=== PATIENT | male | born 1960 | race Caucasian/White ===

== ENCOUNTER 2020-05-05 12:25 | Inpatient (IN) | payer MEDICAID ==
[~2020-05-05] VITALS: Ht 170.2 cm; Wt 66.0 kg
[2020-05-05] MEDS: IPRATROPIUM BROMIDE 0.5 MG/2.5 ML NEBU. NEB SCH ×2 (08:40→16:00)
[~2020-05-05 12:25] MED LIST: ASPI-482 PO; ATOR10TA60 PO; CARV3.12 PO; CLOP75TA57 PO; CRESTOR40 MG PO; LISI10TA2 PO; METO-239 PO; METO25TA4 PO; MORP30TA83 PO; NITR0.4T22 SL; OXYC1TAB22 PO; PREG300C PO; RANO500T2 PO; TIOT18CA IH; TRAM50TA PO
--- NOTE | 2020-05-05 12:46 | EKG ---
[facility] [address] [place] [address] Test Date: 2020-05-05 Test Time: 12:38:37 Pat Name: CARMELA JOSEPH Department: Room: Gender: M Medical File Clerk: : 1960 Requested By: DESI GIRARD Order Number: [id number] Reading MD: Measurements Intervals [place] Rate: 83 P: 52 LA: 148 QRS: -16 QRSD: 142 T: 154 QT: 408 QTc: 486 Interpretive Statements SINUS RHYTHM VENTRICULAR PREMATURE COMPLEX(ES) LEFT ATRIAL ABNORMALITY CONSIDER WPW, TYPE B LEFTWARD AXIS QRS(T) CONTOUR ABNORMALITY CONSIDER ANTEROSEPTAL MYOCARDIAL DAMAGE ST & T ABNORMALITY, CONSIDER LATERAL ISCHEMIA OR LEFT VENTRICULAR STRAIN ABNORMAL ECG RI6.02 No previous ECG available for comparison
[2020-05-05] MEDS ORDERED: fentaNYL PF VIAL 100 MCG/2 ML VIAL IV ONE (13:15)
[2020-05-05] MEDS ORDERED: ONDANSETRON PF 4 MG/2 ML VIAL. IV ONE (13:15)
[2020-05-05 13:18] LABS: BASO # 0.1 x10^3/uL (0.0-0.2); BASO % 1 % (0-3); EOS # 0.2 x10^3/uL (0.0-0.7); EOS % 5 % (0-3); HEMATOCRIT 26.8 % (39.0-53.0); HEMOGLOBIN 8.9 g/dL (13.0-17.5); LYMPH # 1.1 x10^3/uL (1.0-4.8); LYMPH % 20 % (24-48); MEAN CORPUSCULAR HEMOGLOBIN 27 pg (25-35); MEAN CORPUSCULAR HGB CONC 33 g/dL (31-37); MEAN CORPUSCULAR VOLUME 80 fL (79-100); MONO # 0.7 x10^3/uL (0.0-1.1); MONO % 13 % (0-9); NEUT # 3.3 x10^3/uL (1.8-7.7); NEUT % 61 % (31-73); PLATELET COUNT 266 x10^3/uL (140-400); RED BLOOD COUNT 3.36 x10^6/uL (4.30-5.70); RED CELL DISTRIBUTION WIDTH 16.7 % (11.5-14.5); WHITE BLOOD COUNT 5.4 x10^3/uL (4.0-11.0)
[2020-05-05 13:28] LABS: PROTHROMBIN TIME PATIENT 13.8 SEC (11.7-14.0)
--- NOTE | 2020-05-05 13:29 | RAD ---
CHEST AP ONLY History: Reason: chest pain / Spl. Instructions: / History: Comparison: November 17, 2019 Findings: Patchy bibasilar opacities, unchanged. No pleural effusion. No pneumothorax. Left-sided ICD, unchanged. Normal heart size. Impression: 1. Patchy bibasilar opacities, likely atelectasis. Electronically signed by: Lennox Mcfarland DO (05/05/2020 1:26 PM) [id number]
[2020-05-05 13:34] LABS: CALCIUM 8.1 mg/dL (8.5-10.1); CREATININE 1.2 mg/dL (0.7-1.3); GFR 61.8
[2020-05-05 13:36] LABS: ALBUMIN 3.2 g/dL (3.4-5.0); ALBUMIN/GLOBULIN RATIO 0.9 (1.0-1.7); TOTAL BILIRUBIN 0.3 mg/dL (0.2-1.0); TOTAL PROTEIN 6.8 g/dL (6.4-8.2)
[2020-05-05 13:37] LABS: BILIRUBIN,URINE NEGATIVE (NEG); CLARITY,URINE CLEAR; COLOR,URINE YELLOW; NITRITE,URINE NEGATIVE (NEG); PROTEIN,URINE NEGATIVE (NEG-TRACE)
--- NOTE | 2020-05-05 13:53 | PHYS DOC ---
Past Medical History Past Medical History: Asthma, CAD, CHF, CVA, High Cholesterol, Hypertension, [place], Other Additional Past Medical Histor: VTACH Past Surgical History: Pacemaker, Splenectomy, Other Additional Past Surgical Histo: 12 cardiac stents, multiple cardiac catheterizations,WITH DEFIB Smoking Status: Current Every Day Smoker Alcohol Use: Rarely Drug Use: None General Adult EDM: Chief Complaint: CHEST PAIN HPI: HPI: Patient is a 59 year old male who presents to the emergency department via EMS today with complaints of a sudden onset of left-sided chest pain that radiates to the left side of his neck, his left shoulder, and down his left arm while he was at the [facility] today. Patient states he lives down at the [facility] but is up here visiting. He reports feeling tired this morning but denies any recent fever, cough, body aches, chills, shortness of breath, nausea, vomiting, diarrhea, abdominal pain, or palpations. He states he had just arrived at the [facility] when the pain developed and he became diaphoretic. Patient reports a sig nificant history of at least 4 MIs, 12 cardiac stents, multiple heart caths, coronary artery disease, CVA, high blood pressure, high cholesterol, and asthma. He states that when the chest pain developed he took 3 nitroglycerin tablets the pain went from a 8/10 to a 6/10 but quickly returned right back up to 8. He smokes 1/2 ppd of cigartettes. EMS gave the patient 324 mg of aspirin in route to the ER. He currently rates the pain 8 out of 10 on the pain scale describes it as a sharp constant pain that radiates to the left shoulder, left neck, and down the left arm. He denies any known exposure to anyone with COVID-19. Review of Systems: Review of Systems: Constitutional: Denies fever or chills. [] Eyes: Denies change in visual acuity. [] HENT: Denies nasal congestion or sore throat. [] Respiratory: Denies cough or shortness of breath. [] Cardiovascular: Denies palpitations or edema; see HPI. [] GI: Denies abdominal pain, nausea, vomiting, or diarrhea. [] : Denies dysuria. [] Musculoskeletal: Denies back pain or joint pain. [] Integument: Denies rash; see HPI [] Neurologic: Denies headache, focal weakness or sensory changes. [] Psychiatric: Denies depression or anxiety. [] Heart Score: HEART Score for Chest Pain: HEART Score for Chest Pain Response (Comments) Value History Moderately Suspicious 1 ECG Nonspecific Repolarizatio 1 Age >45 - < 65 1 Risk Factors >3 Risk Factors or Hx CAD 2 Troponin < Normal Limit 0 Total 5 Risk Factors: Risk Factors: DM, Current or recent (<one month) smoker, HTN, HLP, family history of CAD, obesity. Risk Scores: Score 0 - 3: 2.5% MACE over next 6 weeks - Discharge Home Score 4 - 6: 20.3% MACE over next 6 weeks - Admit for Clinical Observation Score 7 - 10: 72.7% MACE over next 6 weeks - Early Invasive Strategies Current Medications: Current Medications Medications (Trade) Dose Ordered Sig/Ani Start Time Stop Time Status Last Admin Dose Admin Fentanyl Citrate (Fentanyl 2ml Vial) 50 mcg 1X ONCE 05/05/20 13:15 05/05/20 13:16 DC 05/05/20 13:17 50 MCG Ondansetron HCl (Zofran) 4 mg 1X ONCE 05/05/20 13:15 05/05/20 13:16 DC 05/05/20 13:17 4 MG Allergies: Allergies: Allergies Coded Allergies Type Severity Reaction Last Updated Verified albuterol Adverse Reaction Intermediate 11/18/19 Yes ibuprofen Adverse Reaction Intermediate Nausea and Vomiting 11/18/19 Yes Physical Exam: PE: Constitutional: Well developed, well nourished, no acute distress, non-toxic appearance. [] HENT: Normocephalic, atraumatic, bilateral external ears normal, nose normal. [] Eyes: PERRLA, EOMI, conjunctiva normal, no discharge. [] Neck: Normal range of motion, no stridor. [] Cardiovascular:Heart rate regular rhythm, no murmur [] Lungs & Thorax: Bilateral breath sounds coarse posteriorly, clear in upper ehrnandez bilaterally, no retractions, regular rate Abdomen: soft, no tenderness Skin: Warm, dry, no erythema, no rash. [] Back: No tenderness, no CVA tenderness. [] Extremities: No cyanosis, no clubbing, ROM intact, no edema. [] Neurologic: Alert and oriented X 3, no focal deficits noted. [] Psychologic: Affect normal, judgement normal, mood normal. [] Current Patient Data: Labs: Laboratory Tests Test 05/05/20 13:00 White Blood Count 5.4 x10^3/uL (4.0-11.0) Red Blood Count 3.36 x10^6/uL (4.30-5.70) L Hemoglobin 8.9 g/dL (13.0-17.5) L Hematocrit 26.8 % (39.0-53.0) L Mean Corpuscular Volume 80 fL (79-100) Mean Corpuscular Hemoglobin 27 pg (25-35) Mean Corpuscular Hemoglobin Concent 33 g/dL (31-37) Red Cell Distribution Width 16.7 % (11.5-14.5) H Platelet Count 266 x10^3/uL (140-400) Neutrophils (%) (Auto) 61 % (31-73) Lymphocytes (%) (Auto) 20 % (24-48) L Monocytes (%) (Auto) 13 % (0-9) H Eosinophils (%) (Auto) 5 % (0-3) H Basophils (%) (Auto) 1 % (0-3) Neutrophils # (Auto) 3.3 x10^3/uL (1.8-7.7) Lymphocytes # (Auto) 1.1 x10^3/uL (1.0-4.8) Monocytes # (Auto) 0.7 x10^3/uL (0.0-1.1) Eosinophils # (Auto) 0.2 x10^3/uL (0.0-0.7) Basophils # (Auto) 0.1 x10^3/uL (0.0-0.2) Prothrombin Time 13.8 SEC (11.7-14.0) Prothrombin Time INR 1.1 (0.8-1.1) Activated Partial Thromboplast Time 33 SEC (24-38) Laboratory Tests 05/05/20 13:00 Vital Signs: Vital Signs Date Time Temp Pulse Resp B/P (MAP) Pulse Ox O2 Delivery O2 Flow Rate FiO2 05/05/20 12:30 98.3 84 20 122/78 (93) 99 Room Air 98.3 EKG: EK-sinus rhythm with PVCs, left atrial abnormality, rate 83, no STEMI, read by Dr. Dennison [] Radiology/Procedures: Radiology/Procedures: PROCEDURE: CHEST AP ONLY CHEST AP ONLY History: Reason: chest pain / Spl. Instructions: / History: Comparison: November 17, 2019 Findings: Patchy bibasilar opacities, unchanged. No pleural effusion. No pneumothorax. Left-sided ICD, unchanged. Normal heart size. Impression: 1. Patchy bibasilar opacities, likely atelectasis. [] Course & Med Decision Making: Course & Med Decision Making Pertinent Labs and Imaging studies reviewed. (See chart for details) 1408-spoke with Dr. Jordan who is the admitting physician, and care was assumed following discussion of patient. Will admit the patient for chest pain and a nemia to CBC Patient's vital signs stable. Patient remains afebrile, appears nontoxic, respirations even and unlabored. Patient's case and plan of care also discussed with Dr. Dennison [] Sendy Disclaimer: Sendy Disclaimer: This electronic medical record was generated, in whole or in part, using a voice recognition dictation system. Departure Departure Impression: Primary Impression: Chest pain Qualified Codes: R07.9 - Chest pain, unspecified Additional Impression: Anemia Qualified Codes: D64.9 - Anemia, unspecified Disposition: ADMITTED INPATIENT Admitting Physician: DEJUAN SEGURA) Condition: GOOD Referrals: NO PCP (PCP) Justicifation of Admission Dx: Justifications for Admission: Justification of Admission Dx: Yes Sepsis: Bacteremia DESI GIRARD BLUEPRINT CUTTER May 05, 2020 13:53
[2020-05-05 13:55] LABS: WBC,URINE 0 /HPF (0-4)
[2020-05-05 13:56] LABS: AMORPHOUS SEDIMENT,UR PRESENT /HPF; BACTERIA,URINE 0 /HPF (0-FEW)
--- NOTE | 2020-05-05 14:24 | PDOC1 ---
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 Happened in the [employer] and currently visiting from the [facility] where he lives. Took 3 NTG with improvement of pain from 08/06 to 04/06 and had 324mg ASA enroute from EMS. No nausea or vomiting no chills no fever no recent sick contacts. He has shortness of breath at its baseline. He notes he takes Spiriva only as an inhaler and would like to continue to do so. Troponin negative, BNP 5044, NA 141, K4, BUN 10, CR 1.2, glucose 91, WBC 5.4 currently Hb 8.9 with prior of 13 noted INR 1.1 platelets 266. EKG with lateral TWI and leftward axis, no STEMI. Chest x-ray with patchy bibasilar opacities unchanged from prior, likely atelectasis. Historically with multiple PCIs- LHC at [facility] Oct 2017 showed showed patent mid LAD stent, patent 1st diagonal stent, total chronic occlusion of first obtuse marginal with territory infarct but no indication for PCI, patent stent in left AV groove artery, patent stent in LPDA, non-dominant 100 % stenosis of proximal RCA. Seen by cardiology here in October. He does continue to smoke states he smokes less than half pack a day, he is asking me for food and would like to talk about pain medications that he can go home on. I advised him that given his history of substance abuse this is ill advised. Admit for further work-up of his coronary artery disease Past Medical History Cardiovascular: CAD, CHF, HTN, Hyperlipidemia, Other Pulmonary: Asthma CENTRAL NERVOUS SYSTEM: CVA GI: GERD Heme/Onc: No pertinent hx Hepatobiliary: No pertinent hx Psych: Anxiety Musculoskeletal: Osteoarthritis Rheumatologic: No pertinent hx Infectious disease: No pertinent hx Renal/: No pertinent hx Endocrine: No pertinent hx Past Surgical History Past Surgical History: Pacemaker, Other Family History Family History: Coronary Artery Disease, Diabetes, Heart Disease, Hypertension Social History Smoke: <1 pack per day ALCOHOL: none Drugs: Crystal meth (In remission), Other Current Medications Current Medications Current Medications Fentanyl Citrate (Fentanyl 2ml Vial) 50 mcg 1X ONCE IV Last administered on 05/05/20at 13:17; Start 05/05/20 at 13:15; Stop 05/05/20 at 13:16; Status DC Ondansetron HCl (Zofran) 4 mg 1X ONCE IV Last administered on 05/05/20at 13:17; Start 05/05/20 at 13:15; Stop 05/05/20 at 13:16; Status DC Active Scripts Active Reported Spiriva (Tiotropium Wilson) 18 Mcg Cap.w.dev 1 Cap IH DAILY Atorvastatin Calcium 10 Mg Tablet 10 Mg PO HS Metoprolol Succinate ( Xl ) (Metoprolol Succinate) 25 Mg Tab.er.24h 12.5 Mg PO DAILY Spiriva (Tiotropium Wilson) 18 Mcg Cap.w.dev 1 Cap IH DAILY Ms Contin (Morphine Sulfate) 30 Mg Tablet.er 1 Tab PO BID PRN NITROGLYCERIN SubLingual (Nitroglycerin) 0.4 Mg Tab.subl 0.4 Mg SL PRN Q5MIN PRN Lyrica (Pregabalin) 300 Mg Capsule 1 Cap PO BID Plavix (Clopidogrel Bisulfate) 75 Mg Tablet 75 Mg PO DAILY Aspir 81 (Aspirin) 81 Mg Tablet.dr 1 Tab PO DAILY Allergies Allergies: Coded Allergies: albuterol (Verified Adverse Reaction, Intermediate, 11/18/19) Patient states "it speeds my heart up too much" ibuprofen (Verified Adverse Reaction, Intermediate, Nausea and Vomiting, 11/18/19) ROS General: YES: Fatigue, Malaise; No: Chills, Night Sweats, Appetite, Other PSYCHOLOGICAL ROS: YES: Anxiety; No: Behavioral Disorder, Concentration difficultie, Decreased libido, Depression, Disorientation, Hallucinations, Hostility, Irritablity, Memory difficulties, Mood Swings, Obsessive thoughts, Physical abuse, Sexual abuse, Sleep disturbances, Suicidal ideation, Other Eyes: No Blurry vision, No Decreased vision, No Double vision, No Dry eyes, No Excessive tearing, No Eye Pain, No Itchy Eyes, No Loss of vision, No Photophobia, No Scotomata, No Uses contacts, No Uses glasses, No Other HEENT: No: Heacaches, Visual Changes, Hearing change, Nasal congestion, Nasal discharge, Oral lesions, Sinus pain, Sore Throat, Epistaxis, Sneezing, Snoring, Tinnitus, Vertigo, Vocal changes, Other ALLERGY AND IMMUNOLOGY: No: Hives, Insect Bite Sensitivity, Itchy/Watery Eyes, Nasal Congestion, Post Nasal Drip, Seasonal Allergies, Other Hematological and Lymphatic: No: Bleeding Problems, Blood Clots, Blood Transfusions, Brusing, Night Sweats, Pallor, Swollen Lymph Nodes, Other ENDOCRINE: No: Breast Changes, Galactorrhea, Hair Pattern Changes, Hot Flashes, Malaise/lethargy, Mood Swings, Palpitations, Polydipsia/polyuria, Skin Changes, Temperature Intolerance, Unexpected Weight Changes, Other Breast: No New/Changing Breast Lumps, No Nipple changes, No Nipple discharge, No Other Respiratory: YES: Shortness of breath, Wheezing; No: Cough, Hemoptysis, Orthopnea, Pleuritic Pain, SOB with excertion, Sputum Changes, Stridor, Tachypnea, Other Cardiovascular: yes Chest Pain; No Palpitations, No Orthopnea, No Paroxysmal Noc. Dyspnea, No Edema, No Lt Headedness, No Other Gastrointestinal: No Nausea, No Vomiting, No Abdominal Pain, No Diarrhea, No Constipation, No Melena, No Hematochezia, No Other Genitourinary: No Dysuria, No Frequency, No Incontinence, No Hematuria, No Retention, No Discharge, No Urgency, No Pain, No Flank Pain, No Other, No , No , No , No , No , No , No Musculoskeletal: No Gait Disturbance, No Joint Pain, No Joint Stiffness, No Joint Swelling, No Muscle Pain, No Muscular Weakness, No Pain In:, No Swelling In:, No Other Neurological: No Behavorial Changes, No Bowel/Bladder ControlChng, No Confusion, No Dizziness, No Gait Disturbance, No Headaches, No Impaired Coord/balance, No Memory Loss, No Numbness/Tingling, No Seizures, No Speech P roblems, No Tremors, No Visual Changes, No Weakness, No Other Skin: No Dry Skin, No Eczema, No Hair Changes, No Lumps, No Mole Changes, No Mottling, No Nail Changes, No Pruritus, No Rash, No Skin Lesion Changes, No Other, No Acne Physical Exam General: Alert, Oriented X3, Cooperative, No acute distress HEENT: Atraumatic, PERRLA, EOMI, Mucous membr. moist/pink Lungs: Other (scattered wheezing) Heart: S1S2, RRR, no thrills, no rubs, no gallops, no murmurs Abdomen: Normal bowel sounds, Soft, No tenderness, No hepatosplenomegaly, No masses Rectal Exam: not examined Extremities: No clubbing, No cyanosis, No edema, Normal pulses, No tenderness/swelling Skin: No rashes, No breakdown, No significant lesion, Other (thrombophlebitis scarring) Neuro: Normal gait, Normal speech, Strength at 5/5 X4 ext, Normal tone, Sensation intact, Cranial nerves 3-12 NL, Reflexes 2+ Psych/Mental Status: Mental status NL, Mood NL Vitals Vitals Vital Signs Date Time Temp Pulse Resp B/P (MAP) Pulse Ox O2 Delivery O2 Flow Rate FiO2 05/05/20 13:29 78 107/65 (79) 97 Room Air 05/05/20 12:30 98.3 20 98.3 Labs Labs Laboratory Tests Test 05/05/20 13:00 05/05/20 13:24 White Blood Count 5.4 x10^3/uL (4.0-11.0) Red Blood Count 3.36 x10^6/uL (4.30-5.70) Hemoglobin 8.9 g/dL (13.0-17.5) Hematocrit 26.8 % (39.0-53.0) Mean Corpuscular Volume 80 fL (79-100) Mean Corpuscular Hemoglobin 27 pg (25-35) Mean Corpuscular Hemoglobin Concent 33 g/dL (31-37) Red Cell Distribution Width 16.7 % (11.5-14.5) Platelet Count 266 x10^3/uL (140-400) Neutrophils (%) (Auto) 61 % (31-73) Lymphocytes (%) (Auto) 20 % (24-48) Monocytes (%) (Auto) 13 % (0-9) Eosinophils (%) (Auto) 5 % (0-3) Basophils (%) (Auto) 1 % (0-3) Neutrophils # (Auto) 3.3 x10^3/uL (1.8-7.7) Lymphocytes # (Auto) 1.1 x10^3/uL (1.0-4.8) Monocytes # (Auto) 0.7 x10^3/uL (0.0-1.1) Eosinophils # (Auto) 0.2 x10^3/uL (0.0-0.7) Basophils # (Auto) 0.1 x10^3/uL (0.0-0.2) Prothrombin Time 13.8 SEC (11.7-14.0) Prothromb Time International Ratio 1.1 (0.8-1.1) Activated Partial Thromboplast Time 33 SEC (24-38) Sodium Level 141 mmol/L (136-145) Potassium Level 4.0 mmol/L (3.5-5.1) Chloride Level 105 mmol/L (98-107) Carbon Dioxide Level 30 mmol/L (21-32) Anion Gap 6 (6-14) Blood Urea Nitrogen 10 mg/dL (8-26) Creatinine 1.2 mg/dL (0.7-1.3) Estimated GFR (Cockcroft-Gault) 61.8 BUN/Creatinine Ratio 8 (6-20) Glucose Level 91 mg/dL (70-99) Calcium Level 8.1 mg/dL (8.5-10.1) Magnesium Level 2.0 mg/dL (1.8-2.4) Total Bilirubin 0.3 mg/dL (0.2-1.0) Aspartate Amino Transf (AST/SGOT) 16 U/L (15-37) Alanine Aminotransferase (ALT/SGPT) 19 U/L (16-63) Alkaline Phosphatase 88 U/L (46-116) Creatine Kinase 125 U/L (39-308) Creatine Kinase MB (Mass) 0.9 ng/mL (0.0-3.6) Creatine Kinase MB Relative Index 0.7 % (0-4) Troponin I Quantitative < 0.017 ng/mL (0.000-0.055) HU-Luw-R-Type Natriuretic Peptide 5044 pg/mL (0-124) Total Protein 6.8 g/dL (6.4-8.2) Albumin 3.2 g/dL (3.4-5.0) Albumin/Globulin Ratio 0.9 (1.0-1.7) Lipase 94 U/L (73-393) Urine Collection Type Unknown Urine Color Yellow Urine Clarity Clear Urine pH 7.0 (<5.0-8.0) Urine Specific [place] 1.010 (1.000-1.030) Urine Protein Negative mg/dL (NEG-TRACE) Urine Glucose (UA) Negative mg/dL (NEG) Urine Ketones (Stick) Negative mg/dL (NEG) Urine Blood Negative (NEG) Urine Nitrite Negative (NEG) Urine Bilirubin Negative (NEG) Urine Urobilinogen Dipstick 1.0 mg/dL (0.2 mg/dL) Urine Leukocyte Esterase Negative (NEG) Urine RBC 1-2 /HPF (0-2) Urine WBC 0 /HPF (0-4) Urine Amorphous Sediment Present /HPF Urine Bacteria 0 /HPF (0-FEW) Laboratory Tests Test 05/05/20 13:00 05/05/20 13:24 White Blood Count 5.4 x10^3/uL (4.0-11.0) Red Blood Count 3.36 x10^6/uL (4.30-5.70) Hemoglobin 8.9 g/dL (13.0-17.5) Hematocrit 26.8 % (39.0-53.0) Mean Corpuscular Volume 80 fL (79-100) Mean Corpuscular Hemoglobin 27 pg (25-35) Mean Corpuscular Hemoglobin Concent 33 g/dL (31-37) Red Cell Distribution Width 16.7 % (11.5-14.5) Platelet Count 266 x10^3/uL (140-400) Neutrophils (%) (Auto) 61 % (31-73) Lymphocytes (%) (Auto) 20 % (24-48) Monocytes (%) (Auto) 13 % (0-9) Eosinophils (%) (Auto) 5 % (0-3) Basophils (%) (Auto) 1 % (0-3) Neutrophils # (Auto) 3.3 x10^3/uL (1.8-7.7) Lymphocytes # (Auto) 1.1 x10^3/uL (1.0-4.8) Monocytes # (Auto) 0.7 x10^3/uL (0.0-1.1) Eosinophils # (Auto) 0.2 x10^3/uL (0.0-0.7) Basophils # (Auto) 0.1 x10^3/uL (0.0-0.2) Prothrombin Time 13.8 SEC (11.7-14.0) Prothromb Time International Ratio 1.1 (0.8-1.1) Activated Partial Thromboplast Time 33 SEC (24-38) Sodium Level 141 mmol/L (136-145) Potassium Level 4.0 mmol/L (3.5-5.1) Chloride Level 105 mmol/L (98-107) Carbon Dioxide Level 30 mmol/L (21-32) Anion Gap 6 (6-14) Blood Urea Nitrogen 10 mg/dL (8-26) Creatinine 1.2 mg/dL (0.7-1.3) Estimated GFR (Cockcroft-Gault) 61.8 BUN/Creatinine Ratio 8 (6-20) Glucose Level 91 mg/dL (70-99) Calcium Level 8.1 mg/dL (8.5-10.1) Magnesium Level 2.0 mg/dL (1.8-2.4) Total Bilirubin 0.3 mg/dL (0.2-1.0) Aspartate Amino Transf (AST/SGOT) 16 U/L (15-37) Alanine Aminotransferase (ALT/SGPT) 19 U/L (16-63) Alkaline Phosphatase 88 U/L (46-116) Creatine Kinase 125 U/L (39-308) Creatine Kinase MB (Mass) 0.9 ng/mL (0.0-3.6) Creatine Kinase MB Relative Index 0.7 % (0-4) Troponin I Quantitative < 0.017 ng/mL (0.000-0.055) PT-Iuz-K-Type Natriuretic Peptide 5044 pg/mL (0-124) Total Protein 6.8 g/dL (6.4-8.2) Albumin 3.2 g/dL (3.4-5.0) Albumin/Globulin Ratio 0.9 (1.0-1.7) Lipase 94 U/L (73-393) Urine Collection Type Unknown Urine Color Yellow Urine Clarity Clear Urine pH 7.0 (<5.0-8.0) Urine Specific [place] 1.010 (1.000-1.030) Urine Protein Negative mg/dL (NEG-TRACE) Urine Glucose (UA) Negative mg/dL (NEG) Urine Ketones (Stick) Negative mg/dL (NEG) Urine Blood Negative (NEG) Urine Nitrite Negative (NEG) Urine Bilirubin Negative (NEG) Urine Urobilinogen Dipstick 1.0 mg/dL (0.2 mg/dL) Urine Leukocyte Esterase Negative (NEG) Urine RBC 1-2 /HPF (0-2) Urine WBC 0 /HPF (0-4) Urine Amorphous Sediment Present /HPF Urine Bacteria 0 /HPF (0-FEW) Images Images CXR: Patchy bibasilar opacities, unchanged. No pleural effusion. No pneumothorax. Left-sided ICD, unchanged. Normal heart size. Impression: 1. Patchy bibasilar opacities, likely atelectasis. VTE Prophylaxis Ordered VTE Prophylaxis Devices: Yes VTE Pharmacological Prophylaxi: Yes Assessment/Plan Assessment/Plan A/P: Chest pain - high risk ACS given his history and lateral TWI, will trend troponins, telemetry, consult cardiology Ischemic cardiomyopathy -also with nonischemic cardiomyopathy due to methamphetamine use historically. Fluid dynamics seems stable. CAD - s/p x4 cardiac catherizations. multiple stents in the past. At least 12 stents reported. [place] s/p AICD - medtronic. Will consult cardiology. needs device interrogation HTN - cont meds HLD - cont meds Hx of IV meth use - sober for 5 months. Tox screen negative and sees a counselor through [facility] Tobaccoism -counseled on cessation he is nondistended nicotine patch states he will need to start smoking as soon as he leaves Anxiety/agitation -calmed with verbal counseling History of Drug seeking behavior -advised with his substance abuse history is high risk and should not be given an opioid prescription on discharge and to minimize opioids while inpatient FEN - Cardiac PPX - Lovenox FULL CODE Dispo - inpatient for high risk ACS Justicifation of Admission Dx: Justifications for Admission: Justification of Admission Dx: Yes DAVID ERNANDEZ MD May 05, 2020 14:24
[2020-05-05] MEDS: fentaNYL PF VIAL 100 MCG/2 ML VIAL IV PRN ×3 (14:56→21:03)
[2020-05-05] MEDS ORDERED: PANTOPRAZOLE 40 MG TABLET.DR. PO ONE (15:15)
[2020-05-05] MEDS ORDERED: NITROGLYCERIN SUBLINGUAL 0.4 MG BOTTLE OF 25. SL PRN (15:15)
[2020-05-05] MEDS ORDERED: CODEINE SULFATE 30 MG TABLET. PO PRN (15:15)
[2020-05-05 15:32] VITALS: BP 133/82
--- NOTE | 2020-05-05 15:53 | PDOC2 ---
NERI NUNN PHYSICIAN LIAISON 05/05/20 1553: CARDIAC CONSULT DATE OF CONSULT Date of Consult DATE: 05/05/20 TIME: 15:26 REASON FOR CONSULT Reason for Consult: Chest pain REFERRING PHYSICIAN Referring Physician: Tacho SOURCE Source: Chart review, Patient HISTORY OF PRESENT ILLNESS HISTORY OF PRESENT ILLNESS This is a 59 yo male admitted for complains of chest pain with radiation to left arm and jaw. This occurred while he is in the [facility] and currently visiting from the [facility]. He has taken 3 NTG and had some relief. Positive for fatigue but no SOA, n/v. He did became diaphoretic and has significant cardiac history with multiple stents in the past. EMS called and was given ASA. He was evaluated here in 10/2019 and actually has been evaluated at and [facility] in the past as well. He has ICM and has an AICD. He does have hx of noncompliance and continues to smoke tobacco. 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 No recent tress test nor TTE. He is somewhat irritable but cooperative. PAST MEDICAL HISTORY Past Medical History Cardiovascular: CAD, CHF (ICM), HTN, Hyperlipidemia, Other (VT) Pulmonary: Asthma CENTRAL NERVOUS SYSTEM: CVA GI: GERD Heme/Onc: No pertinent hx Hepatobiliary: No pertinent hx Psych: Anxiety Musculoskeletal: Osteoarthritis Rheumatologic: No pertinent hx Infectious disease: No pertinent hx ENT: No pertinent hx Renal/: No pertinent hx Endocrine: No pertinent hx Dermatology: No pertinent hx PAST SURGICAL HISTORY Past Surgical History Pacemaker (AICD), Other (multiple PCIs- LHC at [facility]' Oct 2017 showed showed patent mid LAD stent, patent 1st diagonal stent, total chronic occlusion of first obtuse marginal with territory infarct but no indication for PCI, patent stent in left AV groove artery, patent stent in LPDA, non-dominant 100 % stenosis of proximal RCA. ) FAMILY HISTORY Family History: Hypertension SOCIAL HISTORY Social History Smoke: <1 pack per day ALCOHOL: none Drugs: Other (hx of meth use) Lives: with Family CURRENT MEDICATIONS CURRENT MEDICATIONS Current Medications Medications (Trade) Dose Ordered Sig/Ani Route PRN Reason Start Time Stop Time Status Last Admin Dose Admin Fentanyl Citrate (Fentanyl 2ml Vial) 50 mcg 1X ONCE IV 05/05/20 13:15 05/05/20 13:16 DC 7/9/20 13:17 Ondansetron HCl (Zofran) 4 mg 1X ONCE IV 05/05/20 13:15 05/05/20 13:16 DC 05/05/20 13:17 Fentanyl Citrate (Fentanyl 2ml Vial) 50 mcg PRN Q1HR PRN IV PAIN 05/05/20 14:45 05/06/20 14:44 05/05/20 14:56 ALLERGIES ALLERGIES: Coded Allergies: albuterol (Verified Adverse Reaction, Intermediate, 11/18/19) Patient states "it speeds my heart up too much" ibuprofen (Verified Adverse Reaction, Intermediate, Nausea and Vomiting, 11/18/19) ROS Review of System 14 point ROS evaluated with pertinent positives noted per HPI PHYSICAL EXAM General: Alert, Oriented X3, Cooperative, No acute distress HEENT: Atraumatic, Mucous membr. moist/pink Lungs: Other (diminished bases) Heart: Regular rate (SR with LBBB), Normal S1, Normal S2 Abdomen: Soft, No tenderness Extremities: No cyanosis, No edema Skin: No breakdown, No significant lesion Neuro: Normal speech, Sensation intact Psych/Mental Status: Mental status NL, Other (irritable) MUSCULOSKELETAL: Osteoarthritic changes both hands VITALS/I&O VITALS/I&O: Vital Signs Date Time Temp Pulse Resp B/P (MAP) Pulse Ox O2 Delivery O2 Flow Rate FiO2 05/05/20 14:29 73 107/69 (82) 97 Room Air 05/05/20 12:30 98.3 20 98.3 LABS Lab: Laboratory Tests Test 05/05/20 13:00 05/05/20 13:24 White Blood Count 5.4 x10^3/uL (4.0-11.0) Red Blood Count 3.36 x10^6/uL (4.30-5.70) L Hemoglobin 8.9 g/dL (13.0-17.5) L Hematocrit 26.8 % (39.0-53.0) L Mean Corpuscular Volume 80 fL (79-100) Mean Corpuscular Hemoglobin 27 pg (25-35) Mean Corpuscular Hemoglobin Concent 33 g/dL (31-37) Red Cell Distribution Width 16.7 % (11.5-14.5) H Platelet Count 266 x10^3/uL (140-400) Neutrophils (%) (Auto) 61 % (31-73) Lymphocytes (%) (Auto) 20 % (24-48) L Monocytes (%) (Auto) 13 % (0-9) H Eosinophils (%) (Auto) 5 % (0-3) H Basophils (%) (Auto) 1 % (0-3) Neutrophils # (Auto) 3.3 x10^3/uL (1.8-7.7) Lymphocytes # (Auto) 1.1 x10^3/uL (1.0-4.8) Monocytes # (Auto) 0.7 x10^3/uL (0.0-1.1) Eosinophils # (Auto) 0.2 x10^3/uL (0.0-0.7) Basophils # (Auto) 0.1 x10^3/uL (0.0-0.2) Prothrombin Time 13.8 SEC (11.7-14.0) Prothrombin Time INR 1.1 (0.8-1.1) Activated Partial Thromboplast Time 33 SEC (24-38) D-Dimer (Destini) 0.63 ug/mlFEU (0.00-0.50) H Sodium Level 141 mmol/L (136-145) Potassium Level 4.0 mmol/L (3.5-5.1) Chloride Level 105 mmol/L (98-107) Carbon Dioxide Level 30 mmol/L (21-32) Anion Gap 6 (6-14) Blood Urea Nitrogen 10 mg/dL (8-26) Creatinine 1.2 mg/dL (0.7-1.3) Estimated GFR (Cockcroft-Gault) 61.8 BUN/Creatinine Ratio 8 (6-20) Glucose Level 91 mg/dL (70-99) Calcium Level 8.1 mg/dL (8.5-10.1) L Magnesium Level 2.0 mg/dL (1.8-2.4) Total Bilirubin 0.3 mg/dL (0.2-1.0) Aspartate Amino Transferase (AST) 16 U/L (15-37) Alanine Aminotransferase (ALT) 19 U/L (16-63) Alkaline Phosphatase 88 U/L (46-116) Creatine Kinase 125 U/L (39-308) Creatine Kinase MB (Mass) 0.9 ng/mL (0.0-3.6) Creatine Kinase MB Relative Index 0.7 % (0-4) Troponin I Quantitative < 0.017 ng/mL (0.000-0.055) BC-Tbi-A-Type Natriuretic Peptide 5044 pg/mL (0-124) H Total Protein 6.8 g/dL (6.4-8.2) Albumin 3.2 g/dL (3.4-5.0) L Albumin/Globulin Ratio 0.9 (1.0-1.7) L Lipase 94 U/L (73-393) Urine Collection Type Unknown Urine Color Yellow Urine Clarity Clear Urine pH 7.0 (<5.0-8.0) Urine Specific [place] 1.010 (1.000-1.030) Urine Protein Negative mg/dL (NEG-TRACE) Urine Glucose (UA) Negative mg/dL (NEG) Urine Ketones (Stick) Negative mg/dL (NEG) Urine Blood Negative (NEG) Urine Nitrite Negative (NEG) Urine Bilirubin Negative (NEG) Urine Urobilinogen Dipstick 1.0 mg/dL (0.2 mg/dL) Urine Leukocyte Esterase Negative (NEG) Urine RBC 1-2 /HPF (0-2) Urine WBC 0 /HPF (0-4) Urine Amorphous Sediment Present /HPF Urine Bacteria 0 /HPF (0-FEW) Laboratory Tests 05/05/20 13:00 Laboratory Tests 05/05/20 13:00 STRESS TEST STRESS TEST STRESS TEST [facility] 06/12/2018 Conclusion: Pharmacologic stress ECG is nondiagnostic for ischemia. Frequent ventricular bigeminy and trigeminy throughout the study. Pvygyfjet-ce-Oicwcqedbe Count Ratio: 0.4 (normal = or < 0.52). Scintigraphic (planar/tomographic): Planar images reveal enlarged left ventricle with decreased tracer uptake in the lateral segments. There is normal pulmonary tracer uptake. There is a mild degree of diaphragmatic attenuation present. No transient ischemic dilation is present. Tomographic images were reconstructed in three orthogonal views. There is moderate to large area of primarily fixed perfusion abnormality involving basal mid inferolateral segments of severe intensity. These areas do not appear to be viable. There are no significant reversible perfusion abnormalities. Polar coordinate map confirms the findings noted in the tomographic images. TID Ratio: 1.12 (normal <1.36). Summed Stress Score: 19 , Summed Rest Score: 16 Regional Wall Thickening and Motion Post Stress: Decreased wall motion and thickening noted in the inferior and inferolateral segments. Left Ventricular Ejection Fraction (post stress, in the resting state) = 24 %. Left Ventricular End Diastolic Volume: 155 mL SUMMARY/OPINION: This study is definitely abnormal. There is moderate to large area of primarily fixed perfusion abnormality involving basal mid inferolateral segments of severe intensity. These areas do not appear to be viable. There are no significant reversible perfusion abnormalities. Left ventricle is dilated with severely depressed left ventricular systolic function. There are no other high risk prognostic indicators present. The ECG portion of the study is nondiagnostic for ischemia. Frequent ventricular bigeminy and trigeminy throughout the study. Study was compared with the prior study dated 10/07/2017, pharmacological stress thallium study using DSPECT camera. Previous study was abnormal and demonstrated lateral fixed perfusion abnormality. Comparing the 2 studies there is no significant interval change in the perfusion pattern. Left ventricular ejection fraction is decreased from 42 to 24%. Left ventricle end-diastolic volume was 165 mL and pulmonary to myocardial count ratio was 0.33. ASSESSMENT/PLAN ASSESSMENT/PLAN 1. Chest pain: initial trop nml. EKG revealed LBBB which looks new 2. ICM/chronic systolic CHF: appears compensated 3. CAD; multiple stents in the past. At least 12 stents reported. see PCI report above 4. Hx of VT: not on antiarrhythmic 5. AICD in situ: medtronic 7. HTN: controlled 8. HLP: not on goal 9. Hx of meth use 10. Tobaccoism with likely COPD 11. Hx of anxiety 12. Hx of Drug seeking behavior 13. Normocytic anemia: Hgb 8.[address] [facility] is out of network per his insurance based on previous admission, Will verify with hospice case manager. If pt needs a [facility] then will need lateral transfer. Will provide x1 lovenox. 2. Trend troponin and will obtain serial EKGs. . UDS and lipid panel. 3. TTE 4. Restart home plavix and ASA and secondary prevention measures. 5. Smoking cessation. Will interrogate device and note any significant arrhythmias COREY LOPEZ MD 05/05/20 [id number]: CARDIAC CONSULT ASSESSMENT/PLAN ASSESSMENT/PLAN Patient seen and examined Discussed with our nurse practitioner and I agree with his assessment and plan. Chest pain. Initial troponin is normal. Extensive history of coronary artery disease as above. Left bundle branch block. Will continue medical treatment and rule out for myocardial infarction. Ischemic cardiomyopathy. Decreased LV function as noted above. Continuing present treatment. We will recheck an echo to update LV function. AICD. Will interrogate. Controlled hypertension. Hyperlipidemia. Will recheck labs and adjust medications as needed. COPD with continued tobacco use. Thank you for allowing us to participate in the care of your patient. NERI NUNN APRN May 05, 2020 15:53 COREY LOPEZ MD May 05, 2020 17:45
[2020-05-05 16:17] LABS: BARBITURATES NEG (NEG); BENZODIAZEPINES NEG (NEG); CANNABINOIDS NEG (NEG); COCAINE NEG (NEG); METHADONE NEG (NEG); OPIATES POS (NEG); PHENCYCLIDINE NEG (NEG)
[2020-05-05 16:19] LABS: AMPHETAMINE/METHAMPHETAMINE NEG (NEG)
[2020-05-05] MEDS ORDERED: ANTI-COAG MONITOR BY PHARMACY. MC PRN (17:15)
[2020-05-05 19:00] VITALS: BP 107/55
[2020-05-05] MEDS ORDERED: ATORVASTATIN CALCIUM 10 MG TABLET. PO SCH (21:00)
[2020-05-05] MEDS: PREGABALIN 75 MG CAPSULE PO SCH (21:02)
[2020-05-05 22:50] VITALS: BP 95/51
[2020-05-06] MEDS: fentaNYL PF VIAL 100 MCG/2 ML VIAL IV PRN ×4 (01:57→12:58)
[2020-05-06 02:17] VITALS: BP 98/55
[2020-05-06 05:17] LABS: BASO # 0.1 x10^3/uL (0.0-0.2); BASO % 2 % (0-3); EOS # 0.3 x10^3/uL (0.0-0.7); EOS % 9 % (0-3); HEMATOCRIT 26.8 % (39.0-53.0); LYMPH # 1.3 x10^3/uL (1.0-4.8); LYMPH % 37 % (24-48); MEAN CORPUSCULAR HEMOGLOBIN 26 pg (25-35); MEAN CORPUSCULAR HGB CONC 34 g/dL (31-37); MEAN CORPUSCULAR VOLUME 78 fL (79-100); MONO # 0.6 x10^3/uL (0.0-1.1); MONO % 17 % (0-9); NEUT # 1.2 x10^3/uL (1.8-7.7); NEUT % 35 % (31-73); PLATELET COUNT 264 x10^3/uL (140-400); RED BLOOD COUNT 3.42 x10^6/uL (4.30-5.70); RED CELL DISTRIBUTION WIDTH 16.8 % (11.5-14.5); WHITE BLOOD COUNT 3.5 x10^3/uL (4.0-11.0)
[2020-05-06 05:31] LABS: CREATININE 1.1 mg/dL (0.7-1.3); GFR 68.3; POTASSIUM 4.1 mmol/L (3.5-5.1)
[2020-05-06 05:46] LABS: CHOLESTEROL/HDL RATIO 5.2
[2020-05-06 07:00] VITALS: BP 95/52
[2020-05-06] MEDS ORDERED: PANTOPRAZOLE 40 MG TABLET.DR. PO SCH (07:30)
--- NOTE | 2020-05-06 08:55 | EKG ---
[facility] [address] [place] [address] Test Date: 2020-05-06 Test Time: 08:51:19 Pat Name: CARMELA JOSEPH Department: Room: 263 1 Gender: M [employer]: GABY : 1960 Requested By: NERI NUNN Order Number: [id number] Reading MD: Measurements Intervals [place] Rate: 70 P: 64 NC: 150 QRS: -10 QRSD: 140 T: 207 QT: 446 QTc: 485 Interpretive Statements SINUS RHYTHM VENTRICULAR PREMATURE COMPLEX(ES) CONSIDER WPW, TYPE B LEFTWARD AXIS LOW LIMB LEAD VOLTAGE QRS(T) CONTOUR ABNORMALITY CONSIDER ANTEROLATERAL MYOCARDIAL DAMAGE ST & T ABNORMALITY, CONSIDER RECENT ANTEROSEPTAL MYOCARDIAL OR PERICARDIAL DAMAGE ABNORMAL ECG RI6.02 Compared to ECG 05/05/2020 12:38:37 Atrial abnormality no longer present Possible ischemia no longer present T-wave abnormality still present
[2020-05-06] MEDS ORDERED: ASPIRIN ENTERIC COATED 81 MG TABLET.DR. PO SCH (09:00)
[2020-05-06] MEDS ORDERED: METOPROLOL SUCC 24HR ER 25 MG TAB.ER.24H. PO SCH (09:00)
[2020-05-06] MEDS ORDERED: CLOPIDOGREL BISULFATE 75 MG TABLET PO SCH (09:00)
--- NOTE | 2020-05-06 09:09 | PDOC ---
PROGRESS NOTES Chief Complaint Chief Complaint SURGICAL HISTORY Past Surgical History Pacemaker (AICD), Other (multiple PCIs- LHC at [facility] Oct 2017 showed showed patent mid LAD stent, patent 1st diagonal stent, total chronic occlusion of first obtuse marginal with territory infarct but no indication for PCI, patent stent in left AV groove artery, patent stent in LPDA, non-dominant 100 % stenosis of proximal RCA. 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 Fluid dynamics seems stable. CAD - s/p x4 cardiac catherizations. multiple stents in the past. At least 12 stents reported. VT s/p AICD - medtronic. Will consult cardiology. needs device interrogation Left ventricle systolic function is moderately impaired. EF 30-35%. severe global hypokinesis of the left ventricle. Tissue Doppler imaging reveals moderate left ventricular diastolic dysfunction.pacemaker lead in the right ventricle. moderate mitral regurgitation. Doppler and Color Flow revealed mild tricuspid regurgitation. There is moderate pulmonary hypertension HTN - cont meds HLD - cont meds Hx of IV meth use - sober for 5 months. Tox screen negative and sees a counselor through [facility] Tobaccoism -counseled on cessation he is nondistended nicotine patch states he will need to start smoking as soon as he leaves Anxiety/agitation -calmed with verbal counseling History of Drug seeking behavior -advised with his substance abuse history is high risk and should not be given an opioid prescription on discharge and to minimize opioids while inpatient LBBB // new intermittent hypotension microcytic anemia FEN - Cardiac PPX - Lovenox FULL CODE Dispo - inpatient for high risk ACS PLAN CVC BED Cardiology consult trend troponin i neg x 2 echo lovenox sq bid fe panel Follow up with his ems director in [place] and consider for outpt stress test. May DC per cardiac standpoint/ high risk of with meth abuse 38 min pt exam d/c planning , chart review, > 50% of time spent with exam, chart review, pt care coordination Justicifation of Admission Dx: Justicifation of Admission Dx: Justifications for Admission: Justification of Admission Dx: Yes Vitals Vitals Vital Signs Date Time Temp Pulse Resp B/P (MAP) Pulse Ox O2 Delivery O2 Flow Rate FiO2 05/06/20 07:00 97.7 80 14 95/52 (66) 98 Room Air 97.7 Physical Exam General: Alert, Oriented X3, Cooperative, No acute distress Heart: Regular rate (SR with LBBB), Normal S1, Normal S2 Lungs: Clear Abdomen: Normal bowel sounds, Soft, No tenderness, No hepatosplenomegaly, No masses Extremities: No clubbing, No cyanosis, No edema, Normal pulses, No tenderness/swelling Skin: No rashes, No breakdown, No significant lesion, Other (thrombophlebitis scarring) Labs LABS 2D DIMENSIONS RVDd 3.3 (2.9-3.5cm) Left Atrium(2D) 4.5 (1.6-4.0cm) IVSd 1.0 (0.7-1.1cm) Aortic Root(2D) 2.8 (2.0-3.7cm) LVDd 5.3 (3.9-5.9cm) LVOT Diameter 2.2 (1.8-2.4cm) PWd 1.0 (0.7-1.1cm) LVDs 4.8 (2.5-4.0cm) FS (%) 8.8 % SV 26.1 ml LVEF(%) 19.3 (>50%) Aortic Valve AoV Peak Colby. 114.3cm/s AoV VTI 20.1cm AO Peak GR. 5.2mmHg LVOT Peak Colby. 112.1cm/s LVOT VTI 20.80cm AO Mean GR. 3mmHg ROXY (VMAX) 3.64cm2 ROXY (VTI) 3.84cm2 Mitral Valve MV E Velocity 110.9cm/s MV DECEL TIME 195ms MV A Velocity 74.3cm/s MV PHT 56ms E/A Ratio 1.5 MVA (PHT) 3.90cm2 TDI E/Lateral E' 35.8 E/Medial E' 19.4 Tricuspid Valve TR P. Velocity 321cm/s RAP ESTIMATE 3mmHg TR Peak Gr. 41mmHg RVSP 44mmHg LEFT VENTRICLE The left ventricle is normal size. There is normal left ventricular wall thickness. Left ventricle systolic function is moderately impaired. EF 30-35%. There is severe global hypokinesis of the left ventricle. Tissue Doppler imaging reveals moderate left ventricular diastolic dysfunction. RIGHT VENTRICLE The right ventricle is normal size. The right ventricular systolic function is normal. There is a pacemaker lead in the right ventricle. ATRIA The left atrium is mildly dilated. The right atrium size is normal. A pacemaker is seen in the right atrium consistent with history. The interatrial septum is intact with no evidence for an atrial septal defect or patent foramen ovale as noted on 2-D or Doppler imaging. AORTIC VALVE The aortic valve is calcified but opens well. Doppler and Color Flow revealed mild aortic regurgitation. There is no significant aortic valvular stenosis. MITRAL VALVE The mitral valve is calcified but opens well. There is no evidence of mitral valve prolapse. There is no mitral valve stenosis. Doppler and Color-flow revealed moderate mitral regurgitation. TRICUSPID VALVE The tricuspid valve is normal in structure and function. Doppler and Color Flow revealed mild tricuspid regurgitation. There is moderate pulmonary hypertension. The PA pressure was estimated at 44 mmHg. There is no tricuspid valve stenosis. PULMONIC VALVE The pulmonic valve is not well visualized. Doppler and Color Flow revealed no pulmonic valvular regurgitation. There is no pulmonic valvular stenosis. GREAT VESSELS The aortic root is normal in size. The ascending aorta is not well seen. The IVC is normal in size and collapses >50% with inspiration. PERICARDIAL EFFUSION There is no evidence of significant pericardial effusion. Critical Notification Critical Value: No <Conclusion> Left ventricle systolic function is moderately impaired. EF 30-35%. There is severe global hypokinesis of the left ventricle. Tissue Doppler imaging reveals moderate left ventricular diastolic dysfunction. There is a pacemaker lead in the right ventricle. Doppler and Color-flow revealed moderate mitral regurgitation. Doppler and Color Flow revealed mild tricuspid regurgitation. There is moderate pulmonary hypertension. The PA pressure was estimated at 44 mmHg. Signed by : Kallie Chaney, Electronically Approved : 05/06/2020 09:30:13 DICTATED and SIGNED BY: KALLIE CHANEY MD DATE: 05/06/20 0907 CHEST AP ONLY History: Reason: chest pain / Spl. Instructions: / History: Comparison: November 17, 2019 Findings: Patchy bibasilar opacities, unchanged. No pleural effusion. No pneumothorax. Left-sided ICD, unchanged. Normal heart size. Impression: 1. Patchy bibasilar opacities, likely atelectasis. Electronically signed by: Lennox Pimentel DO (05/05/2020 1:26 PM) [id number] DICTATED and SIGNED BY: LENNOX PIMENTEL DO DATE: 05/05/20 1326 Laboratory Tests Test 05/05/20 13:00 05/05/20 13:24 05/05/20 18:00 05/06/20 00:20 White Blood Count 5.4 x10^3/uL (4.0-11.0) Red Blood Count 3.36 x10^6/uL (4.30-5.70) Hemoglobin 8.9 g/dL (13.0-17.5) Hematocrit 26.8 % (39.0-53.0) Mean Corpuscular Volume 80 fL (79-100) Mean Corpuscular Hemoglobin 27 pg (25-35) Mean Corpuscular Hemoglobin Concent 33 g/dL (31-37) Red Cell Distribution Width 16.7 % (11.5-14.5) Platelet Count 266 x10^3/uL (140-400) Neutrophils (%) (Auto) 61 % (31-73) Lymphocytes (%) (Auto) 20 % (24-48) Monocytes (%) (Auto) 13 % (0-9) Eosinophils (%) (Auto) 5 % (0-3) Basophils (%) (Auto) 1 % (0-3) Neutrophils # (Auto) 3.3 x10^3/uL (1.8-7.7) Lymphocytes # (Auto) 1.1 x10^3/uL (1.0-4.8) Monocytes # (Auto) 0.7 x10^3/uL (0.0-1.1) Eosinophils # (Auto) 0.2 x10^3/uL (0.0-0.7) Basophils # (Auto) 0.1 x10^3/uL (0.0-0.2) Prothrombin Time 13.8 SEC (11.7-14.0) Prothromb Time International Ratio 1.1 (0.8-1.1) Activated Partial Thromboplast Time 33 SEC (24-38) D-Dimer (Destini) 0.63 ug/mlFEU (0.00-0.50) Sodium Level 141 mmol/L (136-145) Potassium Level 4.0 mmol/L (3.5-5.1) Chloride Level 105 mmol/L (98-107) Carbon Dioxide Level 30 mmol/L (21-32) Anion Gap 6 (6-14) Blood Urea Nitrogen 10 mg/dL (8-26) Creatinine 1.2 mg/dL (0.7-1.3) Estimated GFR (Cockcroft-Gault) 61.8 BUN/Creatinine Ratio 8 (6-20) Glucose Level 91 mg/dL (70-99) Calcium Level 8.1 mg/dL (8.5-10.1) Magnesium Level 2.0 mg/dL (1.8-2.4) Total Bilirubin 0.3 mg/dL (0.2-1.0) Aspartate Amino Transf (AST/SGOT) 16 U/L (15-37) Alanine Aminotransferase (ALT/SGPT) 19 U/L (16-63) Alkaline Phosphatase 88 U/L (46-116) Creatine Kinase 125 U/L (39-308) Creatine Kinase MB (Mass) 0.9 ng/mL (0.0-3.6) Creatine Kinase MB Relative Index 0.7 % (0-4) Troponin I Quantitative < 0.017 ng/mL (0.000-0.055) < 0.017 ng/mL (0.000-0.055) < 0.017 ng/mL (0.000-0.055) PK-Vtk-Z-Type Natriuretic Peptide 5044 pg/mL (0-124) Total Protein 6.8 g/dL (6.4-8.2) Albumin 3.2 g/dL (3.4-5.0) Albumin/Globulin Ratio 0.9 (1.0-1.7) Lipase 94 U/L (73-393) Urine Collection Type Unknown Urine Color Yellow Urine Clarity Clear Urine pH 7.0 (<5.0-8.0) Urine Specific Tyler 1.010 (1.000-1.030) Urine Protein Negative mg/dL (NEG-TRACE) Urine Glucose (UA) Negative mg/dL (NEG) Urine Ketones (Stick) Negative mg/dL (NEG) Urine Blood Negative (NEG) Urine Nitrite Negative (NEG) Urine Bilirubin Negative (NEG) Urine Urobilinogen Dipstick 1.0 mg/dL (0.2 mg/dL) Urine Leukocyte Esterase Negative (NEG) Urine RBC 1-2 /HPF (0-2) Urine WBC 0 /HPF (0-4) Urine Amorphous Sediment Present /HPF Urine Bacteria 0 /HPF (0-FEW) Urine Opiates Screen Pos (NEG) Urine Methadone Screen Neg (NEG) Urine Barbiturates Neg (NEG) Urine Phencyclidine Screen Neg (NEG) Urine Amphetamine/Methamphetamine Neg (NEG) Urine Benzodiazepines Screen Neg (NEG) Urine Cocaine Screen Neg (NEG) Urine Cannabinoids Screen Neg (NEG) Urine Ethyl Alcohol Neg (NEG) Iron Level 24 ug/dL (65-175) Total Iron Binding Capacity 345 ug/dL (250-450) Iron Saturation 7 % (15-34) Triglycerides Level 154 mg/dL (0-150) Cholesterol Level 136 mg/dL (0-200) LDL Cholesterol, Calculated 79 mg/dL (0-100) VLDL Cholesterol, Calculated 31 mg/dL (0-40) Non-HDL Cholesterol Calculated 110 mg/dL (0-129) HDL Cholesterol 26 mg/dL (40-60) Cholesterol/HDL Ratio 5.2 Test 05/06/20 05:00 White Blood Count 3.5 x10^3/uL (4.0-11.0) Red Blood Count 3.42 x10^6/uL (4.30-5.70) Hemoglobin 9.0 g/dL (13.0-17.5) Hematocrit 26.8 % (39.0-53.0) Mean Corpuscular Volume 78 fL (79-100) Mean Corpuscular Hemoglobin 26 pg (25-35) Mean Corpuscular Hemoglobin Concent 34 g/dL (31-37) Red Cell Distribution Width 16.8 % (11.5-14.5) Platelet Count 264 x10^3/uL (140-400) Neutrophils (%) (Auto) 35 % (31-73) Lymphocytes (%) (Auto) 37 % (24-48) Monocytes (%) (Auto) 17 % (0-9) Eosinophils (%) (Auto) 9 % (0-3) Basophils (%) (Auto) 2 % (0-3) Neutrophils # (Auto) 1.2 x10^3/uL (1.8-7.7) Lymphocytes # (Auto) 1.3 x10^3/uL (1.0-4.8) Monocytes # (Auto) 0.6 x10^3/uL (0.0-1.1) Eosinophils # (Auto) 0.3 x10^3/uL (0.0-0.7) Basophils # (Auto) 0.1 x10^3/uL (0.0-0.2) Sodium Level 136 mmol/L (136-145) Potassium Level 4.1 mmol/L (3.5-5.1) Chloride Level 103 mmol/L (98-107) Carbon Dioxide Level 27 mmol/L (21-32) Anion Gap 6 (6-14) Blood Urea Nitrogen 10 mg/dL (8-26) Creatinine 1.1 mg/dL (0.7-1.3) Estimated GFR (Cockcroft-Gault) 68.3 Glucose Level 99 mg/dL (70-99) Calcium Level 8.0 mg/dL (8.5-10.1) Assessment and Plan Assessmemt and Plan Problems Medical Problems: (1) Anemia Status: Acute (2) Chest pain Status: Acute Comment Review of Relevant I have reviewed the following items kvng (where applicable) has been applied. Labs Laboratory Tests Test 05/05/20 13:00 05/05/20 13:24 05/05/20 18:00 05/06/20 00:20 White Blood Count 5.4 x10^3/uL (4.0-11.0) Red Blood Count 3.36 x10^6/uL (4.30-5.70) Hemoglobin 8.9 g/dL (13.0-17.5) Hematocrit 26.8 % (39.0-53.0) Mean Corpuscular Volume 80 fL (79-100) Mean Corpuscular Hemoglobin 27 pg (25-35) Mean Corpuscular Hemoglobin Concent 33 g/dL (31-37) Red Cell Distribution Width 16.7 % (11.5-14.5) Platelet Count 266 x10^3/uL (140-400) Neutrophils (%) (Auto) 61 % (31-73) Lymphocytes (%) (Auto) 20 % (24-48) Monocytes (%) (Auto) 13 % (0-9) Eosinophils (%) (Auto) 5 % (0-3) Basophils (%) (Auto) 1 % (0-3) Neutrophils # (Auto) 3.3 x10^3/uL (1.8-7.7) Lymphocytes # (Auto) 1.1 x10^3/uL (1.0-4.8) Monocytes # (Auto) 0.7 x10^3/uL (0.0-1.1) Eosinophils # (Auto) 0.2 x10^3/uL (0.0-0.7) Basophils # (Auto) 0.1 x10^3/uL (0.0-0.2) Prothrombin Time 13.8 SEC (11.7-14.0) Prothromb Time International Ratio 1.1 (0.8-1.1) Activated Partial Thromboplast Time 33 SEC (24-38) D-Dimer (Destini) 0.63 ug/mlFEU (0.00-0.50) Sodium Level 141 mmol/L (136-145) Potassium Level 4.0 mmol/L (3.5-5.1) Chloride Level 105 mmol/L (98-107) Carbon Dioxide Level 30 mmol/L (21-32) Anion Gap 6 (6-14) Blood Urea Nitrogen 10 mg/dL (8-26) Creatinine 1.2 mg/dL (0.7-1.3) Estimated GFR (Cockcroft-Gault) 61.8 BUN/Creatinine Ratio 8 (6-20) Glucose Level 91 mg/dL (70-99) Calcium Level 8.1 mg/dL (8.5-10.1) Magnesium Level 2.0 mg/dL (1.8-2.4) Total Bilirubin 0.3 mg/dL (0.2-1.0) Aspartate Amino Transf (AST/SGOT) 16 U/L (15-37) Alanine Aminotransferase (ALT/SGPT) 19 U/L (16-63) Alkaline Phosphatase 88 U/L (46-116) Creatine Kinase 125 U/L (39-308) Creatine Kinase MB (Mass) 0.9 ng/mL (0.0-3.6) Creatine Kinase MB Relative Index 0.7 % (0-4) Troponin I Quantitative < 0.017 ng/mL (0.000-0.055) < 0.017 ng/mL (0.000-0.055) < 0.017 ng/mL (0.000-0.055) UU-Ckd-S-Type Natriuretic Peptide 5044 pg/mL (0-124) Total Protein 6.8 g/dL (6.4-8.2) Albumin 3.2 g/dL (3.4-5.0) Albumin/Globulin Ratio 0.9 (1.0-1.7) Lipase 94 U/L (73-393) Urine Collection Type Unknown Urine Color Yellow Urine Clarity Clear Urine pH 7.0 (<5.0-8.0) Urine Specific Tyler 1.010 (1.000-1.030) Urine Protein Negative mg/dL (NEG-TRACE) Urine Glucose (UA) Negative mg/dL (NEG) Urine Ketones (Stick) Negative mg/dL (NEG) Urine Blood Negative (NEG) Urine Nitrite Negative (NEG) Urine Bilirubin Negative (NEG) Urine Urobilinogen Dipstick 1.0 mg/dL (0.2 mg/dL) Urine Leukocyte Esterase Negative (NEG) Urine RBC 1-2 /HPF (0-2) Urine WBC 0 /HPF (0-4) Urine Amorphous Sediment Present /HPF Urine Bacteria 0 /HPF (0-FEW) Urine Opiates Screen Pos (NEG) Urine Methadone Screen Neg (NEG) Urine Barbiturates Neg (NEG) Urine Phencyclidine Screen Neg (NEG) Urine Amphetamine/Methamphetamine Neg (NEG) Urine Benzodiazepines Screen Neg (NEG) Urine Cocaine Screen Neg (NEG) Urine Cannabinoids Screen Neg (NEG) Urine Ethyl Alcohol Neg (NEG) Iron Level 24 ug/dL (65-175) Total Iron Binding Capacity 345 ug/dL (250-450) Iron Saturation 7 % (15-34) Triglycerides Level 154 mg/dL (0-150) Cholesterol Level 136 mg/dL (0-200) LDL Cholesterol, Calculated 79 mg/dL (0-100) VLDL Cholesterol, Calculated 31 mg/dL (0-40) Non-HDL Cholesterol Calculated 110 mg/dL (0-129) HDL Cholesterol 26 mg/dL (40-60) Cholesterol/HDL Ratio 5.2 Test 05/06/20 05:00 White Blood Count 3.5 x10^3/uL (4.0-11.0) Red Blood Count 3.42 x10^6/uL (4.30-5.70) Hemoglobin 9.0 g/dL (13.0-17.5) Hematocrit 26.8 % (39.0-53.0) Mean Corpuscular Volume 78 fL (79-100) Mean Corpuscular Hemoglobin 26 pg (25-35) Mean Corpuscular Hemoglobin Concent 34 g/dL (31-37) Red Cell Distribution Width 16.8 % (11.5-14.5) Platelet Count 264 x10^3/uL (140-400) Neutrophils (%) (Auto) 35 % (31-73) Lymphocytes (%) (Auto) 37 % (24-48) Monocytes (%) (Auto) 17 % (0-9) Eosinophils (%) (Auto) 9 % (0-3) Basophils (%) (Auto) 2 % (0-3) Neutrophils # (Auto) 1.2 x10^3/uL (1.8-7.7) Lymphocytes # (Auto) 1.3 x10^3/uL (1.0-4.8) Monocytes # (Auto) 0.6 x10^3/uL (0.0-1.1) Eosinophils # (Auto) 0.3 x10^3/uL (0.0-0.7) Basophils # (Auto) 0.1 x10^3/uL (0.0-0.2) Sodium Level 136 mmol/L (136-145) Potassium Level 4.1 mmol/L (3.5-5.1) Chloride Level 103 mmol/L (98-107) Carbon Dioxide Level 27 mmol/L (21-32) Anion Gap 6 (6-14) Blood Urea Nitrogen 10 mg/dL (8-26) Creatinine 1.1 mg/dL (0.7-1.3) Estimated GFR (Cockcroft-Gault) 68.3 Glucose Level 99 mg/dL (70-99) Calcium Level 8.0 mg/dL (8.5-10.1) Laboratory Tests Test 05/05/20 13:00 05/05/20 13:24 05/05/20 18:00 05/06/20 00:20 White Blood Count 5.4 x10^3/uL (4.0-11.0) Red Blood Count 3.36 x10^6/uL (4.30-5.70) Hemoglobin 8.9 g/dL (13.0-17.5) Hematocrit 26.8 % (39.0-53.0) Mean Corpuscular Volume 80 fL (79-100) Mean Corpuscular Hemoglobin 27 pg (25-35) Mean Corpuscular Hemoglobin Concent 33 g/dL (31-37) Red Cell Distribution Width 16.7 % (11.5-14.5) Platelet Count 266 x10^3/uL (140-400) Neutrophils (%) (Auto) 61 % (31-73) Lymphocytes (%) (Auto) 20 % (24-48) Monocytes (%) (Auto) 13 % (0-9) Eosinophils (%) (Auto) 5 % (0-3) Basophils (%) (Auto) 1 % (0-3) Neutrophils # (Auto) 3.3 x10^3/uL (1.8-7.7) Lymphocytes # (Auto) 1.1 x10^3/uL (1.0-4.8) Monocytes # (Auto) 0.7 x10^3/uL (0.0-1.1) Eosinophils # (Auto) 0.2 x10^3/uL (0.0-0.7) Basophils # (Auto) 0.1 x10^3/uL (0.0-0.2) Prothrombin Time 13.8 SEC (11.7-14.0) Prothromb Time International Ratio 1.1 (0.8-1.1) Activated Partial Thromboplast Time 33 SEC (24-38) D-Dimer (Detsini) 0.63 ug/mlFEU (0.00-0.50) Sodium Level 141 mmol/L (136-145) Potassium Level 4.0 mmol/L (3.5-5.1) Chloride Level 105 mmol/L (98-107) Carbon Dioxide Level 30 mmol/L (21-32) Anion Gap 6 (6-14) Blood Urea Nitrogen 10 mg/dL (8-26) Creatinine 1.2 mg/dL (0.7-1.3) Estimated GFR (Cockcroft-Gault) 61.8 BUN/Creatinine Ratio 8 (6-20) Glucose Level 91 mg/dL (70-99) Calcium Level 8.1 mg/dL (8.5-10.1) Magnesium Level 2.0 mg/dL (1.8-2.4) Total Bilirubin 0.3 mg/dL (0.2-1.0) Aspartate Amino Transf (AST/SGOT) 16 U/L (15-37) Alanine Aminotransferase (ALT/SGPT) 19 U/L (16-63) Alkaline Phosphatase 88 U/L (46-116) Creatine Kinase 125 U/L (39-308) Creatine Kinase MB (Mass) 0.9 ng/mL (0.0-3.6) Creatine Kinase MB Relative Index 0.7 % (0-4) Troponin I Quantitative < 0.017 ng/mL (0.000-0.055) < 0.017 ng/mL (0.000-0.055) < 0.017 ng/mL (0.000-0.055) QV-Uun-A-Type Natriuretic Peptide 5044 pg/mL (0-124) Total Protein 6.8 g/dL (6.4-8.2) Albumin 3.2 g/dL (3.4-5.0) Albumin/Globulin Ratio 0.9 (1.0-1.7) Lipase 94 U/L (73-393) Urine Collection Type Unknown Urine Color Yellow Urine Clarity Clear Urine pH 7.0 (<5.0-8.0) Urine Specific Tyler 1.010 (1.000-1.030) Urine Protein Negative mg/dL (NEG-TRACE) Urine Glucose (UA) Negative mg/dL (NEG) Urine Ketones (Stick) Negative mg/dL (NEG) Urine Blood Negative (NEG) Urine Nitrite Negative (NEG) Urine Bilirubin Negative (NEG) Urine Urobilinogen Dipstick 1.0 mg/dL (0.2 mg/dL) Urine Leukocyte Esterase Negative (NEG) Urine RBC 1-2 /HPF (0-2) Urine WBC 0 /HPF (0-4) Urine Amorphous Sediment Present /HPF Urine Bacteria 0 /HPF (0-FEW) Urine Opiates Screen Pos (NEG) Urine Methadone Screen Neg (NEG) Urine Barbiturates Neg (NEG) Urine Phencyclidine Screen Neg (NEG) Urine Amphetamine/Methamphetamine Neg (NEG) Urine Benzodiazepines Screen Neg (NEG) Urine Cocaine Screen Neg (NEG) Urine Cannabinoids Screen Neg (NEG) Urine Ethyl Alcohol Neg (NEG) Iron Level 24 ug/dL (65-175) Total Iron Binding Capacity 345 ug/dL (250-450) Iron Saturation 7 % (15-34) Triglycerides Level 154 mg/dL (0-150) Cholesterol Level 136 mg/dL (0-200) LDL Cholesterol, Calculated 79 mg/dL (0-100) VLDL Cholesterol, Calculated 31 mg/dL (0-40) Non-HDL Cholesterol Calculated 110 mg/dL (0-129) HDL Cholesterol 26 mg/dL (40-60) Cholesterol/HDL Ratio 5.2 Test 05/06/20 05:00 White Blood Count 3.5 x10^3/uL (4.0-11.0) Red Blood Count 3.42 x10^6/uL (4.30-5.70) Hemoglobin 9.0 g/dL (13.0-17.5) Hematocrit 26.8 % (39.0-53.0) Mean Corpuscular Volume 78 fL (79-100) Mean Corpuscular Hemoglobin 26 pg (25-35) Mean Corpuscular Hemoglobin Concent 34 g/dL (31-37) Red Cell Distribution Width 16.8 % (11.5-14.5) Platelet Count 264 x10^3/uL (140-400) Neutrophils (%) (Auto) 35 % (31-73) Lymphocytes (%) (Auto) 37 % (24-48) Monocytes (%) (Auto) 17 % (0-9) Eosinophils (%) (Auto) 9 % (0-3) Basophils (%) (Auto) 2 % (0-3) Neutrophils # (Auto) 1.2 x10^3/uL (1.8-7.7) Lymphocytes # (Auto) 1.3 x10^3/uL (1.0-4.8) Monocytes # (Auto) 0.6 x10^3/uL (0.0-1.1) Eosinophils # (Auto) 0.3 x10^3/uL (0.0-0.7) Basophils # (Auto) 0.1 x10^3/uL (0.0-0.2) Sodium Level 136 mmol/L (136-145) Potassium Level 4.1 mmol/L (3.5-5.1) Chloride Level 103 mmol/L (98-107) Carbon Dioxide Level 27 mmol/L (21-32) Anion Gap 6 (6-14) Blood Urea Nitrogen 10 mg/dL (8-26) Creatinine 1.1 mg/dL (0.7-1.3) Estimated GFR (Cockcroft-Gault) 68.3 Glucose Level 99 mg/dL (70-99) Calcium Level 8.0 mg/dL (8.5-10.1) Medications Current Medications Fentanyl Citrate (Fentanyl 2ml Vial) 50 mcg 1X ONCE IV Last administered on 05/05/20at 13:17; Start 05/05/20 at 13:15; Stop 05/05/20 at 13:16; Status DC Ondansetron HCl (Zofran) 4 mg 1X ONCE IV Last administered on 05/05/20at 13:17; Start 05/05/20 at 13:15; Stop 05/05/20 at 13:16; Status DC Fentanyl Citrate (Fentanyl 2ml Vial) 50 mcg PRN Q1HR PRN IV PAIN Last administered on 05/06/20at 06:07; Start 05/05/20 at 14:45; Stop 05/06/20 at 14:44 Aspirin (Ecotrin) 81 mg DAILY PO ; Start 05/06/20 at 09:00 Atorvastatin Calcium (Lipitor) 10 mg HS PO Last administered on 05/05/20at 21:04; Start 05/05/20 at 21:00 Clopidogrel Bisulfate (Plavix) 75 mg DAILY PO ; Start 05/06/20 at 09:00 Metoprolol Succinate (Toprol Xl) 12.5 mg DAILY PO ; Start 05/06/20 at 09:00 Nitroglycerin (Nitrostat) 0.4 mg PRN Q5MIN PRN SL CHEST PAIN; Start 05/05/20 at 15:15 Ipratropium [place]ock (Atrovent) 0.5 mg RTQID NEB ; Start 05/05/20 at 16:00 Pregabalin (Lyrica) 300 mg BID PO Last administered on 05/05/20at 21:02; Start 05/05/20 at 21:00 Pantoprazole Sodium (Protonix) 40 mg 1X ONCE PO Last administered on 05/05/20at 16:15; Start 05/05/20 at 15:15; Stop 05/05/20 at 15:16; Status DC Pantoprazole Sodium (Protonix) 40 mg DAILYAC PO ; Start 05/06/20 at 07:30 Codeine Sulfate (Codeine) 15 mg PRN Q6HRS PRN PO PAIN; Start 05/05/20 at 15:15 Enoxaparin Sodium (Lovenox 80mg Syringe) 70 mg 1X ONCE SQ ; Start 05/05/20 at 16:45; Stop 05/05/20 at 16:46; Status DC Enoxaparin Sodium (Lovenox 80mg Syringe) 70 mg Q12HR SQ ; Start 05/06/20 at 09:00 Info (Anti-Coagulation Monitoring By Pharmacy) 1 each PRN DAILY PRN MC SEE COMMENTS; Start 05/05/20 at 17:15 Active Scripts Active Reported Spiriva (Tiotropium [place]annock) 18 Mcg Cap.w.dev 1 Cap IH DAILY Atorvastatin Calcium 10 Mg Tablet 10 Mg PO HS Metoprolol Succinate ( Xl ) (Metoprolol Succinate) 25 Mg Tab.er.24h 12.5 Mg PO DAILY Spiriva (Tiotropium [place]ann[place]) 18 Mcg Cap.w.dev 1 Cap IH DAILY Ms Contin (Morphine Sulfate) 30 Mg Tablet.er 1 Tab PO BID PRN NITROGLYCERIN SubLingual (Nitroglycerin) 0.4 Mg Tab.subl 0.4 Mg SL PRN Q5MIN PRN Lyrica (Pregabalin) 300 Mg Capsule 1 Cap PO BID Plavix (Clopidogrel Bisulfate) 75 Mg Tablet 75 Mg PO DAILY Aspir 81 (Aspirin) 81 Mg Tablet. 1 Tab PO DAILY Vitals/I & O Vital Sign - Last 24 Hours 05/05/20 05/05/20 05/05/20 05/05/20 12:30 12:56 13:29 14:29 Temp 98.3 98.3 Pulse 84 94 78 73 Resp 20 B/P (MAP) 122/78 (93) 105/68 (80) 107/65 (79) 107/69 (82) Pulse Ox 99 97 97 97 O2 Delivery Room Air Room Air Room Air Room Air 05/05/20 05/05/20 05/05/20 05/05/20 15:32 19:00 19:53 21:03 Temp 97.6 97.9 97.6 97.9 Pulse 92 80 Resp 20 18 18 B/P (MAP) 133/82 (99) 107/55 (72) Pulse Ox 98 98 98 O2 Delivery Room Air Room Air Room Air Room Air 05/05/20 05/05/20 05/06/20 05/06/20 21:33 22:50 01:57 02:17 Temp 97.8 97.8 97.8 97.8 Pulse 89 82 Resp 14 20 14 14 B/P (MAP) 95/51 (66) 98/55 (69) Pulse Ox 98 98 98 98 O2 Delivery Room Air Room Air Room Air Room Air 05/06/20 05/06/20 05/06/20 02:27 06:07 07:00 Temp 97.7 97.7 Pulse 80 Resp 16 16 14 B/P (MAP) 95/52 (66) Pulse Ox 98 98 98 O2 Delivery Room Air Room Air Room Air Intake and Output 05/05/20 05/05/20 05/06/20 15:00 23:00 07:00 Intake Total 724 ml 0 ml Balance 724 ml 0 ml Justicifation of Admission Dx: Justifications for Admission: Justification of Admission Dx: Yes Sepsis: Bacteremia ELISSA SHINE MD May 06, 2020 09:09
--- NOTE | 2020-05-06 09:30 | CARD ---
MR#: [id number] Date of Study: 05/06/2020 Ordering Physician: NERI NUNN, Referring Physician: NERI NUNN Tech: Kyung Nazario LAYLA APPROVED REPORT EXAM: Two-dimensional and M-mode echocardiogram with Doppler and color Doppler. Other Information Quality : Good INDICATION Cardiac Disease: CAD Chest Pain Surgery/Intervention ICD/Pacemaker: Date: 2012 2D DIMENSIONS RVDd3.3 (2.9-3.5cm)Left Atrium(2D)4.5 (1.6-4.0cm) IVSd1.0 (0.7-1.1cm)Aortic Root(2D)2.8 (2.0-3.7cm) LVDd5.3 (3.9-5.9cm)LVOT Diameter2.2 (1.8-2.4cm) PWd1.0 (0.7-1.1cm)LVDs4.8 (2.5-4.0cm) FS (%) 8.8 %SV26.1 ml LVEF(%)19.3 (>50%) Aortic Valve AoV Peak Col[place].114.3cm/sAoV VTI20.1cm AO Peak GR.5.2mmHgLVOT Peak [place].112.1cm/s LVOT VTI 20.80cmAO Mean GR.3mmHg ROXY (VMAX)3.28wz7NQK (VTI)3.84cm2 Mitral Valve MV E Fvclkdjw133.9cm/sMV DECEL RMDW729nd MV A Galwylkw52.3cm/sMV UUU41kv E/A Ratio1.5MVA (PHT)3.90cm2 TDI E/Lateral E'35.8E/Medial E'19.4 Tricuspid Valve TR P. Bdabggrj294in/sRAP RTFQDELA8ifGz TR Peak Gr.31bfAkRYNO55vkOl LEFT VENTRICLE The left ventricle is normal size. There is normal left ventricular wall thickness. Left ventricle sy stolic function is moderately impaired. EF 30-35%. There is severe global hypokinesis of the left hollie tricle. Tissue Doppler imaging reveals moderate left ventricular diastolic dysfunction. RIGHT VENTRICLE The right ventricle is normal size. The right ventricular systolic function is normal. There is a pac emaker lead in the right ventricle. ATRIA The left atrium is mildly dilated. The right atrium size is normal. A pacemaker is seen in the right atrium consistent with history. The interatrial septum is intact with no evidence for an atrial septa l defect or patent foramen ovale as noted on 2-D or Doppler imaging. AORTIC VALVE The aortic valve is calcified but opens well. Doppler and Color Flow revealed mild aortic regurgitati on. There is no significant aortic valvular stenosis. MITRAL VALVE The mitral valve is calcified but opens well. There is no evidence of mitral valve prolapse. There is no mitral valve stenosis. Doppler and Color-flow revealed moderate mitral regurgitation. TRICUSPID VALVE The tricuspid valve is normal in structure and function. Doppler and Color Flow revealed mild tricusp id regurgitation. There is moderate pulmonary hypertension. The PA pressure was estimated at 44 mmHg. There is no tricuspid valve stenosis. PULMONIC VALVE The pulmonic valve is not well visualized. Doppler and Color Flow revealed no pulmonic valvular regur gitation. There is no pulmonic valvular stenosis. GREAT VESSELS The aortic root is normal in size. The ascending aorta is not well seen. The IVC is normal in size an d collapses >50% with inspiration. PERICARDIAL EFFUSION There is no evidence of significant pericardial effusion. Critical Notification Critical Value: No <Conclusion> Left ventricle systolic function is moderately impaired. EF 30-35%. There is severe global hypokinesis of the left ventricle. Tissue Doppler imaging reveals moderate left ventricular diastolic dysfunction. There is a pacemaker lead in the right ventricle. Doppler and Color-flow revealed moderate mitral regurgitation. Doppler and Color Flow revealed mild tricuspid regurgitation. There is moderate pulmonary hypertensio n. The PA pressure was estimated at 44 mmHg. Signed by : Jeancarlos Chaney, Electronically Approved : 05/06/2020 09:30:13
[2020-05-06] MEDS: PREGABALIN 75 MG CAPSULE PO SCH (09:38)
[2020-05-06 11:00] VITALS: BP 110/66
[2020-05-06] MEDS: IPRATROPIUM BROMIDE 0.5 MG/2.5 ML NEBU. NEB SCH (11:35)
--- NOTE | 2020-05-06 11:50 | PDOC ---
NERI NUNN BUSINESS OPERATIONS DIRECTOR 05/06/20 1150: CARDIO Progress Notes Date and Time Date of Service 05/06/2020 Time of Evaluation 0930 Subjective Subjective: No Chest Pain, No shortness of breath, No Palpitations, Other (walking around in thehallway pacing without difficulty) Vitals Vitals Vital Signs Date Time Temp Pulse Resp B/P (MAP) Pulse Ox O2 Delivery O2 Flow Rate FiO2 05/06/20 11:00 97.8 83 14 110/66 (81) 99 Room Air 97.8 Weight Weight [ ] Input and Output Intake and Output Intake and Output 05/06/20 07:00 Intake Total 724 ml Balance 724 ml Intake Oral 724 ml # Voids 3 Laboratory Labs Laboratory Tests Test 05/05/20 13:00 05/05/20 13:24 05/05/20 18:00 05/06/20 00:20 White Blood Count 5.4 x10^3/uL (4.0-11.0) Red Blood Count 3.36 x10^6/uL (4.30-5.70) Hemoglobin 8.9 g/dL (13.0-17.5) Hematocrit 26.8 % (39.0-53.0) Mean Corpuscular Volume 80 fL (79-100) Mean Corpuscular Hemoglobin 27 pg (25-35) Mean Corpuscular Hemoglobin Concent 33 g/dL (31-37) Red Cell Distribution Width 16.7 % (11.5-14.5) Platelet Count 266 x10^3/uL (140-400) Neutrophils (%) (Auto) 61 % (31-73) Lymphocytes (%) (Auto) 20 % (24-48) Monocytes (%) (Auto) 13 % (0-9) Eosinophils (%) (Auto) 5 % (0-3) Basophils (%) (Auto) 1 % (0-3) Neutrophils # (Auto) 3.3 x10^3/uL (1.8-7.7) Lymphocytes # (Auto) 1.1 x10^3/uL (1.0-4.8) Monocytes # (Auto) 0.7 x10^3/uL (0.0-1.1) Eosinophils # (Auto) 0.2 x10^3/uL (0.0-0.7) Basophils # (Auto) 0.1 x10^3/uL (0.0-0.2) Prothrombin Time 13.8 SEC (11.7-14.0) Prothromb Time International Ratio 1.1 (0.8-1.1) Activated Partial Thromboplast Time 33 SEC (24-38) D-Dimer (Destini) 0.63 ug/mlFEU (0.00-0.50) Sodium Level 141 mmol/L (136-145) Potassium Level 4.0 mmol/L (3.5-5.1) Chloride Level 105 mmol/L (98-107) Carbon Dioxide Level 30 mmol/L (21-32) Anion Gap 6 (6-14) Blood Urea Nitrogen 10 mg/dL (8-26) Creatinine 1.2 mg/dL (0.7-1.3) Estimated GFR (Cockcroft-Gault) 61.8 BUN/Creatinine Ratio 8 (6-20) Glucose Level 91 mg/dL (70-99) Calcium Level 8.1 mg/dL (8.5-10.1) Magnesium Level 2.0 mg/dL (1.8-2.4) Total Bilirubin 0.3 mg/dL (0.2-1.0) Aspartate Amino Transf (AST/SGOT) 16 U/L (15-37) Alanine Aminotransferase (ALT/SGPT) 19 U/L (16-63) Alkaline Phosphatase 88 U/L (46-116) Creatine Kinase 125 U/L (39-308) Creatine Kinase MB (Mass) 0.9 ng/mL (0.0-3.6) Creatine Kinase MB Relative Index 0.7 % (0-4) Troponin I Quantitative < 0.017 ng/mL (0.000-0.055) < 0.017 ng/mL (0.000-0.055) < 0.017 ng/mL (0.000-0.055) PI-Jfc-I-Type Natriuretic Peptide 5044 pg/mL (0-124) Total Protein 6.8 g/dL (6.4-8.2) Albumin 3.2 g/dL (3.4-5.0) Albumin/Globulin Ratio 0.9 (1.0-1.7) Lipase 94 U/L (73-393) Urine Collection Type Unknown Urine Color Yellow Urine Clarity Clear Urine pH 7.0 (<5.0-8.0) Urine Specific [place] 1.010 (1.000-1.030) Urine Protein Negative mg/dL (NEG-TRACE) Urine Glucose (UA) Negative mg/dL (NEG) Urine Ketones (Stick) Negative mg/dL (NEG) Urine Blood Negative (NEG) Urine Nitrite Negative (NEG) Urine Bilirubin Negative (NEG) Urine Urobilinogen Dipstick 1.0 mg/dL (0.2 mg/dL) Urine Leukocyte Esterase Negative (NEG) Urine RBC 1-2 /HPF (0-2) Urine WBC 0 /HPF (0-4) Urine Amorphous Sediment Present /HPF Urine Bacteria 0 /HPF (0-FEW) Urine Opiates Screen Pos (NEG) Urine Methadone Screen Neg (NEG) Urine Barbiturates Neg (NEG) Urine Phencyclidine Screen Neg (NEG) Urine Amphetamine/Methamphetamine Neg (NEG) Urine Benzodiazepines Screen Neg (NEG) Urine Cocaine Screen Neg (NEG) Urine Cannabinoids Screen Neg (NEG) Urine Ethyl Alcohol Neg (NEG) Iron Level 24 ug/dL (65-175) Total Iron Binding Capacity 345 ug/dL (250-450) Iron Saturation 7 % (15-34) Triglycerides Level 154 mg/dL (0-150) Cholesterol Level 136 mg/dL (0-200) LDL Cholesterol, Calculated 79 mg/dL (0-100) VLDL Cholesterol, Calculated 31 mg/dL (0-40) Non-HDL Cholesterol Calculated 110 mg/dL (0-129) HDL Cholesterol 26 mg/dL (40-60) Cholesterol/HDL Ratio 5.2 Test 05/06/20 05:00 White Blood Count 3.5 x10^3/uL (4.0-11.0) Red Blood Count 3.42 x10^6/uL (4.30-5.70) Hemoglobin 9.0 g/dL (13.0-17.5) Hematocrit 26.8 % (39.0-53.0) Mean Corpuscular Volume 78 fL (79-100) Mean Corpuscular Hemoglobin 26 pg (25-35) Mean Corpuscular Hemoglobin Concent 34 g/dL (31-37) Red Cell Distribution Width 16.8 % (11.5-14.5) Platelet Count 264 x10^3/uL (140-400) Neutrophils (%) (Auto) 35 % (31-73) Lymphocytes (%) (Auto) 37 % (24-48) Monocytes (%) (Auto) 17 % (0-9) Eosinophils (%) (Auto) 9 % (0-3) Basophils (%) (Auto) 2 % (0-3) Neutrophils # (Auto) 1.2 x10^3/uL (1.8-7.7) Lymphocytes # (Auto) 1.3 x10^3/uL (1.0-4.8) Monocytes # (Auto) 0.6 x10^3/uL (0.0-1.1) Eosinophils # (Auto) 0.3 x10^3/uL (0.0-0.7) Basophils # (Auto) 0.1 x10^3/uL (0.0-0.2) Sodium Level 136 mmol/L (136-145) Potassium Level 4.1 mmol/L (3.5-5.1) Chloride Level 103 mmol/L (98-107) Carbon Dioxide Level 27 mmol/L (21-32) Anion Gap 6 (6-14) Blood Urea Nitrogen 10 mg/dL (8-26) Creatinine 1.1 mg/dL (0.7-1.3) Estimated GFR (Cockcroft-Gault) 68.3 Glucose Level 99 mg/dL (70-99) Calcium Level 8.0 mg/dL (8.5-10.1) Physical Exam HEENT: Neck Supple W Full Motion Chest: Symmetric LUNGS: Clear to Auscultation Heart: S1S2, RRR (SR) Abdomen: Soft N/T Extremities: No Calf Tenderness Neurology: alert, oriented, follow commands Assessment Assessment 1. Chest pain: no further recurrence.trops nml. EKG revealed LBBB which looks new 2. ICM/chronic systolic CHF: appears compensated. EF at 30-35% 3. CAD; multiple stents in the past. At least 12 stents reported. see PCI report above 4. Hx of VT: no episodes. not on antiarrhythmic 5. AICD in situ: Yakaztronic. Interrogation revealed no significant arrhythmias that would correlate with his symptoms.. No treatments. on VVI mode with low setting in the 40 7. HTN: controlled 8. HLP: not on goal 9. Hx of meth use 10. Tobaccoism with likely COPD: not wanting quit 11. Hx of anxiety 12. Hx of Drug seeking behavior 13. Microcytic anemia: Hgb 9 Recommendations 1. Continue with ASA and plavix. Pt did well overnight, ambulatory without difficulty and troponin elevation and no significant ectopies. VSS. He needs to smoking but he already indicated that he is not. He would benefit from either ranozaline and imdur but his BP would not support 2. Continue BB and secondary prevention measures 3. Follow up with his supervisor production in [place] and consider for outpt stress test. May DC per cardiac standpoint Justicifation of Admission Dx: Justifications for Admission: Justification of Admission Dx: Yes Sepsis: Bacteremia COREY LOPEZ MD 05/06/20 1331: CARDIO Progress Notes Assessment Assessment Patient seen and examined Discussed with our nurse practitioner and I agree with his assessment and plan. Chest pain: no further recurrence.trops nml. Continuing medical treatment. ICM/chronic systolic CHF: appears compensated. EF at 30-35% CAD; multiple stents in the past. At least 12 stents reported. see PCI report above AICD in situ: medtronic. Interrogation revealed no significant arrhythmias that would correlate with his symptoms.. No treatments. on VVI mode with low setting in the 40 HTN: controlled HLP: Continue medical treatment and monitor. Justicifation of Admission Dx: NERI NUNN APRN May 06, 2020 11:50 COREY LOPEZ MD May 06, 2020 13:31
--- NOTE | 2020-05-06 13:50 | NUR ---
SS following for discharge planning. SS reviewed pt chart and discussed with pt RN. Pt is from home and is currently on room air. SS will continue to follow for discharge planning.
[2020-05-06 15:00] VITALS: BP 98/44
--- NOTE | 2020-05-06 15:32 | PDOC3 ---
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 Fluid dynamics seems stable. CAD - s/p x4 cardiac catherizations. multiple stents in the past. At least 12 stents reported. VT s/p AICD - medtronic. Will consult cardiology. needs device interrogation Left ventricle systolic function is moderately impaired. EF 30-35%. severe global hypokinesis of the left ventricle. Tissue Doppler imaging reveals moderate left ventricular diastolic dysfunction.pacemaker lead in the right ventricle. moderate mitral regurgitation. Doppler and Color Flow revealed mild tricuspid regurgitation. There is moderate pulmonary hypertension HTN - cont meds HLD - cont meds Hx of IV meth use - sober for 5 months. Tox screen negative and sees a counselor through [facility] Tobaccoism -counseled on cessation //states he will need to start smoking as soon as he leaves Anxiety/agitation -calmed with verbal counseling History of Drug seeking behavior -advised with his substance abuse history is high risk and should not be given an opioid prescription on discharge and to minimize opioids while inpatient LBBB // new intermittent hypotension microcytic anemia FEN - Cardiac PPX - Lovenox FULL CODE Dispo - inpatient for high risk ACS PLAN CVC BED Cardiology consult trend troponin i neg x 2 echo lovenox sq bid fe panel Follow up with his telephonic nurse in [place] and consider for outpt stress test. May DC per cardiac standpoint/ high risk of with meth abuse 38 min pt exam d/c planning , chart review, > 50% of time spent with exam, chart review, pt care coordination FINAL DIAGNOSIS Problems Medical Problems: (1) Anemia Status: Acute (2) Chest pain Status: Acute Brief Hospital Course Mr. Hicks is a 59 old [sex] who presented with [ chest pain ] CONDITION AT DISCHARGE: Comment (guarded prognosis) Discharge Medications Current Medications Fentanyl Citrate (Fentanyl 2ml Vial) 50 mcg 1X ONCE IV Last administered on 05/05/20at 13:17; Start 05/05/20 at 13:15; Stop 05/05/20 at 13:16; Status DC Ondansetron HCl (Zofran) 4 mg 1X ONCE IV Last administered on 05/05/20at 13:17; Start 05/05/20 at 13:15; Stop 05/05/20 at 13:16; Status DC Fentanyl Citrate (Fentanyl 2ml Vial) 50 mcg PRN Q1HR PRN IV PAIN Last administered on 05/06/20at 12:58; Start 05/05/20 at 14:45; Stop 05/06/20 at 14:44; Status DC Aspirin (Ecotrin) 81 mg DAILY PO Last administered on 05/06/20at 09:37; Start 05/06/20 at 09:00 Atorvastatin Calcium (Lipitor) 10 mg HS PO Last administered on 05/05/20at 21:04; Start 05/05/20 at 21:00 Clopidogrel Bisulfate (Plavix) 75 mg DAILY PO Last administered on 05/06/20at 09:37; Start 05/06/20 at 09:00 Metoprolol Succinate (Toprol Xl) 12.5 mg DAILY PO ; Start 05/06/20 at 09:00 Nitroglycerin (Nitrostat) 0.4 mg PRN Q5MIN PRN SL CHEST PAIN; Start 05/05/20 at 15:15 Ipratropium Freeman (Atrovent) 0.5 mg RTQID NEB ; Start 05/05/20 at 16:00 Pregabalin (Lyrica) 300 mg BID PO Last administered on 05/06/20at 09:38; Start 05/05/20 at 21:00 Pantoprazole Sodium (Protonix) 40 mg 1X ONCE PO Last administered on 05/05/20at 16:15; Start 05/05/20 at 15:15; Stop 05/05/20 at 15:16; Status DC Pantoprazole Sodium (Protonix) 40 mg DAILYAC PO Last administered on 05/06/20at 09:38; Start 05/06/20 at 07:30 Codeine Sulfate (Codeine) 15 mg PRN Q6HRS PRN PO PAIN Last administered on 05/06/20at 15:25; Start 05/05/20 at 15:15 Enoxaparin Sodium (Lovenox 80mg Syringe) 70 mg 1X ONCE SQ ; Start 05/05/20 at 16:45; Stop 05/05/20 at 16:46; Status DC Enoxaparin Sodium (Lovenox 80mg Syringe) 70 mg Q12HR SQ ; Start 05/06/20 at 09:00 Info (Anti-Coagulation Monitoring By Pharmacy) 1 each PRN DAILY PRN MC SEE COMMENTS Last administered on 05/06/20at 14:05; Start 05/05/20 at 17:15 Active Scripts Active Reported Spiriva (Tiotropium Freeman) 18 Mcg Cap.w.dev 1 Cap IH DAILY Atorvastatin Calcium 10 Mg Tablet 10 Mg PO HS Metoprolol Succinate ( Xl ) (Metoprolol Succinate) 25 Mg Tab.er.24h 12.5 Mg PO DAILY Spiriva (Tiotropium Freeman) 18 Mcg Cap.w.dev 1 Cap IH DAILY Ms Contin (Morphine Sulfate) 30 Mg Tablet.er 1 Tab PO BID PRN NITROGLYCERIN SubLingual (Nitroglycerin) 0.4 Mg Tab.subl 0.4 Mg SL PRN Q5MIN PRN Lyrica (Pregabalin) 300 Mg Capsule 1 Cap PO BID Plavix (Clopidogrel Bisulfate) 75 Mg Tablet 75 Mg PO DAILY Aspir 81 (Aspirin) 81 Mg Tablet.dr 1 Tab PO DAILY Vital Signs Vital Signs Date Time Temp Pulse Resp B/P (MAP) Pulse Ox O2 Delivery O2 Flow Rate FiO2 05/06/20 15:25 99 Room Air 05/06/20 15:00 97.8 80 14 98/44 (62) 97.8 Labs Laboratory Tests Test 05/05/20 13:00 05/05/20 13:24 05/05/20 18:00 05/06/20 00:20 White Blood Count 5.4 x10^3/uL (4.0-11.0) Red Blood Count 3.36 x10^6/uL (4.30-5.70) Hemoglobin 8.9 g/dL (13.0-17.5) Hematocrit 26.8 % (39.0-53.0) Mean Corpuscular Volume 80 fL (79-100) Mean Corpuscular Hemoglobin 27 pg (25-35) Mean Corpuscular Hemoglobin Concent 33 g/dL (31-37) Red Cell Distribution Width 16.7 % (11.5-14.5) Platelet Count 266 x10^3/uL (140-400) Neutrophils (%) (Auto) 61 % (31-73) Lymphocytes (%) (Auto) 20 % (24-48) Monocytes (%) (Auto) 13 % (0-9) Eosinophils (%) (Auto) 5 % (0-3) Basophils (%) (Auto) 1 % (0-3) Neutrophils # (Auto) 3.3 x10^3/uL (1.8-7.7) Lymphocytes # (Auto) 1.1 x10^3/uL (1.0-4.8) Monocytes # (Auto) 0.7 x10^3/uL (0.0-1.1) Eosinophils # (Auto) 0.2 x10^3/uL (0.0-0.7) Basophils # (Auto) 0.1 x10^3/uL (0.0-0.2) Prothrombin Time 13.8 SEC (11.7-14.0) Prothromb Time International Ratio 1.1 (0.8-1.1) Activated Partial Thromboplast Time 33 SEC (24-38) D-Dimer (Destini) 0.63 ug/mlFEU (0.00-0.50) Sodium Level 141 mmol/L (136-145) Potassium Level 4.0 mmol/L (3.5-5.1) Chloride Level 105 mmol/L (98-107) Carbon Dioxide Level 30 mmol/L (21-32) Anion Gap 6 (6-14) Blood Urea Nitrogen 10 mg/dL (8-26) Creatinine 1.2 mg/dL (0.7-1.3) Estimated GFR (Cockcroft-Gault) 61.8 BUN/Creatinine Ratio 8 (6-20) Glucose Level 91 mg/dL (70-99) Calcium Level 8.1 mg/dL (8.5-10.1) Magnesium Level 2.0 mg/dL (1.8-2.4) Total Bilirubin 0.3 mg/dL (0.2-1.0) Aspartate Amino Transf (AST/SGOT) 16 U/L (15-37) Alanine Aminotransferase (ALT/SGPT) 19 U/L (16-63) Alkaline Phosphatase 88 U/L (46-116) Creatine Kinase 125 U/L (39-308) Creatine Kinase MB (Mass) 0.9 ng/mL (0.0-3.6) Creatine Kinase MB Relative Index 0.7 % (0-4) Troponin I Quantitative < 0.017 ng/mL (0.000-0.055) < 0.017 ng/mL (0.000-0.055) < 0.017 ng/mL (0.000-0.055) VY-Pcf-C-Type Natriuretic Peptide 5044 pg/mL (0-124) Total Protein 6.8 g/dL (6.4-8.2) Albumin 3.2 g/dL (3.4-5.0) Albumin/Globulin Ratio 0.9 (1.0-1.7) Lipase 94 U/L (73-393) Urine Collection Type Unknown Urine Color Yellow Urine Clarity Clear Urine pH 7.0 (<5.0-8.0) Urine Specific [place] 1.010 (1.000-1.030) Urine Protein Negative mg/dL (NEG-TRACE) Urine Glucose (UA) Negative mg/dL (NEG) Urine Ketones (Stick) Negative mg/dL (NEG) Urine Blood Negative (NEG) Urine Nitrite Negative (NEG) Urine Bilirubin Negative (NEG) Urine Urobilinogen Dipstick 1.0 mg/dL (0.2 mg/dL) Urine Leukocyte Esterase Negative (NEG) Urine RBC 1-2 /HPF (0-2) Urine WBC 0 /HPF (0-4) Urine Amorphous Sediment Present /HPF Urine Bacteria 0 /HPF (0-FEW) Urine Opiates Screen Pos (NEG) Urine Methadone Screen Neg (NEG) Urine Barbiturates Neg (NEG) Urine Phencyclidine Screen Neg (NEG) Urine Amphetamine/Methamphetamine Neg (NEG) Urine Benzodiazepines Screen Neg (NEG) Urine Cocaine Screen Neg (NEG) Urine Cannabinoids Screen Neg (NEG) Urine Ethyl Alcohol Neg (NEG) Iron Level 24 ug/dL (65-175) Total Iron Binding Capacity 345 ug/dL (250-450) Iron Saturation 7 % (15-34) Triglycerides Level 154 mg/dL (0-150) Cholesterol Level 136 mg/dL (0-200) LDL Cholesterol, Calculated 79 mg/dL (0-100) VLDL Cholesterol, Calculated 31 mg/dL (0-40) Non-HDL Cholesterol Calculated 110 mg/dL (0-129) HDL Cholesterol 26 mg/dL (40-60) Cholesterol/HDL Ratio 5.2 Test 05/06/20 05:00 White Blood Count 3.5 x10^3/uL (4.0-11.0) Red Blood Count 3.42 x10^6/uL (4.30-5.70) Hemoglobin 9.0 g/dL (13.0-17.5) Hematocrit 26.8 % (39.0-53.0) Mean Corpuscular Volume 78 fL (79-100) Mean Corpuscular Hemoglobin 26 pg (25-35) Mean Corpuscular Hemoglobin Concent 34 g/dL (31-37) Red Cell Distribution Width 16.8 % (11.5-14.5) Platelet Count 264 x10^3/uL (140-400) Neutrophils (%) (Auto) 35 % (31-73) Lymphocytes (%) (Auto) 37 % (24-48) Monocytes (%) (Auto) 17 % (0-9) Eosinophils (%) (Auto) 9 % (0-3) Basophils (%) (Auto) 2 % (0-3) Neutrophils # (Auto) 1.2 x10^3/uL (1.8-7.7) Lymphocytes # (Auto) 1.3 x10^3/uL (1.0-4.8) Monocytes # (Auto) 0.6 x10^3/uL (0.0-1.1) Eosinophils # (Auto) 0.3 x10^3/uL (0.0-0.7) Basophils # (Auto) 0.1 x10^3/uL (0.0-0.2) Sodium Level 136 mmol/L (136-145) Potassium Level 4.1 mmol/L (3.5-5.1) Chloride Level 103 mmol/L (98-107) Carbon Dioxide Level 27 mmol/L (21-32) Anion Gap 6 (6-14) Blood Urea Nitrogen 10 mg/dL (8-26) Creatinine 1.1 mg/dL (0.7-1.3) Estimated GFR (Cockcroft-Gault) 68.3 Glucose Level 99 mg/dL (70-99) Calcium Level 8.0 mg/dL (8.5-10.1) Iron Level 16 ug/dL (65-175) Total Iron Binding Capacity 309 ug/dL (250-450) Iron Saturation 5 % (15-34) Laboratory Tests Test 05/05/20 18:00 05/06/20 00:20 05/06/20 05:00 Iron Level 24 ug/dL (65-175) 16 ug/dL (65-175) Total Iron Binding Capacity 345 ug/dL (250-450) 309 ug/dL (250-450) Iron Saturation 7 % (15-34) 5 % (15-34) Troponin I Quantitative < 0.017 ng/mL (0.000-0.055) < 0.017 ng/mL (0.000-0.055) Triglycerides Level 154 mg/dL (0-150) Cholesterol Level 136 mg/dL (0-200) LDL Cholesterol, Calculated 79 mg/dL (0-100) VLDL Cholesterol, Calculated 31 mg/dL (0-40) Non-HDL Cholesterol Calculated 110 mg/dL (0-129) HDL Cholesterol 26 mg/dL (40-60) Cholesterol/HDL Ratio 5.2 White Blood Count 3.5 x10^3/uL (4.0-11.0) Red Blood Count 3.42 x10^6/uL (4.30-5.70) Hemoglobin 9.0 g/dL (13.0-17.5) Hematocrit 26.8 % (39.0-53.0) Mean Corpuscular Volume 78 fL (79-100) Mean Corpuscular Hemoglobin 26 pg (25-35) Mean Corpuscular Hemoglobin Concent 34 g/dL (31-37) Red Cell Distribution Width 16.8 % (11.5-14.5) Platelet Count 264 x10^3/uL (140-400) Neutrophils (%) (Auto) 35 % (31-73) Lymphocytes (%) (Auto) 37 % (24-48) Monocytes (%) (Auto) 17 % (0-9) Eosinophils (%) (Auto) 9 % (0-3) Basophils (%) (Auto) 2 % (0-3) Neutrophils # (Auto) 1.2 x10^3/uL (1.8-7.7) Lymphocytes # (Auto) 1.3 x10^3/uL (1.0-4.8) Monocytes # (Auto) 0.6 x10^3/uL (0.0-1.1) Eosinophils # (Auto) 0.3 x10^3/uL (0.0-0.7) Basophils # (Auto) 0.1 x10^3/uL (0.0-0.2) Sodium Level 136 mmol/L (136-145) Potassium Level 4.1 mmol/L (3.5-5.1) Chloride Level 103 mmol/L (98-107) Carbon Dioxide Level 27 mmol/L (21-32) Anion Gap 6 (6-14) Blood Urea Nitrogen 10 mg/dL (8-26) Creatinine 1.1 mg/dL (0.7-1.3) Estimated GFR (Cockcroft-Gault) 68.3 Glucose Level 99 mg/dL (70-99) Calcium Level 8.0 mg/dL (8.5-10.1) Allergies Allergies Coded Allergies Type Severity Reaction Last Updated Verified albuterol Adverse Reaction Intermediate 11/18/19 Yes ibuprofen Adverse Reaction Intermediate Nausea and Vomiting 11/18/19 Yes Disposition/Orders: D/C to Home Patient Instructions no substance use Justicifation of Admission Dx: Justifications for Admission: Justification of Admission Dx: Yes Sepsis: Bacteremia ELISSA SHINE MD May 06, 2020 15:32
[2020-05-06] MEDS ORDERED: PANT40TA77 PO (15:34)
--- NOTE | 2020-05-06 15:35 | DISCH ---
DISCHARGE INSTRUCTIONS Condition on Discharge Condition on Discharge: Guarded Activity After Discharge Activity Instructions for Disc: Activity as tolerated Lifting Instructions after Dis: No heavy lifting, No pulling or pushing Exercise Instruction after Dis: Progress as tolerated Driving Instructions after Dis: Do not drive Weight Bearing Status after Di: As tolerated Diet after Discharge Diet after Discharge: Cardiac Diet Texture: Regular Liquid Texture: Thin Liquid Swallowing Supervision: None needed Checks after Discharge Checks after discharge: Check blood press - daily, Check your Temp as needed Contacting the DR. after DC Call your doctor for: If your condition worsens Treatment/Equipment after DC Adaptive Equipment Issued: None Warfarin Follow-Up Warfarin Follow UP: no substance abuse ELISSA SHINE MD May 06, 2020 15:35
[2020-05-06] MEDS ORDERED: IPRATROPIUM BROMIDE 0.5 MG/2.5 ML NEBU. NEB PRN (19:15)
== END 2020-05-06 19:30 | disposition other institution (70) | DRG 206 ==
LOC: ER 12:25 → 2 SOUTH 14:30
PROVIDERS: ADMIT Internal Medicine; ATTEND Internal Medicine
DX: M94.0 Chondrocostal junction syndrome [Tietze] (principal); I42.8 Other cardiomyopathies; D64.9 Anemia, unspecified; E78.00 Pure hypercholesterolemia, unspecified; E78.5 Hyperlipidemia, unspecified; F15.11 Other stimulant abuse, in remission; F17.210 Nicotine dependence, cigarettes, uncomplicated; F41.9 Anxiety disorder, unspecified; I11.0 Hypertensive heart disease with heart failure; I25.10 Atherosclerotic heart disease of native coronary artery without angina pectoris; I25.5 Ischemic cardiomyopathy; I50.9 Heart failure, unspecified; J45.909 Unspecified asthma, uncomplicated; Z82.49 Family history of ischemic heart disease and other diseases of the circulatory system; Z83.3 Family history of diabetes mellitus; Z86.73 Personal history of transient ischemic attack (TIA), and cerebral infarction without residual deficits; Z90.81 Acquired absence of spleen; Z95.5 Presence of coronary angioplasty implant and graft; Z95.810 Presence of automatic (implantable) cardiac defibrillator; K21.9 Gastro-esophageal reflux disease without esophagitis; M19.90 Unspecified osteoarthritis, unspecified site; I25.2 Old myocardial infarction; Z88.8 Allergy status to other drugs, medicaments and biological substances
CPT/HCPCS: 36415; 71045; 80048; 80053; 80061; 80307; 81001; 82553; 83540; 83550; 83690; 83735; 83880; 84484; 85025; 85379; 85610; 85730; 93005; 93306; 96374; 96375; 99285; J2405; J3010; G0378

== ENCOUNTER 2020-06-03 15:11 | Inpatient (IN) | payer MEDICAID ==
[~2020-06-03] VITALS: Ht 170.2 cm; Wt 65.2 kg
[~2020-06-03 15:11] MED LIST changes: +PANT40TA77 PO
[2020-06-03] MEDS ORDERED: fentaNYL PF VIAL 100 MCG/2 ML VIAL IV ONE (15:30)
[2020-06-03] MEDS ORDERED: ONDANSETRON PF 4 MG/2 ML VIAL. IV ONE (15:30)
--- NOTE | 2020-06-03 15:40 | EKG ---
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
--- NOTE | 2020-06-03 15:45 | RAD ---
AP portable chest radiograph 06/03/2020 Clinical History: Chest pain. An AP erect portable digital radiograph of the chest was obtained. Comparison study is dated 05/05/2020. A pacemaker is unchanged in position. The cardiac silhouette is mildly enlarged. The thoracic aorta is mildly tortuous. No acute pulmonary infiltrate is seen. No pleural effusion or pneumothorax is noted. The osseous structures are grossly intact. Impression: No acute abnormality is seen Electronically signed by: Maynor Thomson MD (06/03/2020 3:42 PM) [id number]
--- NOTE | 2020-06-03 15:55 | PHYS DOC ---
Past Medical History Past Medical History: Asthma, CAD, CHF, CVA, High Cholesterol, Hypertension, NE, Other Additional Past Medical Histor: VTACH, Drug abuse-Methamphetamine Past Surgical History: Pacemaker, Splenectomy, Other Additional Past Surgical Histo: 12 cardiac stents, multiple cardiac catheterizations,WITH DEFIB Smoking Status: Current Every Day Smoker Alcohol Use: Rarely Drug Use: None Social History Narrative: "I haven't used in 2 months" General Adult EDM: Chief Complaint: CHEST PAIN HPI: HPI: 59-year-old male presents emergency department today with pressure sensation in the chest that radiates to the left shoulder. It goes down his arm as well. Started about 1445. He took a full aspirin and 3 nitros which help mildly. His pain is moderate to severe. He has a history of multiple cardiac stents and cardiac catheterizations. He has a defibrillator in place. Review of systems negative for abdominal pain vomiting diaphoresis fevers or chills. All other review of systems negative. ED course: 59-year-old male presenting with chest pain. EKG obtained and reviewed by myself shows sinus rhythm with a regular rate. ST segments show ST elevation in the anterior leads. Deep Q waves in the anterior leads as well. Negative scar Bosa criteria I was able to pull up an old EKG back in November which was totally different. I called this as a STEMI and notify Dr. Pritchett our submersible pilot who evaluated the EKG and compared to a more recent EKG he was able to pull up in April which is very similar. He at that point canceled the STEMI. Chest x-ray and blood work ordered. IV fentanyl given for pain control. Chest x-ray unremarkable. Blood work shows normal troponin. Will admit the patient to the hospitalist team with cardiology consultation. Basic bridge orders placed. Heart Score: HEART Score for Chest Pain: HEART Score for Chest Pain Response (Comments) Value History Moderately Suspicious 1 ECG Nonspecific Repolarizatio 1 Age >45 - < 65 1 Risk Factors >3 Risk Factors or Hx CAD 2 Total 5 Risk Factors: Risk Factors: DM, Current or recent (<one month) smoker, HTN, HLP, family history of CAD, obesity. Risk Scores: Score 0 - 3: 2.5% MACE over next 6 weeks - Discharge Home Score 4 - 6: 20.3% MACE over next 6 weeks - Admit for Clinical Observation Score 7 - 10: 72.7% MACE over next 6 weeks - Early Invasive Strategies Current Medications: Current Medications Medications (Trade) Dose Ordered Sig/Ani Start Time Stop Time Status Last Admin Dose Admin Fentanyl Citrate (Fentanyl 2ml Vial) 25 mcg 1X ONCE 06/03/20 15:30 06/03/20 15:31 DC 06/03/20 15:42 25 MCG Ondansetron HCl (Zofran) 4 mg 1X ONCE 06/03/20 15:30 06/03/20 15:31 DC 06/03/20 15:42 4 MG Sodium Chloride 500 ml @ 500 mls/hr 1X ONCE 06/03/20 16:00 06/03/20 16:59 06/03/20 15:43 500 MLS/HR Allergies: Allergies: Allergies Coded Allergies Type Severity Reaction Last Updated Verified No Known Medication Allergies Allergy Unknown 06/03/20 Yes albuterol Adverse Reaction Intermediate 11/18/19 Yes ibuprofen Adverse Reaction Intermediate Nausea and Vomiting 11/18/19 Yes Physical Exam: PE: Constitutional: Well developed, well nourished, no acute distress, non-toxic appearance. [] HENT: Normocephalic, atraumatic, bilateral external ears normal, oropharynx moist, no oral exudates, nose normal. [] Eyes: PERRLA, EOMI, conjunctiva normal, no discharge. [] Neck: Normal range of motion, no tenderness, supple, no stridor. [] Cardiovascular: Tachycardia with regular rhythm, no murmur [] Lungs & Thorax: Bilateral breath sounds clear to auscultation [] Abdomen: Bowel sounds normal, soft, no tenderness, no masses, no pulsatile masses. [] Skin: Warm, dry, no erythema, no rash. [] Back: No tenderness, no CVA tenderness. [] Extremities: No tenderness, no cyanosis, no clubbing, ROM intact, no edema. [] Neurologic: Alert and oriented X 3, normal motor function, normal sensory function, no focal deficits noted. [] Psychologic: Affect normal, judgement normal, mood normal. [] Current Patient Data: Vital Signs: Vital Signs Date Time Temp Pulse Resp B/P (MAP) Pulse Ox O2 Delivery O2 Flow Rate FiO2 06/03/20 15:14 97.8 92 18 134/65 (88) 100 Room Air 97.8 EKG: EKG: [] Radiology/Procedures: Radiology/Procedures: [] Course & Med Decision Making: Course & Med Decision Making Pertinent Labs and Imaging studies reviewed. (See chart for details) [] Dragon Disclaimer: Dragon Disclaimer: This electronic medical record was generated, in whole or in part, using a voice recognition dictation system. Departure Departure Impression: Primary Impression: Chest pain Disposition: ADMITTED INPATIENT Admitting Physician: HIMS Condition: STABLE Referrals: NO PCP (PCP) Justicifation of Admission Dx: Justifications for Admission: Justification of Admission Dx: Yes Sepsis: Bacteremia Angina: Symp at Rest BOOKER RABAGO MD Jun 03, 2020 15:55
[2020-06-03] MEDS ORDERED: IV NORMAL SALINE 500ML BAG 500 ML IV ONE (16:00)
[2020-06-03 16:08] LABS: BASO % 0 % (0-3); EOS # 0.1 x10^3/uL (0.0-0.7); EOS % 2 % (0-3); HEMATOCRIT 24.4 % (39.0-53.0); HEMOGLOBIN 8.1 g/dL (13.0-17.5); LYMPH % 18 % (24-48); MEAN CORPUSCULAR HEMOGLOBIN 25 pg (25-35); MEAN CORPUSCULAR HGB CONC 33 g/dL (31-37); MEAN CORPUSCULAR VOLUME 76 fL (79-100); MONO # 0.5 x10^3/uL (0.0-1.1); MONO % 9 % (0-9); NEUT # 3.9 x10^3/uL (1.8-7.7); NEUT % 71 % (31-73); PLATELET COUNT 340 x10^3/uL (140-400); RED BLOOD COUNT 3.22 x10^6/uL (4.30-5.70); RED CELL DISTRIBUTION WIDTH 17.1 % (11.5-14.5); WHITE BLOOD COUNT 5.5 x10^3/uL (4.0-11.0)
[2020-06-03 16:17] LABS: CALCIUM 8.7 mg/dL (8.5-10.1); CREATININE 0.9 mg/dL (0.7-1.3); GFR 86.1; POTASSIUM 3.9 mmol/L (3.5-5.1)
[2020-06-03 16:19] LABS: PROTHROMBIN TIME PATIENT 13.7 SEC (11.7-14.0)
[2020-06-03 16:23] LABS: D-DIMER 0.46 ug/mlFEU (0.00-0.50)
[2020-06-03 16:24] LABS: ALBUMIN 3.5 g/dL (3.4-5.0); ALBUMIN/GLOBULIN RATIO 1.1 (1.0-1.7); MAGNESIUM 1.9 mg/dL (1.8-2.4); TOTAL BILIRUBIN 0.2 mg/dL (0.2-1.0); TOTAL PROTEIN 6.8 g/dL (6.4-8.2)
[2020-06-03] MEDS ORDERED: IV NORMAL SALINE 1000ML BAG 1,000 ML IV SCH (16:41)
[2020-06-03] MEDS: MORPHINE SULFATE 2 MG/ML VIAL. IV PRN ×3 (17:03→21:07)
[2020-06-03 17:59] LABS: BILIRUBIN,URINE NEGATIVE (NEG); CLARITY,URINE CLEAR; COLOR,URINE YELLOW; NITRITE,URINE NEGATIVE (NEG); PROTEIN,URINE NEGATIVE (NEG-TRACE)
[2020-06-03 18:02] LABS: BARBITURATES NEG (NEG); BENZODIAZEPINES NEG (NEG); CANNABINOIDS NEG (NEG); COCAINE NEG (NEG); METHADONE NEG (NEG); OPIATES NEG (NEG); PHENCYCLIDINE NEG (NEG)
[2020-06-03] MEDS ORDERED: CRESTOR40 MG PO (18:03)
[2020-06-03 18:04] LABS: AMPHETAMINE/METHAMPHETAMINE POS (NEG)
[2020-06-03 18:07] LABS: BACTERIA,URINE FEW /HPF (0-FEW); RBC,URINE 0 /HPF (0-2)
[2020-06-03 18:08] LABS: SPERM,URINE PRESENT /HPF; SQUAMOUS EPITHELIAL CELL,UR OCC /LPF
[2020-06-03 18:15] VITALS: BP 110/71
[2020-06-03] MEDS: PREGABALIN 75 MG CAPSULE PO SCH ×2 (18:45→20:15)
--- NOTE | 2020-06-03 19:02 | HP ---
ADMIT DATE: 06/03/2020 CHIEF COMPLAINT: Chest pain. HISTORY OF PRESENT ILLNESS: The patient is a pleasant 59-year-old male who has a history of IV drug abuse. He also states he has 12 previous stents. He also has a defibrillator and history of stroke, hyperlipidemia, hypertension, history of V-tach, methamphetamine abuse and basically were concerned he could be having an acute coronary syndrome. He rates his symptoms at 9/10. He keeps asking for pain meds as well. He also wants to eat. I discussed the case with ER physician. To be safe, we are going to admit the patient and consult Cardiology. PAST MEDICAL HISTORY: IV drug abuse, asthma, CAD, previous 12 stents according to the patient, defibrillator, stroke, hyperlipidemia, hypertension, myocardial infarction, methamphetamine abuse, splenectomy, tobacco abuse. ALLERGIES: TYLENOL, ALBUTEROL, AND IBUPROFEN. FAMILY HISTORY: Coronary artery disease. SOCIAL HISTORY: He drinks, smokes and takes drugs. States he has not taken any drugs in 2 months. MEDICATIONS: Reviewed, please refer to the MRAD. REVIEW OF SYSTEMS: GENERAL: No history of weight change, weakness or fevers. SKIN: No bruising, hair changes or rashes. EYES: No blurred, double or loss of vision. NOSE AND THROAT: No history of nosebleeds, hoarseness or sore throat. HEART: He complains of chest pain. LUNGS: Denies cough, hemoptysis, wheezing or shortness of breath. GASTROINTESTINAL: Denies changes in appetite, nausea, vomiting, diarrhea or constipation. GENITOURINARY: No history of frequency, urgency, hesitancy or nocturia. NEUROLOGIC: Denies history of numbness, tingling, tremor or weakness. PSYCHIATRIC: No history of panic, anxiety or depression. ENDOCRINE: No history of heat or cold intolerance, polyuria or polydipsia. EXTREMITIES: Denies muscle weakness, joint pain, pain on walking or stiffness. PHYSICAL EXAMINATION: VITALS: Within normal limits and are stable. GENERAL: No apparent distress. Alert and oriented. HEENT: Normal cephalic atraumatic, external auditory canals are patent EYES: Extraocular muscles are intact, pupils are equally round and reactive to light and accommodation MUSCULOSKELETAL: Well developed, well nourished, good range of motion ENDOCRINE: No thyromegaly was palpated LYMPHATICS: No cervical chain or axillary nodes were noted HEMATOPOIETIC: No bruising NECK: Supple, no JVD, no thyromegaly was noted. LUNGS: Clear to auscultation in all lung hernandez without rhonchi or wheezing. HEART: RRR, S1, S2 present. Peripheral pulses intact, no obvious murmurs were noted. ABDOMEN: Soft, nontender. Positive bowel sounds no organomegaly, normal bowel sounds. EXTREMITIES: Without any cyanosis, clubbing, or edema. Pedal pulses intact, Homans sign is negative. NEUROLOGIC: Normal speech, normal tone. A & O x3, moves all extremities, no obvious focal deficits. PSYCHIATRIC: Normal affect, normal mood. Stable. SKIN: No ulcerations or rashes, good skin turgor, no jaundice. VASCULAR: Good capillary refill, neurovascular bundle appears to be intact. LABORATORY DATA: Troponin is 0. BNP slightly high at 428. INR is 1.1. Hemoglobin is low at 8.1. Drug screen positive for methamphetamine. Urinalysis negative. Chest x-ray shows no acute process. ASSESSMENT AND PLAN: Chest pain with known coronary artery disease. The patient has been admitted. We will check serial enzymes, serial EKGs. Consult Cardiology. Home meds, DVT prophylaxis. Full code. Long-term prognosis is guarded. BIAJN FLORES DO DR: ALIX/barber JOB#: [id number] / [id number]
[2020-06-03] MEDS ORDERED: IPRATRPIUM/ALBUTEROL 0.5/2.5MG 3 ML NEBU. NEB SCH (20:00)
[2020-06-03] MEDS: ATORVASTATIN CALCIUM 40 MG TABLET. PO SCH (20:15)
[2020-06-03 22:35] VITALS: BP 101/59
[2020-06-04] MEDS: MORPHINE SULFATE 2 MG/ML VIAL. IV PRN ×8 (00:14→21:44)
[2020-06-04 04:22] VITALS: BP 94/57
[2020-06-04 05:29] LABS: BASO # 0.1 x10^3/uL (0.0-0.2); BASO % 3 % (0-3); EOS # 0.2 x10^3/uL (0.0-0.7); EOS % 5 % (0-3); HEMATOCRIT 24.4 % (39.0-53.0); HEMOGLOBIN 7.9 g/dL (13.0-17.5); LYMPH # 1.2 x10^3/uL (1.0-4.8); LYMPH % 34 % (24-48); MEAN CORPUSCULAR HEMOGLOBIN 25 pg (25-35); MEAN CORPUSCULAR HGB CONC 32 g/dL (31-37); MEAN CORPUSCULAR VOLUME 76 fL (79-100); MONO # 0.5 x10^3/uL (0.0-1.1); MONO % 14 % (0-9); NEUT # 1.5 x10^3/uL (1.8-7.7); NEUT % 44 % (31-73); PLATELET COUNT 308 x10^3/uL (140-400); RED BLOOD COUNT 3.22 x10^6/uL (4.30-5.70); WHITE BLOOD COUNT 3.4 x10^3/uL (4.0-11.0)
[2020-06-04 05:36] LABS: CALCIUM 8.3 mg/dL (8.5-10.1); CREATININE 0.9 mg/dL (0.7-1.3); GFR 86.1; POTASSIUM 3.8 mmol/L (3.5-5.1)
[2020-06-04 07:00] VITALS: BP 87/46
[2020-06-04] MEDS: METOPROLOL SUCC 24HR ER 25 MG TAB.ER.24H. PO SCH (09:00)
[2020-06-04] MEDS: NON FORMULARY ITEM (Tiotropium Bromide (Spiriva) 1 CAP) IH SCH (09:00)
[2020-06-04] MEDS: ASPIRIN ENTERIC COATED 81 MG TABLET.DR. PO SCH (09:05)
[2020-06-04] MEDS: CLOPIDOGREL BISULFATE 75 MG TABLET PO SCH (09:05)
[2020-06-04] MEDS: PREGABALIN 75 MG CAPSULE PO SCH ×2 (09:06→21:43)
[2020-06-04 10:28] VITALS: BP 94/50
--- NOTE | 2020-06-04 13:42 | PDOC ---
[employer] PROGRESS NOTE Date of Service DOS: DATE: 06/04/20 TIME: 13:22 Chief Complaint Chief Complaint A/P: Chest pain - high risk ACS given his history and lateral TWI, will trend troponins, telemetry, consult cardiology Ischemic cardiomyopathy -also with nonischemic cardiomyopathy due to methamphetamine use historically. Fluid dynamics seems stable. CAD - s/p x4 cardiac catherizations. multiple stents in the past. At least 12 stents reported. VT s/p AICD - medtronic. Will consult cardiology. needs device interrogation HTN - cont meds HLD - cont meds Hx of IV meth use - used within 48 of admission. Tox screen positive and sees a counselor through [facility] Tobaccoism -counseled on cessation he is nondistended nicotine patch states he will need to start smoking as soon as he leaves Anxiety/agitation -calmed with verbal counseling History of Drug seeking behavior -advised with his substance abuse history is high risk and should not be given an opioid prescription on discharge and to minimize opioids while inpatient Anemia - likely from chronic substance abuse, will need monitoring outpatient Leukopenia - likely 2/2 above, no signs of infection FEN - Cardiac PPX - Lovenox FULL CODE Dispo - inpatient for high risk ACS History of Present Illness History of Present Illness Mr Hicks is a 59yo M w/ PMHx CAD x multiple JANET, CHF, HTN, HLD, VT s/p AICD, COPD/asthma, GERD, OA, anxiety, IV methamphetamine abuse c/o chest pain with radiation to left arm and jaw. 2 days prior to admission was injecting methamphetamine, admitted for concern for acute coronary syndrome. He rates his symptoms at 9/10. He keeps asking for pain meds. EKG with lateral TWI and leftward axis, no STEMI. Historically with multiple PCIs- LHC at [facility] Oct 2017 showed showed patent mid LAD stent, patent 1st diagonal stent, total chronic occlusion of first obtuse marginal with territory infarct but no indication for PCI, patent stent in left AV groove artery, patent stent in LPDA, non-dominant 100 % stenosis of proximal RCA. Seen by cardiology here in October. He does continue to smoke states he smokes less than half pack a day, he is asking me for food and would like to talk about pain medications that he can go home on. I advised him that given his history of substance abuse this is ill advised. Admit for further work-up of his coronary artery disease CXR: A pacemaker is unchanged in position. The cardiac silhouette is mildly enlarged. The thoracic aorta is mildly tortuous. No acute pulmonary infiltrate is seen. No pleural effusion or pneumothorax is noted. The osseous structures are grossly intact. Impression: No acute abnormality is seen Troponin negative x3 WBC down to 3.4, Hb down to 7.9 platelets 308 NA 137K3.8 BUN 12, CR 0.9 glucose 114. Initially during her interview today he yells at me and says there is something wrong with my chest. He adamantly denies methamphetamine use, upon further questioning he admits to using 2 days prior to admission and notes he did not think this would show up on the drug screen. He typically injects multiple times a day does not reuse or share needles and uses cotton or cigarette filters and hot water to mix with methamphetamine crystals heats it up in the microwave and then injects he has been doing this for years. He is asking for help and would like to go to inpatient rehab if possible today. Medically he shows no signs of abnormalities that require inpatient care no infectious signs. Vitals/I&O Vitals/I&O: Vital Signs Date Time Temp Pulse Resp B/P (MAP) Pulse Ox O2 Delivery O2 Flow Rate FiO2 06/04/20 12:01 96 Room Air 06/04/20 11:31 16 06/04/20 10:28 97.8 94 94/50 (65) 97.8 I & O 06/03/20 06/03/20 06/04/20 15:00 23:00 07:00 Intake Total 400 ml Balance 400 ml Physical Exam Lungs: Clear Labs Labs: Laboratory Tests Test 06/03/20 15:55 06/03/20 17:48 06/03/20 19:45 06/04/20 00:05 White Blood Count 5.5 x10^3/uL (4.0-11.0) Red Blood Count 3.22 x10^6/uL (4.30-5.70) Hemoglobin 8.1 g/dL (13.0-17.5) Hematocrit 24.4 % (39.0-53.0) Mean Corpuscular Volume 76 fL (79-100) Mean Corpuscular Hemoglobin 25 pg (25-35) Mean Corpuscular Hemoglobin Concent 33 g/dL (31-37) Red Cell Distribution Width 17.1 % (11.5-14.5) Platelet Count 340 x10^3/uL (140-400) Neutrophils (%) (Auto) 71 % (31-73) Lymphocytes (%) (Auto) 18 % (24-48) Monocytes (%) (Auto) 9 % (0-9) Eosinophils (%) (Auto) 2 % (0-3) Basophils (%) (Auto) 0 % (0-3) Neutrophils # (Auto) 3.9 x10^3/uL (1.8-7.7) Lymphocytes # (Auto) 1.0 x10^3/uL (1.0-4.8) Monocytes # (Auto) 0.5 x10^3/uL (0.0-1.1) Eosinophils # (Auto) 0.1 x10^3/uL (0.0-0.7) Basophils # (Auto) 0.0 x10^3/uL (0.0-0.2) Prothrombin Time 13.7 SEC (11.7-14.0) Prothromb Time International Ratio 1.1 (0.8-1.1) Activated Partial Thromboplast Time 35 SEC (24-38) D-Dimer (Destini) 0.46 ug/mlFEU (0.00-0.50) Sodium Level 136 mmol/L (136-145) Potassium Level 3.9 mmol/L (3.5-5.1) Chloride Level 101 mmol/L (98-107) Carbon Dioxide Level 24 mmol/L (21-32) Anion Gap 11 (6-14) Blood Urea Nitrogen 10 mg/dL (8-26) Creatinine 0.9 mg/dL (0.7-1.3) Estimated GFR (Cockcroft-Gault) 86.1 BUN/Creatinine Ratio 11 (6-20) Glucose Level 86 mg/dL (70-99) Calcium Level 8.7 mg/dL (8.5-10.1) Magnesium Level 1.9 mg/dL (1.8-2.4) Total Bilirubin 0.2 mg/dL (0.2-1.0) Aspartate Amino Transf (AST/SGOT) 13 U/L (15-37) Alanine Aminotransferase (ALT/SGPT) 19 U/L (16-63) Alkaline Phosphatase 86 U/L (46-116) Troponin I Quantitative < 0.017 ng/mL (0.000-0.055) < 0.017 ng/mL (0.000-0.055) < 0.017 ng/mL (0.000-0.055) TX-Mec-K-Type Natriuretic Peptide 428 pg/mL (0-124) Total Protein 6.8 g/dL (6.4-8.2) Albumin 3.5 g/dL (3.4-5.0) Albumin/Globulin Ratio 1.1 (1.0-1.7) Lipase 216 U/L (73-393) Urine Collection Type Void Urine Color Yellow Urine Clarity Clear Urine pH 7.0 (<5.0-8.0) Urine Specific [place] 1.010 (1.000-1.030) Urine Protein Negative mg/dL (NEG-TRACE) Urine Glucose (UA) Negative mg/dL (NEG) Urine Ketones (Stick) Negative mg/dL (NEG) Urine Blood Negative (NEG) Urine Nitrite Negative (NEG) Urine Bilirubin Negative (NEG) Urine Urobilinogen Dipstick 1.0 mg/dL (0.2 mg/dL) Urine Leukocyte Esterase Negative (NEG) Urine RBC 0 /HPF (0-2) Urine WBC 1-4 /HPF (0-4) Urine Squamous Epithelial Cells Occ /LPF Urine Bacteria Few /HPF (0-FEW) Urine Mucus Slight /LPF Urine Sperm Present /HPF Urine Opiates Screen Neg (NEG) Urine Methadone Screen Neg (NEG) Urine Barbiturates Neg (NEG) Urine Phencyclidine Screen Neg (NEG) Urine Amphetamine/Methamphetamine Pos (NEG) Urine Benzodiazepines Screen Neg (NEG) Urine Cocaine Screen Neg (NEG) Urine Cannabinoids Screen Neg (NEG) Urine Ethyl Alcohol Neg (NEG) Test 06/04/20 03:00 White Blood Count 3.4 x10^3/uL (4.0-11.0) Red Blood Count 3.22 x10^6/uL (4.30-5.70) Hemoglobin 7.9 g/dL (13.0-17.5) Hematocrit 24.4 % (39.0-53.0) Mean Corpuscular Volume 76 fL (79-100) Mean Corpuscular Hemoglobin 25 pg (25-35) Mean Corpuscular Hemoglobin Concent 32 g/dL (31-37) Red Cell Distribution Width 17.0 % (11.5-14.5) Platelet Count 308 x10^3/uL (140-400) Neutrophils (%) (Auto) 44 % (31-73) Lymphocytes (%) (Auto) 34 % (24-48) Monocytes (%) (Auto) 14 % (0-9) Eosinophils (%) (Auto) 5 % (0-3) Basophils (%) (Auto) 3 % (0-3) Neutrophils # (Auto) 1.5 x10^3/uL (1.8-7.7) Lymphocytes # (Auto) 1.2 x10^3/uL (1.0-4.8) Monocytes # (Auto) 0.5 x10^3/uL (0.0-1.1) Eosinophils # (Auto) 0.2 x10^3/uL (0.0-0.7) Basophils # (Auto) 0.1 x10^3/uL (0.0-0.2) Sodium Level 137 mmol/L (136-145) Potassium Level 3.8 mmol/L (3.5-5.1) Chloride Level 102 mmol/L (98-107) Carbon Dioxide Level 26 mmol/L (21-32) Anion Gap 9 (6-14) Blood Urea Nitrogen 12 mg/dL (8-26) Creatinine 0.9 mg/dL (0.7-1.3) Estimated GFR (Cockcroft-Gault) 86.1 Glucose Level 114 mg/dL (70-99) Calcium Level 8.3 mg/dL (8.5-10.1) Assessment and Plan Assessmemt and Plan Problems Medical Problems: (1) Chest pain Status: Acute Comment Review of Relevant I have reviewed the following items kvng (where applicable) has been applied. Medications: Current Medications Medications (Trade) Dose Ordered Sig/Ani Route PRN Reason Start Time Stop Time Status Last Admin Dose Admin Ondansetron HCl (Zofran) 4 mg 1X ONCE IV 06/03/20 15:30 06/03/20 15:31 DC 06/03/20 15:42 Fentanyl Citrate (Fentanyl 2ml Vial) 25 mcg 1X ONCE IV 06/03/20 15:30 06/03/20 15:31 DC 06/03/20 15:42 Sodium Chloride 500 ml @ 500 mls/hr 1X ONCE IV 06/03/20 16:00 06/03/20 16:59 DC 06/03/20 15:43 Morphine Sulfate (Morphine Sulfate) 2 mg PRN Q2HR PRN IV PAIN 06/03/20 16:45 06/03/20 18:46 DC 06/03/20 18:40 Aspirin (Ecotrin) 81 mg DAILY PO 06/04/20 09:00 06/04/20 09:05 Clopidogrel Bisulfate (Plavix) 75 mg DAILY PO 06/04/20 09:00 06/04/20 09:05 Pregabalin (Lyrica) 300 mg BID PO 06/03/20 18:45 06/04/20 09:06 Atorvastatin Calcium (Lipitor) 80 mg QHS PO 06/03/20 21:00 06/03/20 20:15 Morphine Sulfate (Morphine Sulfate) 2 mg PRN Q2HR PRN IV PAIN 06/03/20 18:30 06/04/20 11:31 Justicifation of Admission Dx: Justifications for Admission: Justification of Admission Dx: Yes Sepsis: Bacteremia Angina: Symp at Rest DAVID ERNANDEZ MD Jun 04, 2020 13:42
[2020-06-04] MEDS: GABAPENTIN 300 MG CAPSULE. PO SCH ×2 (14:17→21:43)
[2020-06-04 14:39] VITALS: BP 96/65
[2020-06-04 19:59] VITALS: BP 100/60
[2020-06-04] MEDS: ATORVASTATIN CALCIUM 40 MG TABLET. PO SCH (21:44)
[2020-06-04 22:57] VITALS: BP 94/56
[2020-06-05] MEDS: MORPHINE SULFATE 2 MG/ML VIAL. IV PRN ×3 (02:19→08:27)
[2020-06-05 02:25] VITALS: BP 96/47
[2020-06-05 05:47] LABS: BASO # 0.1 x10^3/uL (0.0-0.2); BASO % 3 % (0-3); EOS # 0.2 x10^3/uL (0.0-0.7); EOS % 7 % (0-3); HEMATOCRIT 23.9 % (39.0-53.0); HEMOGLOBIN 7.9 g/dL (13.0-17.5); LYMPH % 35 % (24-48); MEAN CORPUSCULAR HEMOGLOBIN 25 pg (25-35); MEAN CORPUSCULAR HGB CONC 33 g/dL (31-37); MEAN CORPUSCULAR VOLUME 76 fL (79-100); MONO # 0.5 x10^3/uL (0.0-1.1); MONO % 16 % (0-9); NEUT # 1.2 x10^3/uL (1.8-7.7); NEUT % 40 % (31-73); PLATELET COUNT 305 x10^3/uL (140-400); RED BLOOD COUNT 3.15 x10^6/uL (4.30-5.70); RED CELL DISTRIBUTION WIDTH 16.9 % (11.5-14.5)
[2020-06-05 06:03] LABS: CREATININE 1.1 mg/dL (0.7-1.3); GFR 68.3; POTASSIUM 4.3 mmol/L (3.5-5.1)
[2020-06-05 07:00] VITALS: BP 99/63
[2020-06-05] MEDS: PREGABALIN 75 MG CAPSULE PO SCH (08:28)
[2020-06-05] MEDS: GABAPENTIN 300 MG CAPSULE. PO SCH ×3 (08:28→20:21)
[2020-06-05] MEDS: ASPIRIN ENTERIC COATED 81 MG TABLET.DR. PO SCH (08:28)
[2020-06-05] MEDS: CLOPIDOGREL BISULFATE 75 MG TABLET PO SCH (08:28)
[2020-06-05] MEDS: METOPROLOL SUCC 24HR ER 25 MG TAB.ER.24H. PO SCH (08:29)
[2020-06-05] MEDS: NON FORMULARY ITEM (Tiotropium Bromide (Spiriva) 1 CAP) IH SCH (08:30)
[2020-06-05] MEDS ORDERED: IRON SUCROSE COMPLEX 400 MG in IV NORMAL SALINE 250ML 250 ML IV ONE (08:30)
--- NOTE | 2020-06-05 08:30 | PDOC ---
[employer] PROGRESS NOTE Date of Service DOS: DATE: 06/05/20 TIME: 08:28 Chief Complaint Chief Complaint A/P: Chest pain - high risk ACS given his history and lateral TWI, will trend troponins, telemetry, consult cardiology Ischemic cardiomyopathy -also with nonischemic cardiomyopathy due to methamphetamine use historically. Fluid dynamics seems stable. CAD - s/p x4 cardiac catherizations. multiple stents in the past. At least 12 stents reported. VT s/p AICD - medtronic. Will consult cardiology. needs device interrogation HTN - cont meds HLD - cont meds Hx of IV meth use - used within 48 of admission. Tox screen positive and sees a counselor through [facility] Tobaccoism -counseled on cessation he is nondistended nicotine patch states he will need to start smoking as soon as he leaves Anxiety/agitation -calmed with verbal counseling History of Drug seeking behavior -advised with his substance abuse history is high risk and should not be given an opioid prescription on discharge and to minimize opioids while inpatient Anemia - likely from chronic substance abuse, will need monitoring outpatient Leukopenia - likely 2/2 above, no signs of infection FEN - Cardiac PPX - Lovenox FULL CODE Dispo - inpatient for high risk ACS History of Present Illness History of Present Illness Mr Hicks is a 59yo M w/ PMHx CAD x multiple JANET, CHF, HTN, HLD, VT s/p AICD, COPD/asthma, GERD, OA, anxiety, IV methamphetamine abuse c/o chest pain with radiation to left arm and jaw. 2 days prior to admission was injecting methamphetamine, admitted for concern for acute coronary syndrome. He rates his symptoms at 9/10. He keeps asking for pain meds. EKG with lateral TWI and leftward axis, no STEMI. CXR with no acute abnormality Historically with multiple PCIs- C at [facility] Oct 2017 showed showed patent mid LAD stent, patent 1st diagonal stent, total chronic occlusion of first obtuse marginal with territory infarct but no indication for PCI, patent stent in left AV groove artery, patent stent in LPDA, non-dominant 100 % stenosis of proximal RCA. Seen by cardiology here in October. Admit for further work-up of his coronary artery disease 06/04: Troponin negative x3 WBC down to 3.4, Hb down to 7.9 platelets 308 NA 137K3.8 BUN 12, CR 0.9 glucose 114. Initially during her interview today he yells at me and says there is something wrong with my chest. He adamantly denies methamphetamine use, upon further questioning he admits to using 2 days prior to admission and notes he did not think this would show up on the drug screen. He typically injects multiple times a day does not reuse or share needles and uses cotton or cigarette filters and hot water to mix with methamphetamine crystals heats it up in the microwave and then injects he has been doing this for years. He is asking for help and would like to go to inpatient rehab if possible today. Medically he shows no signs of abnormalities that require inpatient care no infectious signs. WBC 3, Hb 7.9, platelets 305, iron returned 16 with elevated TIBC. Still some chest pain. He is amenable to iron infusion today as he cannot tolerate p.o. iron. He wishes to go to acute substance abuse rehabilitation in [facility]. He is working with PAT team to coordinate this in the next 24 hours. Plan: IV iron Transition to oral pain medications, stop IV morphine COVID 19 swab for placement Vitals/I&O Vitals/I&O: Vital Signs Date Time Temp Pulse Resp B/P (MAP) Pulse Ox O2 Delivery O2 Flow Rate FiO2 06/05/20 07:00 98.2 83 18 99/63 (75) 98 Room Air 98.2 I & O 06/04/20 06/04/20 06/05/20 15:00 23:00 07:00 Intake Total 740 ml 540 ml Balance 740 ml 540 ml Physical Exam General: Alert, Oriented X3, Cooperative Lungs: Clear Labs Labs: Laboratory Tests Test 06/05/20 04:50 White Blood Count 3.0 x10^3/uL (4.0-11.0) Red Blood Count 3.15 x10^6/uL (4.30-5.70) Hemoglobin 7.9 g/dL (13.0-17.5) Hematocrit 23.9 % (39.0-53.0) Mean Corpuscular Volume 76 fL (79-100) Mean Corpuscular Hemoglobin 25 pg (25-35) Mean Corpuscular Hemoglobin Concent 33 g/dL (31-37) Red Cell Distribution Width 16.9 % (11.5-14.5) Platelet Count 305 x10^3/uL (140-400) Neutrophils (%) (Auto) 40 % (31-73) Lymphocytes (%) (Auto) 35 % (24-48) Monocytes (%) (Auto) 16 % (0-9) Eosinophils (%) (Auto) 7 % (0-3) Basophils (%) (Auto) 3 % (0-3) Neutrophils # (Auto) 1.2 x10^3/uL (1.8-7.7) Lymphocytes # (Auto) 1.0 x10^3/uL (1.0-4.8) Monocytes # (Auto) 0.5 x10^3/uL (0.0-1.1) Eosinophils # (Auto) 0.2 x10^3/uL (0.0-0.7) Basophils # (Auto) 0.1 x10^3/uL (0.0-0.2) Sodium Level 138 mmol/L (136-145) Potassium Level 4.3 mmol/L (3.5-5.1) Chloride Level 103 mmol/L (98-107) Carbon Dioxide Level 26 mmol/L (21-32) Anion Gap 9 (6-14) Blood Urea Nitrogen 12 mg/dL (8-26) Creatinine 1.1 mg/dL (0.7-1.3) Estimated GFR (Cockcroft-Gault) 68.3 Glucose Level 121 mg/dL (70-99) Calcium Level 8.0 mg/dL (8.5-10.1) Magnesium Level 2.0 mg/dL (1.8-2.4) Assessment and Plan Assessmemt and Plan Problems Medical Problems: (1) Chest pain Status: Acute Comment Review of Relevant I have reviewed the following items kvng (where applicable) has been applied. Medications: Current Medications Medications (Trade) Dose Ordered Sig/Ani Route PRN Reason Start Time Stop Time Status Last Admin Dose Admin Aspirin (Ecotrin) 81 mg DAILY PO 06/04/20 09:00 06/04/20 09:05 Clopidogrel Bisulfate (Plavix) 75 mg DAILY PO 06/04/20 09:00 06/04/20 09:05 Gabapentin (Neurontin) 300 mg TID PO 06/04/20 14:00 06/04/20 21:43 Justicifation of Admission Dx: Justifications for Admission: Justification of Admission Dx: Yes Sepsis: Bacteremia Angina: Symp at Rest DAVID ERNANDEZ MD Jun 05, 2020 08:30
[2020-06-05] MEDS ORDERED: traMADol 50 MG TABLET PO PRN (10:45)
[2020-06-05 10:56] VITALS: BP 102/56
[2020-06-05] MEDS ORDERED: MORPHINE SULFATE 2 MG/ML VIAL. IV ONE (11:30)
[2020-06-05 15:00] VITALS: BP 108/54
[2020-06-05 19:20] VITALS: BP 117/68
[2020-06-05] MEDS: ATORVASTATIN CALCIUM 40 MG TABLET. PO SCH (20:21)
[2020-06-06 07:00] VITALS: BP 109/48
[2020-06-06] MEDS: GABAPENTIN 300 MG CAPSULE. PO SCH (07:52)
[2020-06-06] MEDS: CLOPIDOGREL BISULFATE 75 MG TABLET PO SCH (07:52)
[2020-06-06] MEDS: ASPIRIN ENTERIC COATED 81 MG TABLET.DR. PO SCH (07:52)
[2020-06-06] MEDS ORDERED: TRAM50TA PO (08:43)
[2020-06-06] MEDS ORDERED: PREGABALIN 75 MG CAPSULE PO SCH (09:00)
[2020-06-06] MEDS: METOPROLOL SUCC 24HR ER 25 MG TAB.ER.24H. PO SCH (09:00)
[2020-06-06 11:00] VITALS: BP 115/65
--- NOTE | 2020-06-06 11:11 | NUR ---
SS following for discharge planning. SS reviewed pt chart and discussed with pt RN. Pt is from home and is currently on room air. COVID19 negative. Pt was positive for Methamphetamine. Pt saw Yoko from the PAT team on 06/04/2020. SS was notified from Parag at the PAT team that [facility] was contacted and pt was given resources for rehabilitation centers. Discharge order on the chart. SS met with pt to discuss. Pt reported that he originally wanted to go to [facility] in [place], [place] but they do not accept his Medicaid. Pt reported that he has contacted [facility] and [facility] in [place], [place] and requested inpatient treatment. Discharge order on the chart. Anupam from PAT team coming to meet with pt and follow up on inpatient referrals. SS will continue to follow for discharge planning.
--- NOTE | 2020-06-06 12:27 | NUR ---
SS following up with discharge planning. Anupam from PAT team met with pt and discussed inpatient treatment. Anupam following up with referrals. [facility] cannot accept pt at this time. Pt completed intake with [facility] in [place], [place] but facility unsure if bed is available at this time. Pt reported to Anupam that he would discharge to home today and requested ride be scheduled through [employer], . SS contacted [employer] and scheduled ride for pt to return to home. Trip ID#[id number]. [employer] reported that they will picker pt at 1522 today. SS will continue to follow for discharge planning.
[2020-06-06] MEDS ORDERED: diazePAM 5 MG TABLET PO ONE (13:00)
--- NOTE | 2020-06-06 14:08 | PDOC3 ---
Discharge Summary Visit Information Date of Admission: Jun 03, 2020 Date of Discharge: Jun 06, 2020 Final Diagnosis Chest pain - high risk ACS given his history and lateral TWI, will trend troponins, telemetry, consult cardiology Ischemic cardiomyopathy -also with nonischemic cardiomyopathy due to methamphetamine use historically. Fluid dynamics seems stable. CAD - s/p x4 cardiac catherizations. multiple stents in the past. At least 12 stents reported. VT s/p AICD - medtronic. Will consult cardiology. needs device interrogation HTN - cont meds HLD - cont meds Hx of IV meth use - used within 48 of admission. Tox screen positive and sees a counselor through [facility] Tobaccoism -counseled on cessation he is nondistended nicotine patch states he will need to start smoking as soon as he leaves Anxiety/agitation -calmed with verbal counseling History of Drug seeking behavior -advised with his substance abuse history is high risk and should not be given an opioid prescription on discharge and to minimize opioids while inpatient Anemia - likely from chronic substance abuse, will need monitoring outpatient Leukopenia - likely 2/2 above, no signs of infection Problems Medical Problems: (1) Chest pain Status: Acute Brief Hospital Course Allergies Allergies Coded Allergies Type Severity Reaction Last Updated Verified acetaminophen Allergy Unknown 06/03/20 Yes albuterol Adverse Reaction Intermediate 11/18/19 Yes ibuprofen Adverse Reaction Intermediate Nausea and Vomiting 11/18/19 Yes Vital Signs Vital Signs Date Time Temp Pulse Resp B/P (MAP) Pulse Ox O2 Delivery O2 Flow Rate FiO2 06/06/20 11:00 97.9 92 18 115/65 (82) 100 Room Air 97.9 Lab Results Laboratory Tests Test 06/05/20 04:50 06/05/20 11:39 White Blood Count 3.0 x10^3/uL (4.0-11.0) Red Blood Count 3.15 x10^6/uL (4.30-5.70) Hemoglobin 7.9 g/dL (13.0-17.5) Hematocrit 23.9 % (39.0-53.0) Mean Corpuscular Volume 76 fL (79-100) Mean Corpuscular Hemoglobin 25 pg (25-35) Mean Corpuscular Hemoglobin Concent 33 g/dL (31-37) Red Cell Distribution Width 16.9 % (11.5-14.5) Platelet Count 305 x10^3/uL (140-400) Neutrophils (%) (Auto) 40 % (31-73) Lymphocytes (%) (Auto) 35 % (24-48) Monocytes (%) (Auto) 16 % (0-9) Eosinophils (%) (Auto) 7 % (0-3) Basophils (%) (Auto) 3 % (0-3) Neutrophils # (Auto) 1.2 x10^3/uL (1.8-7.7) Lymphocytes # (Auto) 1.0 x10^3/uL (1.0-4.8) Monocytes # (Auto) 0.5 x10^3/uL (0.0-1.1) Eosinophils # (Auto) 0.2 x10^3/uL (0.0-0.7) Basophils # (Auto) 0.1 x10^3/uL (0.0-0.2) Sodium Level 138 mmol/L (136-145) Potassium Level 4.3 mmol/L (3.5-5.1) Chloride Level 103 mmol/L (98-107) Carbon Dioxide Level 26 mmol/L (21-32) Anion Gap 9 (6-14) Blood Urea Nitrogen 12 mg/dL (8-26) Creatinine 1.1 mg/dL (0.7-1.3) Estimated GFR (Cockcroft-Gault) 68.3 Glucose Level 121 mg/dL (70-99) Calcium Level 8.0 mg/dL (8.5-10.1) Magnesium Level 2.0 mg/dL (1.8-2.4) Coronavirus (PCR) Not detected (Not Detected) SARS-CoV-2 Antigen (Rapid) Negative (NEGATIVE) Brief Hospital Course Mr Hicks is a 59yo M w/ PMHx CAD x multiple JANET, CHF, HTN, HLD, VT s/p AICD, COPD/asthma, GERD, OA, anxiety, IV methamphetamine abuse c/o chest pain with radiation to left arm and jaw. 2 days prior to admission was injecting methamphetamine, admitted for concern for acute coronary syndrome. He rates his symptoms at 9/10. He keeps asking for pain meds. EKG with lateral TWI and leftward axis, no STEMI. CXR with no acute abnormality Historically with multiple PCIs- LHC at [facility] Oct 2017 showed showed patent mid LAD stent, patent 1st diagonal stent, total chronic occlusion of first obtuse marginal with territory infarct but no indication for PCI, patent stent in left AV groove artery, patent stent in LPDA, non-dominant 100 % stenosis of proximal RCA. Seen by cardiology here in October. Admit for further work-up of his coronary artery disease troponin negative x3 some erratic behavior, suspect use in hospital, not proven, he wanted inpatient psych, unable to fill, needs outpatient f/u Discharge Information Condition at Discharge: Improved Follow Up: Weeks Disposition/Orders: D/C to Home Scheduled Aspirin (Aspir 81) 81 Mg Tablet.dr, 1 TAB PO DAILY, #30 Ref 5 (Reported) Entered as Reported by: Roseanne Ca on 02/11/152305 Last Action: Continued on 06/03/201827 by DIVINA HAAS RN Clopidogrel Bisulfate (Plavix) 75 Mg Tablet, 75 MG PO DAILY for TO PREVENT BLOOD CLOTS, #30 Ref 0 (Reported) Entered as Reported by: Roseanne Ca on 02/11/152307 Last Action: Continued on 06/03/201827 by DIVINA HAAS RN Metoprolol Succinate (Metoprolol Succinate ( Xl )) 25 Mg Tab.er.24h, 12.5 MG PO DAILY for FOR HYPERTENSION, #30 Ref 0 (Reported) Entered as Reported by: KANCHAN CANO [facility] on 11/18/19 0814 Last Action: Continued on 06/03/201827 by DIVINA HAAS RN Pregabalin (Lyrica) 300 Mg Capsule, 1 CAP PO BID, #60 Ref 2 (Reported) Entered as Reported by: TERESA NAPIER on 04/10/16411 Last Action: Converted on 06/03/201827 by DIVINA HAAS RN Rosuvastatin Calcium (Crestor) 40 Mg Tablet, 40 MG PO HS for FOR CHOLESTEROL, #30 Ref 0 (Reported) Entered as Reported by: DIVINA HAAS RN on 06/03/201802 Last Action: Converted on 06/03/201827 by DIVINA HAAS RN Tiotropium [place] (Spiriva) 18 Mcg Cap.w.dev, 1 CAP IH DAILY, #30 Ref 3 (Reported) Entered as Reported by: TERESA NAPIER on 04/10/16411 Last Action: Converted on 06/03/201827 by DIVINA HAAS RN Scheduled PRN Nitroglycerin (NITROGLYCERIN SubLingual) 0.4 Mg Tab.subl, 0.4 MG SL PRN Q5MIN PRN for CHEST PAIN, (Reported) Entered as Reported by: TERESA NAPIER on 04/10/16411 Last Action: Reviewed on 06/03/201802 by DIVINA HAAS RN Tramadol Hcl (Tramadol Hcl) 50 Mg Tablet, 100 MG PO PRN TID PRN for PAIN, #30 Prescribed by: KATLYN HUSSEIN on 06/06/20 0844 Justicifation of Admission Dx: Justifications for Admission: Justification of Admission Dx: Yes Sepsis: Bacteremia Angina: Symp at Rest KATLYN HUSSEIN MD Jun 06, 2020 14:08
--- NOTE | 2020-06-06 14:16 | NUR ---
Discharge Note: [facility] Discharge instructions and discharge home medications reviewed with Patient and a copy given. All questions have been answered and understanding verbalized. The following instructions and handouts were given: Drug abuse, finding treatment Discontinued lines and drains: IV catheter removed intact. Patient discharged to Home with self care via transport
== END 2020-06-06 14:00 | disposition home or self-care (01) | DRG 392 ==
LOC: ER 15:11 → 2 SOUTH 16:37
PROVIDERS: ADMIT Internal Medicine; ATTEND Internal Medicine
DX: K21.9 Gastro-esophageal reflux disease without esophagitis (principal); I42.7 Cardiomyopathy due to drug and external agent; I25.10 Atherosclerotic heart disease of native coronary artery without angina pectoris; E11.9 Type 2 diabetes mellitus without complications; D64.9 Anemia, unspecified; D72.819 Decreased white blood cell count, unspecified; E78.00 Pure hypercholesterolemia, unspecified; E78.5 Hyperlipidemia, unspecified; F15.10 Other stimulant abuse, uncomplicated; F17.210 Nicotine dependence, cigarettes, uncomplicated; F41.9 Anxiety disorder, unspecified; I11.0 Hypertensive heart disease with heart failure; I25.2 Old myocardial infarction; I25.5 Ischemic cardiomyopathy; I50.9 Heart failure, unspecified; J44.9 Chronic obstructive pulmonary disease, unspecified; Z82.49 Family history of ischemic heart disease and other diseases of the circulatory system; Z86.73 Personal history of transient ischemic attack (TIA), and cerebral infarction without residual deficits; Z90.81 Acquired absence of spleen; Z95.5 Presence of coronary angioplasty implant and graft; Z95.810 Presence of automatic (implantable) cardiac defibrillator; Z88.8 Allergy status to other drugs, medicaments and biological substances; T43.625A Adverse effect of amphetamines, initial encounter; Y92.89 Other specified places as the place of occurrence of the external cause; Z20.828 Contact with and (suspected) exposure to other viral communicable diseases
CPT/HCPCS: 36415; 71045; 80048; 80053; 80307; 81001; 83540; 83550; 83690; 83735; 83880; 84484; 85025; 85379; 85610; 85730; 87426; 93005; 96361; 96374; 96375; J1756; J2270; J2405; J3010; J7040; J7050; 99285-25; G0378; J7030; U0003-CS

== ENCOUNTER 2020-06-28 20:55 | Emergency (ER) | payer MEDICAID ==
[~2020-06-28] VITALS: Ht 170.2 cm; Wt 67.7 kg
--- NOTE | 2020-06-28 21:22 | PHYS DOC ---
Past Medical History Past Medical History: Asthma, CAD, CHF, CVA, High Cholesterol, Hypertension, [place], Other Additional Past Medical Histor: VTACH, Drug abuse-Methamphetamine Past Surgical History: Pacemaker, Splenectomy, Other Additional Past Surgical Histo: 12 cardiac stents, multiple cardiac catheterizations,WITH DEFIB Smoking Status: Current Every Day Smoker Alcohol Use: Rarely Drug Use: None General Adult EDM: Chief Complaint: CHEST PAIN HPI: HPI: Patient is a 59-year-old male presenting to the ED with chest pain. Patient has a long history of methamphetamine use and cardiac history. Patient describes his chest pain is deep and crushing that started 1 hour ago. Patient denies any abdominal pain, weakness in the limbs, sensory changes. Patient states his current pain is similar to his previous MIs. Review of Systems: Review of Systems: Constitutional: Denies fever or chills Eyes: Denies redness or eye pain HENT: Denies nasal congestion or sore throat Respiratory: Denies cough or endorses shortness of breath Cardiovascular: Endorses chest pain or palpitations GI: Denies abdominal pain, nausea, or vomiting : Denies dysuria or hematuria Musculoskeletal: Denies back pain or joint pain Integument: Denies rash or skin lesions Neurologic: Denies headache, focal weakness or sensory changes Complete systems were reviewed and found to be within normal limits, except as documented in this note. Heart Score: HEART Score for Chest Pain: HEART Score for Chest Pain Response (Comments) Value History Moderately Suspicious 1 ECG Normal 0 Age >45 - < 65 1 Risk Factors >3 Risk Factors or Hx CAD 2 Troponin < Normal Limit 0 Total 4 Risk Factors: Risk Factors: DM, Current or recent (<one month) smoker, HTN, HLP, family history of CAD, obesity. Risk Scores: Score 0 - 3: 2.5% MACE over next 6 weeks - Discharge Home Score 4 - 6: 20.3% MACE over next 6 weeks - Admit for Clinical Observation Score 7 - 10: 72.7% MACE over next 6 weeks - Early Invasive Strategies Allergies: Allergies: Allergies Coded Allergies Type Severity Reaction Last Updated Verified acetaminophen Allergy Unknown 06/03/20 Yes albuterol Adverse Reaction Intermediate 11/18/19 Yes ibuprofen Adverse Reaction Intermediate Nausea and Vomiting 11/18/19 Yes Physical Exam: PE: Constitutional: Appears thin, unkept, in moderate distress HENT: Normocephalic, atraumatic, continuous lip smacking and oral fasciculations, Eyes: Pupils equal and reacting to light, normal conjunctiva discharge, tenuous looking of the eye lids Neck: Normal range of motion, no tenderness, supple Lungs & Thorax: Bilateral breath sounds clear to auscultation, no wheezing, patient intermittently tachycardic, no murmurs, pacemaker hardware present on left upper chest. Abdomen: Soft, no tenderness Skin: Warm, dry, no erythema, no rash Back: No tenderness, no CVA tenderness Extremities: No tenderness, ROM intact, no edema Neurologic: Alert and oriented X 3, normal motor function, normal sensory function, no focal deficits noted Psychologic: Affect normal, judgment normal EKG: EK06/28/2020 at 21:06 hrs. heart rate 93 bpm, paced sinus rhythm, QRS 154 ms, QT/QTc 406/508 ms Course & Med Decision Making: Course & Med Decision Making Pertinent Labs and Imaging studies reviewed. (See chart for details) Patient is a 59-year-old male presenting with acute onset chest pain that started 1 hour ago. Patient has a long cardiac history as well as a long history of methamphetamine use. Patient is hypokalemic with a potassium of 3.3, patient's troponin is within normal limits at less than 0.017, BNP is elevated at 1111 likely due to long cardiac history and ongoing methamphetamine use. Patient was given lorazepam 1 mg IV push which provided much relief from anxiety related to chest pain making acute methamphetamine toxicity the likely source of this incident. Sendy Disclaimer: Sendy Disclaimer: This electronic medical record was generated, in whole or in part, using a voice recognition dictation system. Departure Departure Impression: Primary Impression: Methamphetamine abuse Additional Impression: Chest pain Qualified Codes: R07.9 - Chest pain, unspecified Disposition: HOME, SELF-CARE Condition: STABLE Referrals: NO PCP (PCP) Patient Instructions: Alcohol and Drug Addiction, Finding Treatment, Chest Pain (Nonspecific), [id number], Methamphetamine Abuse, Complications Additional Instructions: Please call the following to help with your drug addiction: - [facility] (You must present with at least 5 days worth of your medications- prescriptions have been written but must be filled before going there) - [facility] Scripts Rosuvastatin Calcium (CRESTOR) 40 Mg Tablet 1 TAB PO DAILY, #10 TAB Prov: KATHRYN HEBERT DO 06/29/20 Metoprolol Tartrate (METOPROLOL TARTRATE) 25 Mg Tablet 0.5 TAB PO BID for 10 Days, #10 TAB Prov: KATHRYN HEBERT DO 06/29/20 Aspirin (ASPIRIN) 81 Mg Tab.chew 1 TAB PO DAILY, #10 TAB Prov: KATHRYN HEBERT DO 06/29/20 Clopidogrel Bisulfate (CLOPIDOGREL) 75 Mg Tablet 1 TAB PO DAILY, #10 TAB Prov: KATHRYN HEBERT DO 06/29/20 Justicifation of Admission Dx: Justifications for Admission: Justification of Admission Dx: N/A Angina: Symp at Rest KATHRYN HEBERT DO Jun 28, 2020 21:22
[2020-06-28 21:46] LABS: BASO # 0.1 x10^3/uL (0.0-0.2); BASO % 2 % (0-3); EOS # 0.2 x10^3/uL (0.0-0.7); EOS % 4 % (0-3); HEMATOCRIT 32.2 % (39.0-53.0); HEMOGLOBIN 10.5 g/dL (13.0-17.5); LYMPH # 1.4 x10^3/uL (1.0-4.8); LYMPH % 28 % (24-48); MEAN CORPUSCULAR HEMOGLOBIN 26 pg (25-35); MEAN CORPUSCULAR HGB CONC 33 g/dL (31-37); MEAN CORPUSCULAR VOLUME 80 fL (79-100); MONO # 0.8 x10^3/uL (0.0-1.1); MONO % 16 % (0-9); NEUT # 2.5 x10^3/uL (1.8-7.7); NEUT % 50 % (31-73); PLATELET COUNT 297 x10^3/uL (140-400); RED BLOOD COUNT 4.05 x10^6/uL (4.30-5.70); RED CELL DISTRIBUTION WIDTH 22.9 % (11.5-14.5); WHITE BLOOD COUNT 5.1 x10^3/uL (4.0-11.0)
[2020-06-28 21:55] LABS: CALCIUM 9.4 mg/dL (8.5-10.1); CREATININE 0.9 mg/dL (0.7-1.3); GFR 86.1; POTASSIUM 3.3 mmol/L (3.5-5.1)
[2020-06-28 22:00] LABS: ALBUMIN 3.9 g/dL (3.4-5.0); MAGNESIUM 2.1 mg/dL (1.8-2.4); TOTAL BILIRUBIN 0.7 mg/dL (0.2-1.0); TOTAL PROTEIN 7.8 g/dL (6.4-8.2)
[2020-06-28] MEDS ORDERED: ASPIRIN 325 MG TABLET PO ONE (22:00)
[2020-06-28] MEDS ORDERED: IV NORMAL SALINE 1000ML BAG 1,000 ML IV ONE ×2 (22:00→23:30)
--- NOTE | 2020-06-28 22:11 | RAD ---
Exam: Chest one view INDICATION: Chest pain TECHNIQUE: Frontal view of the chest Comparisons: 06/03/2020 FINDINGS: Pacer with leads terminating the right atrium and ventricle. Heart is mildly enlarged. Pulmonary vessels are within normal limits. The lung and pleural spaces are clear. Lucency is seen under the right hemidiaphragm. IMPRESSION: 1. Lucency seen under the right hemidiaphragm which is favored to represent interposition of colon rather than free air. Correlate with symptomatology to determine the need for further evaluation with CT of the abdomen. 2. No acute pulmonary process. Electronically signed by: Renita Echevarria MD (06/28/2020 10:08 PM) [id number]
[2020-06-28 22:13] LABS: ANISOCYTOSIS MOD; PLT ESTIMATE ADEQUATE (ADEQUATE)
[2020-06-28 22:59] LABS: PROTHROMBIN TIME PATIENT 13.5 SEC (11.7-14.0)
[2020-06-28] MEDS ORDERED: POTASSIUM CHLORIDE 20 MEQ TABLET.ER. PO ONE (23:30)
[2020-06-29] MEDS ORDERED: ASPI-630 PO (06:07)
[2020-06-29] MEDS ORDERED: METO25TA4 PO (06:07)
[2020-06-29] MEDS ORDERED: CLOP75TA PO (06:07)
[2020-06-29] MEDS ORDERED: CRESTOR40 MG PO (06:07)
[2020-06-29 07:00] VITALS: BP 103/59
[2020-06-29] MEDS ORDERED: POTASSIUM CHLORIDE 20 MEQ TABLET.ER. PO ONE (07:30)
[2020-06-29 08:17] LABS: BARBITURATES NEG (NEG); BENZODIAZEPINES NEG (NEG); CANNABINOIDS NEG (NEG); COCAINE NEG (NEG); METHADONE NEG (NEG); OPIATES NEG (NEG); PHENCYCLIDINE NEG (NEG)
[2020-06-29 08:19] LABS: AMPHETAMINE/METHAMPHETAMINE POS (NEG)
--- NOTE | 2020-06-30 07:38 | EKG ---
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
== END 2020-06-29 08:10 | disposition home or self-care (01) ==
LOC: ER 20:55
DX: F15.10 Other stimulant abuse, uncomplicated (principal); R07.89 Other chest pain; E78.00 Pure hypercholesterolemia, unspecified; I11.0 Hypertensive heart disease with heart failure; I50.9 Heart failure, unspecified; I25.10 Atherosclerotic heart disease of native coronary artery without angina pectoris; J45.909 Unspecified asthma, uncomplicated; I25.2 Old myocardial infarction; F17.200 Nicotine dependence, unspecified, uncomplicated; Z95.0 Presence of cardiac pacemaker; Z90.81 Acquired absence of spleen; Z95.5 Presence of coronary angioplasty implant and graft; Z88.6 Allergy status to analgesic agent; Z88.8 Allergy status to other drugs, medicaments and biological substances
CPT/HCPCS: 36415; 71045; 80053; 80307; 83605; 83690; 83735; 83880; 84484; 85025; 85610; 85730; 93005; 96361; 96374; 99285; J2060; J7030

== ENCOUNTER 2020-08-03 19:34 | Inpatient (IN) | payer MEDICAID ==
[~2020-08-03] VITALS: Ht 170.2 cm; Wt 70.0 kg
[~2020-08-03 19:34] MED LIST changes: +ASPI-630 PO; +CLOP75TA PO
[2020-08-03 19:56] LABS: BASO # 0.1 x10^3/uL (0.0-0.2); BASO % 1 % (0-3); EOS # 0.2 x10^3/uL (0.0-0.7); EOS % 4 % (0-3); HEMATOCRIT 33.3 % (39.0-53.0); LYMPH # 1.3 x10^3/uL (1.0-4.8); LYMPH % 25 % (24-48); MEAN CORPUSCULAR HEMOGLOBIN 26 pg (25-35); MEAN CORPUSCULAR HGB CONC 33 g/dL (31-37); MEAN CORPUSCULAR VOLUME 79 fL (79-100); MONO # 0.8 x10^3/uL (0.0-1.1); MONO % 16 % (0-9); NEUT # 2.7 x10^3/uL (1.8-7.7); NEUT % 54 % (31-73); PLATELET COUNT 220 x10^3/uL (140-400); RED BLOOD COUNT 4.21 x10^6/uL (4.30-5.70)
[2020-08-03] MEDS ORDERED: MORPHINE SULFATE 2 MG/ML VIAL. IV ONE (20:00)
[2020-08-03 20:05] LABS: CALCIUM 9.1 mg/dL (8.5-10.1); CREATININE 1.1 mg/dL (0.7-1.3); GFR 68.3; POTASSIUM 5.2 mmol/L (3.5-5.1)
[2020-08-03 20:10] LABS: ALBUMIN 3.7 g/dL (3.4-5.0); MAGNESIUM 2.2 mg/dL (1.8-2.4); TOTAL BILIRUBIN 0.2 mg/dL (0.2-1.0); TOTAL PROTEIN 7.5 g/dL (6.4-8.2)
[2020-08-03 20:12] LABS: PLT ESTIMATE ADEQUATE (ADEQUATE)
[2020-08-03 20:13] LABS: ANISOCYTOSIS MOD; HYPOCHROMIA SLIGHT
--- NOTE | 2020-08-03 20:24 | RAD ---
PORTABLE CHEST 1V History: Chest pain Comparison: June 28, 2020 Findings: Single view of the chest is submitted. There is again triple lead left electronic cardiac device. Pericardial cardiac silhouette is again somewhat prominent although unchanged. There is no dependent pleural fluid, pneumothorax, or lobar infiltrate. Impression: 1. No acute radiographic abnormality is identified. Electronically signed by: Александр Burgos MD (08/03/2020 8:21 PM) [facility]
--- NOTE | 2020-08-03 21:05 | PHYS DOC ---
Past Medical History Past Medical History: Asthma, CAD, CHF, CVA, High Cholesterol, Hypertension, [place], Other Additional Past Medical Histor: VTACH, Drug abuse-Methamphetamine Past Surgical History: Pacemaker, Splenectomy, Other Additional Past Surgical Histo: 12 cardiac stents, multiple cardiac luz terizations,WITH DEFIB Smoking Status: Current Every Day Smoker Alcohol Use: Rarely Drug Use: Methamphetamine Social History Narrative: PT REPORTS LAST USED 6 WEEKS AGO General Adult EDM: Chief Complaint: CHEST PAIN-CARDIAC NATURE HPI: HPI: 59-year-old male past medical history significant for CABG, congestive heart failure with AICD was that was placed 2 months ago at [facility], COPD, bruxism and methamphetamine abuse, presents the ED with complaints of left-sided tight and sharp chest pain that radiates to his neck and left arm for the past 45 minutes, associated clamminess and diaphoresis. Patient states his last carduac cath was in the past year and there was a blockage in a back artery that cards cannot get to. Patient states his stress tests are always negative. Reports last methamphetamine abuse was 5 weeks ago. Took 3 sublingual nitro and 324 aspirin prior to arrival. Denies any associated shortness of breath, fever, nausea or vomiting. Pt reports his AICD "did not go off." Review of Systems: Review of Systems: Constitutional: Denies fever or chills. [] Eyes: Denies change in visual acuity. [] HENT: Denies nasal congestion or sore throat. [] Or hemoptysis Respiratory: Denies cough or shortness of breath. [] Cardiovascular: Denies syncope or edema. [] GI: Denies abdominal pain, nausea, vomiting, bloody stools or diarrhea. [] : Denies dysuria. [] Or hematuria Musculoskeletal: Denies back pain or joint pain. [] Integument: Denies rash. [] Neurologic: Denies headache, focal weakness or sensory changes. [] Endocrine: Denies polyuria or polydipsia. [] Lymphatic: Denies swollen glands. [] Psychiatric: Denies depression or anxiety. [] Heart Score: HEART Score for Chest Pain: HEART Score for Chest Pain Response (Comments) Value History Moderately Suspicious 1 ECG Nonspecific Repolarizatio 1 Age >45 - < 65 1 Risk Factors >3 Risk Factors or Hx CAD 2 Troponin < Normal Limit 0 Total 5 Risk Factors: Risk Factors: DM, Current or recent (<one month) smoker, HTN, HLP, family his tory of CAD, obesity. Risk Scores: Score 0 - 3: 2.5% MACE over next 6 weeks - Discharge Home Score 4 - 6: 20.3% MACE over next 6 weeks - Admit for Clinical Observation Score 7 - 10: 72.7% MACE over next 6 weeks - Early Invasive Strategies Current Medications: Current Medications Medications (Trade) Dose Ordered Sig/Ani Start Time Stop Time Status Last Admin Dose Admin Morphine Sulfate (Morphine Sulfate) 4 mg 1X ONCE 08/03/20 20:00 08/03/20 20:01 DC 08/03/20 20:14 4 MG Allergies: Allergies: Allergies Coded Allergies Type Severity Reaction Last Updated Verified acetaminophen Allergy Unknown 06/03/20 Yes albuterol Adverse Reaction Intermediate 11/18/19 Yes ibuprofen Adverse Reaction Intermediate Nausea and Vomiting 11/18/19 Yes Physical Exam: PE: Constitutional: Well developed, well nourished, no acute distress, non-toxic appearance. []unkept appearance HENT: Normocephalic, atraumatic, Eyes: EOMI, conjunctiva normal, no discharge. [] Neck: Normal range of motion, supple, no stridor. [] Cardiovascular:Heart rate regular rhythm, no murmur []+AICD present-appears new given scar appearance Lungs & Thorax: Bilateral breath sounds clear to auscultation [] Abdomen: Bowel sounds normal, soft, no tenderness, no masses, no pulsatile masses. [] Skin: Warm, dry, no erythema, no rash. [] Back: No tenderness, Extremities: No tenderness, no cyanosis, no clubbing, ROM intact, no edema. [] Neurologic: Alert and oriented X 3, normal motor function, normal sensory function, no focal deficits noted. [] Psychologic: Affect normal, judgement normal, mood normal. [] Current Patient Data: Labs: Laboratory Tests Test 08/03/20 19:45 08/03/20 19:50 White Blood Count 5.0 x10^3/uL (4.0-11.0) Red Blood Count 4.21 x10^6/uL (4.30-5.70) L Hemoglobin 11.0 g/dL (13.0-17.5) L Hematocrit 33.3 % (39.0-53.0) L Mean Corpuscular Volume 79 fL (79-100) Mean Corpuscular Hemoglobin 26 pg (25-35) Mean Corpuscular Hemoglobin Concent 33 g/dL (31-37) Red Cell Distribution Width 22.0 % (11.5-14.5) H Platelet Count 220 x10^3/uL (140-400) Neutrophils (%) (Auto) 54 % (31-73) Lymphocytes (%) (Auto) 25 % (24-48) Monocytes (%) (Auto) 16 % (0-9) H Eosinophils (%) (Auto) 4 % (0-3) H Basophils (%) (Auto) 1 % (0-3) Neutrophils # (Auto) 2.7 x10^3/uL (1.8-7.7) Lymphocytes # (Auto) 1.3 x10^3/uL (1.0-4.8) Monocytes # (Auto) 0.8 x10^3/uL (0.0-1.1) Eosinophils # (Auto) 0.2 x10^3/uL (0.0-0.7) Basophils # (Auto) 0.1 x10^3/uL (0.0-0.2) Platelet Estimate Adequate (ADEQUATE) Hypochromasia Slight Anisocytosis Mod Sodium Level 139 mmol/L (136-145) Potassium Level 5.2 mmol/L (3.5-5.1) H Chloride Level 103 mmol/L (98-107) Carbon Dioxide Level 26 mmol/L (21-32) Anion Gap 10 (6-14) Blood Urea Nitrogen 9 mg/dL (8-26) Creatinine 1.1 mg/dL (0.7-1.3) Estimated GFR (Cockcroft-Gault) 68.3 BUN/Creatinine Ratio 8 (6-20) Glucose Level 88 mg/dL (70-99) Calcium Level 9.1 mg/dL (8.5-10.1) Magnesium Level 2.2 mg/dL (1.8-2.4) Total Bilirubin 0.2 mg/dL (0.2-1.0) Aspartate Amino Transferase (AST) 16 U/L (15-37) Alanine Aminotransferase (ALT) 20 U/L (16-63) Alkaline Phosphatase 98 U/L (46-116) Troponin I Quantitative < 0.017 ng/mL (0.000-0.055) ER-Clw-H-Type Natriuretic Peptide 1017 pg/mL (0-124) H Total Protein 7.5 g/dL (6.4-8.2) Albumin 3.7 g/dL (3.4-5.0) Albumin/Globulin Ratio 1.0 (1.0-1.7) POC Troponin I 0.01 ng/ml (<0.08) Laboratory Tests 08/03/20 19:45 Laboratory Tests 08/03/20 19:45 Vital Signs: Vital Signs Date Time Temp Pulse Resp B/P (MAP) Pulse Ox O2 Delivery O2 Flow Rate FiO2 08/03/20 19:50 97.9 93 22 127/77 (94) 98 Room Air 97.9 EKG: EKG: Sinus rhythm at 90 bpm, left axis deviation, QRS 148, QTc 496, left bundle branch block pattern present, T wave inversion 2, 3, aVF, V5, V6, no ST elevations or ST depressions that are consistent with modified scarbossas criteria for STEMI equivalent, no change from prior EKG performed June 28, 2020 Radiology/Procedures: Radiology/Procedures: IMAGING REPORT Signed PATIENT: CARMELA JOSEPH ACCOUNT: [id number] : 1960 LOCATION: ER AGE: 59 SEX: M EXAM STATUS: REG ER ORD. PHYSICIAN: MICHAEL STARKEY DO REASON: cp PROCEDURE: PORTABLE CHEST 1V PORTABLE CHEST 1V History: Chest pain Comparison: June 28, 2020 Findings: Single view of the chest is submitted. There is again triple lead left electronic cardiac device. Pericardial cardiac silhouette is again somewhat prominent although unchanged. There is no dependent pleural fluid, pneumothorax, or lobar infiltrate. Impression: 1. No acute radiographic abnormality is identified. Electronically signed by: Alessandro Alonzo MD (08/03/2020 8:21 PM) [facility] DICTATED and SIGNED BY: ALESSANDRO ALONZO MD DATE: 08/03/202020 Course & Med Decision Making: Course & Med Decision Making Pertinent Labs and Imaging studies reviewed. (See chart for details) Concern for moderate risk chest pain. Labs with stable normocytic anemia. I- STAT troponin 0 0.01. Initial troponin negative. Labs within normal limits except for potassium of 5.2. Chest x-ray with no acute process. EMR was reviewed and patient was admitted and April of this year for similar symptoms. Will admit for serial troponins, cardiology consultation and further medical management. Patient stable at time of admission and agrees with this plan. I have spoken with the patient and/or caregivers. I have explained the patient's condition, diagnosis and treatment plan based on the information available to me at this time. I have answered the patient's and/or caregivers questions and answered any concerns. The patient and/or caregivers have as good an understanding of the patient's diagnosis, condition and treatment plan as can be expected at this point. The patient has been stabilized within the capability of the emergency department. The patient will be transported for further care and management or will be moved to an observation or inpatient service. I have communicated with the staff or medical practitioner taking over this patient's care. Sendy Disclaimer: Sendy Disclaimer: This electronic medical record was generated, in whole or in part, using a voice recognition dictation system. Departure Departure Impression: Primary Impression: Chest pain Additional Impression: Anemia Disposition: ADMITTED INPATIENT Admitting Physician: DEJUAN (Dr. Angela) Referrals: NO PCP (PCP) MICHAEL STARKEY DO Aug 03, 2020 21:05
[2020-08-04] MEDS ORDERED: KETOROLAC 15 MG/ML VIAL. IVP ONE (02:00)
[2020-08-04] MEDS: MORPHINE SULFATE 4 MG/ML VIAL. IV PRN ×8 (08:04→23:40)
[2020-08-04] MEDS ORDERED: NITROGLYCERIN SUBLINGUAL 0.4 MG BOTTLE OF 25. SL PRN ×2 (08:15→10:00)
--- NOTE | 2020-08-04 09:51 | PDOC1 ---
History and Physical Date of Admission Date of Admission DATE: 08/04/20 TIME: 09:51 Identification/Chief Complaint Chief Complaint Chest pain Source Source: Patient History of Present Illness History of Present Illness Patient is 59-year-old male with past medical history CABG, CHF, with recent AICD placement, who presents with complaints of left-sided chest pain since yesterday. He reports sharp chest pain, 7/10, radiates to his left neck. He reports some associated shortness of breath and diaphoresis. He took his home nitroglycerin and aspirin without any improvement in his pain. He denies any aggravating symptoms, but states his pain has improved with medications that he received in the ER. He also notes a history of methamphetamine abuse, but states his last usage was 5 weeks ago. He denies any associated nausea or vomiting. He states he did not feel his AICD fire. Troponin <0.017 x 2, K 5.2 Chest x-ray on admission shows no acute process Past Medical History Cardiovascular: CAD, CHF, HTN, Hyperlipidemia, Other Pulmonary: Asthma CENTRAL NERVOUS SYSTEM: CVA GI: GERD Heme/Onc: No pertinent hx Hepatobiliary: No pertinent hx Psych: Anxiety Musculoskeletal: Osteoarthritis Rheumatologic: No pertinent hx Infectious disease: No pertinent hx Renal/: No pertinent hx Endocrine: No pertinent hx Past Surgical History Past Surgical History: Pacemaker, Other Family History Family History: Hypertension Social History Smoke: 1 pack per day ALCOHOL: none Drugs: Crystal meth, Other Current Problem List Problem List Problems Medical Problems: (1) Anemia Status: Acute (2) Chest pain Status: Acute Current Medications Current Medications Current Medications Morphine Sulfate (Morphine Sulfate) 4 mg 1X ONCE IV Last administered on 08/03/20at 20:14; Start 08/03/20 at 20:00; Stop 08/03/20 at 20:01; Status DC Ketorolac Tromethamine (Toradol 15mg Vial) 15 mg 1X ONCE IVP Last administered on 08/04/20at 01:46; Start 08/04/20 at 02:00; Stop 08/04/20 at 02:01; Status DC Morphine Sulfate (Morphine Sulfate) 4 mg PRN Q2HR PRN IV PAIN Last administered on 08/04/20at 08:04; Start 08/04/20 at 08:00 Nitroglycerin (Nitrostat) 0.4 mg PRN Q5MIN PRN SL CHEST PAIN; Start 08/04/20 at 08:15 Active Scripts Active Crestor (Rosuvastatin Calcium) 40 Mg Tablet 1 Tab PO DAILY Metoprolol Tartrate 25 Mg Tablet 0.5 Tab PO BID 10 Days Aspirin 81 Mg Tab.chew 1 Tab PO DAILY Clopidogrel (Clopidogrel Bisulfate) 75 Mg Tablet 1 Tab PO DAILY Tramadol Hcl 50 Mg Tablet 100 Mg PO PRN TID PRN Reported Crestor (Rosuvastatin Calcium) 40 Mg Tablet 40 Mg PO HS Metoprolol Succinate ( Xl ) (Metoprolol Succinate) 25 Mg Tab.er.24h 12.5 Mg PO DAILY Spiriva (Tiotropium Egnar) 18 Mcg Cap.w.dev 1 Cap IH DAILY NITROGLYCERIN SubLingual (Nitroglycerin) 0.4 Mg Tab.subl 0.4 Mg SL PRN Q5MIN PRN Lyrica (Pregabalin) 300 Mg Capsule 1 Cap PO BID Plavix (Clopidogrel Bisulfate) 75 Mg Tablet 75 Mg PO DAILY Aspir 81 (Aspirin) 81 Mg Tablet.dr 1 Tab PO DAILY Allergies Allergies: Coded Allergies: acetaminophen (Verified Allergy, Intermediate, 08/04/20) albuterol (Verified Adverse Reaction, Intermediate, 11/18/19) Patient states "it speeds my heart up too much" ibuprofen (Verified Adverse Reaction, Intermediate, Nausea and Vomiting, 11/18/19) ROS Review of System GENERAL: No history of weight change, weakness or fevers. SKIN: No bruising, hair changes or rashes. EYES: No blurred, double or loss of vision. NOSE AND THROAT: No history of nosebleeds, hoarseness or sore throat. HEART: Chest pain. Denies palpitations. LUNGS: Shortness of breath. Denies cough, hemoptysis, wheezing. GASTROINTESTINAL: Denies nausea, vomiting, abdominal pain. GENITOURINARY: Denies dysuria, frequency, urgency, hematuria. NEUROLOGIC: Denies history of numbness, tingling, tremor or weakness. PSYCHIATRIC: Denies anxiety, denies depression. ENDOCRINE: No history of heat or cold intolerance, polyuria or polydipsia. EXTREMITIES: Denies muscle weakness, joint pain, pain on walking or stiffness. Physical Exam Physical Exam General: Alert, Oriented X3, Cooperative, No acute distress HEENT: PERRLA, EOMI Lungs: Clear to auscultation, Normal air movement Heart: RRR, no murmurs Cardiovascular: S1, S2 Abdomen: Normal bowel sounds, Soft, No tenderness Extremities: No clubbing, No cyanosis Skin: No rashes, No significant lesion Neuro: Normal speech, Normal tone, Sensation intact Psych/Mental Status: Mental status NL, Mood NL Vitals Vitals Vital Signs Date Time Temp Pulse Resp B/P (MAP) Pulse Ox O2 Delivery O2 Flow Rate FiO2 08/04/20 08:04 18 Room Air 08/04/20 06:43 84 104/63 (77) 96 08/03/20 19:50 97.9 97.9 Labs Labs Laboratory Tests Test 08/03/20 19:45 08/03/20 19:50 08/04/20 02:58 White Blood Count 5.0 x10^3/uL (4.0-11.0) Red Blood Count 4.21 x10^6/uL (4.30-5.70) Hemoglobin 11.0 g/dL (13.0-17.5) Hematocrit 33.3 % (39.0-53.0) Mean Corpuscular Volume 79 fL (79-100) Mean Corpuscular Hemoglobin 26 pg (25-35) Mean Corpuscular Hemoglobin Concent 33 g/dL (31-37) Red Cell Distribution Width 22.0 % (11.5-14.5) Platelet Count 220 x10^3/uL (140-400) Neutrophils (%) (Auto) 54 % (31-73) Lymphocytes (%) (Auto) 25 % (24-48) Monocytes (%) (Auto) 16 % (0-9) Eosinophils (%) (Auto) 4 % (0-3) Basophils (%) (Auto) 1 % (0-3) Neutrophils # (Auto) 2.7 x10^3/uL (1.8-7.7) Lymphocytes # (Auto) 1.3 x10^3/uL (1.0-4.8) Monocytes # (Auto) 0.8 x10^3/uL (0.0-1.1) Eosinophils # (Auto) 0.2 x10^3/uL (0.0-0.7) Basophils # (Auto) 0.1 x10^3/uL (0.0-0.2) Platelet Estimate Adequate (ADEQUATE) Hypochromasia Slight Anisocytosis Mod Sodium Level 139 mmol/L (136-145) Potassium Level 5.2 mmol/L (3.5-5.1) Chloride Level 103 mmol/L (98-107) Carbon Dioxide Level 26 mmol/L (21-32) Anion Gap 10 (6-14) Blood Urea Nitrogen 9 mg/dL (8-26) Creatinine 1.1 mg/dL (0.7-1.3) Estimated GFR (Cockcroft-Gault) 68.3 BUN/Creatinine Ratio 8 (6-20) Glucose Level 88 mg/dL (70-99) Calcium Level 9.1 mg/dL (8.5-10.1) Magnesium Level 2.2 mg/dL (1.8-2.4) Total Bilirubin 0.2 mg/dL (0.2-1.0) Aspartate Amino Transf (AST/SGOT) 16 U/L (15-37) Alanine Aminotransferase (ALT/SGPT) 20 U/L (16-63) Alkaline Phosphatase 98 U/L (46-116) Troponin I Quantitative < 0.017 ng/mL (0.000-0.055) < 0.017 ng/mL (0.000-0.055) YY-Ihd-I-Type Natriuretic Peptide 1017 pg/mL (0-124) Total Protein 7.5 g/dL (6.4-8.2) Albumin 3.7 g/dL (3.4-5.0) Albumin/Globulin Ratio 1.0 (1.0-1.7) Bedside Troponin I 0.01 ng/ml (<0.08) Laboratory Tests Test 08/03/20 19:45 08/03/20 19:50 08/04/20 02:58 White Blood Count 5.0 x10^3/uL (4.0-11.0) Red Blood Count 4.21 x10^6/uL (4.30-5.70) Hemoglobin 11.0 g/dL (13.0-17.5) Hematocrit 33.3 % (39.0-53.0) Mean Corpuscular Volume 79 fL (79-100) Mean Corpuscular Hemoglobin 26 pg (25-35) Mean Corpuscular Hemoglobin Concent 33 g/dL (31-37) Red Cell Distribution Width 22.0 % (11.5-14.5) Platelet Count 220 x10^3/uL (140-400) Neutrophils (%) (Auto) 54 % (31-73) Lymphocytes (%) (Auto) 25 % (24-48) Monocytes (%) (Auto) 16 % (0-9) Eosinophils (%) (Auto) 4 % (0-3) Basophils (%) (Auto) 1 % (0-3) Neutrophils # (Auto) 2.7 x10^3/uL (1.8-7.7) Lymphocytes # (Auto) 1.3 x10^3/uL (1.0-4.8) Monocytes # (Auto) 0.8 x10^3/uL (0.0-1.1) Eosinophils # (Auto) 0.2 x10^3/uL (0.0-0.7) Basophils # (Auto) 0.1 x10^3/uL (0.0-0.2) Platelet Estimate Adequate (ADEQUATE) Hypochromasia Slight Anisocytosis Mod Sodium Level 139 mmol/L (136-145) Potassium Level 5.2 mmol/L (3.5-5.1) Chloride Level 103 mmol/L (98-107) Carbon Dioxide Level 26 mmol/L (21-32) Anion Gap 10 (6-14) Blood Urea Nitrogen 9 mg/dL (8-26) Creatinine 1.1 mg/dL (0.7-1.3) Estimated GFR (Cockcroft-Gault) 68.3 BUN/Creatinine Ratio 8 (6-20) Glucose Level 88 mg/dL (70-99) Calcium Level 9.1 mg/dL (8.5-10.1) Magnesium Level 2.2 mg/dL (1.8-2.4) Total Bilirubin 0.2 mg/dL (0.2-1.0) Aspartate Amino Transf (AST/SGOT) 16 U/L (15-37) Alanine Aminotransferase (ALT/SGPT) 20 U/L (16-63) Alkaline Phosphatase 98 U/L (46-116) Troponin I Quantitative < 0.017 ng/mL (0.000-0.055) < 0.017 ng/mL (0.000-0.055) MO-Yeq-P-Type Natriuretic Peptide 1017 pg/mL (0-124) Total Protein 7.5 g/dL (6.4-8.2) Albumin 3.7 g/dL (3.4-5.0) Albumin/Globulin Ratio 1.0 (1.0-1.7) Bedside Troponin I 0.01 ng/ml (<0.08) Images Images History: Chest pain Comparison: June 28, 2020 Findings: Single view of the chest is submitted. There is again triple lead left electronic cardiac device. Pericardial cardiac silhouette is again somewhat prominent although unchanged. There is no dependent pleural fluid, pneumothorax, or lobar infiltrate. Impression: 1. No acute radiographic abnormality is identified. VTE Prophylaxis Ordered VTE Prophylaxis Devices: No VTE Pharmacological Prophylaxi: Yes Assessment/Plan Assessment/Plan Unstable angina Hyperkalemia Elevated BNP Plan: Troponins undetectable Consulted cardiology Lasix 20 mg IV x1 Resume home medications FEN - Cardiac diet PPX - Heparin FULL CODE Dispo - inpatient for above Justifications for Admission Other Justification ARABELLA PONCE MD Aug 04, 2020 09:51
[2020-08-04] MEDS ORDERED: traMADol 50 MG TABLET PO PRN (10:00)
--- NOTE | 2020-08-04 10:19 | PDOC2 ---
CAITIE RODARTE CLOTH WASHER 08/04/20 1018: CARDIAC CONSULT DATE OF CONSULT Date of Consult DATE: 08/04/20 TIME: 10:11 REASON FOR CONSULT Reason for Consult: Chest pain REFERRING PHYSICIAN Referring Physician: Dr. 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 Reports pain began yesterday. Located in his left chest and radiated to his neck. Describes as aching. Pain has been constant with no specific worsening or relieving factors. No associated dizziness, diaphoresis, or SOA. 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 Has been at multiple [facility] [place] [facility] and [facility]. Was seen by our service previously for similar chest pain. Discussed further ischemic workup with stress test versus LHC. Patient would like to proceed with LHC. PAST MEDICAL HISTORY Past Medical History Cardiovascular: CAD, CHF (ICM), HTN, Hyperlipidemia, Other (VT) Pulmonary: Asthma CENTRAL NERVOUS SYSTEM: CVA GI: GERD Heme/Onc: No pertinent hx Hepatobiliary: No pertinent hx Psych: Anxiety Musculoskeletal: Osteoarthritis Rheumatologic: No pertinent hx Infectious disease: No pertinent hx ENT: No pertinent hx Renal/: No pertinent hx Endocrine: No pertinent hx Dermatology: No pertinent hx PAST SURGICAL HISTORY Past Surgical History Pacemaker (AICD), Other (multiple PCI/stents. FAMILY HISTORY Family History: Hypertension SOCIAL HISTORY Social History Smoke: <1 pack per day ALCOHOL: none Drugs: Other (hx of meth use. reports he has been clean for 5 weeks) Lives: with Family CURRENT MEDICATIONS CURRENT MEDICATIONS Current Medications Medications (Trade) Dose Ordered Sig/Ani Route PRN Reason Start Time Stop Time Status Last Admin Dose Admin Morphine Sulfate (Morphine Sulfate) 4 mg 1X ONCE IV 08/03/20 20:00 08/03/20 20:01 DC 08/03/20 20:14 Ketorolac Tromethamine (Toradol 15mg Vial) 15 mg 1X ONCE IVP 08/04/20 02:00 08/04/20 02:01 DC 08/04/20 01:46 Morphine Sulfate (Morphine Sulfate) 4 mg PRN Q2HR PRN IV PAIN 08/04/20 08:00 08/04/20 08:04 ALLERGIES ALLERGIES: Coded Allergies: acetaminophen (Verified Allergy, Intermediate, 08/04/20) albuterol (Verified Adverse Reaction, Intermediate, 11/18/19) Patient states "it speeds my heart up too much" ibuprofen (Verified Adverse Reaction, Intermediate, Nausea and Vomiting, 11/18/19) ROS Review of System 14 point ROS conducted with pertinent positives noted above in HPI PHYSICAL EXAM PHYSICAL EXAM General: Alert, Oriented X3, Cooperative, No acute distress HEENT: Atraumatic, Mucous membr. moist/pink Lungs: Other (diminished bases) Heart: Regular rate (SR with LBBB), Normal S1, Normal S2 Abdomen: Soft, No tenderness Extremities: No cyanosis, No edema Skin: No breakdown, No significant lesion Neuro: Normal speech, Sensation intact Psych/Mental Status: Mental status NL, anxious, figiting MUSCULOSKELETAL: Osteoarthritic changes both hands VITALS/I&O VITALS/I&O: Vital Signs Date Time Temp Pulse Resp B/P (MAP) Pulse Ox O2 Delivery O2 Flow Rate FiO2 08/04/20 08:04 18 Room Air 08/04/20 06:43 84 104/63 (77) 96 08/03/20 19:50 97.9 97.9 LABS Lab: Laboratory Tests Test 08/03/20 19:45 08/03/20 19:50 08/04/20 02:58 White Blood Count 5.0 x10^3/uL (4.0-11.0) Red Blood Count 4.21 x10^6/uL (4.30-5.70) L Hemoglobin 11.0 g/dL (13.0-17.5) L Hematocrit 33.3 % (39.0-53.0) L Mean Corpuscular Volume 79 fL (79-100) Mean Corpuscular Hemoglobin 26 pg (25-35) Mean Corpuscular Hemoglobin Concent 33 g/dL (31-37) Red Cell Distribution Width 22.0 % (11.5-14.5) H Platelet Count 220 x10^3/uL (140-400) Neutrophils (%) (Auto) 54 % (31-73) Lymphocytes (%) (Auto) 25 % (24-48) Monocytes (%) (Auto) 16 % (0-9) H Eosinophils (%) (Auto) 4 % (0-3) H Basophils (%) (Auto) 1 % (0-3) Neutrophils # (Auto) 2.7 x10^3/uL (1.8-7.7) Lymphocytes # (Auto) 1.3 x10^3/uL (1.0-4.8) Monocytes # (Auto) 0.8 x10^3/uL (0.0-1.1) Eosinophils # (Auto) 0.2 x10^3/uL (0.0-0.7) Basophils # (Auto) 0.1 x10^3/uL (0.0-0.2) Platelet Estimate Adequate (ADEQUATE) Hypochromasia Slight Anisocytosis Mod Sodium Level 139 mmol/L (136-145) Potassium Level 5.2 mmol/L (3.5-5.1) H Chloride Level 103 mmol/L (98-107) Carbon Dioxide Level 26 mmol/L (21-32) Anion Gap 10 (6-14) Blood Urea Nitrogen 9 mg/dL (8-26) Creatinine 1.1 mg/dL (0.7-1.3) Estimated GFR (Cockcroft-Gault) 68.3 BUN/Creatinine Ratio 8 (6-20) Glucose Level 88 mg/dL (70-99) Calcium Level 9.1 mg/dL (8.5-10.1) Magnesium Level 2.2 mg/dL (1.8-2.4) Total Bilirubin 0.2 mg/dL (0.2-1.0) Aspartate Amino Transferase (AST) 16 U/L (15-37) Alanine Aminotransferase (ALT) 20 U/L (16-63) Alkaline Phosphatase 98 U/L (46-116) Troponin I Quantitative < 0.017 ng/mL (0.000-0.055) < 0.017 ng/mL (0.000-0.055) JV-Wrr-W-Type Natriuretic Peptide 1017 pg/mL (0-124) H Total Protein 7.5 g/dL (6.4-8.2) Albumin 3.7 g/dL (3.4-5.0) Albumin/Globulin Ratio 1.0 (1.0-1.7) POC Troponin I 0.01 ng/ml (<0.08) Laboratory Tests 08/03/20 19:45 Laboratory Tests 08/03/20 19:45 ECHOCARDIOGRAM ECHOCARDIOGRAM <Conclusion> Left ventricle systolic function is moderately impaired. EF 30-35%. There is severe global hypokinesis of the left ventricle. Tissue Doppler imaging reveals moderate left ventricular diastolic dysfunction. There is a pacemaker lead in the right ventricle. Doppler and Color-flow revealed moderate mitral regurgitation. Doppler and Color Flow revealed mild tricuspid regurgitation. There is moderate pulmonary hypertension. The PA pressure was estimated at 44 mmHg. DATE: 05/06/20 0907 STRESS TEST STRESS TEST Conclusion 1. No evidence of stress induced EKG changes. Rare PVCs noted. 2. Large fixed inferior/lateral defect as noted above. 3. Moderate LV dysfunction. EF 40%. 4. Moderate risk study based on EF and size of fixed defect suggestive of prior infarct. DATE: 04/11/16 1219 [facility] 06/12/2018 Conclusion: Pharmacologic stress ECG is nondiagnostic for ischemia. Frequent ventricular bigeminy and trigeminy throughout the study. SUMMARY/OPINION: This study is definitely abnormal. There is moderate to large area of primarily fixed perfusion abnormality involving basal mid inferolateral segments of severe intensity. These areas do not appear to be viable. There are no significant reversible perfusion abnormalities. Left ventricle is dilated wi th severely depressed left ventricular systolic function. There are no other high risk prognostic indicators present. The ECG portion of the study is nondiagnostic for ischemia. Frequent ventricular bigeminy and trigeminy throughout the study. Study was compared with the prior study dated 10/07/2017, pharmacological stress thallium study using DSPECT camera. Previous study was abnormal and demon strated lateral fixed perfusion abnormality. Comparing the 2 studies there is no significant interval change in the perfusion pattern. Left ventricular ejection fraction is decreased from 42 to 24%. Left ventricle end-diastolic volume was 165 mL and pulmonary to myocardial count ratio was 0.33. HEART CATH HEART CATH [facility] at [facility] Oct 2017 showed showed patent mid LAD stent, patent 1st diagonal stent, total chronic occlusion of first obtuse marginal with territory infarct but no indication for PCI, patent stent in left AV groove artery, patent stent in LPDA, non-dominant 100 % stenosis of proximal RCA. ) ASSESSMENT/PLAN ASSESSMENT/PLAN 1. Chest pain, mixed features; AMI ruled out. 2. Chronic systolic CHF; clinically compensated 3. ICM; s/p AICD ([employer]) 4. CAD; s/p PCI/multiple stents in the past. see cath report above. 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 Hx of VT: not on antiarrhythmic 6. HTN: controlled 7. HLP: not on goal 8. Hx of meth use; reports he has been clean for 5 weeks 9. Tobaccoism with likely COPD Recommendations Restart home plavix and ASA and secondary prevention measures. Given recurrent CP, discussed further ischemic with stress test versus definitive evaluation with left heart cath. Patient requesting LHC. R/b/a discussed and he is agreeable to proceed. Smoking cessation Discussed important of compliance with medical therapy/followup and abstinence of recreational drug use NPO p MN. Will proceed with in am. CHRISTIAN ALVARADO MD 08/04/202049: CARDIAC CONSULT ASSESSMENT/PLAN ASSESSMENT/PLAN Patient seen and examined. Agree with PROP SAWYER's assessment and plan, Patient with significant CAD history presented with CP with mixed features LA ruled out Chr systolic HF compensated s/p AICD clinically stable but no recent interrogation - will get this done while here Due to continuing CP, we will proceed with cath and possible PCI Risks and benefits explained and he is agreeable Importance of compliance with meds, followups and abstinence from substance abuse reemphasized Thank you for your consultation CAITIE RODARTE APRN Aug 04, 2020 10:18 CHRISTIAN ALVARADO MD Aug 04, 2020 20:50
[2020-08-04] MEDS ORDERED: FUROSEMIDE 20 MG/2 ML VIAL. IVP ONE (10:30)
[2020-08-04] MEDS: ASPIRIN CHEWABLE 81 MG TABLET. PO SCH (10:56)
[2020-08-04] MEDS: CLOPIDOGREL BISULFATE 75 MG TABLET PO SCH (10:56)
[2020-08-04] MEDS: METOPROLOL SUCC 24HR ER 25 MG TAB.ER.24H. PO SCH (10:58)
[2020-08-04] MEDS ORDERED: IPRATRPIUM/ALBUTEROL 0.5/2.5MG 3 ML NEBU. NEB SCH (12:00)
[2020-08-04] MEDS ORDERED: IPRATRPIUM/ALBUTEROL 0.5/2.5MG 3 ML NEBU. NEB PRN (12:00)
[2020-08-04 14:40] VITALS: BP 114/68
[2020-08-04] MEDS: IPRATROPIUM BROMIDE 0.5 MG/2.5 ML NEBU. NEB SCH ×2 (15:16→19:57)
[2020-08-04 19:55] VITALS: BP 109/58
[2020-08-04] MEDS: ATORVASTATIN CALCIUM 40 MG TABLET. PO SCH (21:34)
[2020-08-04] MEDS: PREGABALIN 75 MG CAPSULE PO SCH (21:34)
[2020-08-04 23:15] VITALS: BP 104/64
[2020-08-05] VITALS (14 sets, daily range): BP systolic 86–112; BP diastolic 53–76
[2020-08-05] MEDS: MORPHINE SULFATE 4 MG/ML VIAL. IV PRN ×4 (02:58→10:36)
[2020-08-05] MEDS: IPRATROPIUM BROMIDE 0.5 MG/2.5 ML NEBU. NEB SCH ×5 (08:00→21:00)
[2020-08-05] MEDS: ASPIRIN CHEWABLE 81 MG TABLET. PO SCH (08:23)
[2020-08-05] MEDS: CLOPIDOGREL BISULFATE 75 MG TABLET PO SCH (08:23)
[2020-08-05] MEDS: METOPROLOL SUCC 24HR ER 25 MG TAB.ER.24H. PO SCH (08:25)
[2020-08-05] MEDS: PREGABALIN 75 MG CAPSULE PO SCH ×2 (09:00→21:23)
[2020-08-05] MEDS ORDERED: NON FORMULARY ITEM (Tiotropium Bromide (Spiriva) 1 CAP) IH SCH (09:00)
--- NOTE | 2020-08-05 11:20 | NUR ---
SS following for discharge planning. SS reviewed pt chart and discussed with pt RN. Pt is from home and is currently on room air. Pt having heart cath at 1300 today. Pt has history of Methamphetamine use. SS will continue to follow for discharge planning.
--- NOTE | 2020-08-05 11:40 | PDOC ---
PROGRESS NOTES Date of Service: DATE: 08/05/20 TIME: 11:38 Chief Complaint Chief Complaint Assessment/Plan Unstable angina Hyperkalemia Elevated BNP History of Present Illness History of Present Illness History of Present Illness History of Present Illness Patient is 59-year-old male with past medical history CABG, CHF, with recent AICD placement, who presents with complaints of left-sided chest pain since yesterday. He reports sharp chest pain, 7/10, radiates to his left neck. He reports some associated shortness of breath and diaphoresis. He took his home nitroglycerin and aspirin without any improvement in his pain. He denies any aggravating symptoms, but states his pain has improved with medications that he received in the ER. He also notes a history of methamphetamine abuse, but states his last usage was 5 weeks ago. He denies any associated nausea or vomiting. He states he did not feel his AICD fire. Troponin <0.017 x 2, K 5.2 Chest x-ray on admission shows no acute process 08/05: No acute events reported overnight, case discussed with nursing staff patient in no acute distress no complaints during my visit. Patient will un dergo a cardiac catheterization today. Patient seems to be drug-seeking and we will address this issue. Patient has history of drug abuse with his last use of amphetamine reported 5 weeks ago. We will try to get a urine drug panel at this time Vitals Vitals Vital Signs Date Time Temp Pulse Resp B/P (MAP) Pulse Ox O2 Delivery O2 Flow Rate FiO2 08/05/20 10:36 Room Air 08/05/20 08:25 85 08/05/20 07:00 97.6 16 112/76 (88) 98 97.6 Physical Exam Physical Exam Gen.: well-developed well-nourished in no apparent distress Head: Normal shape atraumatic Eyes: Pupils equal reactive to light and accommodation, normal conjunctivae and lids Ears: Normal shape Nose: Normal shape no trauma Mouth: No exudates of the back of throat no thrush no lesions Neck: Supple no JVD no carotid bruit or lymphadenopathy no thyromegaly Chest: Lungs clear to auscultation with good inspiratory effort no crackles rales or rhonchi Cardiovascular: S1-S2 regular rhythm no murmurs gallops or rubs Abdomen: Bowel sounds present soft nontender no hepatosplenomegaly appreciated sign Extremities: No clubbing no cyanosis no edema peripheral pulses palpated bilaterally Neurological: Alert awake oriented in person time place and situation, cranial nerves II through XII intact, no motor or sensory deficits appreciated Psych: Appropriate mood, cooperative Lungs: Clear Assessment and Plan Assessmemt and Plan Problems Medical Problems: (1) Anemia Status: Acute (2) Chest pain Status: Acute Comment Review of Relevant I have reviewed the following items kvng (where applicable) has been applied. Labs Laboratory Tests Test 08/03/20 19:45 08/03/20 19:50 08/04/20 02:58 White Blood Count 5.0 x10^3/uL (4.0-11.0) Red Blood Count 4.21 x10^6/uL (4.30-5.70) Hemoglobin 11.0 g/dL (13.0-17.5) Hematocrit 33.3 % (39.0-53.0) Mean Corpuscular Volume 79 fL (79-100) Mean Corpuscular Hemoglobin 26 pg (25-35) Mean Corpuscular Hemoglobin Concent 33 g/dL (31-37) Red Cell Distribution Width 22.0 % (11.5-14.5) Platelet Count 220 x10^3/uL (140-400) Neutrophils (%) (Auto) 54 % (31-73) Lymphocytes (%) (Auto) 25 % (24-48) Monocytes (%) (Auto) 16 % (0-9) Eosinophils (%) (Auto) 4 % (0-3) Basophils (%) (Auto) 1 % (0-3) Neutrophils # (Auto) 2.7 x10^3/uL (1.8-7.7) Lymphocytes # (Auto) 1.3 x10^3/uL (1.0-4.8) Monocytes # (Auto) 0.8 x10^3/uL (0.0-1.1) Eosinophils # (Auto) 0.2 x10^3/uL (0.0-0.7) Basophils # (Auto) 0.1 x10^3/uL (0.0-0.2) Platelet Estimate Adequate (ADEQUATE) Hypochromasia Slight Anisocytosis Mod Sodium Level 139 mmol/L (136-145) Potassium Level 5.2 mmol/L (3.5-5.1) Chloride Level 103 mmol/L (98-107) Carbon Dioxide Level 26 mmol/L (21-32) Anion Gap 10 (6-14) Blood Urea Nitrogen 9 mg/dL (8-26) Creatinine 1.1 mg/dL (0.7-1.3) Estimated GFR (Cockcroft-Gault) 68.3 BUN/Creatinine Ratio 8 (6-20) Glucose Level 88 mg/dL (70-99) Calcium Level 9.1 mg/dL (8.5-10.1) Magnesium Level 2.2 mg/dL (1.8-2.4) Total Bilirubin 0.2 mg/dL (0.2-1.0) Aspartate Amino Transf (AST/SGOT) 16 U/L (15-37) Alanine Aminotransferase (ALT/SGPT) 20 U/L (16-63) Alkaline Phosphatase 98 U/L (46-116) Troponin I Quantitative < 0.017 ng/mL (0.000-0.055) < 0.017 ng/mL (0.000-0.055) WQ-Ixp-Z-Type Natriuretic Peptide 1017 pg/mL (0-124) Total Protein 7.5 g/dL (6.4-8.2) Albumin 3.7 g/dL (3.4-5.0) Albumin/Globulin Ratio 1.0 (1.0-1.7) Bedside Troponin I 0.01 ng/ml (<0.08) Medications Current Medications Morphine Sulfate (Morphine Sulfate) 4 mg 1X ONCE IV Last administered on 08/03/20at 20:14; Start 08/03/20 at 20:00; Stop 08/03/20 at 20:01; Status DC Ketorolac Tromethamine (Toradol 15mg Vial) 15 mg 1X ONCE IVP Last administered on 08/04/20at 01:46; Start 08/04/20 at 02:00; Stop 08/04/20 at 02:01; Status DC Morphine Sulfate (Morphine Sulfate) 4 mg PRN Q2HR PRN IV PAIN Last administered on 08/05/20at 10:36; Start 08/04/20 at 08:00 Nitroglycerin (Nitrostat) 0.4 mg PRN Q5MIN PRN SL CHEST PAIN; Start 08/04/20 at 08:15; Stop 08/04/20 at 09:58; Status DC Aspirin (Aspirin Chewable) 81 mg DAILY PO Last administered on 08/05/20at 08:23; Start 08/04/20 at 10:30 Clopidogrel Bisulfate (Plavix) 75 mg DAILY PO Last administered on 08/05/20at 08:23; Start 08/04/20 at 10:30 Metoprolol Succinate (Toprol Xl) 12.5 mg DAILY PO Last administered on 08/05/20at 08:25; Start 08/04/20 at 10:30 Nitroglycerin (Nitrostat) 0.4 mg PRN Q5MIN PRN SL CHEST PAIN; Start 08/04/20 at 10:00 Tramadol HCl (Ultram) 100 mg PRN TID PRN PO PAIN; Start 08/04/20 at 10:00 Pregabalin (Lyrica) 300 mg BID PO Last administered on 08/04/20at 21:34; Start 08/04/20 at 21:00 Atorvastatin Calcium (Lipitor) 80 mg QHS PO Last administered on 08/04/20at 21:34; Start 08/04/20 at 21:00 Non-Formulary Medication (Tiotropium [place] (Spiriva)) 1 cap DAILY IH ; Start 08/05/20 at 09:00; Status UNV Albuterol/ Ipratropium (Duoneb) 3 ml RTQID NEB ; Start 08/04/20 at 12:00; Stop 08/04/20 at 11:37; Status DC Furosemide (Lasix) 20 mg 1X ONCE IVP ; Start 08/04/20 at 10:30; Stop 08/04/20 at 10:31; Status DC Albuterol/ Ipratropium (Duoneb) 3 ml PRN 1X PRN NEB WHEEZING; Start 08/04/20 at 12:00 Ipratropium [place] (Atrovent) 0.5 mg RTQID NEB ; Start 08/04/20 at 12:00 Active Scripts Active Crestor (Rosuvastatin Calcium) 40 Mg Tablet 1 Tab PO DAILY Metoprolol Tartrate 25 Mg Tablet 0.5 Tab PO BID 10 Days Aspirin 81 Mg Tab.chew 1 Tab PO DAILY Clopidogrel (Clopidogrel Bisulfate) 75 Mg Tablet 1 Tab PO DAILY Tramadol Hcl 50 Mg Tablet 100 Mg PO PRN TID PRN Reported Crestor (Rosuvastatin Calcium) 40 Mg Tablet 40 Mg PO HS Metoprolol Succinate ( Xl ) (Metoprolol Succinate) 25 Mg Tab.er.24h 12.5 Mg PO DAILY Spiriva (Tiotropium [place]) 18 Mcg Cap.w.dev 1 Cap IH DAILY NITROGLYCERIN SubLingual (Nitroglycerin) 0.4 Mg Tab.subl 0.4 Mg SL PRN Q5MIN PRN Lyrica (Pregabalin) 300 Mg Capsule 1 Cap PO BID Plavix (Clopidogrel Bisulfate) 75 Mg Tablet 75 Mg PO DAILY Aspir 81 (Aspirin) 81 Mg Tablet.dr 1 Tab PO DAILY Vitals/I & O Vital Sign - Last 24 Hours 08/04/20 08/04/20 08/04/20 08/04/20 13:25 13:26 14:40 15:36 Temp 97.7 97.7 Pulse 87 74 Resp 20 18 20 B/P (MAP) 107/62 (77) 114/68 (83) Pulse Ox 99 94 98 94 O2 Delivery Room Air Room Air Room Air Room Air 08/04/20 08/04/20 08/04/20 08/04/20 16:06 16:50 17:28 17:58 Pulse Ox 94 94 94 O2 Delivery Room Air Room Air Room Air Room Air 08/04/20 08/04/20 08/04/20 08/04/20 19:30 19:55 20:00 20:00 Temp 97.8 97.8 Pulse 70 Resp 19 18 20 B/P (MAP) 109/58 (75) Pulse Ox 99 O2 Delivery Room Air Room Air Room Air Room Air 08/04/20 08/04/20 08/04/20 08/04/20 21:35 22:05 23:15 23:40 Temp 98.0 98.0 Pulse 79 Resp 18 19 18 20 B/P (MAP) 104/64 (77) Pulse Ox 98 O2 Delivery Room Air Room Air Room Air Room Air 08/05/20 08/05/20 08/05/20 08/05/20 00:10 02:58 03:00 03:02 Temp 98.1 98.1 Pulse 81 89 Resp 19 19 20 B/P (MAP) 97/53 (68) 97/53 (68) Pulse Ox 96 O2 Delivery Room Air Room Air Room Air 08/05/20 08/05/20 08/05/20 08/05/20 06:03 06:33 07:00 08:25 Temp 97.6 97.6 Pulse 83 85 Resp 19 19 16 B/P (MAP) 112/76 (88) Pulse Ox 98 O2 Delivery Room Air Room Air Room Air 08/05/20 10:36 O2 Delivery Room Air Intake and Output 08/04/20 08/04/20 08/05/20 15:00 23:00 07:00 Intake Total 500 ml 1460 ml 240 ml Balance 500 ml 1460 ml 240 ml Justicifation of Admission Dx: Justifications for Admission: Justification of Admission Dx: N/A Angina: Symp at Rest PHYLLIS YIP MD Aug 05, 2020 11:40
[2020-08-05] MEDS ORDERED: IOHEXOL 300 MG/ML 100ML VIAL. ONE (12:35)
[2020-08-05] MEDS ORDERED: LIDOCAINE 1% Multi-Dose 20 ML VIAL. ONE (12:36)
[2020-08-05] MEDS ORDERED: MORPHINE SULFATE 2 MG/ML VIAL. IV PRN (12:45)
[2020-08-05] MEDS ORDERED: MIDAZOLAM HCL/PF 2 MG/2 ML VIAL. IV ONE (12:45)
[2020-08-05] MEDS ORDERED: IOHEXOL 300 MG/ML 100ML VIAL. IART ONE (12:45)
[2020-08-05] MEDS ORDERED: LIDOCAINE 1% Multi-Dose 20 ML VIAL. INJ ONE (12:45)
[2020-08-05] MEDS ORDERED: fentaNYL PF VIAL 100 MCG/2 ML VIAL IV ONE (12:45)
[2020-08-05] MEDS ORDERED: MIDAZOLAM HCL/PF 2 MG/2 ML VIAL. ONE ×2 (12:46→13:29)
[2020-08-05] MEDS ORDERED: CONTRAST GIVEN. MC PRN (13:00)
[2020-08-05] MEDS ORDERED: fentaNYL PF VIAL 100 MCG/2 ML VIAL ONE (13:29)
--- NOTE | 2020-08-05 14:02 | PDOC ---
MODERATE SEDATION ASSESSMENT RISKS/ALTERNATIVES Risks/Alternatives Risks and alternatives of this type of sedation and procedure discussed with: RISK/ALTERNATIVES: Patient H & P ON CHART H & P H & P on chart and reviewed for co-morbid conditions and appropriate labs. H&P ON CHART: Yes STATUS PREG STATUS ASSESSED: N/A MEDS/ALLERGIES REVIEWED Meds/Allergies Reviewed Medications and Allergies including time and route of recently administered narcotics and sedatives. MEDS/ALLERGIES REVIEWED: Yes ASA RATING ASA RATING: III AIRWAY ASSESSMENT Airway Assessment Airway patency, oral function limitations, presence of caps, crowns, dentures, partials, and ability to extend neck assessed. AIRWAY ASSESSMENT: Yes MALLAMPATI SCORE MALLAMPATI SCORE: II PRE-SEDATION ASSESSMENT PRE-SEDATION ASSESSMENT: Yes CHRISTIAN ALVARADO MD Aug 05, 2020 14:02
--- NOTE | 2020-08-05 14:28 | CARD ---
MR#: [id number] Date of Study: 08/05/2020 Ordering Physician: CAITIE RODARTE, Referring Physician: CAITIE RODARTE, Tech: FLOYD VARELA RTR APPROVED REPORT Technologist: FLOYD VARELA RTR Nurse: CLARITA QUISPE RN Procedure(s) performed: Left heart catheterization, selective coronary angiography and left ventricul ography MODERATE SEDATION TIME: 30 MINUTES FLUORO TIME: 3.3 MIN DOSE: 38.9 GYCM2 CONTRAST: 112CC OMNI 300 INDICATION The indication(s) include : unstable angina . [facility] Clinical Frailty Scale [facility] Clinical Frailty Scale: Mildly Frail Heart Failure Heart Failure: Yes If Yes, Newly Diagnosed: No If Yes, HF Type: Systolic If Yes, NYHA Class: Class II PROCEDURE NARRATIVE After explaining the risks, benefits and alternative options, informed consent was obtained from niels ent. Patient was brought to the cardiac Electric [employer] and his left groin was prepped and draped in the us ual fashion. 20 cc of 2% lidocaine was infiltrated into the skin and subcutaneous tissues for local anesthesia. Arterial access was obtained in the left common femoral artery and a 6 Cymraes sheath was inserted. 6 Cymraes JL4 6 Cymraes JR4 catheters were used to perform selective angiography of the lef t and right coronary arteries. 6 Cymraes pigtail catheter was used to perform left ventriculography. Patient tolerated the procedure well. Hemostasis was achieved using Perclose suture closure device. There were no immediate complications. FINDINGS 1. Hemodynamics: Left ventricular end-diastolic pressure 18 mmHg. No pullback gradient across aorti c valve. 2. Left ventriculography: Severe left ventricular systolic dysfunction with ejection fraction estima amanda at 20 to 25%. 2+ mitral regurgitation seen. 3. Coronary angiography: a. The left main coronary artery arose from the left sinus of Valsalva, gave rise to the left anteri or descending and left circumflex arteries and did not show any significant stenosis. b. The left anterior descending artery showed patent long stented mid and distal segments with a dasha y distal segment showing 40% in-stent restenosis. Stent in the diagonal branch was patent. c. The left circumflex artery was a large and dominant vessel. The first obtuse marginal branch trista wed 100% chronic total occlusion within the stent in the proximal segment, described in prior cardiac catheterization. The stent in the left posterior descending artery was patent. d. The right coronary artery was a small and nondominant vessel arising from the right sinus of Vals florence that showed 100% chronic total occlusion in the proximal segment, described in prior cardiac cat heterization. Conclusion 1. Patent previously placed stents in the left anterior descending artery, diagonal branch and left posterior descending artery. The obtuse marginal branch and nondominant right coronary artery showed 100% chronic total occlusions, described in prior cardiac catheterization. 2. Severe left ventricular systolic dysfunction with ejection fraction estimated at 20 to 25% with 2 + mitral regurgitation. Recommendations Optimization of medical therapy for coronary disease and ischemic cardiomyopathy. Signed by : Rao Pritchett, Electronically Approved : 08/05/2020 14:27:37
[2020-08-05] MEDS: IV 1/2 NORMAL SALINE 1,000 ML IV SCH (14:37)
[2020-08-05] MEDS: MORPHINE SULFATE 2 MG/ML VIAL. IV PRN ×2 (17:22→21:24)
--- NOTE | 2020-08-05 19:00 | NUR ---
Pt IV fluids not running at shift change. Pt is refusing iv fluids. I did education with him that it was ordered by a physician and that iv fluids are used after a cath to help clear contrast used in the cath which can be damaging to kidneys. Pt verbalized understanding. He states "I know what I need and don't need, I've had 12 stents". Pt encouraged to follow his plan of care directed by the physician.
[2020-08-05] MEDS ORDERED: ZOLPIDEM 5 MG TABLET. PO PRN (21:00)
[2020-08-05] MEDS: ATORVASTATIN CALCIUM 40 MG TABLET. PO SCH (21:23)
[2020-08-06] MEDS: MORPHINE SULFATE 2 MG/ML VIAL. IV PRN ×3 (00:35→08:22)
[2020-08-06 04:30] VITALS: BP 120/57
[2020-08-06] MEDS: IV 1/2 NORMAL SALINE 1,000 ML IV SCH (05:26)
[2020-08-06 07:00] VITALS: BP 118/71
[2020-08-06] MEDS: ASPIRIN CHEWABLE 81 MG TABLET. PO SCH (08:18)
[2020-08-06] MEDS: CLOPIDOGREL BISULFATE 75 MG TABLET PO SCH (08:18)
[2020-08-06] MEDS: PREGABALIN 75 MG CAPSULE PO SCH (08:18)
[2020-08-06] MEDS: METOPROLOL SUCC 24HR ER 25 MG TAB.ER.24H. PO SCH (08:19)
--- NOTE | 2020-08-06 10:45 | PDOC3 ---
Discharge Summary Visit Information Date of Admission: Aug 04, 2020 Date of Discharge: Aug 06, 2020 Admitting Diagnosis Comment: Unstable angina Hyperkalemia Elevated BNP Final Diagnosis Problems Medical Problems: (1) Ischemic cardiomyopathy with ejection fraction recorded at 25% Status: Acute (2) Chest pain resolved Status: Acute Chronic systolic compensated heart failure AICD in place History of V. tach Essential hypertension Dyslipidemia History of meth abuse Tobacco abuse COPD Brief Hospital Course Allergies Allergies Coded Allergies Type Severity Reaction Last Updated Verified acetaminophen Allergy Intermediate 08/04/20 Yes albuterol Adverse Reaction Intermediate 11/18/19 Yes ibuprofen Adverse Reaction Intermediate Nausea and Vomiting 11/18/19 Yes Vital Signs Vital Signs Date Time Temp Pulse Resp B/P (MAP) Pulse Ox O2 Delivery O2 Flow Rate FiO2 08/06/20 08:22 97 Room Air 08/06/20 08:19 88 118/71 08/06/20 07:00 98.0 18 98.0 08/05/20 13:51 2.0 Brief Hospital Course History of Present Illness History of Present Illness Patient is 59-year-old male with past medical history CABG, CHF, with recent AICD placement, who presents with complaints of left-sided chest pain since yesterday. He reports sharp chest pain, 7/10, radiates to his left neck. He reports some associated shortness of breath and diaphoresis. He took his home nitroglycerin and aspirin without any improvement in his pain. He denies any aggravating symptoms, but states his pain has improved with medications that he received in the ER. He also notes a history of methamphetamine abuse, but states his last usage was 5 weeks ago. He denies any associated nausea or vomiting. He states he did not feel his AICD fire. Troponin <0.017 x 2, K 5.2 Chest x-ray on admission shows no acute process Admitted to the telemetry floor where he was seen in consultation by cardiology. The patient underwent a cardiac catheterization on 08/05/2020 with no new significant flow obstructing lesions. The patient had a chronically occluded vessel that was not amenable for intervention. He was deemed appropriate for discharge from the cardiological standpoint of view with maximal medical therapy. Patient lives in the [facility] and apparently is going to go back home once case management can help us with the details. He is in no acute distress the patient denies any chest discomfort no angina type of symptoms at the time of discharge. Signs and symptoms of concern when to seek medical attention were discussed prior to discharge, all concerns addressed to the best of my abilities. Exam Gen.: well-developed well-nourished in no apparent distress Head: Normal shape atraumatic Eyes: Pupils equal reactive to light and accommodation, normal conjunctivae and lids Ears: Normal shape Nose: Normal shape no trauma Mouth: No exudates of the back of throat no thrush no lesions Neck: Supple no JVD no carotid bruit or lymphadenopathy no thyromegaly Chest: Lungs clear to auscultation with good inspiratory effort no crackles rales or rhonchi Cardiovascular: S1-S2 regular rhythm no murmurs gallops or rubs Abdomen: Bowel sounds present soft nontender no hepatosplenomegaly appreciated sign Extremities: No clubbing no cyanosis no edema peripheral pulses palpated bilaterally Neurological: Alert awake oriented in person time place and situation, cranial nerves II through XII intact, no motor or sensory deficits appreciated Psych: Appropriate mood, cooperative Assessment Assessment IMAGING REPORT Signed PATIENT: CARMELA JOSEPH ACCOUNT: [id number] : 1960 LOCATION: ER AGE: 59 SEX: M EXAM STATUS: REG ER ORD. PHYSICIAN: MICHAEL STARKEY DO REASON: cp PROCEDURE: PORTABLE CHEST 1V PORTABLE CHEST 1V History: Chest pain Comparison: June 28, 2020 Findings: Single view of the chest is submitted. There is again triple lead left electronic cardiac device. Pericardial cardiac silhouette is again somewhat prominent although unchanged. There is no dependent pleural fluid, pneumothorax, or lobar infiltrate. Impression: 1. No acute radiographic abnormality is identified. Electronically signed by: Александр Burgos MD (08/03/2020 8:21 PM) [facility] Discharge Information Condition at Discharge: Improved Follow Up: Weeks Disposition/Orders: D/C to Home Scheduled Aspirin (Aspir 81) 81 Mg Tablet.dr, 1 TAB PO DAILY, #30 Ref 5 (Reported) Entered as Reported by: Roseanne Ca on 02/11/15 9805 Last Action: HELD on 08/04/20 0950 by ARABELLA PONCE MD Aspirin (Aspirin) 81 Mg Tab.chew, 1 TAB PO DAILY, #10 Prescribed by: KATHRYN HEBERT D.O. on 06/29/20606 Last Action: Continued on 08/04/20949 by ARABELLA PONCE MD Clopidogrel Bisulfate (Plavix) 75 Mg Tablet, 75 MG PO DAILY for TO PREVENT BLOOD CLOTS, #30 Ref 0 (Reported) Entered as Reported by: Roseanne Ca on 02/11/152307 Last Action: Continued on 08/04/20949 by ARABELLA PONCE MD Clopidogrel Bisulfate (Clopidogrel) 75 Mg Tablet, 1 TAB PO DAILY, #10 Prescribed by: KATHRYN HEBERT D.O. on 06/29/20606 Last Action: HELD on 08/04/20949 by ARABELLA PONCE MD Metoprolol Succinate (Metoprolol Succinate ( Xl )) 25 Mg Tab.er.24h, 12.5 MG PO DAILY for FOR HYPERTENSION, #30 Ref 0 (Reported) Entered as Reported by: KANCHAN CANO [facility] [place] on 11/18/1914 Last Action: Continued on 08/04/20949 by ARABELLA PONCE MD Metoprolol Tartrate (Metoprolol Tartrate) 25 Mg Tablet, 0.5 TAB PO BID for 10 Days, #10 Prescribed by: KATHRYN HEBERT D.O. on 06/29/20606 Last Action: HELD on 08/04/20949 by ARABELLA PONCE MD Pregabalin (Lyrica) 300 Mg Capsule, 1 CAP PO BID, #60 Ref 2 (Reported) Entered as Reported by: TERESA NAPIER on 04/10/16411 Last Action: Converted on 08/04/20949 by ARABELLA PONCE MD Rosuvastatin Calcium (Crestor) 40 Mg Tablet, 40 MG PO HS for FOR CHOLESTEROL, #30 Ref 0 (Reported) Entered as Reported by: DIVINA HAAS RN on 06/03/20 180 Last Action: Converted on 08/04/20949 by ARABELLA PONCE MD Rosuvastatin Calcium (Crestor) 40 Mg Tablet, 1 TAB PO DAILY, #10 Prescribed by: KATHRYN HEBERT D.O. on 06/29/20606 Last Action: HELD on 08/04/20949 by ARABELLA PONCE MD Tiotropium [place] (Spiriva) 18 Mcg Cap.w.dev, 1 CAP IH DAILY, #30 Ref 3 (Reported) Entered as Reported by: TERESA NAPIER on 04/10/16411 Last Action: Converted on 08/04/20949 by ARABELLA PONCE MD Scheduled PRN Nitroglycerin (NITROGLYCERIN SubLingual) 0.4 Mg Tab.subl, 0.4 MG SL PRN Q5MIN PRN for CHEST PAIN, (Reported) Entered as Reported by: TERESA NAPIER on 04/10/16411 Last Action: Continued on 08/04/20949 by ARABELLA PONCE MD Tramadol Hcl (Tramadol Hcl) 50 Mg Tablet, 100 MG PO PRN TID PRN for PAIN, #30 Prescribed by: KATLYN HUSSEIN on 06/06/20843 Last Action: Continued on 08/04/20949 by ARABELLA PONCE MD Justicifation of Admission Dx: Justifications for Admission: Justification of Admission Dx: N/A Angina: Symp at Rest PHYLLIS YIP MD Aug 06, 2020 10:44
[2020-08-06 11:00] VITALS: BP 116/71
[2020-08-06] MEDS ORDERED: IPRATROPIUM BROMIDE 0.5 MG/2.5 ML NEBU. NEB PRN (11:30)
--- NOTE | 2020-08-06 13:17 | NUR ---
discharge instructions discussed with patient. patient stable at time of discharge. patient given post cardiac cath instructions. iv out and tele monitor off. patient informed to follow up with his pcp in 1-2 weeks and his surg physician asst within 4 weeks. no questions at time of discharge. patient escorted to transportation vehicle per ambulation.
== END 2020-08-06 13:19 | disposition home or self-care (01) | DRG 287 ==
LOC: ER 19:34 → ED HOLD 22:31 → 2 NORTH 23:41
PROVIDERS: ADMIT Internal Medicine; ATTEND Internal Medicine
PROC: 4A023N7 Measurement of Cardiac Sampling and Pressure, Left Heart, Percutaneous Approach (ICD-10-PCS; principal; 2020-08-05)
PROC: B2111ZZ Fluoroscopy of Multiple Coronary Arteries using Low Osmolar Contrast (ICD-10-PCS; 2020-08-05)
PROC: B2151ZZ Fluoroscopy of Left Heart using Low Osmolar Contrast (ICD-10-PCS; 2020-08-05)
DX: I25.110 Atherosclerotic heart disease of native coronary artery with unstable angina pectoris (principal); I50.22 Chronic systolic (congestive) heart failure; I25.5 Ischemic cardiomyopathy; E78.5 Hyperlipidemia, unspecified; I11.0 Hypertensive heart disease with heart failure; J44.9 Chronic obstructive pulmonary disease, unspecified; E87.5 Hyperkalemia; Z95.1 Presence of aortocoronary bypass graft; I25.2 Old myocardial infarction; Z86.73 Personal history of transient ischemic attack (TIA), and cerebral infarction without residual deficits; F17.210 Nicotine dependence, cigarettes, uncomplicated; D64.9 Anemia, unspecified; F41.9 Anxiety disorder, unspecified; M19.90 Unspecified osteoarthritis, unspecified site; J45.909 Unspecified asthma, uncomplicated
CPT/HCPCS: 93458; 96374; 99285; G0269; 36415; 71045; 80053; 83735; 83880; 84484; 85025; 93005; 99152; 99153; C1760; C1769; C1892; J1644; J1885; J2250; J2270; J3010; J3490; Q9967; C1771; G0378

== ENCOUNTER 2020-08-16 19:19 | Observation (INO) | payer MEDICAID ==
[~2020-08-16] VITALS: Ht 170.2 cm; Wt 66.3 kg
[2020-08-16] MEDS ORDERED: fentaNYL PF VIAL 100 MCG/2 ML VIAL IV ONE (19:30)
[2020-08-16] MEDS ORDERED: IV NORMAL SALINE 1000ML BAG 1,000 ML IV ONE ×3 (19:30→23:00)
--- NOTE | 2020-08-16 19:43 | PHYS DOC ---
Past Medical History Past Medical History: Asthma, CAD, CHF, CVA, High Cholesterol, Hypertension, CT, Other Additional Past Medical Histor: VTACH, Drug abuse-Methamphetamine Past Surgical History: Pacemaker, Splenectomy, Other Additional Past Surgical Histo: 12 cardiac stents, multiple cardiac catheterizations,WITH DEFIB Smoking Status: Current Every Day Smoker Alcohol Use: Rarely Drug Use: Methamphetamine General Adult EDM: Chief Complaint: CHEST PAIN HPI: HPI: Patient is 59-year-old male with past medical history CABG, CHF, with recent AICD placement, who presents with complaints of left-sided chest pain starting 1 hr prior to arrival. Pt reports that pain radiates up his neck and down his left arm. Reports associated diaphoresis. Pt took 4 Nitro and 325mg Aspirin without any relief. Denies any nausea, vomiting or diarrhea. Reports history of recent admission to [facility]. Review of Systems: Review of Systems: Constitutional: Denies fever or chills Eyes: Denies redness or eye pain HENT: Denies nasal congestion or sore throat Respiratory: Denies cough or shortness of breath Cardiovascular: Reports chest pain; denies palpitations GI: Denies abdominal pain, nausea, or vomiting : Denies dysuria or hematuria Musculoskeletal: Denies back pain or joint pain Integument: Denies rash or skin lesions Neurologic: Denies headache, focal weakness or sensory changes Complete systems were reviewed and found to be within normal limits, except as documented in this note. Heart Score: HEART Score for Chest Pain: HEART Score for Chest Pain Response (Comments) Value History Moderately Suspicious 1 ECG Normal 0 Age >45 - < 65 1 Risk Factors >3 Risk Factors or Hx CAD 2 Troponin < Normal Limit 0 Total 4 Risk Factors: Risk Factors: DM, Current or recent (<one month) smoker, HTN, HLP, family history of CAD, obesity. Risk Scores: Score 0 - 3: 2.5% MACE over next 6 weeks - Discharge Home Score 4 - 6: 20.3% MACE over next 6 weeks - Admit for Clinical Observation Score 7 - 10: 72.7% MACE over next 6 weeks - Early Invasive Strategies Current Medications: Current Medications Medications (Trade) Dose Ordered Sig/Ani Start Time Stop Time Status Last Admin Dose Admin Fentanyl Citrate (Fentanyl 2ml Vial) 50 mcg 1X ONCE 08/16/20 19:30 08/16/20 19:34 DC Sodium Chloride 1,000 ml @ 1,000 mls/hr 1X ONCE 08/16/20 19:30 08/16/20 20:29 Allergies: Allergies: Allergies Coded Allergies Type Severity Reaction Last Updated Verified acetaminophen Allergy Intermediate 08/04/20 Yes albuterol Adverse Reaction Intermediate 11/18/19 Yes ibuprofen Adverse Reaction Intermediate Nausea and Vomiting 11/18/19 Yes Physical Exam: PE: Constitutional: Well developed, well nourished, mild acute distress, non-toxic appearance HENT: Normocephalic, atraumatic Eyes: PERRL, EOMI, conjunctiva normal, no discharge Neck: Normal range of motion, no tenderness, supple Cardiovascular: Regular paced rate and rhythm, 2+ radial and pedal pulses, Pacemaker in place Lungs & Thorax: No respiratory distress, equal chest rise and fall Abdomen: Soft, no tenderness Skin: Warm, no erythema, no rash, diaphoretic chest Extremities: No tenderness, ROM intact, no edema Neurologic: Alert and oriented X 3, normal motor function, normal sensory function, no focal deficits noted, resting tremor Psychologic: Affect normal, judgment normal EKG: EKG: EKG @ 1920, paced rhythm at 103 BPM, occasional PVCs with artifact Radiology/Procedures: Radiology/Procedures: PROCEDURE: CT ANGIOGRAPHY CHEST Exam: CT of chest with contrast INDICATION: Chest TECHNIQUE: Sequential axial images through the head obtained following the administration 100 mL of Omni 350 IV contrast. Sagittal and coronal reformatted images were reconstructed from the axial data and reviewed. 3-D reformatted images were reconstructed from the axial data and reviewed. Comparisons: None FINDINGS: Visualized portions of the thyroid are unremarkable. No enlarged mediastinal lymph nodes are identified. Heart is mildly enlarged. Right psoas heart leads are noted. No pericardial effusion. Moderate coronary artery calcifications are seen. Thoracic aorta has a normal course and caliber. Pulmonary artery is not enlarged. No pulmonary embolus identified within the main, lobar or segmental pulmonary arteries. Airways are patent. No consolidation or pneumothorax. No suspicious lung nodules are identified. No pleural effusion or thickening. Visualized upper abdomen is unremarkable. No suspicious osseous lesions or acute fractures. IMPRESSION: No pulmonary embolus identified within the main, lobar or segmental pulmonary arteries. Exposure: One or more of the following in the visualized dose reduction techniques were utilized for this examination: 1. Automated exposure control 2. Adjustment of the MA and/or KV according to patient size 3. Use of iterative of reconstructive technique Electronically signed by: Renita Echevarria MD (08/16/2020 8:56 PM) [facility] Course & Med Decision Making: Course & Med Decision Making Cardiac Catheterization on 08/05/20 Conclusion 1. Patent previously placed stents in the left anterior descending artery, diagonal branch and left posterior descending artery. The obtuse marginal branch and nondominant right coronary artery showed 100% chronic total occlusions, described in prior cardiac catheterization. 2. Severe left ventricular systolic dysfunction with ejection fraction estimated at 20 to 25% with 2+ mitral regurgitation. Recommendations Optimization of medical therapy for coronary disease and ischemic cardiomyopathy. Pertinent Labs and Imaging studies reviewed. (See chart for details) Patient is a 59-year-old male with an extensive cardiac history who presents to the ED with chest pain. Took 4 nitro and 325 mg aspirin without any relief. CTA Chest negative. Lactic acid was elevated at 3.4. IVF hydration given. Hx of recent cardiac cath as above per [employer] review. Due to cardiac history and elevated lactic acid, will plan for admission. Patient requiring admission for further evaluation and treatment. Discussed with Dr. Smart (hospitalist) who is in agreement with admission. Discussed findings and plan with patient, who acknowledges understanding and agreement. Sendy Disclaimer: Sendy Disclaimer: This electronic medical record was generated, in whole or in part, using a voice recognition dictation system. Departure Departure Impression: Primary Impression: Chest pain Qualified Codes: R07.9 - Chest pain, unspecified Additional Impression: Lactic acidosis Disposition: ADMITTED INPT THIS HOSP Admitting Physician: DEJUAN (Bing) Condition: STABLE Referrals: NO PCP (PCP) Critical Care Time Critical care time was 30 minutes which includes time at bedside, spent in discussion of patient's care with specialists and/or family members, with interpretation of laboratory and/or radiological studies and is exclusive of procedures. KATHRYN HEBERT DO Aug 16, 2020 19:43
[2020-08-16 19:49] LABS: BASO # 0.1 x10^3/uL (0.0-0.2); BASO % 1 % (0-3); EOS # 0.2 x10^3/uL (0.0-0.7); EOS % 2 % (0-3); HEMATOCRIT 34.3 % (39.0-53.0); HEMOGLOBIN 11.5 g/dL (13.0-17.5); LYMPH # 1.4 x10^3/uL (1.0-4.8); LYMPH % 15 % (24-48); MEAN CORPUSCULAR HEMOGLOBIN 26 pg (25-35); MEAN CORPUSCULAR HGB CONC 34 g/dL (31-37); MEAN CORPUSCULAR VOLUME 78 fL (79-100); MONO # 0.8 x10^3/uL (0.0-1.1); MONO % 9 % (0-9); NEUT # 6.6 x10^3/uL (1.8-7.7); NEUT % 73 % (31-73); PLATELET COUNT 327 x10^3/uL (140-400); RED BLOOD COUNT 4.38 x10^6/uL (4.30-5.70); RED CELL DISTRIBUTION WIDTH 20.6 % (11.5-14.5); WHITE BLOOD COUNT 9.1 x10^3/uL (4.0-11.0)
[2020-08-16 20:00] LABS: PROTHROMBIN TIME PATIENT 13.3 SEC (11.7-14.0)
[2020-08-16 20:12] LABS: PLT ESTIMATE ADEQUATE (ADEQUATE)
[2020-08-16 20:13] LABS: ANISOCYTOSIS SLIGHT; MICROCYTOSIS SLIGHT
[2020-08-16 20:16] LABS: CALCIUM 9.7 mg/dL (8.5-10.1); CREATININE 0.9 mg/dL (0.7-1.3); GFR 86.1; POTASSIUM 4.2 mmol/L (3.5-5.1)
[2020-08-16 20:29] LABS: ALBUMIN 4.4 g/dL (3.4-5.0); ALBUMIN/GLOBULIN RATIO 1.1 (1.0-1.7); MAGNESIUM 2.2 mg/dL (1.8-2.4); TOTAL BILIRUBIN 0.4 mg/dL (0.2-1.0); TOTAL PROTEIN 8.3 g/dL (6.4-8.2)
[2020-08-16] MEDS ORDERED: CONTRAST GIVEN. MC PRN (20:30)
[2020-08-16] MEDS ORDERED: IOHEXOL 350 MG/ML 100 ML VIAL. IV ONE (20:30)
--- NOTE | 2020-08-16 20:59 | RAD ---
Exam: CT of chest with contrast INDICATION: Chest TECHNIQUE: Sequential axial images through the head obtained following the administration 100 mL of Omni 350 IV contrast. Sagittal and coronal reformatted images were reconstructed from the axial data and reviewed. 3-D reformatted images were reconstructed from the axial data and reviewed. Comparisons: None FINDINGS: Visualized portions of the thyroid are unremarkable. No enlarged mediastinal lymph nodes are identified. Heart is mildly enlarged. Right psoas heart leads are noted. No pericardial effusion. Moderate coronary artery calcifications are seen. Thoracic aorta has a normal course and caliber. Pulmonary artery is not enlarged. No pulmonary embolus identified within the main, lobar or segmental pulmonary arteries. Airways are patent. No consolidation or pneumothorax. No suspicious lung nodules are identified. No pleural effusion or thickening. Visualized upper abdomen is unremarkable. No suspicious osseous lesions or acute fractures. IMPRESSION: No pulmonary embolus identified within the main, lobar or segmental pulmonary arteries. Exposure: One or more of the following in the visualized dose reduction techniques were utilized for this examination: 1. Automated exposure control 2. Adjustment of the MA and/or KV according to patient size 3. Use of iterative of reconstructive technique Electronically signed by: Renita Echevarria MD (08/16/2020 8:56 PM) [facility]
[2020-08-16 22:04] LABS: BARBITURATES NEG (NEG); BENZODIAZEPINES NEG (NEG); CANNABINOIDS NEG (NEG); COCAINE NEG (NEG); METHADONE NEG (NEG); OPIATES POS (NEG); PHENCYCLIDINE NEG (NEG)
[2020-08-16 22:11] LABS: AMPHETAMINE/METHAMPHETAMINE NEG (NEG)
[2020-08-16] MEDS: fentaNYL PF VIAL 100 MCG/2 ML VIAL IV PRN (22:58)
[2020-08-16] MEDS ORDERED: ONDANSETRON PF 4 MG/2 ML VIAL. IV PRN (23:00)
[2020-08-17 04:31] LABS: CHOLESTEROL/HDL RATIO 3.6
[2020-08-17] MEDS: fentaNYL PF VIAL 100 MCG/2 ML VIAL IV PRN ×2 (05:34→08:41)
[2020-08-17 07:10] VITALS: BP 105/59
--- NOTE | 2020-08-17 08:29 | PDOC1 ---
History and Physical Date of Service: DOS: DATE: 08/17/20 TIME: 08:26 Chief Complaint: Chief Complain: chest pain History of Present Illness: HPI: 59-year-old male with past medical history CABG, CHF, with recent AICD placement, who presents with complaints of left-sided chest pain starting 1 hr prior to arrival. Pt reports that pain radiates up his neck and down his left arm. Reports associated diaphoresis. Pt took 4 Nitro and 325mg Aspirin without any relief. Denies any nausea, vomiting or diarrhea. Reports history of recent admission to [facility]. Past Medical/Surgical History: PMH/PSH: Past Medical History: Asthma, CAD, CHF, CVA, High Cholesterol, Hypertension, [place], VTACH, Past Surgical History: Pacemaker, Splenectomy, 12 cardiac stents, multiple cardiac catheterizations,WITH DEFIB Allergies: Allergies: Coded Allergies: acetaminophen (Verified Allergy, Intermediate, 08/04/20) albuterol (Verified Adverse Reaction, Intermediate, 11/18/19) Patient states "it speeds my heart up too much" ibuprofen (Verified Adverse Reaction, Intermediate, Nausea and Vomiting, 11/18/19) Family History: Family History: Reviewed and none reported Social History: Social History: Smoking Status: Current Every Day Smoker Alcohol Use: Rarely Drug Use: Methamphetamine Current Medications: Current Medications Current Medications Sodium Chloride 1,000 ml @ 1,000 mls/hr 1X ONCE IV Last administered on 08/16/20at 19:57; Start 08/16/20 at 19:30; Stop 08/16/20 at 20:29; Status DC Fentanyl Citrate (Fentanyl 2ml Vial) 50 mcg 1X ONCE IV Last administered on 08/16/20at 20:00; Start 08/16/20 at 19:30; Stop 08/16/20 at 19:34; Status DC Iohexol (Omnipaque 350 Mg/ml) 100 ml 1X ONCE IV Last administered on 08/16/20at 20:43; Start 08/16/20 at 20:30; Stop 08/16/20 at 20:31; Status DC Info (CONTRAST GIVEN -- Rx MONITORING) 1 each PRN DAILY PRN MC SEE COMMENTS; Start 08/16/20 at 20:30; Stop 08/18/20 at 20:29 Sodium Chloride 1,000 ml @ 1,000 mls/hr 1X ONCE IV Last administered on 08/16/20at 21:27; Start 08/16/20 at 21:15; Stop 08/16/20 at 22:14; Status DC Ondansetron HCl (Zofran) 4 mg PRN Q8HRS PRN IV NAUSEA/VOMITING; Start 08/16/20 at 23:00; Stop 08/17/20 at 22:59 Fentanyl Citrate (Fentanyl 2ml Vial) 50 mcg PRN Q2HR PRN IV PAIN Last a dministered on 08/17/20at 05:34; Start 08/16/20 at 23:00 Sodium Chloride 1,000 ml @ 100 mls/hr 1X ONCE IV ; Start 08/16/20 at 23:00; Stop 08/17/20 at 08:59 Active Scripts Active Crestor (Rosuvastatin Calcium) 40 Mg Tablet 1 Tab PO DAILY Metoprolol Tartrate 25 Mg Tablet 0.5 Tab PO BID 10 Days Aspirin 81 Mg Tab.chew 1 Tab PO DAILY Clopidogrel (Clopidogrel Bisulfate) 75 Mg Tablet 1 Tab PO DAILY Tramadol Hcl 50 Mg Tablet 100 Mg PO PRN TID PRN Reported Crestor (Rosuvastatin Calcium) 40 Mg Tablet 40 Mg PO HS Metoprolol Succinate ( Xl ) (Metoprolol Succinate) 25 Mg Tab.er.24h 12.5 Mg PO DAILY Spiriva (Tiotropium Mcdonald) 18 Mcg Cap.w.dev 1 Cap IH DAILY NITROGLYCERIN SubLingual (Nitroglycerin) 0.4 Mg Tab.subl 0.4 Mg SL PRN Q5MIN PRN Lyrica (Pregabalin) 300 Mg Capsule 1 Cap PO BID Plavix (Clopidogrel Bisulfate) 75 Mg Tablet 75 Mg PO DAILY Aspir 81 (Aspirin) 81 Mg Tablet.dr 1 Tab PO DAILY ROS: Review of Systems Review of System REVIEW OF SYSTEMS: GENERAL: Denies weakness SKIN: No bruising, hair changes or rashes. EYES: No blurred, double or loss of vision. NOSE AND THROAT: No history of nosebleeds, hoarseness or sore throat. HEART: No history of palpitations, chest pain or shortness of breath on exertion. LUNGS: Denies cough, hemoptysis, wheezing or shortness of breath. GASTROINTESTINAL: Denies changes in appetite, nausea, vomiting, diarrhea or constipation. GENITOURINARY: No history of frequency, urgency, hesitancy or nocturia. NEUROLOGIC: Denies history of numbness, tingling, or tremor. PSYCHIATRIC: No history of panic, anxiety or depression. ENDOCRINE: No history of heat or cold intolerance, polyuria or polydipsia. EXTREMITIES: Denies joint pain, pain on walking or stiffness. Physical Exam: Vital Signs: Vital Signs Date Time Temp Pulse Resp B/P (MAP) Pulse Ox O2 Delivery O2 Flow Rate FiO2 08/17/20 07:10 97.5 86 20 105/59 (74) 99 Room Air 97.5 Physcial Exam: GEN: No apparent distress. Alert and oriented HEENT: Normal cephalic, atraumatic, external auditory canals are patent EYES: Extraocular muscles are intact, pupil are equally round and reactive to light and accommodation MUSCULOSKELETAL: Well developed , well nourished, good range of motion ENDOCRINE: No thyromegaly was palpated LYMPHATICS: No cervical chain or axillary nodes were noted HEMATOPOIETIC: No bruising NECK: Supple, no JVD, no thyromegaly was noted LUNGS: Clear to auscultation in all lung hernandez without rhonchi or wheezing HEART: RRR, S!, S2 present. Peripheral pulses intact, no obvious murmurs noted ABDOMEN: Soft, nontender. Positive bowel sounds, no organomegaly, normal bowel sounds EXTREMITIES: Without clubbing, cyanosis, or edema. Pedal pulses intact. Negative Homans sign NEUROLOGIC: Normal speech and tone. A&O x 3, moves all extremities, no obvious focal deficits PSYCHIATRIC: Normal affect, normal mood. Stable SKIN: No ulcerations or rashes, good skin turgor, no jaundice VASCULAR: Good capillary refill, neurovascular bundle appears to be intact Labs: Labs: Laboratory Tests Test 08/16/20 19:40 08/16/20 21:43 08/17/20 00:17 White Blood Count 9.1 x10^3/uL (4.0-11.0) Red Blood Count 4.38 x10^6/uL (4.30-5.70) Hemoglobin 11.5 g/dL (13.0-17.5) Hematocrit 34.3 % (39.0-53.0) Mean Corpuscular Volume 78 fL (79-100) Mean Corpuscular Hemoglobin 26 pg (25-35) Mean Corpuscular Hemoglobin Concent 34 g/dL (31-37) Red Cell Distribution Width 20.6 % (11.5-14.5) Platelet Count 327 x10^3/uL (140-400) Neutrophils (%) (Auto) 73 % (31-73) Lymphocytes (%) (Auto) 15 % (24-48) Monocytes (%) (Auto) 9 % (0-9) Eosinophils (%) (Auto) 2 % (0-3) Basophils (%) (Auto) 1 % (0-3) Neutrophils # (Auto) 6.6 x10^3/uL (1.8-7.7) Lymphocytes # (Auto) 1.4 x10^3/uL (1.0-4.8) Monocytes # (Auto) 0.8 x10^3/uL (0.0-1.1) Eosinophils # (Auto) 0.2 x10^3/uL (0.0-0.7) Basophils # (Auto) 0.1 x10^3/uL (0.0-0.2) Platelet Estimate Adequate (ADEQUATE) Anisocytosis Slight Microcytosis Slight Prothrombin Time 13.3 SEC (11.7-14.0) Prothromb Time International Ratio 1.1 (0.8-1.1) Activated Partial Thromboplast Time 37 SEC (24-38) Sodium Level 137 mmol/L (136-145) Potassium Level 4.2 mmol/L (3.5-5.1) Chloride Level 99 mmol/L (98-107) Carbon Dioxide Level 24 mmol/L (21-32) Anion Gap 14 (6-14) Blood Urea Nitrogen 9 mg/dL (8-26) Creatinine 0.9 mg/dL (0.7-1.3) Estimated GFR (Cockcroft-Gault) 86.1 BUN/Creatinine Ratio 10 (6-20) Glucose Level 90 mg/dL (70-99) Lactic Acid Level 3.4 mmol/L (0.4-2.0) 3.5 mmol/L (0.4-2.0) Calcium Level 9.7 mg/dL (8.5-10.1) Magnesium Level 2.2 mg/dL (1.8-2.4) Total Bilirubin 0.4 mg/dL (0.2-1.0) Aspartate Amino Transf (AST/SGOT) 17 U/L (15-37) Alanine Aminotransferase (ALT/SGPT) 19 U/L (16-63) Alkaline Phosphatase 118 U/L (46-116) Troponin I Quantitative < 0.017 ng/mL (0.000-0.055) < 0.017 ng/mL (0.000-0.055) EX-Yig-S-Type Natriuretic Peptide 1227 pg/mL (0-124) Total Protein 8.3 g/dL (6.4-8.2) Albumin 4.4 g/dL (3.4-5.0) Albumin/Globulin Ratio 1.1 (1.0-1.7) Lipase 176 U/L (73-393) Urine Opiates Screen Pos (NEG) Urine Methadone Screen Neg (NEG) Urine Barbiturates Neg (NEG) Urine Phencyclidine Screen Neg (NEG) Urine Amphetamine/Methamphetamine Neg (NEG) Urine Benzodiazepines Screen Neg (NEG) Urine Cocaine Screen Neg (NEG) Urine Cannabinoids Screen Neg (NEG) Urine Ethyl Alcohol Neg (NEG) Triglycerides Level 83 mg/dL (0-150) Cholesterol Level 121 mg/dL (0-200) LDL Cholesterol, Calculated 70 mg/dL (0-100) VLDL Cholesterol, Calculated 17 mg/dL (0-40) Non-HDL Cholesterol Calculated 87 mg/dL (0-129) HDL Cholesterol 34 mg/dL (40-60) Cholesterol/HDL Ratio 3.6 Laboratory Tests Test 08/16/20 19:40 08/16/20 21:43 08/17/20 00:17 White Blood Count 9.1 x10^3/uL (4.0-11.0) Red Blood Count 4.38 x10^6/uL (4.30-5.70) Hemoglobin 11.5 g/dL (13.0-17.5) Hematocrit 34.3 % (39.0-53.0) Mean Corpuscular Volume 78 fL (79-100) Mean Corpuscular Hemoglobin 26 pg (25-35) Mean Corpuscular Hemoglobin Concent 34 g/dL (31-37) Red Cell Distribution Width 20.6 % (11.5-14.5) Platelet Count 327 x10^3/uL (140-400) Neutrophils (%) (Auto) 73 % (31-73) Lymphocytes (%) (Auto) 15 % (24-48) Monocytes (%) (Auto) 9 % (0-9) Eosinophils (%) (Auto) 2 % (0-3) Basophils (%) (Auto) 1 % (0-3) Neutrophils # (Auto) 6.6 x10^3/uL (1.8-7.7) Lymphocytes # (Auto) 1.4 x10^3/uL (1.0-4.8) Monocytes # (Auto) 0.8 x10^3/uL (0.0-1.1) Eosinophils # (Auto) 0.2 x10^3/uL (0.0-0.7) Basophils # (Auto) 0.1 x10^3/uL (0.0-0.2) Platelet Estimate Adequate (ADEQUATE) Anisocytosis Slight Microcytosis Slight Prothrombin Time 13.3 SEC (11.7-14.0) Prothromb Time International Ratio 1.1 (0.8-1.1) Activated Partial Thromboplast Time 37 SEC (24-38) Sodium Level 137 mmol/L (136-145) Potassium Level 4.2 mmol/L (3.5-5.1) Chloride Level 99 mmol/L (98-107) Carbon Dioxide Level 24 mmol/L (21-32) Anion Gap 14 (6-14) Blood Urea Nitrogen 9 mg/dL (8-26) Creatinine 0.9 mg/dL (0.7-1.3) Estimated GFR (Cockcroft-Gault) 86.1 BUN/Creatinine Ratio 10 (6-20) Glucose Level 90 mg/dL (70-99) Lactic Acid Level 3.4 mmol/L (0.4-2.0) 3.5 mmol/L (0.4-2.0) Calcium Level 9.7 mg/dL (8.5-10.1) Magnesium Level 2.2 mg/dL (1.8-2.4) Total Bilirubin 0.4 mg/dL (0.2-1.0) Aspartate Amino Transf (AST/SGOT) 17 U/L (15-37) Alanine Aminotransferase (ALT/SGPT) 19 U/L (16-63) Alkaline Phosphatase 118 U/L (46-116) Troponin I Quantitative < 0.017 ng/mL (0.000-0.055) < 0.017 ng/mL (0.000-0.055) FC-Evq-Q-Type Natriuretic Peptide 1227 pg/mL (0-124) Total Protein 8.3 g/dL (6.4-8.2) Albumin 4.4 g/dL (3.4-5.0) Albumin/Globulin Ratio 1.1 (1.0-1.7) Lipase 176 U/L (73-393) Urine Opiates Screen Pos (NEG) Urine Methadone Screen Neg (NEG) Urine Barbiturates Neg (NEG) Urine Phencyclidine Screen Neg (NEG) Urine Amphetamine/Methamphetamine Neg (NEG) Urine Benzodiazepines Screen Neg (NEG) Urine Cocaine Screen Neg (NEG) Urine Cannabinoids Screen Neg (NEG) Urine Ethyl Alcohol Neg (NEG) Triglycerides Level 83 mg/dL (0-150) Cholesterol Level 121 mg/dL (0-200) LDL Cholesterol, Calculated 70 mg/dL (0-100) VLDL Cholesterol, Calculated 17 mg/dL (0-40) Non-HDL Cholesterol Calculated 87 mg/dL (0-129) HDL Cholesterol 34 mg/dL (40-60) Cholesterol/HDL Ratio 3.6 Images: Images IMPRESSION: No pulmonary embolus identified within the main, lobar or segmental pulmonary arteries. Assessment/Plan Assessment/Plan Chest pain concerning for unstable angina/NSTEMI versus STEMI Cardiac Catheterization on 08/05/20 Conclusion 1. Patent previously placed stents in the left anterior descending artery, diagonal branch and left posterior descending artery. The obtuse marginal branch and nondominant right coronary artery showed 100% chronic total occlusions, described in prior cardiac catheterization. 2. Severe left ventricular systolic dysfunction with ejection fraction estimated at 20 to 25% with 2+ mitral regurgitation. Patient is a 59-year-old male with an extensive cardiac history who presents to the ED with chest pain. Took 4 nitro and 325 mg aspirin without any relief. CTA Chest negative. Lactic acid was elevated at 3.4. IVF hydration given. Hx of recent cardiac cath as above per [facility] review. Due to cardiac history and elevated lactic acid, will plan for admission. Patient was seen by cardiology Appreciate cardiology recommendations Continue ASA/plavix and secondary prevention measures.Given recurrent CP, Smoking cessation abstain from meth, follow up with his primary outpt card iologist Discussed important of compliance with medical therapy/followup and abstinence of recreational drug use May DC Continue HF regimen Follow up with his [facility] electronics worker appt on . Patient was seen bedside and examined. Patient was chest pain-free at this time. Patient was very adamant about leaving immediately due to having to go back to the [facility] to see his technical instructor course developer or else he would go to snf. Logistic care was contacted so that transportation can be arranged for him to go back to [facility]. Patient states that he will follow-up with his electronics worker in [facility] on Saturday in order to continue his outpatient evaluation for his chest pain. Patient expressed understanding and he was discharged from the hospital safely with arrange transportation. He was also seen by the PAT team for his methamphetamine abuse. Patient was not deemed suicidal and he was received all of the supportive material in order to help him quell his desire for methamphetamine. Smoking cessation: Total time spent was > 12 minutes in face to face counseling. Patient has agreed to consider nicotine patches/gum or to start on Varnicline when discharged Justifications for Admission Other Justification ISELA MARTI MD Aug 17, 2020 08:29
[2020-08-17] MEDS ORDERED: oxyCODONE/APAP 5/325 1 TAB TABLET PO PRN (09:15)
[2020-08-17 11:00] VITALS: BP 116/53
--- NOTE | 2020-08-17 11:13 | PDOC2 ---
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 This is sharp and pressure mid chest. No SOA and no n/v and no palpitations. He is due to see his new muffler installer at [facility] Saturday next week. 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 He denies meth but continues to smoke tobacco and apparently he has been telling nurses that he needs his fentanyl and has been hounding staff at the desk and also wanting to go home. His troponin has been normal and no EKG changes. He has not had recurrence of his chest pain and no significant arrhythmia. He did have LHC recently with no intervenable lesions with patent past stents. CHF jarrell he is compensated with no SOA and no peripheral edema. PAST MEDICAL HISTORY Past Medical History Cardiovascular: CAD, CHF (ICM), HTN, Hyperlipidemia, Other (VT) Pulmonary: Asthma CENTRAL NERVOUS SYSTEM: CVA GI: GERD Heme/Onc: No pertinent hx Hepatobiliary: No pertinent hx Psych: Anxiety Musculoskeletal: Osteoarthritis Rheumatologic: No pertinent hx Infectious disease: No pertinent hx ENT: No pertinent hx Renal/: No pertinent hx Endocrine: No pertinent hx Dermatology: No pertinent hx PAST SURGICAL HISTORY Past Surgical History Pacemaker (AICD), Other (multiple PCI/stents. FAMILY HISTORY Family History: Hypertension SOCIAL HISTORY Social History Smoke: <1 pack per day ALCOHOL: none Drugs: Other (hx of meth use. reports he has been clean for 5 weeks) Lives: with Family CURRENT MEDICATIONS CURRENT MEDICATIONS Current Medications Medications (Trade) Dose Ordered Sig/Ani Route PRN Reason Start Time Stop Time Status Last Admin Dose Admin Sodium Chloride 1,000 ml @ 1,000 mls/hr 1X ONCE IV 08/16/20 19:30 08/16/20 20:29 DC 08/16/20 19:57 Fentanyl Citrate (Fentanyl 2ml Vial) 50 mcg 1X ONCE IV 08/16/20 19:30 08/16/20 19:34 DC 08/16/20 20:00 Iohexol (Omnipaque 350 Mg/ml) 100 ml 1X ONCE IV 08/16/20 20:30 08/16/20 20:31 DC 08/16/20 20:43 Sodium Chloride 1,000 ml @ 1,000 mls/hr 1X ONCE IV 08/16/20 21:15 08/16/20 22:14 DC 08/16/20 21:27 Fentanyl Citrate (Fentanyl 2ml Vial) 50 mcg PRN Q2HR PRN IV PAIN 08/16/20 23:00 08/17/20 09:14 DC 08/17/20 08:41 ALLERGIES ALLERGIES: Coded Allergies: acetaminophen (Verified Allergy, Intermediate, 08/04/20) albuterol (Verified Adverse Reaction, Intermediate, 11/18/19) Patient states "it speeds my heart up too much" ibuprofen (Verified Adverse Reaction, Intermediate, Nausea and Vomiting, 11/18/19) ROS Review of System 14 point ROS evaluated with pertinent positives noted per HPI PHYSICAL EXAM General: Alert, Oriented X3, Cooperative, No acute distress HEENT: Atraumatic, Mucous membr. moist/pink Lungs: Clear to auscultation, Normal air movement Heart: Regular rate (intermittent atrial and AV pacing) Abdomen: Soft, No tenderness Extremities: No cyanosis, No edema Skin: No breakdown, No significant lesion Neuro: Normal speech, Sensation intact Psych/Mental Status: Mental status NL, Mood NL MUSCULOSKELETAL: Osteoarthritic changes both hands VITALS/I&O VITALS/I&O: Vital Signs Date Time Temp Pulse Resp B/P (MAP) Pulse Ox O2 Delivery O2 Flow Rate FiO2 08/17/20 08:41 99 08/17/20 07:10 97.5 86 20 105/59 (74) Room Air 97.5 I & O 08/16/20 08/16/20 08/17/20 15:00 23:00 07:00 Intake Total 2000 ml Balance 2000 ml LABS Lab: Laboratory Tests Test 08/16/20 19:40 08/16/20 21:43 08/17/20 00:17 White Blood Count 9.1 x10^3/uL (4.0-11.0) Red Blood Count 4.38 x10^6/uL (4.30-5.70) Hemoglobin 11.5 g/dL (13.0-17.5) L Hematocrit 34.3 % (39.0-53.0) L Mean Corpuscular Volume 78 fL (79-100) L Mean Corpuscular Hemoglobin 26 pg (25-35) Mean Corpuscular Hemoglobin Concent 34 g/dL (31-37) Red Cell Distribution Width 20.6 % (11.5-14.5) H Platelet Count 327 x10^3/uL (140-400) Neutrophils (%) (Auto) 73 % (31-73) Lymphocytes (%) (Auto) 15 % (24-48) L Monocytes (%) (Auto) 9 % (0-9) Eosinophils (%) (Auto) 2 % (0-3) Basophils (%) (Auto) 1 % (0-3) Neutrophils # (Auto) 6.6 x10^3/uL (1.8-7.7) Lymphocytes # (Auto) 1.4 x10^3/uL (1.0-4.8) Monocytes # (Auto) 0.8 x10^3/uL (0.0-1.1) Eosinophils # (Auto) 0.2 x10^3/uL (0.0-0.7) Basophils # (Auto) 0.1 x10^3/uL (0.0-0.2) Platelet Estimate Adequate (ADEQUATE) Anisocytosis Slight Microcytosis Slight Prothrombin Time 13.3 SEC (11.7-14.0) Prothrombin Time INR 1.1 (0.8-1.1) Activated Partial Thromboplast Time 37 SEC (24-38) Sodium Level 137 mmol/L (136-145) Potassium Level 4.2 mmol/L (3.5-5.1) Chloride Level 99 mmol/L (98-107) Carbon Dioxide Level 24 mmol/L (21-32) Anion Gap 14 (6-14) Blood Urea Nitrogen 9 mg/dL (8-26) Creatinine 0.9 mg/dL (0.7-1.3) Estimated GFR (Cockcroft-Gault) 86.1 BUN/Creatinine Ratio 10 (6-20) Glucose Level 90 mg/dL (70-99) Lactic Acid Level 3.4 mmol/L (0.4-2.0) H 3.5 mmol/L (0.4-2.0) H Calcium Level 9.7 mg/dL (8.5-10.1) Magnesium Level 2.2 mg/dL (1.8-2.4) Total Bilirubin 0.4 mg/dL (0.2-1.0) Aspartate Amino Transferase (AST) 17 U/L (15-37) Alanine Aminotransferase (ALT) 19 U/L (16-63) Alkaline Phosphatase 118 U/L (46-116) H Troponin I Quantitative < 0.017 ng/mL (0.000-0.055) < 0.017 ng/mL (0.000-0.055) LY-Kml-L-Type Natriuretic Peptide 1227 pg/mL (0-124) H Total Protein 8.3 g/dL (6.4-8.2) H Albumin 4.4 g/dL (3.4-5.0) Albumin/Globulin Ratio 1.1 (1.0-1.7) Lipase 176 U/L (73-393) Urine Opiates Screen Pos (NEG) Urine Methadone Screen Neg (NEG) Urine Barbiturates Neg (NEG) Urine Phencyclidine Screen Neg (NEG) Urine Amphetamine/Methamphetamine Neg (NEG) Urine Benzodiazepines Screen Neg (NEG) Urine Cocaine Screen Neg (NEG) Urine Cannabinoids Screen Neg (NEG) Urine Ethyl Alcohol Neg (NEG) Triglycerides Level 83 mg/dL (0-150) Cholesterol Level 121 mg/dL (0-200) LDL Cholesterol, Calculated 70 mg/dL (0-100) VLDL Cholesterol, Calculated 17 mg/dL (0-40) Non-HDL Cholesterol Calculated 87 mg/dL (0-129) HDL Cholesterol 34 mg/dL (40-60) L Cholesterol/HDL Ratio 3.6 Laboratory Tests 08/16/20 19:40 Laboratory Tests 08/16/20 19:40 ECHOCARDIOGRAM ECHOCARDIOGRAM <Conclusion> Left ventricle systolic function is moderately impaired. EF 30-35%. There is severe global hypokinesis of the left ventricle. Tissue Doppler imaging reveals moderate left ventricular diastolic dysfunction. There is a pacemaker lead in the right ventricle. Doppler and Color-flow revealed moderate mitral regurgitation. Doppler and Color Flow revealed mild tricuspid regurgitation. There is moderate pulmonary hypertension. The PA pressure was estimated at 44 mmHg. DATE: 05/06/20 0907 HEART CATH HEART CATH Conclusion 1. Patent previously placed stents in the left anterior descending artery, diagonal branch and left posterior descending artery. The obtuse marginal branch and nondominant right coronary artery showed 100% chronic total occlusions, described in prior cardiac catheterization. 2. Severe left ventricular systolic dysfunction with ejection fraction estimated at 20 to 25% with 2+ mitral regurgitation. Recommendations Optimization of medical therapy for coronary disease and ischemic cardiomyopathy. DATE: 08/05/20 1353 ASSESSMENT/PLAN ASSESSMENT/PLAN 1. Atypical chest pain, suspect MSK negative for PE per CTA 2. Opioid seeking behavior: demanding for fentanyl 3. Chronic systolic CHF; clinically compensated 4. ICM; s/p AICD ([employer]) 5. CAD; recent LHC, patent stents no intervenable lesions 6. Hx of VT: not on antiarrhythmic, no arrhythmias 7. HTN: controlled 8. HLP: not on goal 10. 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 Tobaccoism with likely COPD 12. Lactic acidosis: per PCP Recommendations Continue ASA/plavix and secondary prevention measures.Given recurrent CP, Smoking cessation abstain from meth, follow up with his primary outpt muffler installer Discussed important of compliance with medical therapy/followup and abstinence of recreational drug use May DC Continue HF regimen Follow up with his [facility] muffler installer appt on Adrien CHRISTIAN ALVARADO MD 08/17/20 1903: CARDIAC CONSULT ASSESSMENT/PLAN ASSESSMENT/PLAN Patient seen and examined. Agree with CLOAK ROOM ATTENDANT's assessment and plan. CP atypical and most probably musculoskeletal TN ruled out Chr syst HF compensated CAD stable Recent cath results noted above s/p AICD stable OK for DC - follow up as scheduled Thank you for your consultation NERI NUNN APRN Aug 17, 2020 11:13 CHRISTIAN ALVARADO MD Aug 17, 2020 19:03
--- NOTE | 2020-08-17 11:54 | EKG ---
[facility] [address] [place] [address] Test Date: 2020-08-16 Test Time: 19:20:52 Pat Name: CARMELA JOSEPH Department: Room: Gender: M [place] Attacher: : 1960 Requested By: KATHRYN HEBERT Order Number: [id number] Reading MD: Measurements Intervals [place] Rate: 103 P: 44 WV: 90 QRS: -64 QRSD: 150 T: 103 QT: 386 QTc: 508 Interpretive Statements SINUS TACHYCARDIA COMPLEX(ES) WITH ABERRANT INTRAVENTRICULAR CONDUCTION VENTRICULAR PREMATURE COMPLEX(ES) LEFT ATRIAL ABNORMALITY ABNORMAL LEFT AXIS DEVIATION NON SPECIFIC INTRAVENTRICULAR BLOCK ABNORMAL ECG RI6.02 No previous ECG available for comparison
--- NOTE | 2020-08-17 12:04 | NUR ---
SS following for discharge planning. SS reviewed pt chart and discussed with pt RN. Pt is from home and is currently on room air. Cardiology signed off. Per RN, pt will discharge today and needs transportation through Medicaid. SS contacted [employer], , and arranged transportation for discharge to home. Trip ID#[id number]. [facility] reported that they will call upon arrival and would be here in a 3 hour window. Pt's RN notified.
--- NOTE | 2020-08-17 12:23 | DISCH ---
DISCHARGE INSTRUCTIONS Condition on Discharge Condition on Discharge: Stable Activity After Discharge Activity Instructions for Disc: Activity as tolerated Bathing Instructions: No Tub Bath until see Lifting Instructions after Dis: No heavy lifting, No pulling or pushing, Do not lift >10 pounds Exercise Instruction after Dis: Exercise per therapy Driving Instructions after Dis: Do not drive today Weight Bearing Status after Di: As tolerated Diet after Discharge Diet after Discharge: Cardiac Diet Texture: Regular Liquid Texture: Thin Liquid Swallowing Supervision: None needed Wound Incision Care Wound/Incision Care: No wound care needed Checks after Discharge Checks after discharge: Check blood press - daily, Check your Temp as needed Contacting the DRKayla after DC Call your doctor for: If your condition worsens Follow-Up Follow up with: PCP within 1 week of discharge Follow Up With: Cardiology as planned Treatment/Equipment after DC Adaptive Equipment Issued: None ISELA MARTI MD Aug 17, 2020 12:23
== END 2020-08-17 13:16 | disposition home or self-care (01) ==
LOC: ER 19:19 → ED HOLD 22:41 → 2 NORTH 23:59
PROVIDERS: ADMIT Family Medicine; ATTEND Family Medicine
DX: R07.9 Chest pain, unspecified (principal); E87.2 Acidosis; I25.10 Atherosclerotic heart disease of native coronary artery without angina pectoris; I11.0 Hypertensive heart disease with heart failure; I50.22 Chronic systolic (congestive) heart failure; J44.9 Chronic obstructive pulmonary disease, unspecified; E78.00 Pure hypercholesterolemia, unspecified; E78.5 Hyperlipidemia, unspecified; F17.210 Nicotine dependence, cigarettes, uncomplicated; I34.0 Nonrheumatic mitral (valve) insufficiency; Z86.73 Personal history of transient ischemic attack (TIA), and cerebral infarction without residual deficits; Z90.81 Acquired absence of spleen; Z95.1 Presence of aortocoronary bypass graft; Z95.5 Presence of coronary angioplasty implant and graft; Z95.810 Presence of automatic (implantable) cardiac defibrillator
CPT/HCPCS: 36415; 71275; 80053; 80061; 80307; 83605; 83690; 83735; 83880; 84484; 85025; 85610; 85730; 93005; 96361; 96374; 96375; 96376; 99285; G0378; J2060; J3010; J7030; Q9967; G0379; 99291-25

== ENCOUNTER 2020-09-05 12:15 | Observation (INO) | payer MEDICAID ==
[~2020-09-05] VITALS: Ht 170.2 cm; Wt 64.7 kg
[2020-09-05] MEDS ORDERED: fentaNYL PF VIAL 100 MCG/2 ML VIAL IV ONE ×2 (12:45→15:15)
[2020-09-05] MEDS ORDERED: ASPIRIN 325 MG TABLET PO ONE (13:00)
[2020-09-05] MEDS ORDERED: IV NORMAL SALINE 1000ML BAG 1,000 ML IV ONE (13:00)
--- NOTE | 2020-09-05 13:08 | PHYS DOC ---
Past Medical History Past Medical History: Asthma, CAD, CHF, CVA, High Cholesterol, Hypertension, ND, Other Additional Past Medical Histor: VTACH, Drug abuse-Methamphetamine Past Surgical History: Pacemaker, Splenectomy, Other Additional Past Surgical Histo: 12 cardiac stents, multiple cardiac catheterizations,WITH DEFIB Smoking Status: Current Every Day Smoker Alcohol Use: Rarely Drug Use: Methamphetamine General Adult EDM: Chief Complaint: CHEST PAIN HPI: HPI: Patient is a 59 year old male who presents with chest pain radiating to neck, shoulder, and down left arm. Started at noon while he was sitting. Pt has a hx of left bundle branch block seen on EKG today, hx of 2 strokes, hx 4 MIs, hx 12 stent placements. Pt has a defibrillator and pacemaker. reports pain as 5-7/10 and sharp/ tight. Pt took Nitro at noon 3x, 5-7 mins apart with no relief of pain. Hx of "blood clots in lung" this past year, hx HBP, hx high cholesterol. reports being clammy. Reports significant fam hx of "heart problems". Review of Systems: Review of Systems: Constitutional: Denies fever or chills Eyes: Denies redness or eye pain HENT: Denies nasal congestion or sore throat Respiratory: Denies cough or shortness of breath Cardiovascular: Reports chest pain radiating to L arm, neck, and shoulder. Denies pleuritic pain. GI: Denies abdominal pain, nausea, or vomiting : Denies dysuria or hematuria Musculoskeletal: Denies back pain or joint pain Integument: Denies rash or skin lesions Neurologic: Denies headache, focal weakness or sensory changes Complete systems were reviewed and found to be within normal limits, except as documented in this note. Heart Score: HEART Score for Chest Pain: HEART Score for Chest Pain Response (Comments) Value History Moderately Suspicious 1 ECG Nonspecific Repolarizatio 1 Age >45 - < 65 1 Risk Factors >3 Risk Factors or Hx CAD 2 Troponin < Normal Limit 0 Total 5 Risk Factors: Risk Factors: Current or recent (<one month) smoker, HTN, HLP, family history of CAD, hx 4 MIs, 12 stents, 2 strokes. Risk Scores: Score 0 - 3: 2.5% MACE over next 6 weeks - Discharge Home Score 4 - 6: 20.3% MACE over next 6 weeks - Admit for Clinical Observation Score 7 - 10: 72.7% MACE over next 6 weeks - Early Invasive Strategies Family History: Family History: "entire fam hx of heart problems" reported by patient. Current Medications: Current Medications Medications (Trade) Dose Ordered Sig/Ani Start Time Stop Time Status Last Admin Dose Admin Aspirin (Soto Aspirin) 325 mg 1X ONCE 09/05/20 13:00 09/05/20 13:01 Fentanyl Citrate (Fentanyl 2ml Vial) 50 mcg 1X ONCE 09/05/20 12:45 09/05/20 12:46 DC Sodium Chloride 1,000 ml @ 1,000 mls/hr 1X ONCE 09/05/20 13:00 09/05/20 13:59 Allergies: Allergies: Allergies Coded Allergies Type Severity Reaction Last Updated Verified acetaminophen Allergy Intermediate 08/04/20 Yes albuterol Adverse Reaction Intermediate 11/18/19 Yes ibuprofen Adverse Reaction Intermediate Nausea and Vomiting 11/18/19 Yes Physical Exam: PE: Constitutional: Well developed, well nourished, anxious, non-toxic appearance HENT: Normocephalic, atraumatic, lip smacking Eyes: Conjunctiva normal, no discharge Neck: Normal range of motion, no tenderness, supple Lungs & Thorax: No respiratory distress, equal chest rise and fall. Pt breathing heavily but reports no SOB, including no pleuritic inspiratory chest pain. Abdomen: Soft, no tenderness Skin: Warm, no erythema, no rash. Pt reports feeling "clammy". Back: No tenderness, no CVA tenderness Extremities: No tenderness, ROM intact, no edema Neurologic: Alert and oriented X 3, normal motor function, normal sensory function, no focal deficits noted Psychologic: Affect anxiousl, judgment normal EKG: EKG: @1223 left bundle branch block, which pt reports having for past 9-10 years, sinus rhythm at 83 bpm, T wave inversions I, V5-V6. QRS 146 ms, QT/ QTc 394/493 ms. Radiology/Procedures: Radiology/Procedures: PROCEDURE: CT ANGIOGRAPHY CHEST Study: CT CHEST WITH CONTRAST - PULMONARY ANGIOGRAM History: Chest pain Comparison: CTA chest 08/16/2020 Technique: Helical CT of the chest performed after the administration of 90 mL Omnipaque 350 intravenous contrast and timed for angiographic evaluation of the pulmonary arteries per PE protocol. Coronal and sagittal 3D MIP reformations were obtained. One or more of the following individualized dose reduction techniques were utilized for this examination: 1. Automated exposure control 2. Adjustment of the mA and/or kV according to patient size 3. Use of iterative reconstruction technique. Findings: Pulmonary Arteries: Contrast bolus is adequate. There is no acute pulmonary embolism. Heart/Systemic Vasculature: The heart is normal in size. There a coronary artery stents. Pacemaker/AICD leads are present. No pericardial effusion. The thoracic aorta is normal in caliber. Mediastinum: No lymphadenopathy. Lungs: There are few unchanged small pulmonary nodules including a 3 mm pulmonary nodule along the right major fissure (image 70, series 3), a 3 mm nodule in the lateral right upper lobe (image 53, series 3), and calcified granuloma in the left lower lobe. Mild dependent subpleural reticular changes, likely atelectasis. There is mild airway wall thickening. Mild paraseptal and centrilobular emphysema. No pleural effusion. Neck/Axilla/Body Wall: Thyroid gland is unremarkable. No axillary lymphadenopathy. Upper Abdomen: Unremarkable. Bones: No acute osseous abnormality. IMPRESSION: 1. No acute pulmonary embolism. 2. Mild centrilobular and paraseptal emphysema. 3. There is a few unchanged small pulmonary nodules measuring up to 3 mm. Optional 12 month follow-up CT could be obtained to ensure stability in a high risk patient, per Fleischner Society guidelines. Electronically signed by: Roseanne Bernal MD (09/05/2020 2:11 PM) [id number] Course & Med Decision Making: Course & Med Decision Making (See chart for details) Patient with significant cardiac risk factors presents with report of chest pain. Reports chest pain is pleuritic in nature. Left bundle branch block on EKG, but pt reports having this for past 9-10 years. Pt does not me Scarbossi criteria. Pt has history of "lung clots". CTA chest without acute process. Initial troponin WNL. Pain/anxiety addressed. HEART score 5. Patient requiring admission for further evaluation and treatment. Discussed with Dr. Trinh (hospitalist) who is in agreement with observation admission. Consult placed to cardiology. Discussed findings and plan with patient, who acknowledges understanding and agreement. Sendy Disclaimer: Sendy Disclaimer: This electronic medical record was generated, in whole or in part, using a voice recognition dictation system. Departure Departure Impression: Primary Impression: Chest pain Qualified Codes: R07.9 - Chest pain, unspecified Disposition: ADMITTED INPT THIS HOSP Admitting Physician: DEJUAN Camar[place]) Condition: STABLE Referrals: NO PCP (PCP) KATHRYN HEBERT DO Sep 05, 2020 13:08
[2020-09-05 13:15] LABS: BASO # 0.1 x10^3/uL (0.0-0.2); BASO % 1 % (0-3); EOS # 0.1 x10^3/uL (0.0-0.7); EOS % 1 % (0-3); HEMATOCRIT 33.8 % (39.0-53.0); HEMOGLOBIN 11.1 g/dL (13.0-17.5); LYMPH # 0.7 x10^3/uL (1.0-4.8); LYMPH % 12 % (24-48); MEAN CORPUSCULAR HEMOGLOBIN 26 pg (25-35); MEAN CORPUSCULAR HGB CONC 33 g/dL (31-37); MEAN CORPUSCULAR VOLUME 79 fL (79-100); MONO # 0.4 x10^3/uL (0.0-1.1); MONO % 7 % (0-9); NEUT % 80 % (31-73); PLATELET COUNT 297 x10^3/uL (140-400); RED BLOOD COUNT 4.29 x10^6/uL (4.30-5.70); RED CELL DISTRIBUTION WIDTH 19.2 % (11.5-14.5); WHITE BLOOD COUNT 6.3 x10^3/uL (4.0-11.0)
[2020-09-05 13:32] LABS: PROTHROMBIN TIME PATIENT 12.6 SEC (11.7-14.0)
[2020-09-05 13:35] LABS: ALBUMIN 4.1 g/dL (3.4-5.0); CALCIUM 9.3 mg/dL (8.5-10.1); GFR 76.2; MAGNESIUM 2.3 mg/dL (1.8-2.4); POTASSIUM 4.4 mmol/L (3.5-5.1); TOTAL BILIRUBIN 0.2 mg/dL (0.2-1.0); TOTAL PROTEIN 8.2 g/dL (6.4-8.2)
[2020-09-05] MEDS ORDERED: IOHEXOL 350 MG/ML 100 ML VIAL. IV ONE (13:45)
[2020-09-05] MEDS ORDERED: CONTRAST GIVEN. MC PRN (13:45)
--- NOTE | 2020-09-05 14:14 | RAD ---
Study: CT CHEST WITH CONTRAST - PULMONARY ANGIOGRAM History: Chest pain Comparison: CTA chest 08/16/2020 Technique: Helical CT of the chest performed after the administration of 90 mL Omnipaque 350 intravenous contrast and timed for angiographic evaluation of the pulmonary arteries per PE protocol. Coronal and sagittal 3D MIP reformations were obtained. One or more of the following individualized dose reduction techniques were utilized for this examination: 1. Automated exposure control 2. Adjustment of the mA and/or kV according to patient size 3. Use of iterative reconstruction technique. Findings: Pulmonary Arteries: Contrast bolus is adequate. There is no acute pulmonary embolism. Heart/Systemic Vasculature: The heart is normal in size. There a coronary artery stents. Pacemaker/AICD leads are present. No pericardial effusion. The thoracic aorta is normal in caliber. Mediastinum: No lymphadenopathy. Lungs: There are few unchanged small pulmonary nodules including a 3 mm pulmonary nodule along the right major fissure (image 70, series 3), a 3 mm nodule in the lateral right upper lobe (image 53, series 3), and calcified granuloma in the left lower lobe. Mild dependent subpleural reticular changes, likely atelectasis. There is mild airway wall thickening. Mild paraseptal and centrilobular emphysema. No pleural effusion. Neck/Axilla/Body Wall: Thyroid gland is unremarkable. No axillary lymphadenopathy. Upper Abdomen: Unremarkable. Bones: No acute osseous abnormality. IMPRESSION: 1. No acute pulmonary embolism. 2. Mild centrilobular and paraseptal emphysema. 3. There is a few unchanged small pulmonary nodules measuring up to 3 mm. Optional 12 month follow-up CT could be obtained to ensure stability in a high risk patient, per Fleischner Society guidelines. Electronically signed by: Roseanne Bernal MD (09/05/2020 2:11 PM) [id number]
[2020-09-05] MEDS ORDERED: ONDANSETRON PF 4 MG/2 ML VIAL. IV PRN (15:30)
[2020-09-05] MEDS ORDERED: NITROGLYCERIN SUBLINGUAL 0.4 MG BOTTLE OF 25. SL PRN ×2 (15:45→17:00)
--- NOTE | 2020-09-05 15:45 | PDOC1 ---
History and Physical Date of Admission Date of Admission DATE: 09/05/20 TIME: 15:33 Identification/Chief Complaint Chief Complaint Chest pain Source Source: Chart review, Patient History of Present Illness History of Present Illness Patient 59-year-old male with past medical history of CHF, A. fib, PR, CVA who presents to the ER with complaint of chest pain. Patient reports left-sided chest pain, that radiates to his left shoulder, since today around noon. He reports chest pain 05/06. Patient took some nitroglycerin prior to arrival in the ER without relief in his symptoms. He received a CTA chest to the ER due to complaints of pleuritic chest pain, which was negative for PE. He denies any associated shortness of breath, nausea, or vomiting. Troponin <0.017, BNP 1,033 Chest x-ray admission showed no acute cardiopulmonary process Past Medical History Cardiovascular: CAD, CHF, HTN, Hyperlipidemia, Other Pulmonary: Asthma CENTRAL NERVOUS SYSTEM: CVA GI: GERD Heme/Onc: No pertinent hx Hepatobiliary: No pertinent hx Psych: Anxiety Musculoskeletal: Osteoarthritis Rheumatologic: No pertinent hx Infectious disease: No pertinent hx Renal/: No pertinent hx Endocrine: No pertinent hx Past Surgical History Past Surgical History: Pacemaker, Other Family History Family History: Hypertension Social History ALCOHOL: none Drugs: Crystal meth, Other Current Problem List Problem List Problems Medical Problems: (1) Chest pain Status: Acute Current Medications Current Medications Current Medications Aspirin (Soto Aspirin) 325 mg 1X ONCE PO Last administered on 09/05/20at 13:10; Start 09/05/20 at 13:00; Stop 09/05/20 at 13:01; Status DC Fentanyl Citrate (Fentanyl 2ml Vial) 50 mcg 1X ONCE IV Last administered on 09/05/20at 13:10; Start 09/05/20 at 12:45; Stop 09/05/20 at 12:46; Status DC Sodium Chloride 1,000 ml @ 1,000 mls/hr 1X ONCE IV Last administered on 09/05/20at 13:09; Start 09/05/20 at 13:00; Stop 09/05/20 at 13:59; Status DC Iohexol (Omnipaque 350 Mg/ml) 90 ml 1X ONCE IV Last administered on 09/05/20at 14:01; Start 09/05/20 at 13:45; Stop 09/05/20 at 13:46; Status DC Info (CONTRAST GIVEN -- Rx MONITORING) 1 each PRN DAILY PRN MC SEE COMMENTS; Start 09/05/20 at 13:45; Stop 09/07/20 at 13:44 Fentanyl Citrate (Fentanyl 2ml Vial) 50 mcg 1X ONCE IV ; Start 09/05/20 at 15:15; Stop 09/05/20 at 15:16; Status DC Lorazepam (Ativan Inj) 0.5 mg 1X ONCE IVP ; Start 09/05/20 at 15:30; Stop 09/05/20 at 15:31; Status DC Ondansetron HCl (Zofran) 4 mg PRN Q8HRS PRN IV NAUSEA/VOMITING; Start 09/05/20 at 15:30; Stop 09/06/20 at 15:29 Fentanyl Citrate (Fentanyl 2ml Vial) 50 mcg PRN Q2HRS PRN IV PAIN; Start 09/05/20 at 15:30 Active Scripts Active Crestor (Rosuvastatin Calcium) 40 Mg Tablet 1 Tab PO DAILY Metoprolol Tartrate 25 Mg Tablet 0.5 Tab PO BID 10 Days Aspirin 81 Mg Tab.chew 1 Tab PO DAILY Clopidogrel (Clopidogrel Bisulfate) 75 Mg Tablet 1 Tab PO DAILY Tramadol Hcl 50 Mg Tablet 100 Mg PO PRN TID PRN Reported Crestor (Rosuvastatin Calcium) 40 Mg Tablet 40 Mg PO HS Metoprolol Succinate ( Xl ) (Metoprolol Succinate) 25 Mg Tab.er.24h 12.5 Mg PO DAILY Spiriva (Tiotropium [place]) 18 Mcg Cap.w.dev 1 Cap IH DAILY NITROGLYCERIN SubLingual (Nitroglycerin) 0.4 Mg Tab.subl 0.4 Mg SL PRN Q5MIN PRN Lyrica (Pregabalin) 300 Mg Capsule 1 Cap PO BID Plavix (Clopidogrel Bisulfate) 75 Mg Tablet 75 Mg PO DAILY Aspir 81 (Aspirin) 81 Mg Tablet.dr 1 Tab PO DAILY Allergies Allergies: Coded Allergies: acetaminophen (Verified Allergy, Intermediate, 08/04/20) albuterol (Verified Adverse Reaction, Intermediate, 11/18/19) Patient states "it speeds my heart up too much" ibuprofen (Verified Adverse Reaction, Intermediate, Nausea and Vomiting, 11/18/19) ROS Review of System GENERAL: No history of weight change, weakness or fevers. SKIN: No bruising, hair changes or rashes. EYES: No blurred, double or loss of vision. NOSE AND THROAT: No history of nosebleeds, hoarseness or sore throat. HEART: Chest pain. Denies palpitations. LUNGS: Denies cough, hemoptysis, wheezing or shortness of breath. GASTROINTESTINAL: Denies nausea, vomiting, abdominal pain. GENITOURINARY: Denies dysuria, frequency, urgency, hematuria. NEUROLOGIC: Denies history of numbness, tingling, tremor or weakness. PSYCHIATRIC: Denies anxiety, denies depression. ENDOCRINE: No history of heat or cold intolerance, polyuria or polydipsia. EXTREMITIES: Denies muscle weakness, joint pain, pain on walking or stiffness. Physical Exam Physical Exam General: Alert, Oriented X3, Cooperative, No acute distress HEENT: PERRLA, EOMI Lungs: Clear to auscultation, Normal air movement Heart: RRR, no murmurs Cardiovascular: S1, S2 Abdomen: Normal bowel sounds, Soft, No tenderness Extremities: No clubbing, No cyanosis Skin: No rashes, No significant lesion Neuro: Normal speech, Normal tone, Sensation intact Psych/Mental Status: Mental status NL, Mood NL Vitals Vitals Vital Signs Date Time Temp Pulse Resp B/P (MAP) Pulse Ox O2 Delivery O2 Flow Rate FiO2 09/05/20 12:25 98.0 91 25 125/69 (87) 98 Room Air 98.0 Labs Labs Laboratory Tests Test 09/05/20 13:05 White Blood Count 6.3 x10^3/uL (4.0-11.0) Red Blood Count 4.29 x10^6/uL (4.30-5.70) Hemoglobin 11.1 g/dL (13.0-17.5) Hematocrit 33.8 % (39.0-53.0) Mean Corpuscular Volume 79 fL (79-100) Mean Corpuscular Hemoglobin 26 pg (25-35) Mean Corpuscular Hemoglobin Concent 33 g/dL (31-37) Red Cell Distribution Width 19.2 % (11.5-14.5) Platelet Count 297 x10^3/uL (140-400) Neutrophils (%) (Auto) 80 % (31-73) Lymphocytes (%) (Auto) 12 % (24-48) Monocytes (%) (Auto) 7 % (0-9) Eosinophils (%) (Auto) 1 % (0-3) Basophils (%) (Auto) 1 % (0-3) Neutrophils # (Auto) 5.0 x10^3/uL (1.8-7.7) Lymphocytes # (Auto) 0.7 x10^3/uL (1.0-4.8) Monocytes # (Auto) 0.4 x10^3/uL (0.0-1.1) Eosinophils # (Auto) 0.1 x10^3/uL (0.0-0.7) Basophils # (Auto) 0.1 x10^3/uL (0.0-0.2) Prothrombin Time 12.6 SEC (11.7-14.0) Prothromb Time International Ratio 1.0 (0.8-1.1) Activated Partial Thromboplast Time 32 SEC (24-38) Sodium Level 139 mmol/L (136-145) Potassium Level 4.4 mmol/L (3.5-5.1) Chloride Level 100 mmol/L (98-107) Carbon Dioxide Level 25 mmol/L (21-32) Anion Gap 14 (6-14) Blood Urea Nitrogen 13 mg/dL (8-26) Creatinine 1.0 mg/dL (0.7-1.3) Estimated GFR (Cockcroft-Gault) 76.2 BUN/Creatinine Ratio 13 (6-20) Glucose Level 95 mg/dL (70-99) Calcium Level 9.3 mg/dL (8.5-10.1) Magnesium Level 2.3 mg/dL (1.8-2.4) Total Bilirubin 0.2 mg/dL (0.2-1.0) Aspartate Amino Transf (AST/SGOT) 17 U/L (15-37) Alanine Aminotransferase (ALT/SGPT) 18 U/L (16-63) Alkaline Phosphatase 91 U/L (46-116) Troponin I Quantitative < 0.017 ng/mL (0.000-0.055) JT-Yib-W-Type Natriuretic Peptide 1033 pg/mL (0-124) Total Protein 8.2 g/dL (6.4-8.2) Albumin 4.1 g/dL (3.4-5.0) Albumin/Globulin Ratio 1.0 (1.0-1.7) Lipase 143 U/L (73-393) Laboratory Tests Test 09/05/20 13:05 White Blood Count 6.3 x10^3/uL (4.0-11.0) Red Blood Count 4.29 x10^6/uL (4.30-5.70) Hemoglobin 11.1 g/dL (13.0-17.5) Hematocrit 33.8 % (39.0-53.0) Mean Corpuscular Volume 79 fL (79-100) Mean Corpuscular Hemoglobin 26 pg (25-35) Mean Corpuscular Hemoglobin Concent 33 g/dL (31-37) Red Cell Distribution Width 19.2 % (11.5-14.5) Platelet Count 297 x10^3/uL (140-400) Neutrophils (%) (Auto) 80 % (31-73) Lymphocytes (%) (Auto) 12 % (24-48) Monocytes (%) (Auto) 7 % (0-9) Eosinophils (%) (Auto) 1 % (0-3) Basophils (%) (Auto) 1 % (0-3) Neutrophils # (Auto) 5.0 x10^3/uL (1.8-7.7) Lymphocytes # (Auto) 0.7 x10^3/uL (1.0-4.8) Monocytes # (Auto) 0.4 x10^3/uL (0.0-1.1) Eosinophils # (Auto) 0.1 x10^3/uL (0.0-0.7) Basophils # (Auto) 0.1 x10^3/uL (0.0-0.2) Prothrombin Time 12.6 SEC (11.7-14.0) Prothromb Time International Ratio 1.0 (0.8-1.1) Activated Partial Thromboplast Time 32 SEC (24-38) Sodium Level 139 mmol/L (136-145) Potassium Level 4.4 mmol/L (3.5-5.1) Chloride Level 100 mmol/L (98-107) Carbon Dioxide Level 25 mmol/L (21-32) Anion Gap 14 (6-14) Blood Urea Nitrogen 13 mg/dL (8-26) Creatinine 1.0 mg/dL (0.7-1.3) Estimated GFR (Cockcroft-Gault) 76.2 BUN/Creatinine Ratio 13 (6-20) Glucose Level 95 mg/dL (70-99) Calcium Level 9.3 mg/dL (8.5-10.1) Magnesium Level 2.3 mg/dL (1.8-2.4) Total Bilirubin 0.2 mg/dL (0.2-1.0) Aspartate Amino Transf (AST/SGOT) 17 U/L (15-37) Alanine Aminotransferase (ALT/SGPT) 18 U/L (16-63) Alkaline Phosphatase 91 U/L (46-116) Troponin I Quantitative < 0.017 ng/mL (0.000-0.055) DT-Axm-U-Type Natriuretic Peptide 1033 pg/mL (0-124) Total Protein 8.2 g/dL (6.4-8.2) Albumin 4.1 g/dL (3.4-5.0) Albumin/Globulin Ratio 1.0 (1.0-1.7) Lipase 143 U/L (73-393) Images Images Study: CT CHEST WITH CONTRAST - PULMONARY ANGIOGRAM History: Chest pain Comparison: CTA chest 08/16/2020 Technique: Helical CT of the chest performed after the administration of 90 mL Omnipaque 350 intravenous contrast and timed for angiographic evaluation of the pulmonary arteries per PE protocol. Coronal and sagittal 3D MIP reformations were obtained. One or more of the following individualized dose reduction techniques were utilized for this examination: 1. Automated exposure control 2. Adjustment of the mA and/or kV according to patient size 3. Use of iterative reconstruction technique. Findings: Pulmonary Arteries: Contrast bolus is adequate. There is no acute pulmonary embolism. Heart/Systemic Vasculature: The heart is normal in size. There a coronary artery stents. Pacemaker/AICD leads are present. No pericardial effusion. The thoracic aorta is normal in caliber. Mediastinum: No lymphadenopathy. Lungs: There are few unchanged small pulmonary nodules including a 3 mm pulmonary nodule along the right major fissure (image 70, series 3), a 3 mm nodule in the lateral right upper lobe (image 53, series 3), and calcified granuloma in the left lower lobe. Mild dependent subpleural reticular changes, likely atelectasis. There is mild airway wall thickening. Mild paraseptal and centrilobular emphysema. No pleural effusion. Neck/Axilla/Body Wall: Thyroid gland is unremarkable. No axillary lymphadenopathy. Upper Abdomen: Unremarkable. Bones: No acute osseous abnormality. IMPRESSION: 1. No acute pulmonary embolism. 2. Mild centrilobular and paraseptal emphysema. 3. There is a few unchanged small pulmonary nodules measuring up to 3 mm. Optional 12 month follow-up CT could be obtained to ensure stability in a high risk patient, per Fleischner Society guidelines. VTE Prophylaxis Ordered VTE Prophylaxis Devices: No VTE Pharmacological Prophylaxi: Yes Assessment/Plan Assessment/Plan Chest pain Unstable angina Elevated BNP Pulmonary nodules Plan: We will admit patient due to his cardiac risk factors. Initial troponin undetectable at that point <0.017 continue to trend troponins. Consults cardiology Patient had recent heart catheter in July 2020 showing patent previously placed stents in the left anterior descending artery, diagonal branch and left posterior descending artery. The obtuse marginal branch and nondominant right coronary artery showed 100% chronic total occlusions, described in prior cardiac catheterization. Severe left ventricular systolic dysfunction with ejection fraction estimated at 20 to 25% with 2+ mitral regurgitation. Discussed with cardiology, do not believe further cardiac intervention is warranted at this time given recent heart cath. Discussed with patient I would feel more comfortable trending troponins and discharging tomorrow. I do feel there is some drug-seeking behavior, but given his medical history it is not unreasonable to trend cardiac troponins and repeat EKG in the morning. Patient received aspirin and fentanyl in the ED. Morphine, nitroglycerin as needed There are a few unchanged small pulmonary nodules measuring up to 3 mm. Rec ommend follow-up CT in 12 months. FEN - Cardiac diet PPX - Lovenox FULL CODE Dispo - observation for above Justifications for Admission Other Justification ARABELLA PONCE MD Sep 05, 2020 15:45
--- NOTE | 2020-09-05 16:20 | EKG ---
[facility] [address] [place] [address] Test Date: 2020-09-05 Test Time: 12:23:47 Pat Name: CARMELA JOSEPH Department: Room: Gender: M Awning Maker: : [id number] Requested By: KATHRYN HEBERT Order Number: [id number] Reading MD: Measurements Intervals Keymar Rate: 93 P: 54 IL: 128 QRS: -17 QRSD: 146 T: -175 QT: 394 QTc: 493 Interpretive Statements SINUS RHYTHM POSSIBLE LEFT ATRIAL ABNORMALITY LEFTWARD AXIS NON SPECIFIC INTRAVENTRICULAR BLOCK QRS(T) CONTOUR ABNORMALITY CONSIDER ANTEROSEPTAL MYOCARDIAL DAMAGE ABNORMAL ECG RI6.01 No previous ECG available for comparison
[2020-09-05] MEDS ORDERED: MORPHINE SULFATE 2 MG/ML VIAL. IV PRN ×2 (17:00)
[2020-09-05] MEDS ORDERED: traMADol 50 MG TABLET PO PRN (17:00)
[2020-09-05] MEDS ORDERED: CALCIUM CARBONATE 500 MG TAB.CHEW PO PRN (17:00)
[2020-09-05] MEDS ORDERED: MAG HYDROX/ALUMINUM HYD/SIMETH 30 ML ORAL.SUSP PO PRN (17:00)
[2020-09-05] MEDS ORDERED: MAGNESIUM HYDROXIDE 2,400 MG/30 ML ORAL.SUSP. PO PRN (17:00)
[2020-09-05] MEDS ORDERED: BISACODYL 10 MG SUPP.RECT. PR PRN (17:00)
[2020-09-05] MEDS ORDERED: ACETAMINOPHEN 325 MG TABLET. PO PRN (17:00)
[2020-09-05] MEDS ORDERED: ZOLPIDEM 5 MG TABLET. PO PRN (17:00)
[2020-09-05] MEDS: fentaNYL PF VIAL 100 MCG/2 ML VIAL IV PRN ×4 (17:14→23:19)
[2020-09-05 19:25] VITALS: BP 105/64
[2020-09-05] MEDS ORDERED: IPRATRPIUM/ALBUTEROL 0.5/2.5MG 3 ML NEBU. NEB SCH (20:00)
[2020-09-05] MEDS ORDERED: ENOXAPARIN 40 MG/0.4 ML SYRINGE. SQ SCH (21:00)
[2020-09-05] MEDS ORDERED: ATORVASTATIN CALCIUM 40 MG TABLET. PO SCH (21:00)
[2020-09-05] MEDS: PREGABALIN 75 MG CAPSULE PO SCH (21:07)
[2020-09-05 23:05] VITALS: BP 103/56
[2020-09-06] MEDS: fentaNYL PF VIAL 100 MCG/2 ML VIAL IV PRN ×5 (01:38→11:31)
--- NOTE | 2020-09-06 02:41 | NUR ---
Patient arrived at 1910 VIA gurney. Patient alert and orientated x4. Patient pacing and anxious upon admission. Patient educated on using unplugging and plugging the monitor back in due to patient being hard wired for the monitor. Patient refused lovenox and educated on the use and side effects of lovenox and patient continues to refuse. Patient refused to state how much glover or if any credit cards on his persons. Other valuables on or with patient.
[2020-09-06 03:30] VITALS: BP 96/59
[2020-09-06 07:00] VITALS: BP 102/56
[2020-09-06 08:39] LABS: CHOLESTEROL/HDL RATIO 4.7
[2020-09-06] MEDS: PREGABALIN 75 MG CAPSULE PO SCH (08:44)
[2020-09-06] MEDS ORDERED: CLOPIDOGREL BISULFATE 75 MG TABLET PO SCH (09:00)
[2020-09-06] MEDS ORDERED: ASPIRIN CHEWABLE 81 MG TABLET. PO SCH (09:00)
[2020-09-06] MEDS ORDERED: METOPROLOL SUCC 24HR ER 25 MG TAB.ER.24H. PO SCH (09:00)
[2020-09-06] MEDS ORDERED: TRAM50TA PO (09:40)
--- NOTE | 2020-09-06 10:07 | PDOC3 ---
Discharge Summary Visit Information Date of Admission: Sep 05, 2020 Date of Discharge: Sep 06, 2020 Final Diagnosis Chest pain Unstable angina Elevated BNP Pulmonary nodules Problems Medical Problems: (1) Chest pain Status: Acute Brief Hospital Course Allergies Allergies Coded Allergies Type Severity Reaction Last Updated Verified acetaminophen Allergy Intermediate 08/04/20 Yes albuterol Adverse Reaction Intermediate 11/18/19 Yes ibuprofen Adverse Reaction Intermediate Nausea and Vomiting 11/18/19 Yes Vital Signs Vital Signs Date Time Temp Pulse Resp B/P (MAP) Pulse Ox O2 Delivery O2 Flow Rate FiO2 09/06/20 08:43 Room Air 09/06/20 07:00 98.1 80 18 102/56 (71) 97 98.1 Lab Results Laboratory Tests Test 09/05/20 13:05 09/05/20 15:55 09/05/20 20:05 09/06/20 07:40 White Blood Count 6.3 x10^3/uL (4.0-11.0) Red Blood Count 4.29 x10^6/uL (4.30-5.70) Hemoglobin 11.1 g/dL (13.0-17.5) Hematocrit 33.8 % (39.0-53.0) Mean Corpuscular Volume 79 fL (79-100) Mean Corpuscular Hemoglobin 26 pg (25-35) Mean Corpuscular Hemoglobin Concent 33 g/dL (31-37) Red Cell Distribution Width 19.2 % (11.5-14.5) Platelet Count 297 x10^3/uL (140-400) Neutrophils (%) (Auto) 80 % (31-73) Lymphocytes (%) (Auto) 12 % (24-48) Monocytes (%) (Auto) 7 % (0-9) Eosinophils (%) (Auto) 1 % (0-3) Basophils (%) (Auto) 1 % (0-3) Neutrophils # (Auto) 5.0 x10^3/uL (1.8-7.7) Lymphocytes # (Auto) 0.7 x10^3/uL (1.0-4.8) Monocytes # (Auto) 0.4 x10^3/uL (0.0-1.1) Eosinophils # (Auto) 0.1 x10^3/uL (0.0-0.7) Basophils # (Auto) 0.1 x10^3/uL (0.0-0.2) Prothrombin Time 12.6 SEC (11.7-14.0) Prothromb Time International Ratio 1.0 (0.8-1.1) Activated Partial Thromboplast Time 32 SEC (24-38) Sodium Level 139 mmol/L (136-145) Potassium Level 4.4 mmol/L (3.5-5.1) Chloride Level 100 mmol/L (98-107) Carbon Dioxide Level 25 mmol/L (21-32) Anion Gap 14 (6-14) Blood Urea Nitrogen 13 mg/dL (8-26) Creatinine 1.0 mg/dL (0.7-1.3) Estimated GFR (Cockcroft-Gault) 76.2 BUN/Creatinine Ratio 13 (6-20) Glucose Level 95 mg/dL (70-99) Calcium Level 9.3 mg/dL (8.5-10.1) Magnesium Level 2.3 mg/dL (1.8-2.4) Total Bilirubin 0.2 mg/dL (0.2-1.0) Aspartate Amino Transf (AST/SGOT) 17 U/L (15-37) Alanine Aminotransferase (ALT/SGPT) 18 U/L (16-63) Alkaline Phosphatase 91 U/L (46-116) Troponin I Quantitative < 0.017 ng/mL (0.000-0.055) < 0.017 ng/mL (0.000-0.055) < 0.017 ng/mL (0.000-0.055) IE-Iqr-G-Type Natriuretic Peptide 1033 pg/mL (0-124) Total Protein 8.2 g/dL (6.4-8.2) Albumin 4.1 g/dL (3.4-5.0) Albumin/Globulin Ratio 1.0 (1.0-1.7) Lipase 143 U/L (73-393) Triglycerides Level 198 mg/dL (0-150) Cholesterol Level 135 mg/dL (0-200) LDL Cholesterol, Calculated 66 mg/dL (0-100) VLDL Cholesterol, Calculated 40 mg/dL (0-40) Non-HDL Cholesterol Calculated 106 mg/dL (0-129) HDL Cholesterol 29 mg/dL (40-60) Cholesterol/HDL Ratio 4.7 Laboratory Tests Test 09/05/20 13:05 09/05/20 15:55 09/05/20 20:05 09/06/20 07:40 White Blood Count 6.3 x10^3/uL (4.0-11.0) Red Blood Count 4.29 x10^6/uL (4.30-5.70) Hemoglobin 11.1 g/dL (13.0-17.5) Hematocrit 33.8 % (39.0-53.0) Mean Corpuscular Volume 79 fL (79-100) Mean Corpuscular Hemoglobin 26 pg (25-35) Mean Corpuscular Hemoglobin Concent 33 g/dL (31-37) Red Cell Distribution Width 19.2 % (11.5-14.5) Platelet Count 297 x10^3/uL (140-400) Neutrophils (%) (Auto) 80 % (31-73) Lymphocytes (%) (Auto) 12 % (24-48) Monocytes (%) (Auto) 7 % (0-9) Eosinophils (%) (Auto) 1 % (0-3) Basophils (%) (Auto) 1 % (0-3) Neutrophils # (Auto) 5.0 x10^3/uL (1.8-7.7) Lymphocytes # (Auto) 0.7 x10^3/uL (1.0-4.8) Monocytes # (Auto) 0.4 x10^3/uL (0.0-1.1) Eosinophils # (Auto) 0.1 x10^3/uL (0.0-0.7) Basophils # (Auto) 0.1 x10^3/uL (0.0-0.2) Prothrombin Time 12.6 SEC (11.7-14.0) Prothromb Time International Ratio 1.0 (0.8-1.1) Activated Partial Thromboplast Time 32 SEC (24-38) Sodium Level 139 mmol/L (136-145) Potassium Level 4.4 mmol/L (3.5-5.1) Chloride Level 100 mmol/L (98-107) Carbon Dioxide Level 25 mmol/L (21-32) Anion Gap 14 (6-14) Blood Urea Nitrogen 13 mg/dL (8-26) Creatinine 1.0 mg/dL (0.7-1.3) Estimated GFR (Cockcroft-Gault) 76.2 BUN/Creatinine Ratio 13 (6-20) Glucose Level 95 mg/dL (70-99) Calcium Level 9.3 mg/dL (8.5-10.1) Magnesium Level 2.3 mg/dL (1.8-2.4) Total Bilirubin 0.2 mg/dL (0.2-1.0) Aspartate Amino Transf (AST/SGOT) 17 U/L (15-37) Alanine Aminotransferase (ALT/SGPT) 18 U/L (16-63) Alkaline Phosphatase 91 U/L (46-116) Troponin I Quantitative < 0.017 ng/mL (0.000-0.055) < 0.017 ng/mL (0.000-0.055) < 0.017 ng/mL (0.000-0.055) TM-Sts-C-Type Natriuretic Peptide 1033 pg/mL (0-124) Total Protein 8.2 g/dL (6.4-8.2) Albumin 4.1 g/dL (3.4-5.0) Albumin/Globulin Ratio 1.0 (1.0-1.7) Lipase 143 U/L (73-393) Triglycerides Level 198 mg/dL (0-150) Cholesterol Level 135 mg/dL (0-200) LDL Cholesterol, Calculated 66 mg/dL (0-100) VLDL Cholesterol, Calculated 40 mg/dL (0-40) Non-HDL Cholesterol Calculated 106 mg/dL (0-129) HDL Cholesterol 29 mg/dL (40-60) Cholesterol/HDL Ratio 4.7 Brief Hospital Course Mr. Hicks is a 59 old admit for chest pain. We will admit patient due to his cardiac risk factors. Initial troponin undetectable at that point <0.017 continue to trend troponins. Consulted cardiology Patient had recent heart catheter in July 2020 showing patent previously placed stents in the left anterior descending artery, diagonal branch and left posterior descending artery he has f/u planned in [facility], this month. Discharge Information Condition at Discharge: Improved Follow Up: Weeks Disposition/Orders: D/C to Home Scheduled Aspirin (Aspirin) 81 Mg Tab.chew, 1 TAB PO DAILY, #10 Prescribed by: KATHRYN HEBERT D.O. on 06/29/20606 Last Action: Continued on 09/05/201652 by ARABELLA PONCE MD Clopidogrel Bisulfate (Plavix) 75 Mg Tablet, 75 MG PO DAILY for TO PREVENT BLOOD CLOTS, #30 Ref 0 (Reported) Entered as Reported by: Roseanne Ca on 02/11/152307 Last Action: Continued on 09/05/201652 by ARABELLA PONCE MD Metoprolol Succinate (Metoprolol Succinate ( Xl )) 25 Mg Tab.er.24h, 12.5 MG PO DAILY for FOR HYPERTENSION, #30 Ref 0 (Reported) Entered as Reported by: KANCHAN CANO [facility] on 11/18/19813 Last Action: Continued on 09/05/201652 by ARABELLA PONCE MD Pregabalin (Lyrica) 300 Mg Capsule, 1 CAP PO BID, #60 Ref 2 (Reported) Entered as Reported by: TERESA NAPIER on 04/10/16411 Last Action: Converted on 09/05/201652 by ARABELLA PONCE MD Rosuvastatin Calcium (Crestor) 40 Mg Tablet, 40 MG PO HS for FOR CHOLESTEROL, #30 Ref 0 (Reported) Entered as Reported by: DIVINA HAAS RN on 06/03/201802 Last Action: Converted on 09/05/201652 by ARABELLA PONCE MD Tiotropium [place] (Spiriva) 18 Mcg Cap.w.dev, 1 CAP IH DAILY, #30 Ref 3 (Reported) Entered as Reported by: TERESA NAPIER on 04/10/16411 Last Action: Converted on 09/05/201652 by ARABELLA PONCE MD Scheduled PRN Nitroglycerin (NITROGLYCERIN SubLingual) 0.4 Mg Tab.subl, 0.4 MG SL PRN Q5MIN PRN for CHEST PAIN, (Reported) Entered as Reported by: TERESA NAIPER on 04/10/16411 Last Action: Continued on 09/05/201652 by ARABELLA PONCE MD Tramadol Hcl (Tramadol Hcl) 50 Mg Tablet, 50 MG PO PRN TID PRN for PAIN, #30 Prescribed by: KATLYN HUSSEIN on 09/06/20 0940 Discontinued Medications Aspirin (Aspir 81) 81 Mg Tablet.dr, 1 TAB PO DAILY, #30 Ref 5 (Reported) Entered as Reported by: Roseanne Ca on 02/11/152305 Last Action: HELD on 09/05/201652 by ARABELLA PONCE MD Clopidogrel Bisulfate (Clopidogrel) 75 Mg Tablet, 1 TAB PO DAILY, #10 Prescribed by: KATHRYN HEBERT D.O. on 06/29/20606 Last Action: HELD on 09/05/201652 by ARABELLA PONCE MD Metoprolol Tartrate (Metoprolol Tartrate) 25 Mg Tablet, 0.5 TAB PO BID for 10 Days, #10 Prescribed by: KATHRYN HEBERT D.O. on 06/29/20606 Last Action: HELD on 09/05/201652 by ARABELLA PONCE MD Rosuvastatin Calcium (Crestor) 40 Mg Tablet, 1 TAB PO DAILY, #10 Prescribed by: KATHRYN HEBERT D.O. on 06/29/20606 Last Action: HELD on 09/05/201652 by ARABELLA PONCE MD Justicifation of Admission Dx: Justifications for Admission: Justification of Admission Dx: N/A Angina: Symp at Rest KATLYN HUSSENI MD Sep 06, 2020 10:06
[2020-09-06 10:38] VITALS: BP 111/59
--- NOTE | 2020-09-06 10:51 | NUR ---
SS following for discharge planning. SS reviewed pt chart and discussed with pt RN. Pt is from home and is currently on room air. Discharge order on the chart for home with self care. Pt requesting transportation through [employer], . [facility] and scheduled transportation. Trip ID# [id number]. Pt will be transported at 1345. Pt and pt's RN notified.
--- NOTE | 2020-09-06 11:48 | PDOC ---
NERI NUNN MATERIALS DEVELOPMENT ENGINEER 09/06/20 1148: CARDIO Progress Notes Date and Time Date of Service 09/06/2020 Time of Evaluation 1030 Subjective Subjective: No Chest Pain, No shortness of breath, No Palpitations Vitals Vitals Vital Signs Date Time Temp Pulse Resp B/P (MAP) Pulse Ox O2 Delivery O2 Flow Rate FiO2 09/06/20 11:38 Room Air 09/06/20 10:38 97.6 91 18 111/59 (76) 98 97.6 Weight Weight [ ] Input and Output Intake and Output Intake and Output 09/06/20 07:00 Intake Total 2220 ml Balance 2220 ml Intake Oral 1220 ml IV Total 1000 ml Laboratory Labs Laboratory Tests Test 09/05/20 13:05 09/05/20 15:55 09/05/20 20:05 09/06/20 07:40 White Blood Count 6.3 x10^3/uL (4.0-11.0) Red Blood Count 4.29 x10^6/uL (4.30-5.70) Hemoglobin 11.1 g/dL (13.0-17.5) Hematocrit 33.8 % (39.0-53.0) Mean Corpuscular Volume 79 fL (79-100) Mean Corpuscular Hemoglobin 26 pg (25-35) Mean Corpuscular Hemoglobin Concent 33 g/dL (31-37) Red Cell Distribution Width 19.2 % (11.5-14.5) Platelet Count 297 x10^3/uL (140-400) Neutrophils (%) (Auto) 80 % (31-73) Lymphocytes (%) (Auto) 12 % (24-48) Monocytes (%) (Auto) 7 % (0-9) Eosinophils (%) (Auto) 1 % (0-3) Basophils (%) (Auto) 1 % (0-3) Neutrophils # (Auto) 5.0 x10^3/uL (1.8-7.7) Lymphocytes # (Auto) 0.7 x10^3/uL (1.0-4.8) Monocytes # (Auto) 0.4 x10^3/uL (0.0-1.1) Eosinophils # (Auto) 0.1 x10^3/uL (0.0-0.7) Basophils # (Auto) 0.1 x10^3/uL (0.0-0.2) Prothrombin Time 12.6 SEC (11.7-14.0) Prothromb Time International Ratio 1.0 (0.8-1.1) Activated Partial Thromboplast Time 32 SEC (24-38) Sodium Level 139 mmol/L (136-145) Potassium Level 4.4 mmol/L (3.5-5.1) Chloride Level 100 mmol/L (98-107) Carbon Dioxide Level 25 mmol/L (21-32) Anion Gap 14 (6-14) Blood Urea Nitrogen 13 mg/dL (8-26) Creatinine 1.0 mg/dL (0.7-1.3) Estimated GFR (Cockcroft-Gault) 76.2 BUN/Creatinine Ratio 13 (6-20) Glucose Level 95 mg/dL (70-99) Calcium Level 9.3 mg/dL (8.5-10.1) Magnesium Level 2.3 mg/dL (1.8-2.4) Total Bilirubin 0.2 mg/dL (0.2-1.0) Aspartate Amino Transf (AST/SGOT) 17 U/L (15-37) Alanine Aminotransferase (ALT/SGPT) 18 U/L (16-63) Alkaline Phosphatase 91 U/L (46-116) Troponin I Quantitative < 0.017 ng/mL (0.000-0.055) < 0.017 ng/mL (0.000-0.055) < 0.017 ng/mL (0.000-0.055) UD-Chg-D-Type Natriuretic Peptide 1033 pg/mL (0-124) Total Protein 8.2 g/dL (6.4-8.2) Albumin 4.1 g/dL (3.4-5.0) Albumin/Globulin Ratio 1.0 (1.0-1.7) Lipase 143 U/L (73-393) Triglycerides Level 198 mg/dL (0-150) Cholesterol Level 135 mg/dL (0-200) LDL Cholesterol, Calculated 66 mg/dL (0-100) VLDL Cholesterol, Calculated 40 mg/dL (0-40) Non-HDL Cholesterol Calculated 106 mg/dL (0-129) HDL Cholesterol 29 mg/dL (40-60) Cholesterol/HDL Ratio 4.7 Physical Exam HEENT: Neck Supple W Full Motion Chest: Symmetric LUNGS: Clear to Auscultation Heart: RRR (SR) Abdomen: Soft N/T Extremities: No Calf Tenderness Neurology: alert, oriented, follow commands Assessment Assessment HPI: This is a 59 yo male admitted for complains of chest/shoulder and arm pain. This is shooting pain witho no associated SOA nausea or vomiting. No palpitations and no arrhythmias per tele. He has been asking for opioids. So far his trops are normal. He is well known to me continues to come in despite extensive prior cardiac workup and asking for opioids and was recently seen here at [facility] with about the same complain and asking for fentanyl. 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 His discomfort is shooting discomfort with any significnat associated symptoms. He lives in [facility] and works around this area. Presently he is not in any pain or SOA. 1. Atypical chest pain, possible impingment syndrome 2. Opioid seeking behavior 3. Chronic systolic CHF; clinically compensated 4. ICM; s/p AICD ([employer]) 5. CAD; recent LHC, patent stents no intervenable lesions 6. Hx of VT: not on antiarrhythmic, no arrhythmias 7. HTN: controlled 8. HLP: not on goal 10. Hx of meth use; reports he has been clean for 6 weeks 11. Tobaccoism with likely COPD Recommendations Continue ASA/plavix and secondary prevention measures. Smoking cessation abstain from meth, follow up with his primary outpt mechanical product engineer. Reports previous appt cancelled but will see him next week at [place], [place] Discussed important of compliance with medical therapy/followup and abstinence of recreational drug use May DC Continue HF regimen Justicifation of Admission Dx: Justifications for Admission: Justification of Admission Dx: N/A Angina: [facility] CHRISTIAN ALVARADO MD 09/06/201918: CARDIO Progress Notes Assessment Assessment Patient seen and examined. Agree with CLAMPER's assessment and plan CP very atypical AL ruled out Recent cath results as noted above Chr systolic HF compensated OK for DC from cardiac standpoint Thank you for your consultation NERI NUNN APRN Sep 06, 2020 11:48 CHRISTIAN ALVARADO MD Sep 06, 2020 19:19
--- NOTE | 2020-09-06 12:20 | NUR ---
Discharge Note: CARMELA JOSEPH [address] [place] [address] Discharge instructions and discharge home medications reviewed with Patient and a copy given. All questions have been answered and understanding verbalized. The following instructions and handouts were given: discharge instructions, CP info, prescription. Discontinued lines and drains: Peripheral IV intact. Patient discharged to Home or Self Care with [employer] via ambulation at 1220.
== END 2020-09-06 12:20 | disposition home or self-care (01) ==
LOC: ER 12:15 → ED HOLD 15:25 → 2 SOUTH 19:29
PROVIDERS: ADMIT Family Medicine; ATTEND Family Medicine
DX: R07.89 Other chest pain (principal); I20.0 Unstable angina; R91.1 Solitary pulmonary nodule; R79.89 Other specified abnormal findings of blood chemistry; I11.0 Hypertensive heart disease with heart failure; I50.22 Chronic systolic (congestive) heart failure; K21.9 Gastro-esophageal reflux disease without esophagitis; M19.90 Unspecified osteoarthritis, unspecified site; I44.7 Left bundle-branch block, unspecified; F17.200 Nicotine dependence, unspecified, uncomplicated; I48.91 Unspecified atrial fibrillation; E78.5 Hyperlipidemia, unspecified; J45.909 Unspecified asthma, uncomplicated; J98.11 Atelectasis; J43.2 Centrilobular emphysema; J84.10 Pulmonary fibrosis, unspecified; Z86.73 Personal history of transient ischemic attack (TIA), and cerebral infarction without residual deficits; Z79.82 Long term (current) use of aspirin; Z79.02 Long term (current) use of antithrombotics/antiplatelets; Z98.890 Other specified postprocedural states; Z95.1 Presence of aortocoronary bypass graft; Z90.81 Acquired absence of spleen; Z95.810 Presence of automatic (implantable) cardiac defibrillator
CPT/HCPCS: 36415; 71275; 80053; 80061; 83690; 83735; 83880; 84484; 85025; 85610; 85730; 93005; 94640; 96361; 96374; 96375; 96376; 99285; G0378; G0379; J2060; J3010; J7030; Q9967

== ENCOUNTER 2020-09-16 18:53 | Emergency (ER) | payer MEDICAID ==
[~2020-09-16] VITALS: Ht 170.2 cm; Wt 68.0 kg
[2020-09-16] MEDS ORDERED: MORPHINE SULFATE 4 MG/ML VIAL. IV ONE ×2 (19:15→23:00)
--- NOTE | 2020-09-16 19:20 | PHYS DOC ---
Past Medical History Past Medical History: Asthma, CAD, CHF, CVA, High Cholesterol, Hypertension, [place], Other Additional Past Medical Histor: VTACH, Drug abuse-Methamphetamine Past Surgical History: Pacemaker, Splenectomy, Other Additional Past Surgical Histo: 12 cardiac stents, multiple cardiac catheterizations,WITH DEFIB Smoking Status: Current Every Day Smoker Alcohol Use: Rarely Drug Use: Methamphetamine General Adult EDM: Chief Complaint: CHEST PAIN HPI: HPI: Patient is a 59 year old Male who presents with chest pain. Patient states he has chest pain originating in his left chest with radiation to his right chest and down his right side. The pain started about 1 hour before presentation to the ED. Patient has a history of PA's so took 3 Nitroglycerin and 1 325mg Aspirin with no relief of his symptoms. Patient states the pain varies from a 7/10 to a 9/10. He was seen at [place] about 2 weeks ago for similar symptoms. The only difference this time is that he states he can feel his PVC's. Patient states he is from the leg of the [facility]. Nursing noted that patient had a ID bracelet from another hospital. Patient would not allow nursing to look at the bracelet. Patient is alsonoted to have EKG adhesive to chest and arms. Patient frequently asking for pain medications. Review of Systems: Review of Systems: Constitutional: Denies fever or chills. [] Eyes: Denies change in visual acuity. [] HENT: Denies nasal congestion or sore throat. [] Respiratory: Denies cough or shortness of breath. [] Cardiovascular: Denies edema. [Positive for chest pain] GI: Denies abdominal pain, nausea, vomiting, bloody stools or diarrhea. [] : Denies dysuria. [] Musculoskeletal: Denies back pain or joint pain. [] Integument: Denies rash. [] Neurologic: Denies headache, focal weakness or sensory changes. [] Endocrine: Denies polyuria or polydipsia. [] Lymphatic: Denies swollen glands. [] Psychiatric: Denies depression or anxiety. [] Heart Score: HEART Score for Chest Pain: HEART Score for Chest Pain Response (Comments) Value History Highly Suspicious 2 ECG Nonspecific Repolarizatio 1 Age >45 - < 65 1 Risk Factors >3 Risk Factors or Hx CAD 2 Troponin < Normal Limit 0 Total 6 Risk Factors: Risk Factors: DM, Current or recent (<one month) smoker, HTN, HLP, family history of CAD, obesity. Risk Scores: Score 0 - 3: 2.5% MACE over next 6 weeks - Discharge Home Score 4 - 6: 20.3% MACE over next 6 weeks - Admit for Clinical Observation Score 7 - 10: 72.7% MACE over next 6 weeks - Early Invasive Strategies Allergies: Allergies: Allergies Coded Allergies Type Severity Reaction Last Updated Verified acetaminophen Allergy Intermediate 08/04/20 Yes albuterol Adverse Reaction Intermediate 11/18/19 Yes ibuprofen Adverse Reaction Intermediate Nausea and Vomiting 11/18/19 Yes Physical Exam: PE: Constitutional: Well developed, well nourished, no acute distress, non-toxic appearance. [] HENT: Normocephalic, atraumatic, bilateral external ears normal, oropharynx moist, no oral exudates, nose normal. [] Eyes: PERRLA, EOMI, conjunctiva normal, no discharge. [] Neck: Normal range of motion, no tenderness, supple, no stridor. [] Cardiovascular:Heart rate regular rhythm, no murmur [] Lungs & Thorax: Bilateral breath sounds clear to auscultation [] Abdomen: Bowel sounds normal, soft, no tenderness, no masses, no pulsatile masses. [] Skin: Warm, dry, no erythema, no rash. [] Back: No tenderness, no CVA tenderness. [] Extremities: No tenderness, no cyanosis, no clubbing, ROM intact, no edema. [] Neurologic: Alert and oriented X 3, normal motor function, normal sensory function, no focal deficits noted. [] Psychologic: Affect normal, judgement normal, mood normal. [] EKG: EKG: EKG taken at 1902 heart rate 91 sinus rhythm left bundle branch block no ST elevation no ST depression no acute PA Radiology/Procedures: Radiology/Procedures: [] Course & Med Decision Making: Course & Med Decision Making Pertinent Labs and Imaging studies reviewed. (See chart for details) [] Patient was evaluated for chief complaint. Work-up consisted of laboratory analysis and radiologic imaging. Results reviewed and discussed with patient. Patient does have an extensive cardiac history. Patient EKG without acute ischemic changes. Patient had a troponin which was negative x2. Patient was treated with morphine for his pain. Prior to arrival patient had aspirin. Patient states he would like to be admitted overnight for hospitalization. At this time given patient's EKGs and troponin I think he is stable for discharge. Patient will be discharged home with instruction [facility] Disclaimer: Sendy Disclaimer: This electronic medical record was generated, in whole or in part, using a voice recognition dictation system. Departure Departure Impression: Primary Impression: Chest pain Disposition: 01 DC HOME SELF CARE/HOMELESS Condition: STABLE Referrals: NO PCP (PCP) Patient Instructions: Chest Pain (Nonspecific) MIKE OGLESBY I DO Sep 16, 2020 19:20
[2020-09-16 19:27] LABS: CALCIUM 9.1 mg/dL (8.5-10.1); CREATININE 0.8 mg/dL (0.7-1.3); GFR 98.6
[2020-09-16 19:32] LABS: POTASSIUM 4.4 mmol/L (3.5-5.1)
[2020-09-16 19:33] LABS: ALBUMIN 3.9 g/dL (3.4-5.0); ALBUMIN/GLOBULIN RATIO 1.1 (1.0-1.7); BASO % 0 % (0-3); EOS # 0.3 x10^3/uL (0.0-0.7); EOS % 5 % (0-3); HEMATOCRIT 30.2 % (39.0-53.0); HEMOGLOBIN 9.9 g/dL (13.0-17.5); LYMPH # 1.5 x10^3/uL (1.0-4.8); LYMPH % 27 % (24-48); MEAN CORPUSCULAR HEMOGLOBIN 26 pg (25-35); MEAN CORPUSCULAR HGB CONC 33 g/dL (31-37); MEAN CORPUSCULAR VOLUME 78 fL (79-100); MONO # 0.7 x10^3/uL (0.0-1.1); MONO % 13 % (0-9); NEUT # 3.1 x10^3/uL (1.8-7.7); NEUT % 54 % (31-73); PLATELET COUNT 265 x10^3/uL (140-400); RED BLOOD COUNT 3.89 x10^6/uL (4.30-5.70); RED CELL DISTRIBUTION WIDTH 17.5 % (11.5-14.5); TOTAL BILIRUBIN 0.3 mg/dL (0.2-1.0); TOTAL PROTEIN 7.3 g/dL (6.4-8.2); WHITE BLOOD COUNT 5.6 x10^3/uL (4.0-11.0)
--- NOTE | 2020-09-16 19:36 | RAD ---
Exam: Chest one view INDICATION: Chest pain TECHNIQUE: Frontal view of the chest Comparisons: 08/03/2020 FINDINGS: The cardiomediastinal silhouette and pulmonary vessels are within normal limits. The lung and pleural spaces are clear. IMPRESSION: No acute cardiopulmonary process. Electronically signed by: Renita Echevarria MD (09/16/2020 7:33 PM) EMILIANO
[2020-09-16 23:00] VITALS: BP 95/69
== END 2020-09-16 23:14 | disposition home or self-care (01) ==
LOC: ER 18:53
DX: R07.89 Other chest pain (principal); J45.909 Unspecified asthma, uncomplicated; E78.00 Pure hypercholesterolemia, unspecified; I11.0 Hypertensive heart disease with heart failure; I50.9 Heart failure, unspecified; I25.10 Atherosclerotic heart disease of native coronary artery without angina pectoris; I25.2 Old myocardial infarction; Z90.81 Acquired absence of spleen; Z86.73 Personal history of transient ischemic attack (TIA), and cerebral infarction without residual deficits; F17.200 Nicotine dependence, unspecified, uncomplicated; Z95.0 Presence of cardiac pacemaker; Z95.5 Presence of coronary angioplasty implant and graft; Z88.6 Allergy status to analgesic agent; Z88.8 Allergy status to other drugs, medicaments and biological substances
CPT/HCPCS: 36415; 71045; 80053; 84484; 85025; 96374; 96376; 99285; J2270

== ENCOUNTER 2020-11-01 16:04 | Inpatient (IN) | payer MEDICAID ==
[~2020-11-01] VITALS: Ht 170.2 cm; Wt 63.7 kg
[~2020-11-01 16:04] MED LIST changes: +LISI10TA16 PO; -LISI10TA2 PO
[2020-11-01 17:24] LABS: BASO # 0.1 x10^3/uL (0.0-0.2); BASO % 1 % (0-3); EOS # 0.3 x10^3/uL (0.0-0.7); EOS % 4 % (0-3); HEMATOCRIT 31.8 % (39.0-53.0); HEMOGLOBIN 10.3 g/dL (13.0-17.5); LYMPH # 1.3 x10^3/uL (1.0-4.8); LYMPH % 18 % (24-48); MEAN CORPUSCULAR HEMOGLOBIN 25 pg (25-35); MEAN CORPUSCULAR HGB CONC 32 g/dL (31-37); MEAN CORPUSCULAR VOLUME 76 fL (79-100); MONO # 0.9 x10^3/uL (0.0-1.1); MONO % 13 % (0-9); NEUT # 4.5 x10^3/uL (1.8-7.7); NEUT % 64 % (31-73); PLATELET COUNT 303 x10^3/uL (140-400); RED BLOOD COUNT 4.16 x10^6/uL (4.30-5.70); RED CELL DISTRIBUTION WIDTH 16.7 % (11.5-14.5); WHITE BLOOD COUNT 7.1 x10^3/uL (4.0-11.0)
[2020-11-01 17:34] LABS: PROTHROMBIN TIME PATIENT 13.9 SEC (11.7-14.0)
--- NOTE | 2020-11-01 17:35 | RAD ---
XR CHEST 1V CLINICAL INDICATIONS: chest pain COMPARISON: September 16, 2020. Findings: No acute lung infiltrate or pleural effusion or pulmonary edema or lung mass or pneumothora x is seen. 3-lead pacemaker is again evident. The heart size, pulmonary vasculature, mediastinum and both santosh are stable. IMPRESSION: No acute radiographic abnormality is seen. Electronically signed by: Leonard Calzada MD (11/01/2020 5:32 PM) [id number]
[2020-11-01 17:39] LABS: CALCIUM 8.6 mg/dL (8.5-10.1); CREATININE 0.9 mg/dL (0.7-1.3); GFR 86.1; POTASSIUM 3.2 mmol/L (3.5-5.1)
[2020-11-01 17:40] LABS: D-DIMER 0.73 ug/mlFEU (0.00-0.50)
[2020-11-01 17:44] LABS: ALBUMIN 3.6 g/dL (3.4-5.0); TOTAL BILIRUBIN 0.4 mg/dL (0.2-1.0); TOTAL PROTEIN 7.3 g/dL (6.4-8.2)
[2020-11-01] MEDS ORDERED: HALOPERIDOL LACTATE 5 MG/ML VIAL. IVP ONE (17:45)
--- NOTE | 2020-11-01 18:13 | PHYS DOC ---
Past Medical History Past Medical History: Asthma, CAD, CHF, CVA, High Cholesterol, Hypertension, [place], Other Additional Past Medical Histor: VTACH, Drug abuse-Methamphetamine Past Surgical History: Pacemaker, Splenectomy, Other Additional Past Surgical Histo: 12 cardiac stents, multiple cardiac luz terizations,WITH DEFIB Smoking Status: Current Every Day Smoker Alcohol Use: Rarely Drug Use: Methamphetamine General Adult EDM: Chief Complaint: CHEST PAIN HPI: HPI: Patient is a 59 year old male who presents with chest pain that began tonight after he did not cut his mouth correctly and did not add enough water and the back of the mouth was different than usual. He states that he thinks it stronger. He states his wheeze or with chest pain. States that is generalized over his chest and more over to the left. He states is sharp. He took 3 nitros at home and took 325 of aspirin with no help. Patient is very anxious and rocking back and forth in the ED room. Patient began yelling at nursing staff and had to be given Haldol of which he stated made him feel slightly better. Rates his pain 8 out of 10 in his chest and states is nonradiating. Patient has had 12 CABGs, FL, V. tach, CVA, CAD, CHF, COPD, high cholesterol, hypertension, family history of cardiac events and is a smoker. Review of Systems: Review of Systems: Constitutional: Denies fever or chills. [] Eyes: Denies change in visual acuity. [] HENT: Denies nasal congestion or sore throat. [] Respiratory: Denies cough. + shortness of breath. [] Cardiovascular: +chest pain or denies edema. [] GI: Denies abdominal pain, nausea, vomiting, bloody stools or diarrhea. [] : Denies dysuria. [] Musculoskeletal: Denies back pain or joint pain. [] Integument: Denies rash. [] Neurologic: Denies headache, focal weakness or sensory changes. [] Endocrine: Denies polyuria or polydipsia. [] Lymphatic: Denies swollen glands. [] Psychiatric: Denies depression. + anxiety. + Meth abuse [] Heart Score: HEART Score for Chest Pain: HEART Score for Chest Pain Response (Comments) Value History Moderately Suspicious 1 ECG Nonspecific Repolarizatio 1 Age >45 - < 65 1 Risk Factors >3 Risk Factors or Hx CAD 2 Troponin < Normal Limit 0 Total 5 Risk Factors: Risk Factors: DM, Current or recent (<one month) smoker, HTN, HLP, family history of CAD, obesity. Risk Scores: Score 0 - 3: 2.5% MACE over next 6 weeks - Discharge Home Score 4 - 6: 20.3% MACE over next 6 weeks - Admit for Clinical Observation Score 7 - 10: 72.7% MACE over next 6 weeks - Early Invasive Strategies Current Medications: Current Medications Medications (Trade) Dose Ordered Sig/Ani Start Time Stop Time Status Last Admin Dose Admin Haloperidol Lactate (Haldol Inj) 5 mg 1X ONCE 11/01/20 17:45 11/01/20 17:46 DC 11/01/20 17:37 5 MG Allergies: Allergies: Allergies Coded Allergies Type Severity Reaction Last Updated Verified acetaminophen Allergy Intermediate 08/04/20 Yes albuterol Adverse Reaction Intermediate 11/18/19 Yes ibuprofen Adverse Reaction Intermediate Nausea and Vomiting 11/18/19 Yes Physical Exam: PE: Constitutional: Well developed, well nourished, no acute distress, non-toxic appearance. [] HENT: Normocephalic, atraumatic, bilateral external ears normal, oropharynx moist, no oral exudates, nose normal. [] Eyes: PERRLA, EOMI, conjunctiva normal, no discharge. [] Neck: Normal range of motion, no tenderness, supple, no stridor. [] Cardiovascular:Heart rate regular rhythm, no murmur [] Lungs & Thorax: Bilateral breath sounds clear to auscultation [] Abdomen: Bowel sounds normal, soft, no tenderness, no masses, no pulsatile masses. [] Skin: Warm, dry, no erythema, no rash. [] Back: No tenderness, no CVA tenderness. [] Extremities: No tenderness, no cyanosis, no clubbing, ROM intact, no edema. [] Neurologic: Alert and oriented X 3, normal motor function, normal sensory function, no focal deficits noted. [] Psychologic: Affect normal, judgement normal, mood normal. [] Current Patient Data: Labs: Laboratory Tests Test 11/01/20 17:15 White Blood Count 7.1 x10^3/uL (4.0-11.0) Red Blood Count 4.16 x10^6/uL (4.30-5.70) L Hemoglobin 10.3 g/dL (13.0-17.5) L Hematocrit 31.8 % (39.0-53.0) L Mean Corpuscular Volume 76 fL (79-100) L Mean Corpuscular Hemoglobin 25 pg (25-35) Mean Corpuscular Hemoglobin Concent 32 g/dL (31-37) Red Cell Distribution Width 16.7 % (11.5-14.5) H Platelet Count 303 x10^3/uL (140-400) Neutrophils (%) (Auto) 64 % (31-73) Lymphocytes (%) (Auto) 18 % (24-48) L Monocytes (%) (Auto) 13 % (0-9) H Eosinophils (%) (Auto) 4 % (0-3) H Basophils (%) (Auto) 1 % (0-3) Neutrophils # (Auto) 4.5 x10^3/uL (1.8-7.7) Lymphocytes # (Auto) 1.3 x10^3/uL (1.0-4.8) Monocytes # (Auto) 0.9 x10^3/uL (0.0-1.1) Eosinophils # (Auto) 0.3 x10^3/uL (0.0-0.7) Basophils # (Auto) 0.1 x10^3/uL (0.0-0.2) Prothrombin Time 13.9 SEC (11.7-14.0) Prothrombin Time INR 1.1 (0.8-1.1) D-Dimer (Destini) 0.73 ug/mlFEU (0.00-0.50) H Sodium Level 133 mmol/L (136-145) L Potassium Level 3.2 mmol/L (3.5-5.1) L Chloride Level 97 mmol/L (98-107) L Carbon Dioxide Level 24 mmol/L (21-32) Anion Gap 12 (6-14) Blood Urea Nitrogen 9 mg/dL (8-26) Creatinine 0.9 mg/dL (0.7-1.3) Estimated GFR (Cockcroft-Gault) 86.1 BUN/Creatinine Ratio 10 (6-20) Glucose Level 102 mg/dL (70-99) H Calcium Level 8.6 mg/dL (8.5-10.1) Total Bilirubin 0.4 mg/dL (0.2-1.0) Aspartate Amino Transferase (AST) 24 U/L (15-37) Alanine Aminotransferase (ALT) 32 U/L (16-63) Alkaline Phosphatase 97 U/L (46-116) Troponin I Quantitative 0.027 ng/mL (0.000-0.055) NQ-Bwe-U-Type Natriuretic Peptide 1050 pg/mL (0-124) H Total Protein 7.3 g/dL (6.4-8.2) Albumin 3.6 g/dL (3.4-5.0) Albumin/Globulin Ratio 1.0 (1.0-1.7) Lipase 154 U/L (73-393) Laboratory Tests 11/01/20 17:15 Laboratory Tests 11/01/20 17:15 Vital Signs: Vital Signs Date Time Temp Pulse Resp B/P (MAP) Pulse Ox O2 Delivery O2 Flow Rate FiO2 11/01/20 16:06 98.2 120 24 127/70 (89) 99 Room Air 98.2 EKG: EKG: EKG read by Dr. Dennison at 1609 stated left bundle branch block, sinus tach at 113, premature complexes. [] Radiology/Procedures: Radiology/Procedures: [] Impression: [address] [id number] IMAGING REPORT Signed PATIENT: CARMELA JOSEPH ACCOUNT: [id number] : 1960 LOCATION: ER AGE: 59 SEX: M EXAM STATUS: REG ER ORD. PHYSICIAN: SIOBHAN NEAL APRN REASON: chest pain PROCEDURE: PORTABLE CHEST 1V XR CHEST 1V CLINICAL INDICATIONS: chest pain COMPARISON: September 16, 2020. Findings: No acute lung infiltrate or pleural effusion or pulmonary edema or lung mass or pneumothorax is seen. 3-lead pacemaker is again evident. The heart size, pulmonary vasculature, mediastinum and both santosh are stable. IMPRESSION: No acute radiographic abnormality is seen. Electronically signed by: Loretta Calzada MD (11/01/2020 5:32 PM) [id number] DICTATED and SIGNED BY: LORETTA CALZADA MD DATE: 11/01/20 [id number] [place] [address] IMAGING REPORT Signed PATIENT: CARMELA JOSEPH ACCOUNT: [id number] : 1960 LOCATION: ER AGE: 59 SEX: M EXAM STATUS: REG ER ORD. PHYSICIAN: SIOBHAN NEAL APRN REASON: CHEST PAIN PROCEDURE: CT ANGIOGRAPHY CHEST CTA Chest with contrast: Clinical History: Reason: CHEST PAIN / Spl. Instructions: [id number] 100ML / History: Shortness of breath. Axial helical images of the chest were obtained after the administration of 100 cc of IV Omni 350 and timed appropriately for a pulmonary arterial study. Conventional axial reconstruction was performed in addition to coronal, sagittal and bilateral oblique MIP (maximum intensity projection). This study was ordered to detect possible pulmonary embolism. There are no filling defects to suggest pulmonary embolism. The more peripheral subsegmental pulmonary arteries are not well opacified limiting our sensitivity for small peripheral pulmonary emboli. The lungs and pleural margins are clear. There is no mediastinal or hilar lymphadenopathy. The thoracic aorta appears normal. Impression: 1. No evidence of pulmonary embolism. 2. No significant findings. PQRS Compliance Statement: One or more of the following individualized dose reduction techniques were utilized for this examination: 1. Automated exposure control 2. Adjustment of the mA and/or kV according to patient size 3. Use of iterative reconstruction technique Electronically signed by: Livia Kim III, MD (11/01/2020 6:33 PM) [facility] DICTATED and SIGNED BY: LIVIA KIM III, MD DATE: 11/01/20 [id number] 0 Course & Med Decision Making: Course & Med Decision Making Pertinent Labs and Imaging studies reviewed. (See chart for details) See HPI. Alert and oriented x4. Very anxious. Speaks in full complete sentences. Ambulatory with steady gait. Lungs are clear to auscultation all lobes. Patient states he has dry mouth. Heart score is 5. Chest x-ray is normal. Troponin is normal. D-dimer is elevated. Have ordered a CT angio chest. Due to patient's history and his chest pain he will be here for a chest pain observation admission. [] Sendy Disclaimer: Dragon Disclaimer: This electronic medical record was generated, in whole or in part, using a voice recognition dictation system. Departure Departure Impression: Primary Impression: Chest pain Qualified Codes: R07.9 - Chest pain, unspecified Additional Impression: Methamphetamine abuse Disposition: ADMITTED INPT THIS HOSP Admitting Physician: DEJUAN Condition: STABLE Referrals: NO PCP (PCP) SIOBHAN NEAL APRN Nov 01, 2020 18:13
[2020-11-01] MEDS ORDERED: IV NORMAL SALINE 1000ML BAG 1,000 ML IV ONE (18:15)
[2020-11-01] MEDS ORDERED: CONTRAST GIVEN. MC PRN (18:30)
[2020-11-01] MEDS ORDERED: IOHEXOL 350 MG/ML 100 ML VIAL. IV ONE (18:30)
--- NOTE | 2020-11-01 18:36 | RAD ---
CTA Chest with contrast: Clinical History: Reason: CHEST PAIN / Spl. Instructions: [id number] 100ML / History: Shortness of yohana th. Axial helical images of the chest were obtained after the administration of 100 cc of IV Omni 350 and timed appropriately for a pulmonary arterial study. Conventional axial reconstruction was performed in addition to coronal, sagittal and bilateral oblique MIP (maximum intensity projection). This erika dy was ordered to detect possible pulmonary embolism. There are no filling defects to suggest pulmonary embolism. The more peripheral subsegmental pulmonary arteries are not well opacified limiting our sensitivity f or small peripheral pulmonary emboli. The lungs and pleural margins are clear. There is no mediastinal or hilar lymphadenopathy. The thoracic aorta appears normal. Impression: 1. No evidence of pulmonary embolism. 2. No significant findings. PQRS Compliance Statement: One or more of the following individualized dose reduction techniques were utilized for this examinat ion: 1. Automated exposure control 2. Adjustment of the mA and/or kV according to patient size 3. Use of iterative reconstruction technique Electronically signed by: Moisés Morton III, MD (11/01/2020 6:33 PM) [facility]
--- NOTE | 2020-11-01 18:40 | PDOC1 ---
History and Physical Date of Admission Date of Admission DATE: 11/01/20 TIME: 18:39 Identification/Chief Complaint Chief Complaint Chest pain Source Source: Patient History of Present Illness History of Present Illness Mr Hicks is a 59yo M w/ PMHx CAD x multiple JANET, CHF, HTN, HLD, VT s/p AICD, COPD/asthma, GERD, OA, anxiety, IV methamphetamine abuse c/o chest pain with radiation to left arm and jaw in the evening prior to admission after he feels he did not properly "cut" his methamphetine with water prior to injection. He began having wheezing and chest pain. Pain is sharp, notes it did not remit after 3x NTG at home and ASA. He rates his symptoms at 9/10. He keeps asking for pain meds, became very agitated with staff, calmed down after iv haldol administration. EKG with lateral TWI and leftward axis, no STEMI. CXR with no acute abnormality Labs with WBC 7.1, Hb 10.3 with MCV 76, platelets 303, Na 133, K 3.2, BUN 9, Cr 0.9, glucose 102, BNP 1050, Troponin 0.027. D dimer 0.73. He underwent CTPA which was negative for pulmonary embolism. Chest radiograph Historically with multiple PCIs- [facility] at [facility] Oct 2017 showed showed patent mid LAD stent, patent 1st diagonal stent, total chronic occlusion of first obtuse marginal with territory infarct but no indication for PCI, patent stent in left AV groove artery, patent stent in LPDA, non-dominant 100 % stenosis of p roximal RCA. Seen by cardiology here in October. Admit for further work-up of his coronary artery disease Past Medical History Cardiovascular: CAD, CHF, HTN, Hyperlipidemia, Other Pulmonary: Asthma CENTRAL NERVOUS SYSTEM: CVA GI: GERD Heme/Onc: No pertinent hx Hepatobiliary: No pertinent hx Psych: Anxiety Musculoskeletal: Osteoarthritis Rheumatologic: No pertinent hx Infectious disease: No pertinent hx Renal/: No pertinent hx Endocrine: No pertinent hx Past Surgical History Past Surgical History: Pacemaker, Other Family History Family History: Hypertension Social History Smoke: 1 pack per day ALCOHOL: none Drugs: Crystal meth, Other Current Problem List Problem List Problems Medical Problems: (1) Chest pain Status: Acute Current Medications Current Medications Current Medications Haloperidol Lactate (Haldol Inj) 5 mg 1X ONCE IVP Last administered on 11/01/20at 17:37; Start 11/01/20 at 17:45; Stop 11/01/20 at 17:46; Status DC Sodium Chloride 1,000 ml @ 1,000 mls/hr 1X ONCE IV ; Start 11/01/20 at 18:15; Stop 11/01/20 at 19:14 Iohexol (Omnipaque 350 Mg/ml) 100 ml 1X ONCE IV Last administered on 11/01/20at 18:23; Start 11/01/20 at 18:30; Stop 11/01/20 at 18:31; Status DC Info (CONTRAST GIVEN -- Rx MONITORING) 1 each PRN DAILY PRN MC SEE COMMENTS; Start 11/01/20 at 18:30; Stop 11/03/20 at 18:29 Active Scripts Active Tramadol Hcl 50 Mg Tablet 50 Mg PO PRN TID PRN Aspirin 81 Mg Tab.chew 1 Tab PO DAILY Reported Crestor (Rosuvastatin Calcium) 40 Mg Tablet 40 Mg PO HS Metoprolol Succinate ( Xl ) (Metoprolol Succinate) 25 Mg Tab.er.24h 12.5 Mg PO DAILY Spiriva (Tiotropium [place]) 18 Mcg Cap.w.dev 1 Cap IH DAILY NITROGLYCERIN SubLingual (Nitroglycerin) 0.4 Mg Tab.subl 0.4 Mg SL PRN Q5MIN PRN Lyrica (Pregabalin) 300 Mg Capsule 1 Cap PO BID Plavix (Clopidogrel Bisulfate) 75 Mg Tablet 75 Mg PO DAILY Allergies Allergies: Coded Allergies: acetaminophen (Verified Allergy, Intermediate, 08/04/20) albuterol (Verified Adverse Reaction, Intermediate, 11/18/19) Patient states "it speeds my heart up too much" ibuprofen (Verified Adverse Reaction, Intermediate, Nausea and Vomiting, 11/18/19) ROS General: YES: Fatigue, Malaise, Appetite; No: Chills, Night Sweats, Other PSYCHOLOGICAL ROS: YES: Anxiety, Behavioral Disorder, Hallucinations, Hostility , Irritablity, Obsessive thoughts; No: Concentration difficultie, Decreased libido, Depression, Disorientation, Memory difficulties, Mood Swings, Physical abuse, Sexual abuse, Sleep disturbances, Suicidal ideation, Other Eyes: No Blurry vision, No Decreased vision, No Double vision, No Dry eyes, No Excessive tearing, No Eye Pain, No Itchy Eyes, No Loss of vision, No Photophobia, No Scotomata, No Uses contacts, No Uses glasses, No Other HEENT: No: Heacaches, Visual Changes, Hearing change, Nasal congestion, Nasal discharge, Oral lesions, Sinus pain, Sore Throat, Epistaxis, Sneezing, Snoring, Tinnitus, Vertigo, Vocal changes, Other ALLERGY AND IMMUNOLOGY: No: Hives, Insect Bite Sensitivity, Itchy/Watery Eyes, Nasal Congestion, Post Nasal Drip, Seasonal Allergies, Other Hematological and Lymphatic: No: Bleeding Problems, Blood Clots, Blood Transfusions, Brusing, Night Sweats, Pallor, Swollen Lymph Nodes, Other ENDOCRINE: No: Breast Changes, Galactorrhea, Hair Pattern Changes, Hot Flashes, Malaise/lethargy, Mood Swings, Palpitations, Polydipsia/polyuria, Skin Changes, Temperature Intolerance, Unexpected Weight Changes, Other Breast: No New/Changing Breast Lumps, No Nipple changes, No Nipple discharge, No Other Respiratory: YES: Shortness of breath; No: Cough, Hemoptysis, Orthopnea, Pleuritic Pain, SOB with excertion, Sputum Changes, Stridor, Tachypnea, Wheezing, Other Cardiovascular: yes Chest Pain; No Palpitations, No Orthopnea, No Paroxysmal Noc. Dyspnea, No Edema, No Lt Headedness, No Other Gastrointestinal: No Nausea, No Vomiting, No Abdominal Pain, No Diarrhea, No Constipation, No Melena, No Hematochezia, No Other Genitourinary: No Dysuria, No Frequency, No Incontinence, No Hematuria, No Retention, No Discharge, No Urgency, No Pain, No Flank Pain, No Other, No , No , No , No , No , No , No Musculoskeletal: No Gait Disturbance, No Joint Pain, No Joint Stiffness, No Joint Swelling, No Muscle Pain, No Muscular Weakness, No Pain In:, No Swelling In:, No Other Neurological: No Behavorial Changes, No Bowel/Bladder ControlChng, No Confusion, No Dizziness, No Gait Disturbance, No Headaches, No Impaired Coord/balance, No Memory Loss, No Numbness/Tingling, No Seizures, No Speech Problems, No Tremors, No Visual Changes, No Weakness, No Other Skin: No Dry Skin, No Eczema, No Hair Changes, No Lumps, No Mole Changes, No Mottling, No Nail Changes, No Pruritus, No Rash, No Skin Lesion Changes, No Other, No Acne Physical Exam General: Alert, mild distress HEENT: Atraumatic, PERRLA, EOMI, Mucous membr. moist/pink Lungs: Clear to auscultation, Normal air movement Heart: S1S2, RRR, no thrills, no rubs Abdomen: Normal bowel sounds, Soft, No tenderness, No hepatosplenomegaly, No masses Extremities: No clubbing, No cyanosis, No edema, Normal pulses, No tenderness/swelling Skin: No rashes, No breakdown, No significant lesion Neuro: Normal speech, Strength at 5/5 X4 ext, Normal tone, Sensation intact, Cranial nerves 3-12 NL, Reflexes 2+ Psych/Mental Status: Other (Agitated, confused) Vitals Vitals Vital Signs Date Time Temp Pulse Resp B/P (MAP) Pulse Ox O2 Delivery O2 Flow Rate FiO2 11/01/20 16:06 98.2 120 24 127/70 (89) 99 Room Air 98.2 Labs Labs Laboratory Tests Test 11/01/20 17:15 White Blood Count 7.1 x10^3/uL (4.0-11.0) Red Blood Count 4.16 x10^6/uL (4.30-5.70) Hemoglobin 10.3 g/dL (13.0-17.5) Hematocrit 31.8 % (39.0-53.0) Mean Corpuscular Volume 76 fL (79-100) Mean Corpuscular Hemoglobin 25 pg (25-35) Mean Corpuscular Hemoglobin Concent 32 g/dL (31-37) Red Cell Distribution Width 16.7 % (11.5-14.5) Platelet Count 303 x10^3/uL (140-400) Neutrophils (%) (Auto) 64 % (31-73) Lymphocytes (%) (Auto) 18 % (24-48) Monocytes (%) (Auto) 13 % (0-9) Eosinophils (%) (Auto) 4 % (0-3) Basophils (%) (Auto) 1 % (0-3) Neutrophils # (Auto) 4.5 x10^3/uL (1.8-7.7) Lymphocytes # (Auto) 1.3 x10^3/uL (1.0-4.8) Monocytes # (Auto) 0.9 x10^3/uL (0.0-1.1) Eosinophils # (Auto) 0.3 x10^3/uL (0.0-0.7) Basophils # (Auto) 0.1 x10^3/uL (0.0-0.2) Prothrombin Time 13.9 SEC (11.7-14.0) Prothromb Time International Ratio 1.1 (0.8-1.1) D-Dimer (Destini) 0.73 ug/mlFEU (0.00-0.50) Sodium Level 133 mmol/L (136-145) Potassium Level 3.2 mmol/L (3.5-5.1) Chloride Level 97 mmol/L (98-107) Carbon Dioxide Level 24 mmol/L (21-32) Anion Gap 12 (6-14) Blood Urea Nitrogen 9 mg/dL (8-26) Creatinine 0.9 mg/dL (0.7-1.3) Estimated GFR (Cockcroft-Gault) 86.1 BUN/Creatinine Ratio 10 (6-20) Glucose Level 102 mg/dL (70-99) Calcium Level 8.6 mg/dL (8.5-10.1) Total Bilirubin 0.4 mg/dL (0.2-1.0) Aspartate Amino Transf (AST/SGOT) 24 U/L (15-37) Alanine Aminotransferase (ALT/SGPT) 32 U/L (16-63) Alkaline Phosphatase 97 U/L (46-116) Troponin I Quantitative 0.027 ng/mL (0.000-0.055) HZ-Onh-M-Type Natriuretic Peptide 1050 pg/mL (0-124) Total Protein 7.3 g/dL (6.4-8.2) Albumin 3.6 g/dL (3.4-5.0) Albumin/Globulin Ratio 1.0 (1.0-1.7) Lipase 154 U/L (73-393) Laboratory Tests Test 11/01/20 17:15 White Blood Count 7.1 x10^3/uL (4.0-11.0) Red Blood Count 4.16 x10^6/uL (4.30-5.70) Hemoglobin 10.3 g/dL (13.0-17.5) Hematocrit 31.8 % (39.0-53.0) Mean Corpuscular Volume 76 fL (79-100) Mean Corpuscular Hemoglobin 25 pg (25-35) Mean Corpuscular Hemoglobin Concent 32 g/dL (31-37) Red Cell Distribution Width 16.7 % (11.5-14.5) Platelet Count 303 x10^3/uL (140-400) Neutrophils (%) (Auto) 64 % (31-73) Lymphocytes (%) (Auto) 18 % (24-48) Monocytes (%) (Auto) 13 % (0-9) Eosinophils (%) (Auto) 4 % (0-3) Basophils (%) (Auto) 1 % (0-3) Neutrophils # (Auto) 4.5 x10^3/uL (1.8-7.7) Lymphocytes # (Auto) 1.3 x10^3/uL (1.0-4.8) Monocytes # (Auto) 0.9 x10^3/uL (0.0-1.1) Eosinophils # (Auto) 0.3 x10^3/uL (0.0-0.7) Basophils # (Auto) 0.1 x10^3/uL (0.0-0.2) Prothrombin Time 13.9 SEC (11.7-14.0) Prothromb Time International Ratio 1.1 (0.8-1.1) D-Dimer (Destini) 0.73 ug/mlFEU (0.00-0.50) Sodium Level 133 mmol/L (136-145) Potassium Level 3.2 mmol/L (3.5-5.1) Chloride Level 97 mmol/L (98-107) Carbon Dioxide Level 24 mmol/L (21-32) Anion Gap 12 (6-14) Blood Urea Nitrogen 9 mg/dL (8-26) Creatinine 0.9 mg/dL (0.7-1.3) Estimated GFR (Cockcroft-Gault) 86.1 BUN/Creatinine Ratio 10 (6-20) Glucose Level 102 mg/dL (70-99) Calcium Level 8.6 mg/dL (8.5-10.1) Total Bilirubin 0.4 mg/dL (0.2-1.0) Aspartate Amino Transf (AST/SGOT) 24 U/L (15-37) Alanine Aminotransferase (ALT/SGPT) 32 U/L (16-63) Alkaline Phosphatase 97 U/L (46-116) Troponin I Quantitative 0.027 ng/mL (0.000-0.055) MO-Zjh-O-Type Natriuretic Peptide 1050 pg/mL (0-124) Total Protein 7.3 g/dL (6.4-8.2) Albumin 3.6 g/dL (3.4-5.0) Albumin/Globulin Ratio 1.0 (1.0-1.7) Lipase 154 U/L (73-393) Images Images Chest Radiograph: No acute lung infiltrate or pleural effusion or pulmonary edema or lung mass or pneumothorax is seen. 3-lead pacemaker is again evident. The heart size, pulmonary vasculature, mediastinum and both santosh are stable. IMPRESSION: No acute radiographic abnormality is seen. CTPA: There are no filling defects to suggest pulmonary embolism. The more peripheral subsegmental pulmonary arteries are not well opacified limiting our sensitivity for small peripheral pulmonary emboli. The lungs and pleural margins are clear. There is no mediastinal or hilar lymphadenopathy. The thoracic aorta appears normal. Impression: 1. No evidence of pulmonary embolism. 2. No significant findings. VTE Prophylaxis Ordered VTE Prophylaxis Devices: Yes VTE Pharmacological Prophylaxi: Yes Assessment/Plan Assessment/Plan A/P: Chest pain - high risk ACS given his history and lateral TWI, will trend troponins, telemetry, consult cardiology Elevated troponin - likely demand ischemia from IV methamphetamine use, will trend. Cardiology consulted. Hypokalemia - will replace. 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 Fluid dynamics seems stable. CAD - s/p x4 cardiac catherizations. multiple stents in the past. At least 12 stents reported per patient h/o VT s/p AICD - medtronic. Will consult cardiology. needs device interrogation HTN - cont meds HLD - cont meds Active IV meth use - used prior to admission. Tox screen pending and sees a counselor through [facility] Tobaccoism -counseled on cessation he is nondistended nicotine patch states he will need to start smoking as soon as he leaves Anxiety/agitation -calmed with verbal counseling, haldol. Prn zyprexa ordered History of Drug seeking behavior -advised with his substance abuse history is high risk and should not be given an opioid prescription on discharge and to minimize opioids while inpatient Anemia - likely from chronic substance abuse, will need monitoring outpatient. Check iron levels FEN - Cardiac PPX - Lovenox FULL CODE Dispo - inpatient for high risk ACS Justifications for Admission Other Justification ACS DAVID ERNANDEZ MD Nov 01, 2020 18:40
[2020-11-01] MEDS ORDERED: NITROGLYCERIN SUBLINGUAL 0.4 MG BOTTLE OF 25. SL PRN (18:45)
[2020-11-01] MEDS ORDERED: ONDANSETRON PF 4 MG/2 ML VIAL. IV PRN ×2 (19:00→20:30)
[2020-11-01 20:30] VITALS: BP 98/60
[2020-11-01] MEDS ORDERED: POTASSIUM CHLORIDE 20 MEQ TABLET.ER. PO ONE (20:30)
[2020-11-01] MEDS ORDERED: traMADol 50 MG TABLET PO PRN (20:30)
--- NOTE | 2020-11-01 20:30 | NUR ---
The patient, CARMELA JOSEPH, 59 y/o, M admitted by DAVID ERNANDEZ MD, was given written information regarding hospital policies, unit procedures and contact persons. PT TOO SLEEPY TO ANSWER ANY MORE QUESTIONS OR TO DISCUSS HIS MEDS. ETATES HE WANTS TO SLEEP. HASNT SLET IN 5 DAYS HE SAID.LCRN Valuables were checked and .
[2020-11-01] MEDS: ATORVASTATIN CALCIUM 40 MG TABLET. PO SCH (21:00)
--- NOTE | 2020-11-01 21:00 | NUR ---
PT REFUSES 2100 MEDS, ACTING JUMPY. RESTLESS. STATES HE WANTS TO SLEEP. STATES THAT HE IS BEING ASKED TOO MANY QUESTIONS. DAVIDN
[2020-11-01 23:27] VITALS: BP 102/66
[2020-11-02 02:01] VITALS: BP 108/44
[2020-11-02 07:00] VITALS: BP 98/47
[2020-11-02] MEDS ORDERED: METOPROLOL SUCC 24HR ER 25 MG TAB.ER.24H. PO SCH (09:00)
[2020-11-02 09:44] LABS: BASO # 0.1 x10^3/uL (0.0-0.2); BASO % 1 % (0-3); EOS # 0.1 x10^3/uL (0.0-0.7); EOS % 3 % (0-3); HEMATOCRIT 31.1 % (39.0-53.0); HEMOGLOBIN 10.2 g/dL (13.0-17.5); LYMPH # 0.8 x10^3/uL (1.0-4.8); LYMPH % 20 % (24-48); MEAN CORPUSCULAR HEMOGLOBIN 25 pg (25-35); MEAN CORPUSCULAR HGB CONC 33 g/dL (31-37); MEAN CORPUSCULAR VOLUME 76 fL (79-100); MONO # 0.6 x10^3/uL (0.0-1.1); MONO % 16 % (0-9); NEUT # 2.4 x10^3/uL (1.8-7.7); NEUT % 60 % (31-73); PLATELET COUNT 266 x10^3/uL (140-400); RED CELL DISTRIBUTION WIDTH 16.9 % (11.5-14.5); WHITE BLOOD COUNT 4.1 x10^3/uL (4.0-11.0)
[2020-11-02 09:56] LABS: CALCIUM 8.5 mg/dL (8.5-10.1); CREATININE 0.7 mg/dL (0.7-1.3); POTASSIUM 3.6 mmol/L (3.5-5.1)
--- NOTE | 2020-11-02 09:58 | PDOC2 ---
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 Reports as sharp left chest to neck and left arm. Denies any SOA. No n/v. Denies any fever chills or any GI symptoms. He is known to me and he does have issues with substance abuse. He has failed to follow up with his inside sales agent in [place], [place] to which he still continues to make excuses of not being able to see his regular inside sales agent. He has given himself IV meth in the last 5 days reporting that the last meth prepared for him was probably bad hence his symptoms. Verbalized compliance with meds. No leg swelling or PND or orthopnea. No trop elevation and no acute EKG changes. He is also known for opioid seeking behavior. PAST MEDICAL HISTORY Past Medical History Cardiovascular: CAD, CHF (ICM), HTN, Hyperlipidemia, Other (VT) Pulmonary: Asthma CENTRAL NERVOUS SYSTEM: CVA GI: GERD Heme/Onc: No pertinent hx Hepatobiliary: No pertinent hx Psych: Anxiety Musculoskeletal: Osteoarthritis Rheumatologic: No pertinent hx Infectious disease: No pertinent hx ENT: No pertinent hx Renal/: No pertinent hx Endocrine: No pertinent hx Dermatology: No pertinent hx PAST SURGICAL HISTORY Past Surgical History Pacemaker (AICD), Other (multiple PCI/stents. FAMILY HISTORY Family History: Hypertension SOCIAL HISTORY Social History Smoke: <1 pack per day ALCOHOL: none Drugs: meth relapse Lives: with Family CURRENT MEDICATIONS CURRENT MEDICATIONS Current Medications Medications (Trade) Dose Ordered Sig/Ani Route PRN Reason Start Time Stop Time Status Last Admin Dose Admin Haloperidol Lactate (Haldol Inj) 5 mg 1X ONCE IVP 11/01/20 17:45 11/01/20 17:46 DC 11/01/20 17:37 Sodium Chloride 1,000 ml @ 1,000 mls/hr 1X ONCE IV 11/01/20 18:15 11/01/20 19:14 DC 11/01/20 19:31 Iohexol (Omnipaque 350 Mg/ml) 100 ml 1X ONCE IV 11/01/20 18:30 11/01/20 18:31 DC 11/01/20 18:23 ALLERGIES ALLERGIES: Coded Allergies: acetaminophen (Verified Allergy, Intermediate, 08/04/20) albuterol (Verified Adverse Reaction, Intermediate, 11/18/19) Patient states "it speeds my heart up too much" ibuprofen (Verified Adverse Reaction, Intermediate, Nausea and Vomiting, 11/18/19) ROS Review of System 14 point ROS evaluated with pertinent positives noted per HPI PHYSICAL EXAM General: Alert, Oriented X3, Cooperative, No acute distress HEENT: Atraumatic, Mucous membr. moist/pink Lungs: Clear to auscultation, Normal air movement Heart: Regular rate (SR), Normal S1, Normal S2, No murmurs Abdomen: Soft, No tenderness Extremities: No cyanosis, No edema Skin: No breakdown, No significant lesion Neuro: Normal speech, Sensation intact Psych/Mental Status: Mental status NL, Mood NL MUSCULOSKELETAL: Osteoarthritic changes both hands VITALS/I&O VITALS/I&O: Vital Signs Date Time Temp Pulse Resp B/P (MAP) Pulse Ox O2 Delivery O2 Flow Rate FiO2 11/02/20 08:00 Room Air 11/02/20 07:00 98.0 77 16 98/47 (64) 99 98.0 I & O 11/01/20 11/01/20 11/02/20 15:00 23:00 07:00 Intake Total 1300 ml 300 ml Balance 1300 ml 300 ml LABS Lab: Laboratory Tests Test 11/01/20 17:15 11/01/20 20:00 11/01/20 23:00 11/02/20 09:35 White Blood Count 7.1 x10^3/uL (4.0-11.0) 4.1 x10^3/uL (4.0-11.0) Red Blood Count 4.16 x10^6/uL (4.30-5.70) L 4.10 x10^6/uL (4.30-5.70) L Hemoglobin 10.3 g/dL (13.0-17.5) L 10.2 g/dL (13.0-17.5) L Hematocrit 31.8 % (39.0-53.0) L 31.1 % (39.0-53.0) L Mean Corpuscular Volume 76 fL (79-100) L 76 fL (79-100) L Mean Corpuscular Hemoglobin 25 pg (25-35) 25 pg (25-35) Mean Corpuscular Hemoglobin Concent 32 g/dL (31-37) 33 g/dL (31-37) Red Cell Distribution Width 16.7 % (11.5-14.5) H 16.9 % (11.5-14.5) H Platelet Count 303 x10^3/uL (140-400) 266 x10^3/uL (140-400) Neutrophils (%) (Auto) 64 % (31-73) 60 % (31-73) Lymphocytes (%) (Auto) 18 % (24-48) L 20 % (24-48) L Monocytes (%) (Auto) 13 % (0-9) H 16 % (0-9) H Eosinophils (%) (Auto) 4 % (0-3) H 3 % (0-3) Basophils (%) (Auto) 1 % (0-3) 1 % (0-3) Neutrophils # (Auto) 4.5 x10^3/uL (1.8-7.7) 2.4 x10^3/uL (1.8-7.7) Lymphocytes # (Auto) 1.3 x10^3/uL (1.0-4.8) 0.8 x10^3/uL (1.0-4.8) L Monocytes # (Auto) 0.9 x10^3/uL (0.0-1.1) 0.6 x10^3/uL (0.0-1.1) Eosinophils # (Auto) 0.3 x10^3/uL (0.0-0.7) 0.1 x10^3/uL (0.0-0.7) Basophils # (Auto) 0.1 x10^3/uL (0.0-0.2) 0.1 x10^3/uL (0.0-0.2) Prothrombin Time 13.9 SEC (11.7-14.0) Prothrombin Time INR 1.1 (0.8-1.1) D-Dimer (Destini) 0.73 ug/mlFEU (0.00-0.50) H Sodium Level 133 mmol/L (136-145) L Potassium Level 3.2 mmol/L (3.5-5.1) L Chloride Level 97 mmol/L (98-107) L Carbon Dioxide Level 24 mmol/L (21-32) Anion Gap 12 (6-14) Blood Urea Nitrogen 9 mg/dL (8-26) Creatinine 0.9 mg/dL (0.7-1.3) Estimated GFR (Cockcroft-Gault) 86.1 BUN/Creatinine Ratio 10 (6-20) Glucose Level 102 mg/dL (70-99) H Calcium Level 8.6 mg/dL (8.5-10.1) Iron Level 24 ug/dL (65-175) L Total Iron Binding Capacity 408 ug/dL (250-450) Iron Saturation 6 % (15-34) L Total Bilirubin 0.4 mg/dL (0.2-1.0) Aspartate Amino Transferase (AST) 24 U/L (15-37) Alanine Aminotransferase (ALT) 32 U/L (16-63) Alkaline Phosphatase 97 U/L (46-116) Troponin I Quantitative 0.027 ng/mL (0.000-0.055) 0.029 ng/mL (0.000-0.055) 0.021 ng/mL (0.000-0.055) FU-Tdo-W-Type Natriuretic Peptide 1050 pg/mL (0-124) H Total Protein 7.3 g/dL (6.4-8.2) Albumin 3.6 g/dL (3.4-5.0) Albumin/Globulin Ratio 1.0 (1.0-1.7) Lipase 154 U/L (73-393) Magnesium Level 1.9 mg/dL (1.8-2.4) Laboratory Tests 11/01/20 17:15 11/02/20 09:35 Laboratory Tests 11/01/20 17:15 ECHOCARDIOGRAM ECHOCARDIOGRAM <Conclusion> Left ventricle systolic function is moderately impaired. EF 30-35%. There is severe global hypokinesis of the left ventricle. Tissue Doppler imaging reveals moderate left ventricular diastolic dysfunction. There is a pacemaker lead in the right ventricle. Doppler and Color-flow revealed moderate mitral regurgitation. Doppler and Color Flow revealed mild tricuspid regurgitation. There is moderate pulmonary hypertension. The PA pressure was estimated at 44 mmHg. DATE: 05/06/20 0907 HEART CATH HEART CATH FINDINGS 1. Hemodynamics: Left ventricular end-diastolic pressure 18 mmHg. No pullback gradient across aortic valve. 2. Left ventriculography: Severe left ventricular systolic dysfunction with ejection fraction estimated at 20 to 25%. 2+ mitral regurgitation seen. 3. Coronary angiography: a. The left main coronary artery arose from the left sinus of Valsalva, gave rise to the left anterior descending and left circumflex arteries and did not show any significant stenosis. b. The left anterior descending artery showed patent long stented mid and distal segments with a very distal segment showing 40% in-stent restenosis. Stent in the diagonal branch was patent. c. The left circumflex artery was a large and dominant vessel. The first obtuse marginal branch showed 100% chronic total occlusion within the stent in the proximal segment, described in prior cardiac catheterization. The stent in the left posterior descending artery was patent. d. The right coronary artery was a small and nondominant vessel arising from the right sinus of Valsalva that showed 100% chronic total occlusion in the proximal segment, described in prior cardiac catheterization. Conclusion 1. Patent previously placed stents in the left anterior descending artery, diagonal branch and left posterior descending artery. The obtuse marginal branch and nondominant right coronary artery showed 100% chronic total occlusions, described in prior cardiac catheterization. 2. Severe left ventricular systolic dysfunction with ejection fraction estimated at 20 to 25% with 2+ mitral regurgitation. Recommendations Optimization of medical therapy for coronary disease and ischemic cardiomyopathy. DATE: 08/05/20 1353 ASSESSMENT/PLAN ASSESSMENT/PLAN 1. Chest pain: trops nml. EKG paced without acute changes. Suspect MSK with vasopasm component as well 2. Opioid seeking behavior 3. Chronic systolic CHF; clinically compensated 4. ICM; s/p AICD (Medtronic) 5. CAD; recent [facility] 07/2020, patent stents no intervenable lesions 6. Hx of VT: not on antiarrhythmic, no arrhythmias 7. HTN: controlled 8. HLP: not on goal 10. Substance abuse: IV meth relapse used it 5 days in a row. 11. Tobaccoism with likely COPD 12. Poor compliance with appt. Recommendations Start on low dey norvasc if pt agrees. No further testing. May DC from cardiac perspective. Continue ASA/plavix and secondary prevention measures. Replace K Smoking cessation abstain from meth, follow up with his primary outpt inside sales agent. Encouraged to follow up06 with [place] inside sales agent at [place] Discussed important of compliance with medical therapy/followup and abstinence of recreational drug use CHRISTIAN ALVARADO MD 11/02/20 2529: CARDIAC CONSULT ASSESSMENT/PLAN ASSESSMENT/PLAN Patient seen and examined. Agree with WAXER TENDER's assessment and plan. Chest pain with atypical features and most probably musculoskeletal. Slight troponin elevation probably demand ischemia. Recent cardiac catheterization showed patent previously placed stents in LAD/diagonal/left PDA with chronic total occlusions involving the OM and nond ominant RCA. Patient did not have any lesions needing intervention. Chronic systolic heart failure clinically well compensated. Recent device check showed normal function. Importance of abstinence from drug use reemphasized. Thank you for your consultation NERI NUNN APRN Nov 02, 2020 09:58 CHRISTIAN ALVARADO MD Nov 02, 2020 16:39
[2020-11-02 10:02] LABS: ALBUMIN 2.9 g/dL (3.4-5.0); ALBUMIN/GLOBULIN RATIO 0.9 (1.0-1.7); TOTAL BILIRUBIN 0.3 mg/dL (0.2-1.0); TOTAL PROTEIN 6.3 g/dL (6.4-8.2)
[2020-11-02] MEDS: CLOPIDOGREL BISULFATE 75 MG TABLET PO SCH (10:23)
[2020-11-02] MEDS: ASPIRIN CHEWABLE 81 MG TABLET. PO SCH (10:23)
[2020-11-02] MEDS: IRON POLYSACCHARIDE COMPLEX 150 MG CAPSULE PO SCH (10:23)
[2020-11-02 10:49] VITALS: BP 106/48
--- NOTE | 2020-11-02 12:24 | NUR ---
SS following for discharge planning. SS reviewed pt chart and discussed with pt RN. Pt is from home and is currently on room air. Cardiology following. Pt has issues with methamphetamine abuse. PAT team referral made for assessment and recommendations. SS will continue to follow for discharge planning.
--- NOTE | 2020-11-02 12:55 | PDOC ---
[employer] PROGRESS NOTE Date of Service DOS: DATE: 11/02/20 TIME: 12:51 Chief Complaint Chief Complaint Assessment/Plan A/P: Chest pain - high risk ACS given his history and lateral TWI, will trend troponins, telemetry, consult cardiology Elevated troponin - likely demand ischemia from IV methamphetamine use, will trend. Cardiology consulted. Hypokalemia - will replace. 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 Fluid dynamics seems stable. CAD - s/p x4 cardiac catherizations. multiple stents in the past. At least 12 stents reported per patient h/o VT s/p AICD - medtronic. Will consult cardiology. needs device interrogation HTN - cont meds HLD - cont meds Active IV meth use - used prior to admission. Tox screen pending and sees a cou nselor through [facility] Tobaccoism -counseled on cessation he is nondistended nicotine patch states he will need to start smoking as soon as he leaves Anxiety/agitation -calmed with verbal counseling, haldol. Prn zyprexa ordered History of Drug seeking behavior -advised with his substance abuse history is high risk and should not be given an opioid prescription on discharge and to minimize opioids while inpatient Anemia - likely from chronic substance abuse, will need monitoring outpatient. Check iron levels FEN - Cardiac PPX - Lovenox FULL CODE Dispo - inpatient for high risk ACS History of Present Illness History of Present Illness Mr Hicks is a 59yo M w/ PMHx CAD x multiple JANET, CHF, HTN, HLD, VT s/p AICD, COPD/asthma, GERD, OA, anxiety, IV methamphetamine abuse c/o chest pain with radiation to left arm and jaw in the evening prior to admission after he feels he did not properly "cut" his methamphetine with water prior to injection. He began having wheezing and chest pain. Pain is sharp, notes it did not remit after 3x NTG at home and ASA. He rates his symptoms at 9/10. He keeps asking for pain meds, became very agitated with staff, calmed down after iv haldol administration. EKG with lateral TWI and leftward axis, no STEMI. CXR with no acute abnormality Labs with WBC 7.1, Hb 10.3 with MCV 76, platelets 303, Na 133, K 3.2, BUN 9, Cr 0.9, glucose 102, BNP 1050, Troponin 0.027. D dimer 0.73. He underwent CTPA which was negative for pulmonary embolism. Chest radiograph Historically with multiple PCIs- C at [facility] Oct 2017 showed showed patent mid LAD stent, patent 1st diagonal stent, total chronic occlusion of first obtuse marginal with territory infarct but no indication for PCI, patent stent in left AV groove artery, patent stent in LPDA, non-dominant 100 % stenosis of proximal RCA. Seen by cardiology here in October. Admit for further work-up of his coronary artery disease 11/02: Patient seen and evaluated bedside. He is not very talkative currently, states he feels "like hell". Await cardiology recommendations for any possible intervention. If not, patient may discharge today. Vitals/I&O Vitals/I&O: Vital Signs Date Time Temp Pulse Resp B/P (MAP) Pulse Ox O2 Delivery O2 Flow Rate FiO2 11/02/20 12:24 82 106/48 11/02/20 10:49 97.2 18 95 Room Air 97.2 I & O 11/01/20 11/01/20 11/02/20 15:00 23:00 07:00 Intake Total 1300 ml 300 ml Balance 1300 ml 300 ml Physical Exam General: Alert, mild distress Heart: Regular rate Lungs: Clear Abdomen: Normal bowel sounds, Soft Extremities: No clubbing, No cyanosis, No edema, Normal pulses Skin: No rashes, No breakdown Labs Labs: Laboratory Tests Test 11/01/20 17:15 11/01/20 20:00 11/01/20 23:00 11/02/20 09:35 White Blood Count 7.1 x10^3/uL (4.0-11.0) 4.1 x10^3/uL (4.0-11.0) Red Blood Count 4.16 x10^6/uL (4.30-5.70) 4.10 x10^6/uL (4.30-5.70) Hemoglobin 10.3 g/dL (13.0-17.5) 10.2 g/dL (13.0-17.5) Hematocrit 31.8 % (39.0-53.0) 31.1 % (39.0-53.0) Mean Corpuscular Volume 76 fL (79-100) 76 fL (79-100) Mean Corpuscular Hemoglobin 25 pg (25-35) 25 pg (25-35) Mean Corpuscular Hemoglobin Concent 32 g/dL (31-37) 33 g/dL (31-37) Red Cell Distribution Width 16.7 % (11.5-14.5) 16.9 % (11.5-14.5) Platelet Count 303 x10^3/uL (140-400) 266 x10^3/uL (140-400) Neutrophils (%) (Auto) 64 % (31-73) 60 % (31-73) Lymphocytes (%) (Auto) 18 % (24-48) 20 % (24-48) Monocytes (%) (Auto) 13 % (0-9) 16 % (0-9) Eosinophils (%) (Auto) 4 % (0-3) 3 % (0-3) Basophils (%) (Auto) 1 % (0-3) 1 % (0-3) Neutrophils # (Auto) 4.5 x10^3/uL (1.8-7.7) 2.4 x10^3/uL (1.8-7.7) Lymphocytes # (Auto) 1.3 x10^3/uL (1.0-4.8) 0.8 x10^3/uL (1.0-4.8) Monocytes # (Auto) 0.9 x10^3/uL (0.0-1.1) 0.6 x10^3/uL (0.0-1.1) Eosinophils # (Auto) 0.3 x10^3/uL (0.0-0.7) 0.1 x10^3/uL (0.0-0.7) Basophils # (Auto) 0.1 x10^3/uL (0.0-0.2) 0.1 x10^3/uL (0.0-0.2) Prothrombin Time 13.9 SEC (11.7-14.0) Prothromb Time International Ratio 1.1 (0.8-1.1) D-Dimer (Destini) 0.73 ug/mlFEU (0.00-0.50) Sodium Level 133 mmol/L (136-145) 138 mmol/L (136-145) Potassium Level 3.2 mmol/L (3.5-5.1) 3.6 mmol/L (3.5-5.1) Chloride Level 97 mmol/L (98-107) 104 mmol/L (98-107) Carbon Dioxide Level 24 mmol/L (21-32) 23 mmol/L (21-32) Anion Gap 12 (6-14) 11 (6-14) Blood Urea Nitrogen 9 mg/dL (8-26) 8 mg/dL (8-26) Creatinine 0.9 mg/dL (0.7-1.3) 0.7 mg/dL (0.7-1.3) Estimated GFR (Cockcroft-Gault) 86.1 115.0 BUN/Creatinine Ratio 10 (6-20) 11 (6-20) Glucose Level 102 mg/dL (70-99) 99 mg/dL (70-99) Calcium Level 8.6 mg/dL (8.5-10.1) 8.5 mg/dL (8.5-10.1) Iron Level 24 ug/dL (65-175) Total Iron Binding Capacity 408 ug/dL (250-450) Iron Saturation 6 % (15-34) Total Bilirubin 0.4 mg/dL (0.2-1.0) 0.3 mg/dL (0.2-1.0) Aspartate Amino Transf (AST/SGOT) 24 U/L (15-37) 17 U/L (15-37) Alanine Aminotransferase (ALT/SGPT) 32 U/L (16-63) 25 U/L (16-63) Alkaline Phosphatase 97 U/L (46-116) 85 U/L (46-116) Troponin I Quantitative 0.027 ng/mL (0.000-0.055) 0.029 ng/mL (0.000-0.055) 0.021 ng/mL (0.000-0.055) EB-Wli-V-Type Natriuretic Peptide 1050 pg/mL (0-124) Total Protein 7.3 g/dL (6.4-8.2) 6.3 g/dL (6.4-8.2) Albumin 3.6 g/dL (3.4-5.0) 2.9 g/dL (3.4-5.0) Albumin/Globulin Ratio 1.0 (1.0-1.7) 0.9 (1.0-1.7) Lipase 154 U/L (73-393) Magnesium Level 1.9 mg/dL (1.8-2.4) Review of Systems Review of Systems: Chest pain. Denies any shortness of breath, or nausea. Assessment and Plan Assessmemt and Plan Problems Medical Problems: (1) Chest pain Status: Acute Comment Review of Relevant I have reviewed the following items kvng (where applicable) has been applied. Medications: Current Medications Medications (Trade) Dose Ordered Sig/Ani Route PRN Reason Start Time Stop Time Status Last Admin Dose Admin Haloperidol Lactate (Haldol Inj) 5 mg 1X ONCE IVP 11/01/20 17:45 11/01/20 17:46 DC 11/01/20 17:37 Sodium Chloride 1,000 ml @ 1,000 mls/hr 1X ONCE IV 11/01/20 18:15 11/01/20 19:14 DC 11/01/20 19:31 Iohexol (Omnipaque 350 Mg/ml) 100 ml 1X ONCE IV 11/01/20 18:30 11/01/20 18:31 DC 11/01/20 18:23 Aspirin (Aspirin Chewable) 81 mg DAILY PO 11/02/20 09:00 11/02/20 10:23 Clopidogrel Bisulfate (Plavix) 75 mg DAILY PO 11/02/20 09:00 11/02/20 10:23 Polysaccharide Iron Complex (Niferex 150) 150 mg DAILY PO 11/02/20 09:00 11/02/20 10:23 Amlodipine Besylate (Norvasc) 2.5 mg DAILY PO 11/02/20 11:30 11/02/20 12:24 Justifications for Admission Other Justification ACS ARABELLA PONCE MD Nov 02, 2020 12:55
[2020-11-02 15:01] VITALS: BP 113/63
[2020-11-02] MEDS ORDERED: AMLO-186 PO (15:57)
--- NOTE | 2020-11-02 16:00 | PDOC3 ---
Discharge Summary Visit Information Date of Admission: Nov 01, 2020 Date of Discharge: Nov 02, 2020 Final Diagnosis Problems Medical Problems: (1) Chest pain Status: Acute Brief Hospital Course Allergies Allergies Coded Allergies Type Severity Reaction Last Updated Verified acetaminophen Allergy Intermediate 08/04/20 Yes albuterol Adverse Reaction Intermediate 11/18/19 Yes ibuprofen Adverse Reaction Intermediate Nausea and Vomiting 11/18/19 Yes Vital Signs Vital Signs Date Time Temp Pulse Resp B/P (MAP) Pulse Ox O2 Delivery O2 Flow Rate FiO2 11/02/20 15:01 97.7 90 20 113/63 (80) 98 Room Air 97.7 Lab Results Laboratory Tests Test 11/01/20 17:15 11/01/20 20:00 11/01/20 23:00 11/02/20 09:35 White Blood Count 7.1 x10^3/uL (4.0-11.0) 4.1 x10^3/uL (4.0-11.0) Red Blood Count 4.16 x10^6/uL (4.30-5.70) 4.10 x10^6/uL (4.30-5.70) Hemoglobin 10.3 g/dL (13.0-17.5) 10.2 g/dL (13.0-17.5) Hematocrit 31.8 % (39.0-53.0) 31.1 % (39.0-53.0) Mean Corpuscular Volume 76 fL (79-100) 76 fL (79-100) Mean Corpuscular Hemoglobin 25 pg (25-35) 25 pg (25-35) Mean Corpuscular Hemoglobin Concent 32 g/dL (31-37) 33 g/dL (31-37) Red Cell Distribution Width 16.7 % (11.5-14.5) 16.9 % (11.5-14.5) Platelet Count 303 x10^3/uL (140-400) 266 x10^3/uL (140-400) Neutrophils (%) (Auto) 64 % (31-73) 60 % (31-73) Lymphocytes (%) (Auto) 18 % (24-48) 20 % (24-48) Monocytes (%) (Auto) 13 % (0-9) 16 % (0-9) Eosinophils (%) (Auto) 4 % (0-3) 3 % (0-3) Basophils (%) (Auto) 1 % (0-3) 1 % (0-3) Neutrophils # (Auto) 4.5 x10^3/uL (1.8-7.7) 2.4 x10^3/uL (1.8-7.7) Lymphocytes # (Auto) 1.3 x10^3/uL (1.0-4.8) 0.8 x10^3/uL (1.0-4.8) Monocytes # (Auto) 0.9 x10^3/uL (0.0-1.1) 0.6 x10^3/uL (0.0-1.1) Eosinophils # (Auto) 0.3 x10^3/uL (0.0-0.7) 0.1 x10^3/uL (0.0-0.7) Basophils # (Auto) 0.1 x10^3/uL (0.0-0.2) 0.1 x10^3/uL (0.0-0.2) Prothrombin Time 13.9 SEC (11.7-14.0) Prothromb Time International Ratio 1.1 (0.8-1.1) D-Dimer (Destini) 0.73 ug/mlFEU (0.00-0.50) Sodium Level 133 mmol/L (136-145) 138 mmol/L (136-145) Potassium Level 3.2 mmol/L (3.5-5.1) 3.6 mmol/L (3.5-5.1) Chloride Level 97 mmol/L (98-107) 104 mmol/L (98-107) Carbon Dioxide Level 24 mmol/L (21-32) 23 mmol/L (21-32) Anion Gap 12 (6-14) 11 (6-14) Blood Urea Nitrogen 9 mg/dL (8-26) 8 mg/dL (8-26) Creatinine 0.9 mg/dL (0.7-1.3) 0.7 mg/dL (0.7-1.3) Estimated GFR (Cockcroft-Gault) 86.1 115.0 BUN/Creatinine Ratio 10 (6-20) 11 (6-20) Glucose Level 102 mg/dL (70-99) 99 mg/dL (70-99) Calcium Level 8.6 mg/dL (8.5-10.1) 8.5 mg/dL (8.5-10.1) Iron Level 24 ug/dL (65-175) Total Iron Binding Capacity 408 ug/dL (250-450) Iron Saturation 6 % (15-34) Total Bilirubin 0.4 mg/dL (0.2-1.0) 0.3 mg/dL (0.2-1.0) Aspartate Amino Transf (AST/SGOT) 24 U/L (15-37) 17 U/L (15-37) Alanine Aminotransferase (ALT/SGPT) 32 U/L (16-63) 25 U/L (16-63) Alkaline Phosphatase 97 U/L (46-116) 85 U/L (46-116) Troponin I Quantitative 0.027 ng/mL (0.000-0.055) 0.029 ng/mL (0.000-0.055) 0.021 ng/mL (0.000-0.055) MO-Imy-O-Type Natriuretic Peptide 1050 pg/mL (0-124) Total Protein 7.3 g/dL (6.4-8.2) 6.3 g/dL (6.4-8.2) Albumin 3.6 g/dL (3.4-5.0) 2.9 g/dL (3.4-5.0) Albumin/Globulin Ratio 1.0 (1.0-1.7) 0.9 (1.0-1.7) Lipase 154 U/L (73-393) Magnesium Level 1.9 mg/dL (1.8-2.4) Laboratory Tests Test 11/01/20 17:15 11/01/20 20:00 11/01/20 23:00 11/02/20 09:35 White Blood Count 7.1 x10^3/uL (4.0-11.0) 4.1 x10^3/uL (4.0-11.0) Red Blood Count 4.16 x10^6/uL (4.30-5.70) 4.10 x10^6/uL (4.30-5.70) Hemoglobin 10.3 g/dL (13.0-17.5) 10.2 g/dL (13.0-17.5) Hematocrit 31.8 % (39.0-53.0) 31.1 % (39.0-53.0) Mean Corpuscular Volume 76 fL (79-100) 76 fL (79-100) Mean Corpuscular Hemoglobin 25 pg (25-35) 25 pg (25-35) Mean Corpuscular Hemoglobin Concent 32 g/dL (31-37) 33 g/dL (31-37) Red Cell Distribution Width 16.7 % (11.5-14.5) 16.9 % (11.5-14.5) Platelet Count 303 x10^3/uL (140-400) 266 x10^3/uL (140-400) Neutrophils (%) (Auto) 64 % (31-73) 60 % (31-73) Lymphocytes (%) (Auto) 18 % (24-48) 20 % (24-48) Monocytes (%) (Auto) 13 % (0-9) 16 % (0-9) Eosinophils (%) (Auto) 4 % (0-3) 3 % (0-3) Basophils (%) (Auto) 1 % (0-3) 1 % (0-3) Neutrophils # (Auto) 4.5 x10^3/uL (1.8-7.7) 2.4 x10^3/uL (1.8-7.7) Lymphocytes # (Auto) 1.3 x10^3/uL (1.0-4.8) 0.8 x10^3/uL (1.0-4.8) Monocytes # (Auto) 0.9 x10^3/uL (0.0-1.1) 0.6 x10^3/uL (0.0-1.1) Eosinophils # (Auto) 0.3 x10^3/uL (0.0-0.7) 0.1 x10^3/uL (0.0-0.7) Basophils # (Auto) 0.1 x10^3/uL (0.0-0.2) 0.1 x10^3/uL (0.0-0.2) Prothrombin Time 13.9 SEC (11.7-14.0) Prothromb Time International Ratio 1.1 (0.8-1.1) D-Dimer (Destini) 0.73 ug/mlFEU (0.00-0.50) Sodium Level 133 mmol/L (136-145) 138 mmol/L (136-145) Potassium Level 3.2 mmol/L (3.5-5.1) 3.6 mmol/L (3.5-5.1) Chloride Level 97 mmol/L (98-107) 104 mmol/L (98-107) Carbon Dioxide Level 24 mmol/L (21-32) 23 mmol/L (21-32) Anion Gap 12 (6-14) 11 (6-14) Blood Urea Nitrogen 9 mg/dL (8-26) 8 mg/dL (8-26) Creatinine 0.9 mg/dL (0.7-1.3) 0.7 mg/dL (0.7-1.3) Estimated GFR (Cockcroft-Gault) 86.1 115.0 BUN/Creatinine Ratio 10 (6-20) 11 (6-20) Glucose Level 102 mg/dL (70-99) 99 mg/dL (70-99) Calcium Level 8.6 mg/dL (8.5-10.1) 8.5 mg/dL (8.5-10.1) Iron Level 24 ug/dL (65-175) Total Iron Binding Capacity 408 ug/dL (250-450) Iron Saturation 6 % (15-34) Total Bilirubin 0.4 mg/dL (0.2-1.0) 0.3 mg/dL (0.2-1.0) Aspartate Amino Transf (AST/SGOT) 24 U/L (15-37) 17 U/L (15-37) Alanine Aminotransferase (ALT/SGPT) 32 U/L (16-63) 25 U/L (16-63) Alkaline Phosphatase 97 U/L (46-116) 85 U/L (46-116) Troponin I Quantitative 0.027 ng/mL (0.000-0.055) 0.029 ng/mL (0.000-0.055) 0.021 ng/mL (0.000-0.055) PB-Fzc-R-Type Natriuretic Peptide 1050 pg/mL (0-124) Total Protein 7.3 g/dL (6.4-8.2) 6.3 g/dL (6.4-8.2) Albumin 3.6 g/dL (3.4-5.0) 2.9 g/dL (3.4-5.0) Albumin/Globulin Ratio 1.0 (1.0-1.7) 0.9 (1.0-1.7) Lipase 154 U/L (73-393) Magnesium Level 1.9 mg/dL (1.8-2.4) Brief Hospital Course Mr. Hicks is a 59 old male who presented with chest pain, methamphetamine abuse. Consultations placed to cardiology. No plans for cardiac intervention, patient was stable to discharge home with outpatient follow-up. Discharge Information Condition at Discharge: Stable Disposition/Orders: D/C to Home Scheduled Amlodipine Besylate (Amlodipine Besylate) 5 Mg Tablet, 2.5 MG PO DAILY for HTN, #30 Ref 1 Prescribed by: ARABELLA PONCE MD on 11/02/20 155 Aspirin (Aspirin) 81 Mg Tab.chew, 1 TAB PO DAILY, #10 Prescribed by: KATHRYN HEBERT D.O. on 06/29/20 0607 Last Action: Continued on 11/01/201841 by DAVID ERNANDEZ MD Clopidogrel Bisulfate (Plavix) 75 Mg Tablet, 75 MG PO DAILY for TO PREVENT BLOOD CLOTS, #30 Ref 0 (Reported) Entered as Reported by: Roseanne Ca on 02/11/152307 Last Action: Continued on 11/01/201841 by DAVID ERNANDEZ MD Metoprolol Succinate (Metoprolol Succinate ( Xl )) 25 Mg Tab.er.24h, 12.5 MG PO DAILY for FOR HYPERTENSION, #30 Ref 0 (Reported) Entered as Reported by: KANCHAN CANO [facility] on 11/18/19 0814 Last Action: Continued on 11/01/201841 by DAVID ERNANDEZ MD Pregabalin (Lyrica) 300 Mg Capsule, 1 CAP PO BID, #60 Ref 2 (Reported) Entered as Reported by: TERESA NAPIER on 04/10/16 0412 Rosuvastatin Calcium (Crestor) 40 Mg Tablet, 40 MG PO HS for FOR CHOLESTEROL, #30 Ref 0 (Reported) Entered as Reported by: DIVINA HAAS RN on 06/03/20 180 Last Action: Converted on 11/01/201842 by DAVID ERNANDEZ MD Tiotropium [place] (Spiriva) 18 Mcg Cap.w.dev, 1 CAP IH DAILY, #30 Ref 3 (Reported) Entered as Reported by: TERESA NAPIER on 04/10/16411 Scheduled PRN Nitroglycerin (NITROGLYCERIN SubLingual) 0.4 Mg Tab.subl, 0.4 MG SL PRN Q5MIN PRN for CHEST PAIN, (Reported) Entered as Reported by: TERESA NAPIER on 04/10/16411 Last Action: Continued on 11/01/201842 by DAVID ERNANDEZ MD Tramadol Hcl (Tramadol Hcl) 50 Mg Tablet, 50 MG PO PRN TID PRN for PAIN, #30 Prescribed by: KATLYN HUSSEIN on 09/06/2040 Last Action: Continued on 11/01/202034 by DAVID ERNANDEZ MD Justicifation of Admission Dx: Justifications for Admission: Justification of Admission Dx: N/A Angina: Symp at Rest ARABELLA PONCE MD Nov 02, 2020 16:00
[2020-11-02] MEDS: ATORVASTATIN CALCIUM 40 MG TABLET. PO SCH (21:00)
[2020-11-02 23:10] VITALS: BP 111/63
--- NOTE | 2020-11-03 01:38 | EKG ---
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
[2020-11-03 07:00] VITALS: BP 99/56
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
[2020-11-03] MEDS: ASPIRIN CHEWABLE 81 MG TABLET. PO SCH (08:52)
[2020-11-03] MEDS: IRON POLYSACCHARIDE COMPLEX 150 MG CAPSULE PO SCH (08:52)
[2020-11-03] MEDS: CLOPIDOGREL BISULFATE 75 MG TABLET PO SCH (08:52)
[2020-11-03 08:53] VITALS: BP 99/56
--- NOTE | 2020-11-03 11:23 | NUR ---
SS following up with discharge planning. SS reviewed pt chart and discussed with pt RN. Pt is currently on room air. Discharge order on the chart. [employer] contacted and ride scheduled for today. Trip# [id number]. Pt and pt's RN notified.
--- NOTE | 2020-11-03 13:51 | NUR ---
SS following up with discharge planning. [employer] contacted SS and NAHOMY reynoso, stating that due to pt's behaviors they will not transport pt. Pt [place] three hours away and is wanting to discharge to home. [facility] reporting that they are not able to transport pt that distance today. Pt encouraged to find family or friends to assist with transportation. RN supervisor grove notified and administration contacted for further advice. SS will continue to follow for discharge planning.
--- NOTE | 2020-11-03 16:26 | NUR ---
Discharge Note: RIVER JOSEPH Discharge instructions and discharge home medications reviewed with Patient and a copy given. All questions have been answered and understanding verbalized. The following instructions and handouts were given: Substance abuse, smoking cessation, and cardiac diet. Patient transport via z-trip to [place]. Discontinued iv line and intact. Patient discharged to home.
[2020-12-04] MEDS ORDERED: OLAN5TAB3 PO (11:34)
[2021-03-24] MEDS ORDERED: LANS30TA6 FT (14:44)
== END 2020-11-03 15:10 | disposition home or self-care (01) | DRG 392 ==
LOC: ER 16:04 → ED HOLD 18:46 → 2 NORTH 20:29
PROVIDERS: ADMIT Internal Medicine; ATTEND Internal Medicine
DX: K21.9 Gastro-esophageal reflux disease without esophagitis (principal); I50.22 Chronic systolic (congestive) heart failure; I42.8 Other cardiomyopathies; E87.6 Hypokalemia; M19.90 Unspecified osteoarthritis, unspecified site; I25.10 Atherosclerotic heart disease of native coronary artery without angina pectoris; E78.00 Pure hypercholesterolemia, unspecified; I11.0 Hypertensive heart disease with heart failure; J44.9 Chronic obstructive pulmonary disease, unspecified; F41.9 Anxiety disorder, unspecified; D64.9 Anemia, unspecified; E78.5 Hyperlipidemia, unspecified; F17.210 Nicotine dependence, cigarettes, uncomplicated; F15.10 Other stimulant abuse, uncomplicated; I25.5 Ischemic cardiomyopathy; I25.2 Old myocardial infarction; Z79.02 Long term (current) use of antithrombotics/antiplatelets; Z79.82 Long term (current) use of aspirin; Z95.0 Presence of cardiac pacemaker; Z95.5 Presence of coronary angioplasty implant and graft; Z90.81 Acquired absence of spleen; Z88.6 Allergy status to analgesic agent; Z88.8 Allergy status to other drugs, medicaments and biological substances; Z86.73 Personal history of transient ischemic attack (TIA), and cerebral infarction without residual deficits; Z82.49 Family history of ischemic heart disease and other diseases of the circulatory system
CPT/HCPCS: 36415; 71045; 71275; 80053; 83540; 83550; 83690; 83735; 83880; 84484; 85025; 85379; 85610; 93005; 96361; 96374; 99285; J1630; J7030; Q9967; G0378

== ENCOUNTER 2020-12-01 17:33 | Inpatient (IN) | payer MEDICAID ==
[~2020-12-01] VITALS: Ht 170.2 cm; Wt 64.1 kg
[~2020-12-01 17:33] MED LIST changes: +AMLO-186 PO
--- NOTE | 2020-12-01 17:45 | PHYS DOC ---
Past Medical History Past Medical History: Asthma, CAD, CHF, CVA, High Cholesterol, Hypertension, GA, Other Additional Past Medical Histor: VTACH, Drug abuse-Methamphetamine (IRAIS MARTELL DO) Past Surgical History: Pacemaker, Splenectomy, Other Additional Past Surgical Histo: 12 cardiac stents, multiple cardiac catheterizations,WITH DEFIB (IRAIS MARTELL DO) Smoking Status: Current Every Day Smoker Alcohol Use: Rarely Drug Use: Methamphetamine (IRAIS MARTELL DO) General Adult EDM: Chief Complaint: CHEST PAIN HPI: HPI: Patient is a 60 year old male who presented to ER due to substernal chest pain that radiated to his neck and his right arm started about 45 minutes ago. Patient denies any cough or fever, no COVID-19 exposure. Patient denies any abdominal pain, no nausea vomiting. Patient has history of coronary disease, had multiple stents in the past, patient also history of V. tach, had defibrillator placement in the past. Patient has been evaluated here multiple times due to chest pain, IV methamphetamine abuse. Patient said his online advertising director is not around here. Patient admitted of using IV methamphetamine yesterday. (IRAIS MARTELL DO) Review of Systems: Review of Systems: Constitutional: Denies fever or chills. [] Eyes: Denies change in visual acuity. [] HENT: Denies nasal congestion or sore throat. [] Respiratory: Denies cough or shortness of breath. [] Cardiovascular: Positive for chest pain, no edema GI: Denies abdominal pain, nausea, vomiting, bloody stools or diarrhea. [] : Denies dysuria. [] Musculoskeletal: Denies back pain or joint pain. [] Integument: Denies rash. [] Neurologic: Denies headache, focal weakness or sensory changes. [] Endocrine: Denies polyuria or polydipsia. [] Lymphatic: Denies swollen glands. [] Psychiatric: Denies depression or anxiety. [] (IRAIS MARTELL DO) Heart Score: HEART Score for Chest Pain: HEART Score for Chest Pain Response (Comments) Value History Moderately Suspicious 1 ECG Nonspecific Repolarizatio 1 Age >45 - < 65 1 Risk Factors >3 Risk Factors or Hx CAD 2 Troponin < Normal Limit 0 Total 5 Risk Factors: Risk Factors: DM, Current or recent (<one month) smoker, HTN, HLP, family history of CAD, obesity. Risk Scores: Score 0 - 3: 2.5% MACE over next 6 weeks - Discharge Home Score 4 - 6: 20.3% MACE over next 6 weeks - Admit for Clinical Observation Score 7 - 10: 72.7% MACE over next 6 weeks - Early Invasive Strategies (IRAIS MARTELL DO) Allergies: Allergies: Allergies Coded Allergies Type Severity Reaction Last Updated Verified acetaminophen Allergy Intermediate 08/04/20 Yes albuterol Adverse Reaction Intermediate 11/18/19 Yes ibuprofen Adverse Reaction Intermediate Nausea and Vomiting 11/18/19 Yes (IRAIS MARTELL DO) Physical Exam: PE: Constitutional: Well developed, well nourished, no acute distress, non-toxic appearance. [] HENT: Normocephalic, atraumatic, bilateral external ears normal, oropharynx moist, no oral exudates, nose normal. [] Eyes: PERRLA, EOMI, conjunctiva normal, no discharge. [] Neck: Normal range of motion, no tenderness, supple, no stridor. [] Cardiovascular:Heart rate regular rhythm, systolic murmur. Lungs & Thorax: Bilateral breath sounds clear to auscultation [] Abdomen: Bowel sounds normal, soft, no tenderness, no masses, no pulsatile masses. [] Skin: Warm, dry, no erythema, no rash. [] Back: No tenderness, no CVA tenderness. [] Extremities: No tenderness, no cyanosis, no clubbing, ROM intact, no edema. [] Neurologic: Alert and oriented X 3, normal motor function, normal sensory function, no focal deficits noted. [] Psychologic: Affect normal, judgement normal, mood normal. [] (IRAIS MARTELL DO) EKG: EKG: EKG was done at 1744, heart rate of 110 bpm, paced rhythm, ventricular premature complex, no ST segment ovation compared to EKG on November 01, 2020, no significant changes (IRAIS MARTELL DO) Radiology/Procedures: Radiology/Procedures: [] (IRAIS MARTELL DO) Course & Med Decision Making: Course & Med Decision Making Pertinent Labs and Imaging studies reviewed. (See chart for details) Patient is a 60-year-old male who presented to ER due to substernal chest pain that radiated to his neck and arm. Patient had history of methamphetamine abuse, admitted of using IV methamphetamine yesterday. Patient had extensive history of coronary disease, had multiple stents, has history of V. tach, status post defibrillator placement. Patient had a heart cath on August 05, 2020 show EF of 25%, no acute stenosis noted. Lab work and x-ray of the chest are pending at this time, endorsed care to the incoming physician at shift change, Dr. Mara Dennison. (IRAIS MARTELL DO) Course & Med Decision Making Assumed care of patient at checkout from Dr. Martell. At checkout patient had labs and chest x-ray pending. Shortly after my arrival patient started requesting pain medication. He became aggressive and was yelling at nursing staff. He was offered Toradol and nitro. Patient initially refused the Toradol and nitro. He states the nitro only helps for a little bit and that the Toradol upsets his stomach. He is requesting morphine or fentanyl. I have discussed with him that at this time given his intoxication with methamphetamine this does not seem to be safe. Patient then started to request that we put him in an ambulance and sent him to [facility]. I have discussed with the patient that we are happy to admit him here so he can see our online advertising director but that we do not have grand to transfer him at this time. Patient does appear to be acutely intoxicated on my examination. He does admit to using methamphetamines over the last 24 hours. Patient then started asking for Ativan. I offered him hydroxyzine for anxiety. Patient states that he needs Ativan in his IV. After further discussion patient has agreed to take the hydroxyzine. Will refrain from using narcotics and benzodiazepines here in the emergency room. Patient will be admitted for high risk chest pain (MARA DENNISON MD) Dragon Disclaimer: Dragon Disclaimer: This electronic medical record was generated, in whole or in part, using a voice recognition dictation system. (IRAIS MARTELL DO) Departure Departure Impression: Primary Impression: Chest pain Additional Impressions: Methamphetamine abuse Request for narcotic pain medication Patient requests medication, not given Disposition: ADMITTED INPT THIS HOSP Condition: STABLE Referrals: NO PCP (PCP) IRAIS MARTELL DO Dec 01, 2020 17:45 MARA DENNISON MD Dec 01, 2020 19:12
--- NOTE | 2020-12-01 18:28 | RAD ---
INDICATION: Reason: chest pain / Spl. Instructions: / History: COMPARISON: November 01, 2020 FINDINGS: Single view of chest obtained. Pacemaker is again identified. There is some elevation of the left hemidiaphragm. Air-filled prominen t loops of bowel are seen at the partially visualized upper abdomen. Mild interstitial prominence mary aterally with patchy opacity left lower base. IMPRESSION: * Mild interstitial opacities bilaterally which could be from mild pulmonary vascular congestion or interstitial infiltrate. * Mild haziness at the left lung base which could be from atelectasis given the elevated left hemidi aphragm. * Air-filled distended loops of bowel are seen in the partially visualized upper abdomen. Would beverly elate with symptoms and if the patient has symptoms dedicated imaging of the abdomen could BE obtaine d to better evaluate. Electronically signed by: Harsha Rahman MD (12/01/2020 6:26 PM) [id number]
[2020-12-01] MEDS ORDERED: ASPIRIN CHEWABLE 81 MG TABLET. PO ONE (18:30)
[2020-12-01] MEDS ORDERED: KETOROLAC 30 MG/ML VIAL. IVP ONE ×2 (18:30→19:15)
[2020-12-01 18:50] LABS: BASO # 0.1 x10^3/uL (0.0-0.2); BASO % 2 % (0-3); EOS # 0.3 x10^3/uL (0.0-0.7); EOS % 5 % (0-3); HEMATOCRIT 30.3 % (39.0-53.0); HEMOGLOBIN 10.4 g/dL (13.0-17.5); LYMPH # 0.9 x10^3/uL (1.0-4.8); LYMPH % 15 % (24-48); MEAN CORPUSCULAR HEMOGLOBIN 26 pg (25-35); MEAN CORPUSCULAR HGB CONC 34 g/dL (31-37); MEAN CORPUSCULAR VOLUME 75 fL (79-100); MONO # 0.6 x10^3/uL (0.0-1.1); MONO % 10 % (0-9); NEUT # 3.8 x10^3/uL (1.8-7.7); NEUT % 68 % (31-73); PLATELET COUNT 269 x10^3/uL (140-400); RED BLOOD COUNT 4.06 x10^6/uL (4.30-5.70); RED CELL DISTRIBUTION WIDTH 18.1 % (11.5-14.5); WHITE BLOOD COUNT 5.6 x10^3/uL (4.0-11.0)
[2020-12-01 19:01] LABS: CALCIUM 9.2 mg/dL (8.5-10.1)
[2020-12-01 19:07] LABS: ALBUMIN 3.4 g/dL (3.4-5.0); TOTAL BILIRUBIN 0.3 mg/dL (0.2-1.0); TOTAL PROTEIN 6.9 g/dL (6.4-8.2)
--- NOTE | 2020-12-01 19:12 | EKG ---
[facility] [address] [place] [address] Test Date: 2020-12-01 Test Time: 17:42:55 Pat Name: CARMELA JOSEPH Department: Room: Gender: M Director Visual: : 1960 Requested By: IRAIS PATTERSON Order Number: [id number] Reading MD: Rao Pritchett Measurements Intervals [place] Rate: 110 P: 49 MA: 90 QRS: -54 QRSD: 148 T: 135 QT: 372 QTc: 510 Interpretive Statements ATRIAL SENSED VENTRICULAR PACED RHYTHM VENTRICULAR PREMATURE COMPLEXES Electronically Signed On 12-06-2020 9:57:53 GARMENT CUTTER by Rao Pritchett
[2020-12-01] MEDS ORDERED: hydrOXYzine 25 MG TABLET PO PRN (19:15)
--- NOTE | 2020-12-01 19:41 | PDOC1 ---
History and Physical Date of Admission Date of Admission DATE: 12/01/20 TIME: 19:41 Identification/Chief Complaint Chief Complaint Chest pain Source Source: Chart review, Patient History of Present Illness History of Present Illness Patient is a 59yo M with past medical history CAD with stent, CHF, HTN, HLD, VT s/p AICD, COPD/asthma, GERD, OA, anxiety, IV methamphetamine abuse presents to the ED with complaint of sharp chest pain with radiation to his right neck. Patient is well-known to our service with multiple admissions with similar complaints. He states today was unusual because his chest pain only radiates to the left but this time radiated to the right. States his pain is constant but fluctuating in severity, 79/10. Had a recent left heart catheterization on 08/05/2020 showing patent previously placed stents in the left anterior descending artery, diagonal branch and left posterior descending artery, the obtuse marginal branch and nondominant right coronary artery showed 100% chronic total occlusions, severe left ventricular systolic dysfunction with ejection fraction estimated at 20 to 25% with 2+ mitral regurgitation. He was recommended optimization of medical therapy for coronary disease and ischemic cardiomyopathy. He denies any associated leg swelling. He is currently requesting food, stating he has not eaten in 4 days because he has been doing methamphetamine. Initial troponin <0.017, BNP 1179. Will admit patient for further medical management. Past Medical History Cardiovascular: CAD, CHF, HTN, Hyperlipidemia, Other Pulmonary: Asthma CENTRAL NERVOUS SYSTEM: CVA GI: GERD Heme/Onc: No pertinent hx Hepatobiliary: No pertinent hx Psych: Anxiety Musculoskeletal: Osteoarthritis Rheumatologic: No pertinent hx Infectious disease: No pertinent hx Renal/: No pertinent hx Endocrine: No pertinent hx Past Surgical History Past Surgical History: Pacemaker, Other Family History Family History: Hypertension Social History Smoke: <1 pack per day ALCOHOL: none Drugs: Crystal meth, Other Current Problem List Problem List Problems Medical Problems: (1) Chest pain Status: Acute (2) Patient requests medication, not given Status: Acute (3) Request for narcotic pain medication Status: Acute Current Medications Current Medications Current Medications Aspirin (Aspirin Chewable) 324 mg 1X ONCE PO Last administered on 12/01/20at 18:33; Start 12/01/20 at 18:30; Stop 12/01/20 at 18:31; Status DC Ketorolac Tromethamine (Toradol 30mg Vial) 30 mg 1X ONCE IVP ; Start 12/01/20 at 18:30; Stop 12/01/20 at 18:31; Status DC Ketorolac Tromethamine (Toradol 30mg Vial) 30 mg 1X ONCE IVP Last administered on 12/01/20at 19:13; Start 12/01/20 at 19:15; Stop 12/01/20 at 19:16; Status DC Hydroxyzine HCl (Atarax) 25 mg 1X PRN PO ITCHING Last administered on 12/01/20at 19:12; Start 12/01/20 at 19:15 Active Scripts Active Amlodipine Besylate 5 Mg Tablet 2.5 Mg PO DAILY Tramadol Hcl 50 Mg Tablet 50 Mg PO PRN TID PRN Aspirin 81 Mg Tab.chew 1 Tab PO DAILY Reported Crestor (Rosuvastatin Calcium) 40 Mg Tablet 40 Mg PO HS Metoprolol Succinate ( Xl ) (Metoprolol Succinate) 25 Mg Tab.er.24h 12.5 Mg PO DAILY Spiriva (Tiotropium [place]) 18 Mcg Cap.w.dev 1 Cap IH DAILY NITROGLYCERIN SubLingual (Nitroglycerin) 0.4 Mg Tab.subl 0.4 Mg SL PRN Q5MIN PRN Lyrica (Pregabalin) 300 Mg Capsule 1 Cap PO BID Plavix (Clopidogrel Bisulfate) 75 Mg Tablet 75 Mg PO DAILY Allergies Allergies: Coded Allergies: acetaminophen (Verified Allergy, Intermediate, 08/04/20) albuterol (Verified Adverse Reaction, Intermediate, 11/18/19) Patient states "it speeds my heart up too much" ibuprofen (Verified Adverse Reaction, Intermediate, Nausea and Vomiting, 11/18/19) ROS Review of System GENERAL: No history of weight change, weakness or fevers. SKIN: No bruising, hair changes or rashes. EYES: No blurred, double or loss of vision. NOSE AND THROAT: No history of nosebleeds, hoarseness or sore throat. HEART: Chest pain. Denies palpitations. LUNGS: Denies cough, hemoptysis, wheezing or shortness of breath. GASTROINTESTINAL: Denies nausea, vomiting, abdominal pain. GENITOURINARY: Denies dysuria, frequency, urgency, hematuria. NEUROLOGIC: Denies history of numbness, tingling, tremor or weakness. PSYCHIATRIC: Denies anxiety, denies depression. ENDOCRINE: No history of heat or cold intolerance, polyuria or polydipsia. EXTREMITIES: Denies muscle weakness, joint pain, pain on walking or stiffness. Physical Exam Physical Exam General: Alert, Oriented X3, Cooperative, No acute distress HEENT: PERRLA, EOMI Lungs: Clear to auscultation, Normal air movement Heart: RRR, no murmurs Cardiovascular: S1, S2 Abdomen: Normal bowel sounds, Soft, No tenderness Extremities: No clubbing, No cyanosis Skin: No rashes, No significant lesion Neuro: Normal speech, Normal tone, Sensation intact Psych/Mental Status: Mental status NL, Mood NL Vitals Vitals Vital Signs Date Time Temp Pulse Resp B/P (MAP) Pulse Ox O2 Delivery O2 Flow Rate FiO2 12/01/20 17:34 97.8 113 24 106/69 (81) 94 Room Air 97.8 Labs Labs Laboratory Tests Test 12/01/20 18:40 White Blood Count 5.6 x10^3/uL (4.0-11.0) Red Blood Count 4.06 x10^6/uL (4.30-5.70) Hemoglobin 10.4 g/dL (13.0-17.5) Hematocrit 30.3 % (39.0-53.0) Mean Corpuscular Volume 75 fL (79-100) Mean Corpuscular Hemoglobin 26 pg (25-35) Mean Corpuscular Hemoglobin Concent 34 g/dL (31-37) Red Cell Distribution Width 18.1 % (11.5-14.5) Platelet Count 269 x10^3/uL (140-400) Neutrophils (%) (Auto) 68 % (31-73) Lymphocytes (%) (Auto) 15 % (24-48) Monocytes (%) (Auto) 10 % (0-9) Eosinophils (%) (Auto) 5 % (0-3) Basophils (%) (Auto) 2 % (0-3) Neutrophils # (Auto) 3.8 x10^3/uL (1.8-7.7) Lymphocytes # (Auto) 0.9 x10^3/uL (1.0-4.8) Monocytes # (Auto) 0.6 x10^3/uL (0.0-1.1) Eosinophils # (Auto) 0.3 x10^3/uL (0.0-0.7) Basophils # (Auto) 0.1 x10^3/uL (0.0-0.2) Sodium Level 132 mmol/L (136-145) Potassium Level 4.0 mmol/L (3.5-5.1) Chloride Level 98 mmol/L (98-107) Carbon Dioxide Level 24 mmol/L (21-32) Anion Gap 10 (6-14) Blood Urea Nitrogen 8 mg/dL (8-26) Creatinine 1.0 mg/dL (0.7-1.3) Estimated GFR (Cockcroft-Gault) 76.0 BUN/Creatinine Ratio 8 (6-20) Glucose Level 100 mg/dL (70-99) Calcium Level 9.2 mg/dL (8.5-10.1) Total Bilirubin 0.3 mg/dL (0.2-1.0) Aspartate Amino Transf (AST/SGOT) 18 U/L (15-37) Alanine Aminotransferase (ALT/SGPT) 18 U/L (16-63) Alkaline Phosphatase 92 U/L (46-116) Troponin I Quantitative < 0.017 ng/mL (0.000-0.055) YU-Kgs-E-Type Natriuretic Peptide 1179 pg/mL (0-124) Total Protein 6.9 g/dL (6.4-8.2) Albumin 3.4 g/dL (3.4-5.0) Albumin/Globulin Ratio 1.0 (1.0-1.7) Lipase 186 U/L (73-393) Laboratory Tests Test 12/01/20 18:40 White Blood Count 5.6 x10^3/uL (4.0-11.0) Red Blood Count 4.06 x10^6/uL (4.30-5.70) Hemoglobin 10.4 g/dL (13.0-17.5) Hematocrit 30.3 % (39.0-53.0) Mean Corpuscular Volume 75 fL (79-100) Mean Corpuscular Hemoglobin 26 pg (25-35) Mean Corpuscular Hemoglobin Concent 34 g/dL (31-37) Red Cell Distribution Width 18.1 % (11.5-14.5) Platelet Count 269 x10^3/uL (140-400) Neutrophils (%) (Auto) 68 % (31-73) Lymphocytes (%) (Auto) 15 % (24-48) Monocytes (%) (Auto) 10 % (0-9) Eosinophils (%) (Auto) 5 % (0-3) Basophils (%) (Auto) 2 % (0-3) Neutrophils # (Auto) 3.8 x10^3/uL (1.8-7.7) Lymphocytes # (Auto) 0.9 x10^3/uL (1.0-4.8) Monocytes # (Auto) 0.6 x10^3/uL (0.0-1.1) Eosinophils # (Auto) 0.3 x10^3/uL (0.0-0.7) Basophils # (Auto) 0.1 x10^3/uL (0.0-0.2) Sodium Level 132 mmol/L (136-145) Potassium Level 4.0 mmol/L (3.5-5.1) Chloride Level 98 mmol/L (98-107) Carbon Dioxide Level 24 mmol/L (21-32) Anion Gap 10 (6-14) Blood Urea Nitrogen 8 mg/dL (8-26) Creatinine 1.0 mg/dL (0.7-1.3) Estimated GFR (Cockcroft-Gault) 76.0 BUN/Creatinine Ratio 8 (6-20) Glucose Level 100 mg/dL (70-99) Calcium Level 9.2 mg/dL (8.5-10.1) Total Bilirubin 0.3 mg/dL (0.2-1.0) Aspartate Amino Transf (AST/SGOT) 18 U/L (15-37) Alanine Aminotransferase (ALT/SGPT) 18 U/L (16-63) Alkaline Phosphatase 92 U/L (46-116) Troponin I Quantitative < 0.017 ng/mL (0.000-0.055) FZ-Aom-F-Type Natriuretic Peptide 1179 pg/mL (0-124) Total Protein 6.9 g/dL (6.4-8.2) Albumin 3.4 g/dL (3.4-5.0) Albumin/Globulin Ratio 1.0 (1.0-1.7) Lipase 186 U/L (73-393) Images Images INDICATION: Reason: chest pain / Spl. Instructions: / History: COMPARISON: November 01, 2020 FINDINGS: Single view of chest obtained. Pacemaker is again identified. There is some elevation of the left hemidiaphragm. Air-filled prominent loops of bowel are seen at the partially visualized upper abdomen. Mild interstitial prominence bilaterally with patchy opacity left lower base. IMPRESSION: * Mild interstitial opacities bilaterally which could be from mild pulmonary vascular congestion or interstitial infiltrate. * Mild haziness at the left lung base which could be from atelectasis given the elevated left hemidiaphragm. * Air-filled distended loops of bowel are seen in the partially visualized upper abdomen. Would correlate with symptoms and if the patient has symptoms dedicated imaging of the abdomen could BE obtained to better evaluate. VTE Prophylaxis Ordered VTE Prophylaxis Devices: No VTE Pharmacological Prophylaxi: Yes Assessment/Plan Assessment/Plan Unstable angina CAD Elevated BNP Plan: Troponins undetectable; will continue to trend Consulted cardiology Morphine, nitroglycerin as needed Resume home medications FEN - Cardiac diet PPX - Heparin FULL CODE Dispo - inpatient for above Justifications for Admission Other Justification ACS ARABELLA PONCE MD Dec 01, 2020 19:41
[2020-12-01] MEDS ORDERED: NICOTINE 21MG PATCH. TD PRN (20:00)
[2020-12-01] MEDS ORDERED: NITROGLYCERIN SUBLINGUAL 0.4 MG BOTTLE OF 25. SL PRN (20:00)
[2020-12-01] MEDS ORDERED: NICOTINE 14MG PATCH. TD PRN (20:00)
[2020-12-01] MEDS ORDERED: MAGNESIUM HYDROXIDE 2,400 MG/30 ML ORAL.SUSP. PO PRN (20:15)
[2020-12-01] MEDS ORDERED: CALCIUM CARBONATE 500 MG TAB.CHEW PO PRN (20:15)
[2020-12-01] MEDS ORDERED: ACETAMINOPHEN 325 MG TABLET. PO PRN (20:15)
[2020-12-01] MEDS ORDERED: ONDANSETRON PF 4 MG/2 ML VIAL. IVP PRN (20:15)
[2020-12-01] MEDS ORDERED: MAG HYDROX/ALUMINUM HYD/SIMETH 30 ML ORAL.SUSP PO PRN (20:15)
[2020-12-01] MEDS ORDERED: BISACODYL 10 MG SUPP.RECT. PR PRN (20:15)
[2020-12-01 20:19] VITALS: BP 115/75
[2020-12-01] MEDS: ZOLPIDEM 5 MG TABLET. PO PRN (20:36)
[2020-12-01] MEDS: HEPARIN for SUB-Q USE 5,000 UNIT/ML VIAL. SQ SCH (20:36)
[2020-12-02] MEDS: HEPARIN for SUB-Q USE 5,000 UNIT/ML VIAL. SQ SCH ×3 (04:41→20:57)
[2020-12-02 05:18] LABS: BASO # 0.1 x10^3/uL (0.0-0.2); BASO % 1 % (0-3); EOS # 0.2 x10^3/uL (0.0-0.7); EOS % 5 % (0-3); HEMATOCRIT 30.8 % (39.0-53.0); LYMPH % 21 % (24-48); MEAN CORPUSCULAR HEMOGLOBIN 24 pg (25-35); MEAN CORPUSCULAR HGB CONC 33 g/dL (31-37); MEAN CORPUSCULAR VOLUME 75 fL (79-100); MONO # 0.7 x10^3/uL (0.0-1.1); MONO % 16 % (0-9); NEUT # 2.6 x10^3/uL (1.8-7.7); NEUT % 57 % (31-73); PLATELET COUNT 274 x10^3/uL (140-400); RED BLOOD COUNT 4.11 x10^6/uL (4.30-5.70); RED CELL DISTRIBUTION WIDTH 18.2 % (11.5-14.5); WHITE BLOOD COUNT 4.6 x10^3/uL (4.0-11.0)
[2020-12-02 05:34] LABS: CALCIUM 9.1 mg/dL (8.5-10.1); POTASSIUM 3.6 mmol/L (3.5-5.1)
[2020-12-02 07:00] VITALS: BP 111/55
--- NOTE | 2020-12-02 07:32 | PDOC ---
[employer] PROGRESS NOTE Date of Service DOS: DATE: 12/02/20 TIME: 07:22 Chief Complaint Chief Complaint A/P: Chest pain - high risk ACS given his history and lateral TWI, will trend troponins, telemetry Acute on chronic CHF - left ventricular systolic dysfunction with ejection fraction estimated at 20 to 25% Hypokalemia - will replace. 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 Fluid dynamics and CXR seem to indicate acute CHF, will initiate IV lasix CAD - s/p x4 cardiac catherizations. multiple stents in the past. At least 12 stents reported per patient - previously placed stents in the left anterior descending artery, diagonal branch and left posterior descending artery. The obtuse marginal branch and nondominant right coronary artery showed 100% chronic total occlusions, described in prior cardiac catheterization. (Cath report from 07/2020) Mitral regurgitation h/o VT s/p AICD - medtronic. No HTN - cont meds HLD - cont meds Active IV meth use - used prior to admission. Tox screen pending and sees a counselor through [facility] Tobaccoism -counseled on cessation he is nondistended nicotine patch states he will need to start smoking as soon as he leaves Anxiety/agitation -calmed with verbal counseling, haldol. Prn zyprexa ordered History of Drug seeking behavior -advised with his substance abuse history is high risk and should not be given an opioid prescription on discharge and to minimize opioids while inpatient Anemia - likely from chronic substance abuse, will need monitoring outpatient. Check iron levels FEN - Cardiac PPX - Lovenox FULL CODE Dispo - inpatient for high risk ACS History of Present Illness History of Present Illness Mr Hicks is a 59yo M w/ PMHx CAD x multiple JANET, CHF, HTN, HLD, VT s/p AICD, COPD/asthma, GERD, OA, anxiety, IV methamphetamine abuse who comes directly from his "meth house" to the ED with complaint of sharp chest pain with radiation to his right neck. Patient is well-known to our service with multiple admissions with similar complaints. Notes the pain on 12/01/20 was unusual because his chest pain only radiates to the left but this time radiated to the right. States his pain is constant but fluctuating in severity, 79/10. Had a recent left heart catheterization on 08/05/2020 showing patent previously placed stents in the left anterior descending artery, diagonal branch and left posterior descending artery, the obtuse marginal branch and nondominant right coronary artery showed 100% chronic total occlusions, severe left ventricular systolic dysfunction with ejection fraction estimated at 20 to 25% with 2+ mitral regurgitation. He was recommended optimization of medical therapy for coronary disease and ischemic cardiomyopathy. He denies any associated leg swelling. He is currently requesting food, stating he has not eaten in 4 days because he has been doing methamphetamine IV in both arms. EKG with lateral TWI and leftward axis, no STEMI. CXR with interstitial findings concerning for acute CHF Troponin <0.017, BNP 1179. Historically with multiple PCIs- C at [facility] Oct 2017 showed showed patent mid LAD stent, patent 1st diagonal stent, total chronic occlusion of first obtuse marginal with territory infarct but no indication for PCI, patent stent in left AV groove artery, patent stent in LPDA, non-dominant 100 % stenosis of proximal RCA. Seen by cardiology here in October. Admit for further work-up of his coronary artery disease BP low. Telemetry with tachycardia multiple PVCs. Still short of breath still with pain. He notes he still can be 2 to 6 weeks until he is able to get into methamphetamine rehab and he has been injecting for the last 4 days and is "starving". Pain relieved with NTG, but only temporarily. Plan: Cont CVC IV lasix Restart home metoprolol Nitropaste if BP allows Inhaled ipratropium Vitals/I&O Vitals/I&O: Vital Signs Date Time Temp Pulse Resp B/P (MAP) Pulse Ox O2 Delivery O2 Flow Rate FiO2 12/01/20 21:16 Room Air 12/01/20 20:19 98.5 109 20 115/75 (88) 99 98.5 I & O 12/01/20 12/01/20 12/02/20 15:00 23:00 07:00 Intake Total 480 ml 0 ml Balance 480 ml 0 ml Physical Exam General: Alert, Oriented X3, Cooperative, moderate distress Heart: Regular rate, Normal S1, Normal S2 Lungs: Wheezing, Crackles Labs Labs: Laboratory Tests Test 12/01/20 18:40 12/02/20 04:27 White Blood Count 5.6 x10^3/uL (4.0-11.0) 4.6 x10^3/uL (4.0-11.0) Red Blood Count 4.06 x10^6/uL (4.30-5.70) 4.11 x10^6/uL (4.30-5.70) Hemoglobin 10.4 g/dL (13.0-17.5) 10.0 g/dL (13.0-17.5) Hematocrit 30.3 % (39.0-53.0) 30.8 % (39.0-53.0) Mean Corpuscular Volume 75 fL (79-100) 75 fL (79-100) Mean Corpuscular Hemoglobin 26 pg (25-35) 24 pg (25-35) Mean Corpuscular Hemoglobin Concent 34 g/dL (31-37) 33 g/dL (31-37) Red Cell Distribution Width 18.1 % (11.5-14.5) 18.2 % (11.5-14.5) Platelet Count 269 x10^3/uL (140-400) 274 x10^3/uL (140-400) Neutrophils (%) (Auto) 68 % (31-73) 57 % (31-73) Lymphocytes (%) (Auto) 15 % (24-48) 21 % (24-48) Monocytes (%) (Auto) 10 % (0-9) 16 % (0-9) Eosinophils (%) (Auto) 5 % (0-3) 5 % (0-3) Basophils (%) (Auto) 2 % (0-3) 1 % (0-3) Neutrophils # (Auto) 3.8 x10^3/uL (1.8-7.7) 2.6 x10^3/uL (1.8-7.7) Lymphocytes # (Auto) 0.9 x10^3/uL (1.0-4.8) 1.0 x10^3/uL (1.0-4.8) Monocytes # (Auto) 0.6 x10^3/uL (0.0-1.1) 0.7 x10^3/uL (0.0-1.1) Eosinophils # (Auto) 0.3 x10^3/uL (0.0-0.7) 0.2 x10^3/uL (0.0-0.7) Basophils # (Auto) 0.1 x10^3/uL (0.0-0.2) 0.1 x10^3/uL (0.0-0.2) Sodium Level 132 mmol/L (136-145) 135 mmol/L (136-145) Potassium Level 4.0 mmol/L (3.5-5.1) 3.6 mmol/L (3.5-5.1) Chloride Level 98 mmol/L (98-107) 101 mmol/L (98-107) Carbon Dioxide Level 24 mmol/L (21-32) 23 mmol/L (21-32) Anion Gap 10 (6-14) 11 (6-14) Blood Urea Nitrogen 8 mg/dL (8-26) 15 mg/dL (8-26) Creatinine 1.0 mg/dL (0.7-1.3) 1.0 mg/dL (0.7-1.3) Estimated GFR (Cockcroft-Gault) 76.0 76.0 BUN/Creatinine Ratio 8 (6-20) Glucose Level 100 mg/dL (70-99) 101 mg/dL (70-99) Calcium Level 9.2 mg/dL (8.5-10.1) 9.1 mg/dL (8.5-10.1) Total Bilirubin 0.3 mg/dL (0.2-1.0) Aspartate Amino Transf (AST/SGOT) 18 U/L (15-37) Alanine Aminotransferase (ALT/SGPT) 18 U/L (16-63) Alkaline Phosphatase 92 U/L (46-116) Troponin I Quantitative < 0.017 ng/mL (0.000-0.055) WV-Akq-B-Type Natriuretic Peptide 1179 pg/mL (0-124) Total Protein 6.9 g/dL (6.4-8.2) Albumin 3.4 g/dL (3.4-5.0) Albumin/Globulin Ratio 1.0 (1.0-1.7) Lipase 186 U/L (73-393) Assessment and Plan Assessmemt and Plan Problems Medical Problems: (1) Chest pain Status: Acute (2) Patient requests medication, not given Status: Acute (3) Request for narcotic pain medication Status: Acute Comment Review of Relevant I have reviewed the following items kvng (where applicable) has been applied. Medications: Current Medications Medications (Trade) Dose Ordered Sig/Ani Route PRN Reason Start Time Stop Time Status Last Admin Dose Admin Aspirin (Aspirin Chewable) 324 mg 1X ONCE PO 12/01/20 18:30 12/01/20 18:31 DC 12/01/20 18:33 Ketorolac Tromethamine (Toradol 30mg Vial) 30 mg 1X ONCE IVP 12/01/20 19:15 12/01/20 19:16 DC 12/01/20 19:13 Hydroxyzine HCl (Atarax) 25 mg 1X PRN PO ITCHING 12/01/20 19:15 12/01/20 19:12 Zolpidem Tartrate (Ambien) 5 mg PRN QHS PRN PO INSOMNIA, MAY REPEAT IN 1HR 12/01/20 20:15 12/01/20 20:36 Justifications for Admission Other Justification ACS DAVID ERNANDEZ MD Dec 02, 2020 07:32
[2020-12-02] MEDS: MORPHINE SULFATE 2 MG/ML VIAL. IV PRN ×3 (10:21→19:34)
[2020-12-02 11:00] VITALS: BP 91/57
[2020-12-02] MEDS ORDERED: NITROGLYCERIN SUBLINGUAL 0.4 MG BOTTLE OF 25. SL PRN (12:00)
[2020-12-02 12:14] VITALS: BP 108/69
[2020-12-02] MEDS: NITROGLYCERIN OINT 1 GM PACKET. TP SCH ×3 (13:00→20:57)
[2020-12-02] MEDS: IPRATROPIUM BROMIDE 0.5 MG/2.5 ML NEBU. NEB SCH ×3 (13:00→19:37)
[2020-12-02] MEDS ORDERED: FUROSEMIDE 40 MG/4 ML VIAL. IVP ONE (13:00)
[2020-12-02] MEDS: ASPIRIN CHEWABLE 81 MG TABLET. PO SCH (13:40)
[2020-12-02] MEDS: CLOPIDOGREL BISULFATE 75 MG TABLET PO SCH (13:40)
[2020-12-02] MEDS: METOPROLOL SUCC 24HR ER 25 MG TAB.ER.24H. PO SCH (13:41)
--- NOTE | 2020-12-02 14:10 | NUR ---
SW following. Discussed with RN, pt from home in the [facility], room air, cardiac diet. [facility] referral for meth abuse. BENJAMÍN will continue to follow. Addendum: 12/02/20 at 1455 by SUNNY BUTTS Anupam (ZACARIAS) met with pt, pt uses meth daily, no SI/HI/ mental health dx. Pt has had treatment in the past at [facility], and is open with [facility] in [place]. Pt has a skilled nursing case manager, who he speaks to regularly. Pt will get help when he is ready. No SW needs at this time. Cleared by [facility] team.
[2020-12-02 14:40] VITALS: BP 90/52
[2020-12-02 19:00] VITALS: BP 102/42
--- NOTE | 2020-12-02 19:10 | NUR ---
Pt in bed assessment completed, Pt very angry stated he do not have time to answer any questions, poc explained pt stated he will only be taking certain meds tonight will resume care and continue to monitor pt.
[2020-12-02] MEDS: ATORVASTATIN CALCIUM 40 MG TABLET. PO SCH (20:55)
[2020-12-02] MEDS: ZOLPIDEM 5 MG TABLET. PO PRN (20:56)
[2020-12-02] MEDS: PREGABALIN 75 MG CAPSULE PO SCH (20:56)
[2020-12-02] MEDS: PSYLLIUM HUSK (SUGAR FREE) 1 PKT PACKET PO SCH (20:57)
[2020-12-02 22:35] VITALS: BP 83/52
[2020-12-03] VITALS (7 sets, daily range): BP systolic 81–114; BP diastolic 42–64
[2020-12-03] MEDS: MORPHINE SULFATE 2 MG/ML VIAL. IV PRN ×2 (03:29→08:13)
[2020-12-03] MEDS: NITROGLYCERIN OINT 1 GM PACKET. TP SCH ×3 (06:00→18:00)
[2020-12-03] MEDS: HEPARIN for SUB-Q USE 5,000 UNIT/ML VIAL. SQ SCH ×3 (06:00→21:45)
[2020-12-03] MEDS: IPRATROPIUM BROMIDE 0.5 MG/2.5 ML NEBU. NEB SCH ×2 (07:53→11:46)
[2020-12-03] MEDS: CLOPIDOGREL BISULFATE 75 MG TABLET PO SCH (08:11)
[2020-12-03] MEDS: ASPIRIN CHEWABLE 81 MG TABLET. PO SCH (08:12)
[2020-12-03] MEDS: PREGABALIN 75 MG CAPSULE PO SCH ×2 (08:12→21:44)
[2020-12-03 09:08] LABS: BASO # 0.1 x10^3/uL (0.0-0.2); BASO % 2 % (0-3); EOS # 0.3 x10^3/uL (0.0-0.7); EOS % 7 % (0-3); HEMATOCRIT 31.8 % (39.0-53.0); HEMOGLOBIN 10.3 g/dL (13.0-17.5); LYMPH # 1.1 x10^3/uL (1.0-4.8); LYMPH % 25 % (24-48); MEAN CORPUSCULAR HEMOGLOBIN 25 pg (25-35); MEAN CORPUSCULAR HGB CONC 33 g/dL (31-37); MEAN CORPUSCULAR VOLUME 76 fL (79-100); MONO # 0.7 x10^3/uL (0.0-1.1); MONO % 16 % (0-9); NEUT # 2.1 x10^3/uL (1.8-7.7); NEUT % 50 % (31-73); PLATELET COUNT 247 x10^3/uL (140-400); RED BLOOD COUNT 4.21 x10^6/uL (4.30-5.70); RED CELL DISTRIBUTION WIDTH 18.1 % (11.5-14.5); WHITE BLOOD COUNT 4.2 x10^3/uL (4.0-11.0)
[2020-12-03 09:26] LABS: CALCIUM 8.5 mg/dL (8.5-10.1); POTASSIUM 3.8 mmol/L (3.5-5.1)
[2020-12-03] MEDS: METOPROLOL SUCC 24HR ER 25 MG TAB.ER.24H. PO SCH (12:18)
[2020-12-03] MEDS ORDERED: POTASSIUM BICARB 20 MEQ EFFERVESCENT TABLET. PO ONE (13:00)
[2020-12-03] MEDS ORDERED: traMADol 50 MG TABLET PO PRN (13:00)
--- NOTE | 2020-12-03 13:00 | PDOC ---
[employer] PROGRESS NOTE Date of Service DOS: DATE: 12/03/20 TIME: 12:50 Chief Complaint Chief Complaint A/P: Chest pain - high risk ACS given his history and lateral TWI, will trend troponins, telemetry Acute on chronic CHF - left ventricular systolic dysfunction with ejection fraction estimated at 20 to 25% Hypokalemia - will replace. 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 Fluid dynamics and CXR seem to indicate acute CHF, will initiate IV lasix CAD - s/p x4 cardiac catherizations. multiple stents in the past. At least 12 stents reported per patient - previously placed stents in the left anterior descending artery, diagonal branch and left posterior descending artery. The obtuse marginal branch and nondominant right coronary artery showed 100% chronic total occlusions, described in prior cardiac catheterization. (Cath report from 07/2020) Mitral regurgitation h/o VT s/p AICD - medtronic. No events HTN - cont meds HLD - cont meds Active IV meth use - used prior to admission. Tox screen pending and sees a counselor [facility]counseled on cessation he is nondistended nicotine patch states he will need to start smoking as soon as he leaves Anxiety/agitation -calmed with verbal counseling, haldol. Prn zyprexa ordered History of Drug seeking behavior -advised with his substance abuse history is high risk and should not be given an opioid prescription on discharge and to minimize opioids while inpatient Anemia - likely from chronic substance abuse, will need monitoring outpatient. Check iron levels FEN - Cardiac PPX - Lovenox FULL CODE Dispo - inpatient for high risk ACS History of Present Illness History of Present Illness Mr Hicks is a 59yo M w/ PMHx CAD x multiple JANET, CHF, HTN, HLD, VT s/p AICD, COPD/asthma, GERD, OA, anxiety, IV methamphetamine abuse who comes directly from his "meth house" to the ED with complaint of sharp chest pain with radiation to his right neck. Patient is well-known to our service with multiple admissions with similar complaints. Notes the pain on 12/01/20 was unusual because his chest pain only radiates to the left but this time radiated to the right. States his pain is constant but fluctuating in severity, 79/10. Had a recent left heart catheterization on 08/05/2020 showing patent previously placed stents in the left anterior descending artery, diagonal branch and left posterior descending artery, the obtuse marginal branch and nondominant right coronary artery showed 100% chronic total occlusions, severe left ventricular systolic dysfunction with ejection fraction estimated at 20 to 25% with 2+ mitral regurgitation. He was recommended optimization of medical therapy for coronary disease and ischemic cardiomyopathy. He denies any associated leg swelling. He is currently requesting food, stating he has not eaten in 4 days because he has been doing methamphetamine IV in both arms. EKG with lateral TWI and leftward axis, no STEMI. CXR with interstitial findings concerning for acute CHF Troponin <0.017, BNP 1179. Historically with multiple PCIs- [facility] at [facility] Oct 2017 showed showed patent mid LAD stent, patent 1st diagonal stent, total chronic occlusion of first obtuse marginal with territory infarct but no indication for PCI, patent stent in left AV groove artery, patent stent in LPDA, non-dominant 100 % stenosis of proximal RCA. Seen by cardiology here in October. Admit for further work-up of his coronary artery disease 12/02: BP low. Telemetry with tachycardia multiple PVCs. Still short of breath still with pain. He notes he still can be 2 to 6 weeks until he is able to get into methamphetamine rehab and he has been injecting for the last 4 days and is "starving". Pain relieved with NTG, but only temporarily. BP still low. HR decreased. Less short of breath, requesting every 4 hours IV morphine. Very verbally abusive to staff, apologetic after. Notes he may be able to get into rehab on 12/08/2020 and his daughter will take him into her custody for personal safety on 12/06/2020. Still with right shoulder pain. Plan: Nitropaste if BP allows Topical voltaren Daily BMP, mag Inhaled ipratropium Vitals/I&O Vitals/I&O: Vital Signs Date Time Temp Pulse Resp B/P (MAP) Pulse Ox O2 Delivery O2 Flow Rate FiO2 12/03/20 12:18 90 114/51 12/03/20 10:30 98.0 16 96 Room Air 98.0 I & O 12/02/20 12/02/20 12/03/20 15:00 23:00 07:00 Intake Total 720 ml 240 ml 480 ml Balance 720 ml 240 ml 480 ml Physical Exam General: Alert, Oriented X3, Cooperative, moderate distress Heart: Regular rate, Normal S1, Normal S2 Lungs: Wheezing, Crackles Labs Labs: Laboratory Tests Test 12/03/20 08:20 White Blood Count 4.2 x10^3/uL (4.0-11.0) Red Blood Count 4.21 x10^6/uL (4.30-5.70) Hemoglobin 10.3 g/dL (13.0-17.5) Hematocrit 31.8 % (39.0-53.0) Mean Corpuscular Volume 76 fL (79-100) Mean Corpuscular Hemoglobin 25 pg (25-35) Mean Corpuscular Hemoglobin Concent 33 g/dL (31-37) Red Cell Distribution Width 18.1 % (11.5-14.5) Platelet Count 247 x10^3/uL (140-400) Neutrophils (%) (Auto) 50 % (31-73) Lymphocytes (%) (Auto) 25 % (24-48) Monocytes (%) (Auto) 16 % (0-9) Eosinophils (%) (Auto) 7 % (0-3) Basophils (%) (Auto) 2 % (0-3) Neutrophils # (Auto) 2.1 x10^3/uL (1.8-7.7) Lymphocytes # (Auto) 1.1 x10^3/uL (1.0-4.8) Monocytes # (Auto) 0.7 x10^3/uL (0.0-1.1) Eosinophils # (Auto) 0.3 x10^3/uL (0.0-0.7) Basophils # (Auto) 0.1 x10^3/uL (0.0-0.2) Sodium Level 134 mmol/L (136-145) Potassium Level 3.8 mmol/L (3.5-5.1) Chloride Level 99 mmol/L (98-107) Carbon Dioxide Level 24 mmol/L (21-32) Anion Gap 11 (6-14) Blood Urea Nitrogen 9 mg/dL (8-26) Creatinine 1.0 mg/dL (0.7-1.3) Estimated GFR (Cockcroft-Gault) 76.0 Glucose Level 118 mg/dL (70-99) Calcium Level 8.5 mg/dL (8.5-10.1) Assessment and Plan Assessmemt and Plan Problems Medical Problems: (1) Chest pain Status: Acute (2) Patient requests medication, not given Status: Acute (3) Request for narcotic pain medication Status: Acute Comment Review of Relevant I have reviewed the following items kvng (where applicable) has been applied. Medications: Current Medications Medications (Trade) Dose Ordered Sig/Ani Route PRN Reason Start Time Stop Time Status Last Admin Dose Admin Aspirin (Aspirin Chewable) 81 mg DAILY PO 12/02/20 13:00 12/03/20 08:12 Clopidogrel Bisulfate (Plavix) 75 mg DAILY PO 12/02/20 13:00 12/03/20 08:11 Metoprolol Succinate (Toprol Xl) 12.5 mg DAILY PO 12/02/20 13:00 12/03/20 12:18 Pregabalin (Lyrica) 300 mg BID PO 12/02/20 21:00 12/03/20 08:12 Atorvastatin Calcium (Lipitor) 80 mg QHS PO 12/02/20 21:00 12/02/20 20:55 Ipratropium Victoria (Atrovent) 0.5 mg RTQID NEB 12/02/20 13:00 12/03/20 07:53 Furosemide (Lasix) 40 mg 1X ONCE IVP 12/02/20 13:00 12/02/20 13:01 DC 12/02/20 14:30 Justifications for Admission Other Justification ACS DAVID ERNANDEZ MD Dec 03, 2020 13:00
[2020-12-03] MEDS: PSYLLIUM HUSK (SUGAR FREE) 1 PKT PACKET PO SCH (21:00)
[2020-12-03] MEDS: ATORVASTATIN CALCIUM 40 MG TABLET. PO SCH (21:44)
[2020-12-03] MEDS: ZOLPIDEM 5 MG TABLET. PO PRN ×2 (21:44→22:24)
[2020-12-03] MEDS: LIDOCAINE (700MG/PATCH) PATCH. TD SCH (22:15)
[2020-12-03] MEDS ORDERED: DICLOFENAC SODIUM 1% TOPICAL GEL 100GM TUBE. TP PRN (22:15)
[2020-12-04] MEDS: HEPARIN for SUB-Q USE 5,000 UNIT/ML VIAL. SQ SCH ×3 (05:09→22:00)
[2020-12-04] MEDS: NITROGLYCERIN OINT 1 GM PACKET. TP SCH ×5 (05:10→22:45)
[2020-12-04 06:34] VITALS: BP 108/67
--- NOTE | 2020-12-04 07:56 | PDOC ---
[employer] PROGRESS NOTE Date of Service DOS: DATE: 12/04/20 TIME: 07:55 Chief Complaint Chief Complaint A/P: Chest pain - high risk ACS given his history and lateral TWI, will trend troponins, telemetry Acute on chronic CHF - left ventricular systolic dysfunction with ejection fraction estimated at 20 to 25% Hypokalemia - will replace. 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 Fluid dynamics and CXR seem to indicate acute CHF, will initiate IV lasix CAD - s/p x4 cardiac catherizations. multiple stents in the past. At least 12 stents reported per patient - previously placed stents in the left anterior descending artery, diagonal branch and left posterior descending artery. The obtuse marginal branch and nondominant right coronary artery showed 100% chronic total occlusions, described in prior cardiac catheterization. (Cath report from 07/2020) Mitral regurgitation h/o VT s/p AICD - medtronic. No events HTN - cont meds HLD - cont meds Active IV meth use - used prior to admission. Tox screen pending and sees a counselor through [facility] Tobaccoism -counseled on cessation he is nondistended nicotine patch states he will need to start smoking as soon as he leaves Labile mood with psychotic features and Anxiety/agitation - calmed with verbal counseling, haldol. Prn zyprexa ordered. Likely he is undiagnosed Bipolar or schizoaffective History of Drug seeking behavior -advised with his substance abuse history is high risk and should not be given an opioid prescription on discharge and to minimize opioids Anemia - likely from chronic substance abuse, will need monitoring outpatient. Hyponatremia - likely nutritional and hypervolemic, will monitor FEN - Cardiac PPX - Lovenox FULL CODE Dispo - inpatient for high risk ACS History of Present Illness History of Present Illness Mr Hicks is a 59yo M w/ PMHx CAD x multiple JANET, CHF, HTN, HLD, VT s/p AICD, COPD/asthma, GERD, OA, anxiety, IV methamphetamine abuse who comes directly from his "meth house" to the ED with complaint of sharp chest pain with radiation to his right neck. Patient is well-known to our service with multiple admissions with similar complaints. Notes the pain on 12/01/20 was unusual because his chest pain only radiates to the left but this time radiated to the right. States his pain is constant but fluctuating in severity, 79/10. Had a recent left heart catheterization on 08/05/2020 showing patent previously placed stents in the left anterior descending artery, diagonal branch and left posterior descending artery, the obtuse marginal branch and nondominant right coronary artery showed 100% chronic total occlusions, severe left ventricular systolic dysfunction with ejection fraction estimated at 20 to 25% with 2+ mitral regurgitation. He was recommended optimization of medical therapy for coronary disease and ischemic cardiomyopathy. He denies any associated leg swelling. He is currently requesting food, stating he has not eaten in 4 days because he has been doing methamphetamine IV in both arms. EKG with lateral TWI and leftward axis, no STEMI. CXR with interstitial findings concerning for acute CHF Troponin <0.017, BNP 1179. Historically with multiple PCIs- [facility] at [facility] Oct 2017 showed showed patent mid LAD stent, patent 1st diagonal stent, total chronic occlusion of first obtuse marginal with territory infarct but no indication for PCI, patent stent in left AV groove artery, patent stent in LPDA, non-dominant 100 % stenosis of proximal RCA. Seen by cardiology here in October. Admit for further work-up of his coronary artery disease 12/02: BP low. Telemetry with tachycardia multiple PVCs. Still short of breath still with pain. He notes he still can be 2 to 6 weeks until he is able to get into methamphetamine rehab and he has been injecting for the last 4 days and is "starving". Pain relieved with NTG, but only temporarily. 12/03: BP low. HR decreased. Less short of breath, requesting IV morphine. Very verbally abusive to staff, apologetic after. Notes he may be able to get into rehab on 12/08/2020 and his daughter will take him into her custody for personal safety on 12/06/2020. Still with right shoulder pain. Pain overnight. Afebrile. No O2 requirements. Still difficult to redirect until he received zyprexa, feels this helps his mood significantly. Plan: Nitropaste if BP allows Topical voltaren Daily BMP, mag Continue mood stabilizing agents, scheduling may help him Vitals/I&O Vitals/I&O: Vital Signs Date Time Temp Pulse Resp B/P (MAP) Pulse Ox O2 Delivery O2 Flow Rate FiO2 12/04/20 06:34 97.9 60 19 108/67 (81) 99 Room Air 97.9 I & O 12/03/20 12/03/20 12/04/20 15:00 23:00 07:00 Intake Total 720 ml 390 ml 720 ml Balance 720 ml 390 ml 720 ml Physical Exam General: Alert, Oriented X3, Cooperative, moderate distress Heart: Regular rate, Normal S1, Normal S2 Lungs: Wheezing, Crackles Labs Labs: Laboratory Tests Test 12/03/20 08:20 White Blood Count 4.2 x10^3/uL (4.0-11.0) Red Blood Count 4.21 x10^6/uL (4.30-5.70) Hemoglobin 10.3 g/dL (13.0-17.5) Hematocrit 31.8 % (39.0-53.0) Mean Corpuscular Volume 76 fL (79-100) Mean Corpuscular Hemoglobin 25 pg (25-35) Mean Corpuscular Hemoglobin Concent 33 g/dL (31-37) Red Cell Distribution Width 18.1 % (11.5-14.5) Platelet Count 247 x10^3/uL (140-400) Neutrophils (%) (Auto) 50 % (31-73) Lymphocytes (%) (Auto) 25 % (24-48) Monocytes (%) (Auto) 16 % (0-9) Eosinophils (%) (Auto) 7 % (0-3) Basophils (%) (Auto) 2 % (0-3) Neutrophils # (Auto) 2.1 x10^3/uL (1.8-7.7) Lymphocytes # (Auto) 1.1 x10^3/uL (1.0-4.8) Monocytes # (Auto) 0.7 x10^3/uL (0.0-1.1) Eosinophils # (Auto) 0.3 x10^3/uL (0.0-0.7) Basophils # (Auto) 0.1 x10^3/uL (0.0-0.2) Sodium Level 134 mmol/L (136-145) Potassium Level 3.8 mmol/L (3.5-5.1) Chloride Level 99 mmol/L (98-107) Carbon Dioxide Level 24 mmol/L (21-32) Anion Gap 11 (6-14) Blood Urea Nitrogen 9 mg/dL (8-26) Creatinine 1.0 mg/dL (0.7-1.3) Estimated GFR (Cockcroft-Gault) 76.0 Glucose Level 118 mg/dL (70-99) Calcium Level 8.5 mg/dL (8.5-10.1) Magnesium Level 2.0 mg/dL (1.8-2.4) Assessment and Plan Assessmemt and Plan Problems Medical Problems: (1) Chest pain Status: Acute (2) Patient requests medication, not given Status: Acute (3) Request for narcotic pain medication Status: Acute Comment Review of Relevant I have reviewed the following items kvng (where applicable) has been applied. Medications: Current Medications Medications (Trade) Dose Ordered Sig/Ani Route PRN Reason Start Time Stop Time Status Last Admin Dose Admin Tramadol HCl (Ultram) 50 mg PRN Q6HRS PRN PO PAIN 12/03/20 13:00 12/03/20 16:22 Potassium Bicarbonate (Potassium Effervescent Tablet) 20 meq 1X ONCE PO 12/03/20 13:00 12/03/20 13:01 DC 12/03/20 13:19 Justifications for Admission Other Justification ACS DAVID ERNANDEZ MD Dec 04, 2020 07:56
[2020-12-04] MEDS: METOPROLOL SUCC 24HR ER 25 MG TAB.ER.24H. PO SCH (08:25)
[2020-12-04] MEDS: CLOPIDOGREL BISULFATE 75 MG TABLET PO SCH (08:25)
[2020-12-04] MEDS: ASPIRIN CHEWABLE 81 MG TABLET. PO SCH (08:25)
[2020-12-04] MEDS: LIDOCAINE (700MG/PATCH) PATCH. TD SCH (08:26)
[2020-12-04] MEDS: PREGABALIN 75 MG CAPSULE PO SCH ×2 (08:29→20:16)
[2020-12-04] MEDS ORDERED: IPRATROPIUM BROMIDE 0.5 MG/2.5 ML NEBU. NEB SCH (09:00)
[2020-12-04 10:42] VITALS: BP 119/80
[2020-12-04] MEDS ORDERED: OLAN5TAB3 PO (11:34)
[2020-12-04 14:42] VITALS: BP 102/60
[2020-12-04] MEDS: PATCH REMOVAL. MC SCH (19:19)
[2020-12-04] MEDS: PSYLLIUM HUSK (SUGAR FREE) 1 PKT PACKET PO SCH (19:20)
[2020-12-04 19:50] VITALS: BP 127/73
[2020-12-04] MEDS: ATORVASTATIN CALCIUM 40 MG TABLET. PO SCH (20:16)
[2020-12-04] MEDS: ZOLPIDEM 5 MG TABLET. PO PRN ×2 (20:16→22:43)
[2020-12-04 22:45] VITALS: BP 81/56
[2020-12-05] MEDS: HEPARIN for SUB-Q USE 5,000 UNIT/ML VIAL. SQ SCH ×3 (04:40→21:11)
[2020-12-05] MEDS: NITROGLYCERIN OINT 1 GM PACKET. TP SCH ×3 (04:41→18:00)
[2020-12-05 04:44] LABS: BASO # 0.1 x10^3/uL (0.0-0.2); BASO % 2 % (0-3); EOS # 0.4 x10^3/uL (0.0-0.7); EOS % 8 % (0-3); HEMATOCRIT 30.6 % (39.0-53.0); HEMOGLOBIN 9.8 g/dL (13.0-17.5); LYMPH # 1.1 x10^3/uL (1.0-4.8); LYMPH % 23 % (24-48); MEAN CORPUSCULAR HEMOGLOBIN 25 pg (25-35); MEAN CORPUSCULAR HGB CONC 32 g/dL (31-37); MEAN CORPUSCULAR VOLUME 76 fL (79-100); MONO # 0.7 x10^3/uL (0.0-1.1); MONO % 14 % (0-9); NEUT # 2.6 x10^3/uL (1.8-7.7); NEUT % 53 % (31-73); PLATELET COUNT 231 x10^3/uL (140-400); RED CELL DISTRIBUTION WIDTH 18.1 % (11.5-14.5); WHITE BLOOD COUNT 4.8 x10^3/uL (4.0-11.0)
[2020-12-05 05:00] LABS: CALCIUM 8.5 mg/dL (8.5-10.1); CREATININE 0.9 mg/dL (0.7-1.3); GFR 85.8; POTASSIUM 4.1 mmol/L (3.5-5.1)
[2020-12-05 07:00] VITALS: BP 118/71
[2020-12-05] MEDS: LIDOCAINE (700MG/PATCH) PATCH. TD SCH (09:00)
[2020-12-05] MEDS: CLOPIDOGREL BISULFATE 75 MG TABLET PO SCH (09:30)
[2020-12-05] MEDS: ASPIRIN CHEWABLE 81 MG TABLET. PO SCH (09:30)
[2020-12-05] MEDS: METOPROLOL SUCC 24HR ER 25 MG TAB.ER.24H. PO SCH (09:31)
[2020-12-05] MEDS: PREGABALIN 75 MG CAPSULE PO SCH ×2 (09:31→21:08)
[2020-12-05 10:25] VITALS: BP 116/63
--- NOTE | 2020-12-05 11:56 | NUR ---
SS following up with discharge planning. SS reviewed pt chart and discussed with pt RN. Pt is from home and is currently on room air. Discharge order on the chart for home with self care. SS met with pt and discussed discharge. Pt demanding SS contact [facility], , and request transport to home. SS made request to [employer]. Trip ID#[id number]. Pt reported that he has no other way home and no vehicle in the [facility] area. [facility] reported that they would arrange transportation within a three hour window. Pt's RN notified. SS will continue to follow for discharge planning.
[2020-12-05 14:17] VITALS: BP 96/54
--- NOTE | 2020-12-05 14:26 | NUR ---
RN NOTE this RN took over care for this patient and agrees with previous RNs assessments and notes. patient resting in bed with call light within reach.
--- NOTE | 2020-12-05 18:32 | NUR ---
RN NOTE patient received discharge paperwork but refused discharge teaching. [employer] called multiple times for transport still waiting on taxi to get in the area. Nursing uranium processing supervisor notified. Patients IV discontinued and monitor removed. Patient updated with travel plans.
--- NOTE | 2020-12-05 19:50 | NUR ---
Pt in bed asleep assessment completed poc explained , pt discharged and awaiting cab for ride home. Will resume care and continue to monitor pt.
[2020-12-05] MEDS: PSYLLIUM HUSK (SUGAR FREE) 1 PKT PACKET PO SCH (21:00)
[2020-12-05] MEDS: PATCH REMOVAL. MC SCH (21:00)
--- NOTE | 2020-12-05 21:02 | NUR ---
Cab company unavailable until 2099 to pick pt up, pt destination closed at 2100 pt unable to await in cold.Pt will be dc in a.m. call placed to [facility] regarding pt unable to be dc tonight.
[2020-12-05] MEDS: ATORVASTATIN CALCIUM 40 MG TABLET. PO SCH (21:08)
[2020-12-05] MEDS: ZOLPIDEM 5 MG TABLET. PO PRN (21:11)
[2020-12-05 22:50] VITALS: BP 100/49
[2020-12-06] MEDS: NITROGLYCERIN OINT 1 GM PACKET. TP SCH ×2 (05:59)
[2020-12-06] MEDS: HEPARIN for SUB-Q USE 5,000 UNIT/ML VIAL. SQ SCH (05:59)
[2020-12-06] MEDS: ASPIRIN CHEWABLE 81 MG TABLET. PO SCH (08:09)
[2020-12-06] MEDS: CLOPIDOGREL BISULFATE 75 MG TABLET PO SCH (08:10)
[2020-12-06] MEDS: PREGABALIN 75 MG CAPSULE PO SCH (08:10)
[2020-12-06] MEDS: METOPROLOL SUCC 24HR ER 25 MG TAB.ER.24H. PO SCH ×2 (08:10→08:13)
[2020-12-06] MEDS: LIDOCAINE (700MG/PATCH) PATCH. TD SCH (08:12)
--- NOTE | 2020-12-06 10:21 | NUR ---
Discharge Note: RIVER JOSEPH Discharge instructions and discharge home medications reviewed with Patient and a copy given. All questions have been answered and understanding verbalized. The following instructions and handouts were given: refused all discharge paperwork Discontinued lines and drains: Peripheral IV intact. Patient discharged to Home or Self Care with Self via Ambulated Patient took cab to [facility] to ride the train to his house.
--- NOTE | 2020-12-06 12:34 | DS ---
DATE OF DISCHARGE: 12/06/2020 ADMISSION DIAGNOSIS: Chest pain. DISCHARGE DIAGNOSES: Resolving chest pain, history of methamphetamine abuse. HOSPITAL COURSE: The patient is a pleasant middle-aged male, who presented with chest pain. We admitted the patient, did serial enzymes, serial EKGs. We consulted Cardiology. His workup was negative. We discharged to home. DISPOSITION: Home. ACTIVITY: As tolerated. DIET: Low sodium. MEDICATIONS: Please see MRAD. TOTAL TIME: 33 minutes. BIJAN FLORES DO DR: ALIX/barber JOB#: [id number] / [id number]
== END 2020-12-06 10:02 | disposition home or self-care (01) | DRG 302 ==
LOC: ER 17:33 → 2 NORTH 19:38 → OBSVTOIN 12-02 12:08
PROVIDERS: ADMIT Family Medicine; ATTEND Family Medicine
DX: I25.110 Atherosclerotic heart disease of native coronary artery with unstable angina pectoris (principal); I50.23 Acute on chronic systolic (congestive) heart failure; E87.1 Hypo-osmolality and hyponatremia; I11.0 Hypertensive heart disease with heart failure; R07.9 Chest pain, unspecified; I42.8 Other cardiomyopathies; Z88.5 Allergy status to narcotic agent; Z88.8 Allergy status to other drugs, medicaments and biological substances; E78.5 Hyperlipidemia, unspecified; Z95.810 Presence of automatic (implantable) cardiac defibrillator; K21.9 Gastro-esophageal reflux disease without esophagitis; M19.90 Unspecified osteoarthritis, unspecified site; Z95.5 Presence of coronary angioplasty implant and graft; Z86.73 Personal history of transient ischemic attack (TIA), and cerebral infarction without residual deficits; F41.9 Anxiety disorder, unspecified; F17.210 Nicotine dependence, cigarettes, uncomplicated; Z82.49 Family history of ischemic heart disease and other diseases of the circulatory system; E87.6 Hypokalemia; F15.10 Other stimulant abuse, uncomplicated; I25.5 Ischemic cardiomyopathy; Z76.5 Malingerer [conscious simulation]; Z71.6 Tobacco abuse counseling; D64.9 Anemia, unspecified; I34.0 Nonrheumatic mitral (valve) insufficiency
CPT/HCPCS: 36415; 71045; 80048; 80053; 83690; 83735; 83880; 84484; 85025; 93005; 94640; 94760; 96374; G0378; G0379; J1885; J1940; J2270; 99285-25; J7644

== ENCOUNTER 2021-02-10 18:12 | Emergency (ER) | payer MEDICAID ==
[~2021-02-10] VITALS: Ht 170.2 cm; Wt 68.1 kg
[~2021-02-10 18:12] MED LIST changes: +OLAN5TAB3 PO
[2021-02-10 19:01] LABS: BASO # 0.1 x10^3/uL (0.0-0.2); BASO % 1 % (0-3); EOS # 0.2 x10^3/uL (0.0-0.7); EOS % 5 % (0-3); HEMATOCRIT 35.3 % (39.0-53.0); HEMOGLOBIN 11.6 g/dL (13.0-17.5); LYMPH # 1.1 x10^3/uL (1.0-4.8); LYMPH % 22 % (24-48); MEAN CORPUSCULAR HEMOGLOBIN 27 pg (25-35); MEAN CORPUSCULAR HGB CONC 33 g/dL (31-37); MEAN CORPUSCULAR VOLUME 83 fL (79-100); MONO # 0.5 x10^3/uL (0.0-1.1); MONO % 11 % (0-9); NEUT # 2.8 x10^3/uL (1.8-7.7); NEUT % 60 % (31-73); PLATELET COUNT 240 x10^3/uL (140-400); RED BLOOD COUNT 4.28 x10^6/uL (4.30-5.70); RED CELL DISTRIBUTION WIDTH 20.4 % (11.5-14.5); WHITE BLOOD COUNT 4.7 x10^3/uL (4.0-11.0)
--- NOTE | 2021-02-10 19:06 | EKG ---
[facility] [address] [place] [address] Test Date: 2021-02-10 Test Time: 18:20:03 Pat Name: CARMELA JOSEPH Department: Room: Gender: M Personnel Arbitrator: : 1960 Requested By: MJ SNELL Order Number: [id number] Reading MD: Measurements Intervals [place] Rate: 101 P: 47 ME: 112 QRS: -4 QRSD: 150 T: -150 QT: 384 QTc: 499 Interpretive Statements SINUS TACHYCARDIA VENTRICULAR PREMATURE COMPLEX(ES) LEFT ATRIAL ABNORMALITY LEFTWARD AXIS NON SPECIFIC INTRAVENTRICULAR BLOCK QRS(T) CONTOUR ABNORMALITY CONSIDER ANTEROLATERAL MYOCARDIAL DAMAGE ABNORMAL ECG RI6.01 No previous ECG available for comparison
[2021-02-10 19:13] LABS: POTASSIUM 4.4 mmol/L (3.5-5.1)
[2021-02-10 19:20] LABS: ALBUMIN 3.3 g/dL (3.4-5.0); MAGNESIUM 1.9 mg/dL (1.8-2.4); TOTAL BILIRUBIN 0.2 mg/dL (0.2-1.0); TOTAL PROTEIN 6.6 g/dL (6.4-8.2)
[2021-02-10 19:22] LABS: ANISOCYTOSIS SLIGHT; PLT ESTIMATE ADEQUATE (ADEQUATE)
--- NOTE | 2021-02-10 19:33 | RAD ---
EXAM: CHEST 1 VIEW History: Chest pain COMPARISON: 12/01/2020 TECHNIQUE: Single portable radiograph of the chest FINDINGS: Mild cardiomegaly. Left-sided cardiac pacer AICD. Mild prominent bilateral interstitial ronny ng markings . IMPRESSION: Mild prominent bilateral interstitial lung markings likely mild congestive changes or interstitial in filtrates. Electronically signed by: Lux Baires MD (02/10/2021 7:31 PM) [id number]
[2021-02-10] MEDS ORDERED: IBUPROFEN 400 MG TABLET. PO ONE (20:00)
[2021-02-10] MEDS ORDERED: ACETAMINOPHEN 500 MG TABLET PO ONE (20:00)
[2021-02-10] MEDS ORDERED: FUROSEMIDE 40 MG/4 ML VIAL. IVP ONE (20:00)
--- NOTE | 2021-02-10 20:21 | PHYS DOC ---
Past Medical History Past Medical History: Asthma, CAD, CHF, CVA, High Cholesterol, Hypertension, [place], Other Additional Past Medical Histor: VTACH,IV Drug abuse-Methamphetamine Past Surgical History: Angioplasty, Pacemaker, Other Additional Past Surgical Histo: 15 cardiac stents, multiple cardiac cat heterizations,WITH DEFIB Smoking Status: Current Every Day Smoker Additional Information: 0.5 PPD Alcohol Use: Rarely Drug Use: Methamphetamine Social History Narrative: PT REPORTS, "NO DRUG USE FOR 1 MONTH" Adult General Chief Complaint Chief Complaint: CHEST PAIN HPI HPI Patient is a 60 year old male with a complicated past medical history which does include significant cardiovascular disease and stents but also significant for substance abuse and routine methamphetamine use now presenting emergency d epartment complaint of new onset chest pain. Patient states that just prior to arrival and new onset of chest pain that started in the left anterior chest rating to his neck and his left arm but now also radiating to the right arm. Patient states he is concerned because he never had radiation of the pain into the right side of the right arm before. Denies any fever, chills, dizziness or lightheadedness. Review of Systems Review of Systems Constitutional: Denies fever or chills [] Eyes: Denies change in visual acuity, redness, or eye pain [] HENT: Denies nasal congestion or sore throat [] Respiratory: Denies cough or shortness of breath [] Cardiovascular: No additional information not addressed in HPI [] GI: Denies abdominal pain, nausea, vomiting, bloody stools or diarrhea [] : Denies dysuria or hematuria [] Musculoskeletal: Denies back pain or joint pain [] Integument: Denies rash or skin lesions [] Neurologic: Denies headache, focal weakness or sensory changes [] Endocrine: Denies polyuria or polydipsia [] All other systems were reviewed and found to be within normal limits, except as documented in this note. Current Medications Current Medications Current Medications Medications (Trade) Dose Ordered Sig/Ani Start Time Stop Time Status Last Admin Dose Admin Acetaminophen (Tylenol) 1,000 mg 1X ONCE 02/10/21 20:00 02/10/21 20:01 DC Furosemide (Lasix) 40 mg 1X ONCE 02/10/21 20:00 02/10/21 20:01 DC 02/10/21 20:12 40 MG Ibuprofen (Motrin) 800 mg 1X ONCE 02/10/21 20:00 02/10/21 20:01 DC Allergies Allergies Allergies Coded Allergies Type Severity Reaction Last Updated Verified acetaminophen Allergy Intermediate 08/04/20 Yes albuterol Adverse Reaction Intermediate 11/18/19 Yes ibuprofen Adverse Reaction Intermediate Nausea and Vomiting 11/18/19 Yes Physical Exam Physical Exam Constitutional: Well developed, well nourished, no acute distress, non-toxic appearance. [] HENT: Normocephalic, atraumatic, bilateral external ears normal, oropharynx moist, no oral exudates, nose normal. [] Eyes: PERRLA, EOMI, conjunctiva normal, no discharge. [] Neck: Normal range of motion, no tenderness, supple, no stridor. [] Cardiovascular:Heart rate regular rhythm, no murmur [] Lungs & Thorax: Bilateral breath sounds clear to auscultation [] Abdomen: Bowel sounds normal, soft, no tenderness, no masses, no pulsatile masses. [] Skin: Warm, dry, no erythema, no rash. [] Back: No tenderness, no CVA tenderness. [] Extremities: No tenderness, no cyanosis, no clubbing, ROM intact, no edema. [] Neurologic: Alert and oriented X 3, normal motor function, normal sensory function, no focal deficits noted. [] Psychologic: Affect normal, judgement normal, mood normal. [] Current Patient Data Vital Signs Vital Signs Date Time Temp Pulse Resp B/P (MAP) Pulse Ox O2 Delivery O2 Flow Rate FiO2 02/10/21 22:55 74 11 92/62 (72) 97 Room Air 02/10/21 18:15 97.7 97.7 Lab Values Laboratory Tests Test 02/10/21 18:44 02/10/21 23:26 02/10/21 23:35 White Blood Count 4.7 x10^3/uL (4.0-11.0) Red Blood Count 4.28 x10^6/uL (4.30-5.70) L Hemoglobin 11.6 g/dL (13.0-17.5) L Hematocrit 35.3 % (39.0-53.0) L Mean Corpuscular Volume 83 fL (79-100) Mean Corpuscular Hemoglobin 27 pg (25-35) Mean Corpuscular Hemoglobin Concent 33 g/dL (31-37) Red Cell Distribution Width 20.4 % (11.5-14.5) H Platelet Count 240 x10^3/uL (140-400) Neutrophils (%) (Auto) 60 % (31-73) Lymphocytes (%) (Auto) 22 % (24-48) L Monocytes (%) (Auto) 11 % (0-9) H Eosinophils (%) (Auto) 5 % (0-3) H Basophils (%) (Auto) 1 % (0-3) Neutrophils # (Auto) 2.8 x10^3/uL (1.8-7.7) Lymphocytes # (Auto) 1.1 x10^3/uL (1.0-4.8) Monocytes # (Auto) 0.5 x10^3/uL (0.0-1.1) Eosinophils # (Auto) 0.2 x10^3/uL (0.0-0.7) Basophils # (Auto) 0.1 x10^3/uL (0.0-0.2) Platelet Estimate Adequate (ADEQUATE) Anisocytosis Slight Macrocytosis Slight D-Dimer (Destini) 0.43 ug/mlFEU (0.00-0.50) Sodium Level 141 mmol/L (136-145) Potassium Level 4.4 mmol/L (3.5-5.1) Chloride Level 107 mmol/L (98-107) Carbon Dioxide Level 27 mmol/L (21-32) Anion Gap 7 (6-14) Blood Urea Nitrogen 12 mg/dL (8-26) Creatinine 1.0 mg/dL (0.7-1.3) Estimated GFR (Cockcroft-Gault) 76.0 BUN/Creatinine Ratio 12 (6-20) Glucose Level 94 mg/dL (70-99) Calcium Level 9.0 mg/dL (8.5-10.1) Magnesium Level 1.9 mg/dL (1.8-2.4) Total Bilirubin 0.2 mg/dL (0.2-1.0) Aspartate Amino Transferase (AST) 13 U/L (15-37) L Alanine Aminotransferase (ALT) 21 U/L (16-63) Alkaline Phosphatase 85 U/L (46-116) Troponin I Quantitative < 0.017 ng/mL (0.000-0.055) < 0.017 ng/mL (0.000-0.055) LL-Dzn-W-Type Natriuretic Peptide 1399 pg/mL (0-124) H Total Protein 6.6 g/dL (6.4-8.2) Albumin 3.3 g/dL (3.4-5.0) L Albumin/Globulin Ratio 1.0 (1.0-1.7) Lipase 190 U/L (73-393) Urine Collection Type Unknown Urine Color Yellow Urine Clarity Clear Urine pH 7.0 (<5.0-8.0) Urine Specific [place] <=1.005 (1.000-1.030) Urine Protein Negative mg/dL (NEG-TRACE) Urine Glucose (UA) Negative mg/dL (NEG) Urine Ketones (Stick) Negative mg/dL (NEG) Urine Blood Negative (NEG) Urine Nitrite Negative (NEG) Urine Bilirubin Negative (NEG) Urine Urobilinogen Dipstick 0.2 mg/dL (0.2 mg/dL) Urine Leukocyte Esterase Negative (NEG) Urine RBC 0 /HPF (0-2) Urine WBC 0 /HPF (0-4) Urine Squamous Epithelial Cells Occ /LPF Urine Bacteria 0 /HPF (0-FEW) Urine Opiates Screen Neg (NEG) Urine Methadone Screen Neg (NEG) Urine Barbiturates Neg (NEG) Urine Phencyclidine Screen Neg (NEG) Urine Amphetamine/Methamphetamine Neg (NEG) Urine Benzodiazepines Screen Neg (NEG) Urine Cocaine Screen Neg (NEG) Urine Cannabinoids Screen Neg (NEG) Urine Ethyl Alcohol Neg (NEG) Laboratory Tests 02/10/21 18:44 Laboratory Tests 02/10/21 18:44 EKG EKG [] Radiology/Procedures Radiology/Procedures [] Course & Med Decision Making Course & Med Decision Making Pertinent Labs and Imaging studies reviewed. (See chart for details) 60-year-old male presents emergency department for new onset of chest pain. Patient does have a significant cardiac history however he also has a significant history of agitation coming to the emergency department drug-seeking behavior. No specific findings on physical exam. Will obtain ACS work-up and reevaluate. Patient now resting comfortably and did not receive any significant pain medication. Patient refused nonnarcotic pain medications after initial evaluation. Patient sleeping soundly without any pain. Troponin negative x2 and work-up otherwise negative. At this time I feel the patient is safe for discharge home Dragon Disclaimer Dragon Disclaimer This electronic medical record was generated, in whole or in part, using a voice recognition dictation system. Departure Departure Impression: Primary Impression: Chest pain Disposition: HOME / SELF CARE / HOMELESS Condition: STABLE Referrals: DAVID ERNANDEZ MD Patient Instructions: Chest Pain (Nonspecific) Additional Instructions: EMERGENCY DEPARTMENT GENERAL DISCHARGE INSTRUCTIONS Thank you for coming to [facility] Emergency Department (ED) today and trusting us with you care. We trust that you had a positive experience in our Emergency Department. If you wish to speak to the department management, you may call the Director at [phone]. YOUR FOLLOW UP INSTRUCTIONS ARE FOLLOWS: 1. Do you have a private Doctor? If you do not have a private doctor, please ask for a resource list of physicians or clinics that may be able to assist you with follow up care. 2. The Emergency Physicain has interpreted your x-rays. The X-Ray specialist will also review them. If there is a change in the findings, you will be notified in 48 hours when at all possible. 3. A lab test or culture has been done, your results will be reviewed and you will be notified if you need a change in treatment. ADDITIONAL INSTRUCTIONS AND INFORMATION: 1. Your care today has been supervised by a physician who is specially trained in emergency care. Many problems require more than one evaluation for a complete diagnosis and treatment. We recommend that you schedule your follow up appointment as recommended to ensure complete treatment of you illness or injury. If you are unable to obtain follow up care and continue to have a problem, or if your condition worsens, we recommend that you return to the ED. 2. We are not able to safely determine your condition over the phone nor are we able to give sound medical advice over the phone. For these safety reasons, if you call for medical advice we will ask you to come to the ED for further evaluation. 3. If you have any questions regarding these discharge instructions please call the ED at [phone]. SAFETY INFORMATION: In the interest of safety, wellness, and injury prevention; we encourage you to wear your sealbelt, if you smoke; quite smoking, and we encourage family to use a protective helmet for bicycling and other sporting events that present an increased risk for head injury. IF YOUR SYMPTOMS WORSEN OR NEW SYMPTOMS DEVELOP, OR YOU HAVE CONCERNS ABOUT YOUR CONDITION; OR IF YOUR CONDITION WORSENS WHILE YOU ARE WAITING FOR YOUR FOLLOW UP APPOINTMENT; EITHER CONTACT YOUR PRIMARY CARE DOCTOR, THE PHYSICIAN WHOSE NAME AND NUMBER YOU WERE GIVEN, OR RETURN TO THE ED IMMEDIATELY. MJ SNELL MD Feb 10, 2021 20:21
[2021-02-10 23:35] LABS: BILIRUBIN,URINE NEGATIVE (NEG); CLARITY,URINE CLEAR; COLOR,URINE YELLOW; NITRITE,URINE NEGATIVE (NEG); PROTEIN,URINE NEGATIVE (NEG-TRACE); UROBILINOGEN,URINE 0.2 mg/dL (0.2 mg/dL)
[2021-02-10 23:42] LABS: BARBITURATES NEG (NEG); BENZODIAZEPINES NEG (NEG); CANNABINOIDS NEG (NEG); COCAINE NEG (NEG); METHADONE NEG (NEG); OPIATES NEG (NEG); PHENCYCLIDINE NEG (NEG)
[2021-02-10 23:43] LABS: AMPHETAMINE/METHAMPHETAMINE NEG (NEG)
[2021-02-10 23:47] LABS: BACTERIA,URINE 0 /HPF (0-FEW); RBC,URINE 0 /HPF (0-2); WBC,URINE 0 /HPF (0-4)
[2021-02-11 06:25] VITALS: BP 110/61
== END 2021-02-11 06:30 | disposition home or self-care (01) ==
LOC: ER 18:12
DX: R07.89 Other chest pain (principal); I11.0 Hypertensive heart disease with heart failure; I50.9 Heart failure, unspecified; E78.00 Pure hypercholesterolemia, unspecified; I25.2 Old myocardial infarction; J45.909 Unspecified asthma, uncomplicated; F17.200 Nicotine dependence, unspecified, uncomplicated; F19.90 Other psychoactive substance use, unspecified, uncomplicated; Z90.89 Acquired absence of other organs; Z95.0 Presence of cardiac pacemaker; Z98.890 Other specified postprocedural states
CPT/HCPCS: 36415; 71045; 80053; 80307; 81001; 83690; 83735; 83880; 84484; 85025; 85379; 93005; 96374; 99285; J1940

== ENCOUNTER 2021-03-22 18:43 | Observation (INO) | payer MEDICAID ==
[~2021-03-22] VITALS: Ht 170.2 cm; Wt 64.2 kg
[2021-03-22 19:13] LABS: BASO # 0.1 x10^3/uL (0.0-0.2); BASO % 1 % (0-3); EOS # 0.2 x10^3/uL (0.0-0.7); EOS % 3 % (0-3); HEMATOCRIT 34.2 % (39.0-53.0); HEMOGLOBIN 11.7 g/dL (13.0-17.5); LYMPH # 1.1 x10^3/uL (1.0-4.8); LYMPH % 16 % (24-48); MEAN CORPUSCULAR HEMOGLOBIN 29 pg (25-35); MEAN CORPUSCULAR HGB CONC 34 g/dL (31-37); MEAN CORPUSCULAR VOLUME 86 fL (79-100); MONO # 0.8 x10^3/uL (0.0-1.1); MONO % 11 % (0-9); NEUT # 4.9 x10^3/uL (1.8-7.7); NEUT % 69 % (31-73); PLATELET COUNT 203 x10^3/uL (140-400); RED BLOOD COUNT 3.98 x10^6/uL (4.30-5.70); RED CELL DISTRIBUTION WIDTH 19.4 % (11.5-14.5); WHITE BLOOD COUNT 7.2 x10^3/uL (4.0-11.0)
[2021-03-22] MEDS ORDERED: ASPIRIN CHEWABLE 81 MG TABLET. PO ONE (19:15)
[2021-03-22] MEDS ORDERED: NITROGLYCERIN SUBLINGUAL 0.4 MG BOTTLE OF 25. SL PRN ×2 (19:15→21:00)
[2021-03-22 19:18] LABS: CALCIUM 8.6 mg/dL (8.5-10.1); CREATININE 1.1 mg/dL (0.7-1.3); GFR 68.1; POTASSIUM 4.3 mmol/L (3.5-5.1)
--- NOTE | 2021-03-22 19:28 | ED.ADGEN ---
Past Medical History Past Medical History: Asthma, CAD, CHF, CVA, High Cholesterol, Hypertension, [place], Other Additional Past Medical Histor: VTACH,IV Drug abuse-Methamphetamine Past Surgical History: Angioplasty, Pacemaker, Other Additional Past Surgical Histo: 15 cardiac stents, multiple cardiac cat heterizations,WITH DEFIB Smoking Status: Current Every Day Smoker Alcohol Use: Rarely Drug Use: Methamphetamine Social History Narrative: STOPPED IV METH 2 MONTHS AGO General Adult EDM: Chief Complaint: CHEST PAIN-CARDIAC NATURE HPI: HPI: Patient is 60-year-old male who presents to the emergency room complaining of left-sided chest pain. Patient has a long cardiac history and is well-known to this emergency room. He does have a history of methamphetamine abuse as well as drug-seeking behavior in the emergency room. Patient states that he developed this sharp chest pain on the left side of his chest that radiates into his s houlder and down his arm. He states this comes in waves and will go up to a 10 for about 30 seconds and then ease back down to about a 6. He states this is different than a encounter chest pain he is ever had before. He denies any kind of chest pressure which he has had before. He states that he took 3 nitro and aspirin prior to arrival and this did not help with his pain. He states he has been taking his medications as prescribed. He states that he was not exerting himself when his pain started. He is requesting narcotic pain medicine. Review of Systems: Review of Systems: Complete ROS is negative unless otherwise documented in HPI Current Medications: Current Medications Medications (Trade) Dose Ordered Sig/[facility] Start Time Stop Time Status Last Admin Dose Admin Aspirin (Aspirin Chewable) 324 mg 1X ONCE 03/22/21 19:15 03/22/21 19:16 DC Methocarbamol (Robaxin) 750 mg 1X ONCE 03/22/21 19:45 03/22/21 19:46 DC 03/22/21 19:25 750 MG Nitroglycerin (Nitrostat) 0.4 mg PRN Q5MIN PRN 03/22/21 19:15 Allergies: Allergies: Allergies Coded Allergies Type Severity Reaction Last Updated Verified acetaminophen Allergy Intermediate 08/04/20 Yes albuterol Adverse Reaction Intermediate 11/18/19 Yes ibuprofen Adverse Reaction Intermediate Nausea and Vomiting 11/18/19 Yes Physical Exam: PE: General: Awake, alert, NAD. Well Nourished, well hydrated. Fidgeting HEENT: Atraumatic, EOMI, PERRL, airway patent, moist oral mucosa Neck: Supple, trachea midline Respiratory: CTA bilaterally, normal effort, no wheezing/crackles CV: RRR, no murmur, cap refill <2 GI: Soft, nondistended, nontender, no masses MSK: No obvious deformities Skin: Warm, dry, intact Neuro: A&O x3, speech NL, sensory and motor grossly intact, no focal deficits Psych: Pressured speech, normal mood, not suicidal or homicidal Current Patient Data: Labs: Laboratory Tests Test 03/22/21 18:57 White Blood Count 7.2 x10^3/uL (4.0-11.0) Red Blood Count 3.98 x10^6/uL (4.30-5.70) L Hemoglobin 11.7 g/dL (13.0-17.5) L Hematocrit 34.2 % (39.0-53.0) L Mean Corpuscular Volume 86 fL (79-100) Mean Corpuscular Hemoglobin 29 pg (25-35) Mean Corpuscular Hemoglobin Concent 34 g/dL (31-37) Red Cell Distribution Width 19.4 % (11.5-14.5) H Platelet Count 203 x10^3/uL (140-400) Neutrophils (%) (Auto) 69 % (31-73) Lymphocytes (%) (Auto) 16 % (24-48) L Monocytes (%) (Auto) 11 % (0-9) H Eosinophils (%) (Auto) 3 % (0-3) Basophils (%) (Auto) 1 % (0-3) Neutrophils # (Auto) 4.9 x10^3/uL (1.8-7.7) Lymphocytes # (Auto) 1.1 x10^3/uL (1.0-4.8) Monocytes # (Auto) 0.8 x10^3/uL (0.0-1.1) Eosinophils # (Auto) 0.2 x10^3/uL (0.0-0.7) Basophils # (Auto) 0.1 x10^3/uL (0.0-0.2) Sodium Level 140 mmol/L (136-145) Potassium Level 4.3 mmol/L (3.5-5.1) Chloride Level 105 mmol/L (98-107) Carbon Dioxide Level 24 mmol/L (21-32) Anion Gap 11 (6-14) Blood Urea Nitrogen 13 mg/dL (8-26) Creatinine 1.1 mg/dL (0.7-1.3) Estimated GFR (Cockcroft-Gault) 68.1 Glucose Level 86 mg/dL (70-99) Calcium Level 8.6 mg/dL (8.5-10.1) Troponin I Quantitative < 0.017 ng/mL (0.000-0.055) Laboratory Tests 03/22/21 18:57 Laboratory Tests 03/22/21 18:57 Vital Signs: Vital Signs Date Time Temp Pulse Resp B/P (MAP) Pulse Ox O2 Delivery O2 Flow Rate FiO2 03/22/21 20:23 72 104/62 (76) 95 Room Air 03/22/21 18:49 98.7 22 98.7 EKG: EKG: [] Heart Score: C/O Chest Pain: Yes HEART Score for Chest Pain: HEART Score for Chest Pain Response (Comments) Value History Moderately Suspicious [address] Depression 2 Age >45 - < 65 1 Risk Factors >3 Risk Factors or Hx CAD 2 Troponin < Normal Limit 0 Total 6 Risk Factors: Risk Factors: DM, Current or recent (<one month) smoker, HTN, HLP, family history of CAD, obesity. Risk Scores: Score 0 - 3: 2.5% MACE over next 6 weeks - Discharge Home Score 4 - 6: 20.3% MACE over next 6 weeks - Admit for Clinical Observation Score 7 - 10: 72.7% MACE over next 6 weeks - Early Invasive Strategies Radiology/Procedures: Radiology/Procedures: [] Course & Med Decision Making: Course & Med Decision Making Pertinent Labs and Imaging studies reviewed. (See chart for details) Patient is a 60 year-old male who presents to the Emergency Room complaining of chest pain. History is significant for coronary artery disease, methamphetamine abuse. At this time, given patient's risk factors and story there is concern for possible cardiac pathology. EKG was ordered and shows PVCs, intraventricular junctional rhythm. At this time there is no signs of STEMI, pericarditis, or unstable arrthymia on EKG. Patient has received aspirin today. CBC, BMP, troponin, CXR were ordered to evaluate for causes of chest pain including ACS, anemia, electrolyte abnormalities that can lead to arrhythmias, PTX, pneumonia, pneumomediastinum. Patient does not have any abdominal tenderness that would suggest pancreaititis or cholecystitis and does not need an abdominal work up at this time. Patient's HEART score is 6 placing the patient at moderate risk. Patient did become sad about not receiving pain medicine. He did agree to take Toradol. On reevaluation after Toradol and Robaxin patient was sleeping comfortably. Sendy Disclaimer: Sendy Disclaimer: This electronic medical record was generated, in whole or in part, using a voice recognition dictation system. Departure Departure Impression: Primary Impression: Chest pain Disposition: ADMITTED INPATIENT Condition: STABLE Referrals: NO PCP (PCP) MARA LOGAN MD March 22, 2021 19:28
[2021-03-22] MEDS ORDERED: METHOCARBAMOL 750 MG TABLET PO ONE (19:45)
--- NOTE | 2021-03-22 19:52 | RAD ---
EXAM: XR CHEST 2V 03/22/2021 7:34 PM CLINICAL INDICATION: Chest pain COMPARISON: Chest radiograph 02/10/2021 TECHNIQUE: PA and lateral views of the chest FINDINGS: A pacemaker/AICD is unchanged. Cardiomegaly is unchanged. There are coronary artery stents . The lungs are well-expanded and clear. No pleural effusion or pneumothorax. No pulmonary edema. The re is no acute osseous abnormality. IMPRESSION: Unchanged cardiomegaly. No acute abnormality. Electronically signed by: Roseanne Bernal MD (03/22/2021 7:49 PM) [id number]
[2021-03-22 21:38] LABS: AMPHETAMINE/METHAMPHETAMINE NEG (NEG); BARBITURATES NEG (NEG); BENZODIAZEPINES NEG (NEG); CANNABINOIDS NEG (NEG); COCAINE NEG (NEG); METHADONE NEG (NEG); OPIATES POS (NEG); PHENCYCLIDINE NEG (NEG)
[2021-03-22] MEDS ORDERED: KETOROLAC 30 MG/ML VIAL. IVP ONE (21:45)
[2021-03-22] MEDS: MORPHINE SULFATE 2 MG/ML VIAL. IV PRN (23:34)
[2021-03-22 23:38] VITALS: BP 116/64
[2021-03-23 03:00] VITALS: BP 98/51
[2021-03-23] MEDS: MORPHINE SULFATE 2 MG/ML VIAL. IV PRN ×5 (04:28→21:34)
--- NOTE | 2021-03-23 05:31 | EKG ---
[facility] [address] [place] [address] Test Date: 2021-03-22 Test Time: 18:51:36 Pat Name: CARMELA JOSEPH Department: Room: Gender: M Seo Team Lead: : 1960 Requested By: MARA LOGAN Order Number: [id number] Reading MD: Measurements Intervals [place] Rate: 94 P: 20 [place]: 102 QRS: 17 QRSD: 156 T: -157 QT: 406 QTc: 514 Interpretive Statements SINUS RHYTHM COMPLEX(ES) WITH ABERRANT INTRAVENTRICULAR CONDUCTION VENTRICULAR PREMATURE COMPLEX(ES) LEFT ATRIAL ABNORMALITY CONSIDER WPW, TYPE B ST & T ABNORMALITY, CONSIDER INFEROLATERAL ISCHEMIA OR LEFT VENTRICULAR STRAIN ABNORMAL ECG RI6.01 Compared to ECG 03/22/2021 18:49:53 T-wave abnormality now present Possible ischemia now present
--- NOTE | 2021-03-23 05:31 | EKG ---
[facility] [address] [place] [address] Test Date: 2021-03-22 Test Time: 18:49:53 Pat Name: CARMELA JOSEPH Department: Room: 266 1 Gender: M Bolt Maker: : 1960 Requested By: MARA LOGAN Order Number: [id number] Reading MD: Measurements Intervals [place] Rate: 88 P: 51 [place]: 124 QRS: 11 QRSD: 156 T: -142 QT: 418 QTc: 510 Interpretive Statements SINUS RHYTHM COMPLEX(ES) WITH ABERRANT INTRAVENTRICULAR CONDUCTION VENTRICULAR PREMATURE COMPLEX(ES) LEFT ATRIAL ABNORMALITY NON SPECIFIC INTRAVENTRICULAR BLOCK ABNORMAL ECG RI6.01 No previous ECG available for comparison
[2021-03-23 07:04] VITALS: BP 110/57
[2021-03-23 08:32] LABS: BASO # 0.1 x10^3/uL (0.0-0.2); BASO % 2 % (0-3); EOS # 0.3 x10^3/uL (0.0-0.7); EOS % 6 % (0-3); HEMATOCRIT 36.4 % (39.0-53.0); HEMOGLOBIN 12.1 g/dL (13.0-17.5); LYMPH # 1.1 x10^3/uL (1.0-4.8); LYMPH % 24 % (24-48); MEAN CORPUSCULAR HEMOGLOBIN 29 pg (25-35); MEAN CORPUSCULAR HGB CONC 33 g/dL (31-37); MEAN CORPUSCULAR VOLUME 87 fL (79-100); MONO # 0.7 x10^3/uL (0.0-1.1); MONO % 16 % (0-9); NEUT # 2.4 x10^3/uL (1.8-7.7); NEUT % 52 % (31-73); PLATELET COUNT 190 x10^3/uL (140-400); RED BLOOD COUNT 4.16 x10^6/uL (4.30-5.70); RED CELL DISTRIBUTION WIDTH 19.6 % (11.5-14.5); WHITE BLOOD COUNT 4.7 x10^3/uL (4.0-11.0)
--- NOTE | 2021-03-23 08:56 | PDOC1 ---
History and Physical Date of Admission Date of Admission DATE: 03/23/21 TIME: 08:56 Identification/Chief Complaint Chief Complaint chest pain , hx stents History of Present Illness History of Present Illness History of Present Illness History of Present Illness Patient is a 60yo M with past medical history CAD with stent, CHF, HTN, HLD, VT s/p AICD, COPD/asthma, GERD, OA, anxiety, IV methamphetamine abuse presented to the ED 5 with complaint of sharp chest pain /well-known to our service with multiple admissions with similar complaints. pain is constant but fluctuating in severity, 79/10. Had a recent left heart catheterization on 08/05/2020 showing patent previously placed stents in the left anterior descending artery, diagonal branch and left posterior descending artery, the obtuse marginal branch and nondominant right coronary artery showed 100% chronic total occlusions, severe left ventricular systolic dysfunction with ejection fraction estimated at 20 to 25% with 2+ mitral regurgitation. He was recommended optimization of medical therapy for coronary disease and ischemic cardiomyopathy. He denies any associated leg swelling. known history of methamphetamine abuse as well as drug-seeking behavior in the emergency room. he developed this sharp chest pain on the left side of his chest that radiates into his shoulder and down his arm. He states this comes in waves and will go up to a 10 for about 30 seconds and then ease back down to about a 6. He states this is different than a encounter chest pain he is ever had before. He states that he took 3 nitro and aspirin prior to arrival and this did not help with his pain. STATES he if off meth, I saw him a few months ago at [facility] [place], [place] and believe he was cathed there, will need records Past Medical History Past Medical History Past Medical History Past Medical History: Asthma, CAD, CHF, CVA, High Cholesterol, Hypertension, DE, Other Additional Past Medical Histor: VTACH,IV Drug abuse-Methamphetamine Past Surgical History: Angioplasty, Pacemaker, Other Additional Past Surgical Histo: 15 cardiac stents, multiple cardiac catheterizations,WITH DEFIB Smoking Status: Current Every Day Smoker Alcohol Use: Rarely Drug Use: Methamphetamine Social History Narrative: STOPPED IV METH 2 MONTHS AGO Cardiovascular: CAD, CHF, HTN, Hyperlipidemia, Other Pulmonary: Asthma CENTRAL NERVOUS SYSTEM: CVA GI: GERD Heme/Onc: No pertinent hx Hepatobiliary: No pertinent hx Psych: Anxiety Musculoskeletal: Osteoarthritis Rheumatologic: No pertinent hx Infectious disease: No pertinent hx Renal/: No pertinent hx Endocrine: No pertinent hx Past Surgical History Past Surgical History: Pacemaker, Other Family History Family History: Hypertension Social History Smoke: <1 pack per day ALCOHOL: none Drugs: Crystal meth, Other Current Problem List Problem List Problems Medical Problems: (1) Chest pain Status: Acute Current Medications Current Medications Current Medications Aspirin (Aspirin Chewable) 324 mg 1X ONCE PO ; Start 03/22/21 at 19:15; Stop 03/22/21 at 19:16; Status DC Methocarbamol (Robaxin) 750 mg 1X ONCE PO Last administered on 03/22/21at 19:25; Start 03/22/21 at 19:45; Stop 03/22/21 at 19:46; Status DC Nitroglycerin (Nitrostat) 0.4 mg PRN Q5MIN PRN SL CHEST PAIN; Start 03/22/21 at 19:15 Nitroglycerin (Nitrostat) 0.4 mg PRN Q5MIN PRN SL CHEST PAIN; Start 03/22/21 at 21:00; Stop 03/23/21 at 20:59 Ketorolac Tromethamine (Toradol 30mg Vial) 30 mg 1X ONCE IVP Last administered on 03/22/21at 21:41; Start 03/22/21 at 21:45; Stop 03/22/21 at 21:46; Status DC Morphine Sulfate (Morphine Sulfate) 2 mg PRN Q4HRS PRN IV PAIN Last administered on 03/23/21at 08:42; Start 03/22/21 at 23:30 Active Scripts Active Zyprexa (Olanzapine) 5 Mg Tablet 1 Tab PO BID 30 Days Aspirin 81 Mg Tab.chew 1 Tab PO DAILY Reported Crestor (Rosuvastatin Calcium) 40 Mg Tablet 40 Mg PO HS Metoprolol Succinate ( Xl ) (Metoprolol Succinate) 25 Mg Tab.er.24h 12.5 Mg PO DAILY Spiriva (Tiotropium [place]) 18 Mcg Cap.w.dev 1 Cap IH DAILY NITROGLYCERIN SubLingual (Nitroglycerin) 0.4 Mg Tab.subl 0.4 Mg SL PRN Q5MIN PRN Lyrica (Pregabalin) 300 Mg Capsule 1 Cap PO BID Plavix (Clopidogrel Bisulfate) 75 Mg Tablet 75 Mg PO DAILY Allergies Allergies: Coded Allergies: acetaminophen (Verified Allergy, Intermediate, 08/04/20) albuterol (Verified Adverse Reaction, Intermediate, 11/18/19) Patient states "it speeds my heart up too much" ibuprofen (Verified Adverse Reaction, Intermediate, Nausea and Vomiting, 11/18/19) ROS General: YES: Fatigue; No: Chills, Night Sweats, Malaise, Appetite, Other PSYCHOLOGICAL ROS: YES: Anxiety, Depression; No: Behavioral Disorder, Concentration difficultie, Decreased libido, Disorientation, Hallucinations, Hostility, Irritablity, Memory difficulties, Mood Swings, Obsessive thoughts, Physical abuse, Sexual abuse, Sleep disturbances, Suicidal ideation, Other Eyes: No Blurry vision, No Decreased vision, No Double vision, No Dry eyes, No Excessive tearing, No Eye Pain, No Itchy Eyes, No Loss of vision, No Photophobia, No Scotomata, No Uses contacts, No Uses glasses, No Other HEENT: No: Heacaches, Visual Changes, Hearing change, Nasal congestion, Nasal discharge, Oral lesions, Sinus pain, Sore Throat, Epistaxis, Sneezing, Snoring, Tinnitus, Vertigo, Vocal changes, Other ALLERGY AND IMMUNOLOGY: YES: Hives; No: Insect Bite Sensitivity, Itchy/Watery Eyes, Nasal Congestion, Post Nasal Drip, Seasonal Allergies, Other Hematological and Lymphatic: No: Bleeding Problems, Blood Clots, Blood Transfusions, Brusing, Night Sweats, Pallor, Swollen Lymph Nodes, Other ENDOCRINE: No: Breast Changes, Galactorrhea, Hair Pattern Changes, Hot Flashes, Malaise/lethargy, Mood Swings, Palpitations, Polydipsia/polyuria, Skin Changes, Temperature Intolerance, Unexpected Weight Changes, Other Breast: No New/Changing Breast Lumps, No Nipple changes, No Nipple discharge, No Other Respiratory: YES: SOB with excertion; No: Cough, Hemoptysis, Orthopnea, Pleuritic Pain, Shortness of breath, Sputum Changes, Stridor, Tachypnea, Wheezing, Other Cardiovascular: yes Chest Pain; No Palpitations, No Orthopnea, No Paroxysmal Noc. Dyspnea, No Edema, No Lt Headedness, No Other Gastrointestinal: No Nausea, No Vomiting, No Abdominal Pain, No Diarrhea, No Constipation, No Melena, No Hematochezia, No Other Genitourinary: No Dysuria, No Frequency, No Incontinence, No Hematuria, No Retention, No Discharge, No Urgency, No Pain, No Flank Pain, No Other, No , No , No , No , No , No , No Musculoskeletal: Yes Joint Stiffness; No Gait Disturbance, No Joint Pain, No Joint Swelling, No Muscle Pain, No Muscular Weakness, No Pain In:, No Swelling In:, No Other Neurological: No Behavorial Changes, No Bowel/Bladder ControlChng, No Confusion, No Dizziness, No Gait Disturbance, No Headaches, No Impaired Coord/balance, No Memory Loss, No Numbness/Tingling, No Seizures, No Speech Problems, No Tremors, No Visual Changes, No Weakness, No Other Skin: No Dry Skin, No Eczema, No Hair Changes, No Lumps, No Mole Changes, No Mottling, No Nail Changes, No Pruritus, No Rash, No Skin Lesion Changes, No Other, No Acne Physical Exam General: Alert, Oriented X3, Cooperative, No acute distress, mild distress HEENT: PERRLA, EOMI, Mucous membr. moist/pink Lungs: Clear to auscultation, Normal air movement Heart: S1S2, RRR, no thrills, no gallops, no jug vein distention Breasts: Not examined Abdomen: Normal bowel sounds, Soft Rectal Exam: not examined PELVIC: Examination not indicated Extremities: No cyanosis Neuro: Normal speech, Sensation intact, Cranial nerves 3-12 NL, Other (anxious) Psych/Mental Status: Mental status NL, Mood NL Vitals Vitals Vital Signs Date Time Temp Pulse Resp B/P (MAP) Pulse Ox O2 Delivery O2 Flow Rate FiO2 03/23/21 07:04 97.9 69 18 110/57 (74) 99 Room Air 97.9 Labs Labs Laboratory Tests Test 03/22/21 18:57 03/22/21 21:23 03/23/21 08:20 White Blood Count 7.2 x10^3/uL (4.0-11.0) 4.7 x10^3/uL (4.0-11.0) Red Blood Count 3.98 x10^6/uL (4.30-5.70) 4.16 x10^6/uL (4.30-5.70) Hemoglobin 11.7 g/dL (13.0-17.5) 12.1 g/dL (13.0-17.5) Hematocrit 34.2 % (39.0-53.0) 36.4 % (39.0-53.0) Mean Corpuscular Volume 86 fL (79-100) 87 fL (79-100) Mean Corpuscular Hemoglobin 29 pg (25-35) 29 pg (25-35) Mean Corpuscular Hemoglobin Concent 34 g/dL (31-37) 33 g/dL (31-37) Red Cell Distribution Width 19.4 % (11.5-14.5) 19.6 % (11.5-14.5) Platelet Count 203 x10^3/uL (140-400) 190 x10^3/uL (140-400) Neutrophils (%) (Auto) 69 % (31-73) 52 % (31-73) Lymphocytes (%) (Auto) 16 % (24-48) 24 % (24-48) Monocytes (%) (Auto) 11 % (0-9) 16 % (0-9) Eosinophils (%) (Auto) 3 % (0-3) 6 % (0-3) Basophils (%) (Auto) 1 % (0-3) 2 % (0-3) Neutrophils # (Auto) 4.9 x10^3/uL (1.8-7.7) 2.4 x10^3/uL (1.8-7.7) Lymphocytes # (Auto) 1.1 x10^3/uL (1.0-4.8) 1.1 x10^3/uL (1.0-4.8) Monocytes # (Auto) 0.8 x10^3/uL (0.0-1.1) 0.7 x10^3/uL (0.0-1.1) Eosinophils # (Auto) 0.2 x10^3/uL (0.0-0.7) 0.3 x10^3/uL (0.0-0.7) Basophils # (Auto) 0.1 x10^3/uL (0.0-0.2) 0.1 x10^3/uL (0.0-0.2) Sodium Level 140 mmol/L (136-145) Potassium Level 4.3 mmol/L (3.5-5.1) Chloride Level 105 mmol/L (98-107) Carbon Dioxide Level 24 mmol/L (21-32) Anion Gap 11 (6-14) Blood Urea Nitrogen 13 mg/dL (8-26) Creatinine 1.1 mg/dL (0.7-1.3) Estimated GFR (Cockcroft-Gault) 68.1 Glucose Level 86 mg/dL (70-99) Calcium Level 8.6 mg/dL (8.5-10.1) Troponin I Quantitative < 0.017 ng/mL (0.000-0.055) Urine Opiates Screen Pos (NEG) Urine Methadone Screen Neg (NEG) Urine Barbiturates Neg (NEG) Urine Phencyclidine Screen Neg (NEG) Urine Amphetamine/Methamphetamine Neg (NEG) Urine Benzodiazepines Screen Neg (NEG) Urine Cocaine Screen Neg (NEG) Urine Cannabinoids Screen Neg (NEG) Urine Ethyl Alcohol Neg (NEG) Laboratory Tests Test 03/22/21 18:57 03/22/21 21:23 03/23/21 08:20 White Blood Count 7.2 x10^3/uL (4.0-11.0) 4.7 x10^3/uL (4.0-11.0) Red Blood Count 3.98 x10^6/uL (4.30-5.70) 4.16 x10^6/uL (4.30-5.70) Hemoglobin 11.7 g/dL (13.0-17.5) 12.1 g/dL (13.0-17.5) Hematocrit 34.2 % (39.0-53.0) 36.4 % (39.0-53.0) Mean Corpuscular Volume 86 fL (79-100) 87 fL (79-100) Mean Corpuscular Hemoglobin 29 pg (25-35) 29 pg (25-35) Mean Corpuscular Hemoglobin Concent 34 g/dL (31-37) 33 g/dL (31-37) Red Cell Distribution Width 19.4 % (11.5-14.5) 19.6 % (11.5-14.5) Platelet Count 203 x10^3/uL (140-400) 190 x10^3/uL (140-400) Neutrophils (%) (Auto) 69 % (31-73) 52 % (31-73) Lymphocytes (%) (Auto) 16 % (24-48) 24 % (24-48) Monocytes (%) (Auto) 11 % (0-9) 16 % (0-9) Eosinophils (%) (Auto) 3 % (0-3) 6 % (0-3) Basophils (%) (Auto) 1 % (0-3) 2 % (0-3) Neutrophils # (Auto) 4.9 x10^3/uL (1.8-7.7) 2.4 x10^3/uL (1.8-7.7) Lymphocytes # (Auto) 1.1 x10^3/uL (1.0-4.8) 1.1 x10^3/uL (1.0-4.8) Monocytes # (Auto) 0.8 x10^3/uL (0.0-1.1) 0.7 x10^3/uL (0.0-1.1) Eosinophils # (Auto) 0.2 x10^3/uL (0.0-0.7) 0.3 x10^3/uL (0.0-0.7) Basophils # (Auto) 0.1 x10^3/uL (0.0-0.2) 0.1 x10^3/uL (0.0-0.2) Sodium Level 140 mmol/L (136-145) Potassium Level 4.3 mmol/L (3.5-5.1) Chloride Level 105 mmol/L (98-107) Carbon Dioxide Level 24 mmol/L (21-32) Anion Gap 11 (6-14) Blood Urea Nitrogen 13 mg/dL (8-26) Creatinine 1.1 mg/dL (0.7-1.3) Estimated GFR (Cockcroft-Gault) 68.1 Glucose Level 86 mg/dL (70-99) Calcium Level 8.6 mg/dL (8.5-10.1) Troponin I Quantitative < 0.017 ng/mL (0.000-0.055) Urine Opiates Screen Pos (NEG) Urine Methadone Screen Neg (NEG) Urine Barbiturates Neg (NEG) Urine Phencyclidine Screen Neg (NEG) Urine Amphetamine/Methamphetamine Neg (NEG) Urine Benzodiazepines Screen Neg (NEG) Urine Cocaine Screen Neg (NEG) Urine Cannabinoids Screen Neg (NEG) Urine Ethyl Alcohol Neg (NEG) Images Images Procedure(s) performed: Left heart catheterization, selective coronary angiography and left ventriculography MODERATE SEDATION TIME: 30 MINUTES FLUORO TIME: 3.3 MIN DOSE: 38.9 GYCM2 CONTRAST: 112CC OMNI 300 INDICATION The indication(s) include : unstable angina . CSHA Clinical Frailty Scale [facility] Clinical Frailty Scale: Mildly Frail Heart Failure Heart Failure: Yes If Yes, Newly Diagnosed: No If Yes, HF Type: Systolic If Yes, NYHA Class: Class II PROCEDURE NARRATIVE After explaining the risks, benefits and alternative options, informed consent was obtained from patient. Patient was brought to the cardiac [facility] [employer] and his left groin was prepped and draped in the usual fashion. 20 cc of 2% lidocaine w as infiltrated into the skin and subcutaneous tissues for local anesthesia. Arterial access was obtained in the left common femoral artery and a 6 [place] sheath was inserted. 6 [place]gu[place] JL4 6 [place] JR4 catheters were used to perform selective angiography of the left and right coronary arteries. 6 [place] pigtail catheter was used to perform left ventriculography. Patient tolerated the procedure well. Hemostasis was achieved using Perclose suture closure device. There were no immediate complications. FINDINGS 1. Hemodynamics: Left ventricular end-diastolic pressure 18 mmHg. No pullback gradient across aortic valve. 2. Left ventriculography: Severe left ventricular systolic dysfunction with ejection fraction estimated at 20 to 25%. 2+ mitral regurgitation seen. 3. Coronary angiography: a. The left main coronary artery arose from the left sinus of Valsalva, gave rise to the left anterior descending and left circumflex arteries and did not show any significant stenosis. b. The left anterior descending artery showed patent long stented mid and distal segments with a very distal segment showing 40% in-stent restenosis. Stent in the diagonal branch was patent. c. The left circumflex artery was a large and dominant vessel. The first obtuse marginal branch showed 100% chronic total occlusion within the stent in the proximal segment, described in prior cardiac catheterization. The stent in the left posterior descending artery was patent. d. The right coronary artery was a small and nondominant vessel arising from the right sinus of Valsalva that showed 100% chronic total occlusion in the proximal segment, described in prior cardiac catheterization. Conclusion 1. Patent previously placed stents in the left anterior descending artery, diagonal branch and left posterior descending artery. The obtuse marginal branch and nondominant right coronary artery showed 100% chronic total oc clusions, described in prior cardiac catheterization. 2. Severe left ventricular systolic dysfunction with ejection fraction es timated at 20 to 25% with 2+ mitral regurgitation. Recommendations Optimization of medical therapy for coronary disease and ischemic cardiomyopathy. Signed by : Christian Pritchett, Electronically Approved : 08/05/2020 14:27:37 DICTATED and SIGNED BY: CHRISTIAN PRITCHETT MD DATE: 08/05/20 1353 VTE Prophylaxis Ordered VTE Prophylaxis Devices: No VTE Pharmacological Prophylaxi: Yes Assessment/Plan Assessment/Plan Assessment/Plan Assessment/Plan Unstable angina Patent previously placed stents in the left anterior descending artery, diagonal branch and left posterior descending artery. The obtuse marginal branch and nondominant right coronary artery showed 100% chronic total occlusions, described in prior cardiac catheterization.CAD Elevated BNP severe left ventricular systolic dysfunction with ejection fraction estimated at 20 to 25% with 2+ mitral regurgitation. HX METH ABUSE REMOTE Normocytic anemia Plan: Troponins trend Consulted cardiology Morphine, nitroglycerin as needed Resume home medications FEN - Cardiac diet PPX - Heparin FULL CODE fe panel 33 MIN CC TIME Justifications for Admission Other Justification [facility] ELISSA SHINE MD March 23, 2021 08:56
[2021-03-23 09:05] LABS: CALCIUM 8.6 mg/dL (8.5-10.1); CREATININE 1.1 mg/dL (0.7-1.3); GFR 68.1
[2021-03-23] MEDS ORDERED: NITROGLYCERIN SUBLINGUAL 0.4 MG BOTTLE OF 25. SL PRN (10:00)
[2021-03-23] MEDS ORDERED: LORazepam 0.5 MG TABLET PO PRN (10:15)
[2021-03-23] MEDS ORDERED: 0.9 % SODIUM CHLORIDE 10 ML DISP.SYRIN. IV PRN ×2 (10:15→13:30)
[2021-03-23] MEDS ORDERED: guaiFENesin ORAL 200 MG/10 ML LIQUID. PO PRN ×2 (10:15→13:30)
[2021-03-23] MEDS ORDERED: DOCUSATE SODIUM 100 MG CAPSULE. PO PRN ×2 (10:15→13:30)
[2021-03-23] MEDS ORDERED: ACETAMINOPHEN 325 MG TABLET. PO PRN ×2 (10:15→13:30)
[2021-03-23] MEDS ORDERED: MAG HYDROX/ALUMINUM HYD/SIMETH 30 ML ORAL.SUSP PO PRN (10:15)
[2021-03-23] MEDS ORDERED: ONDANSETRON PF 4 MG/2 ML VIAL. IV PRN ×2 (10:15→13:30)
[2021-03-23] MEDS: ASPIRIN CHEWABLE 81 MG TABLET. PO SCH (10:17)
[2021-03-23] MEDS: OLANZapine 5 MG TABLET PO SCH ×2 (10:17→21:31)
[2021-03-23] MEDS: CLOPIDOGREL BISULFATE 75 MG TABLET PO SCH (10:18)
[2021-03-23] MEDS: METOPROLOL SUCC 24HR ER 25 MG TAB.ER.24H. PO SCH (10:18)
--- NOTE | 2021-03-23 11:05 | PDOC2 ---
CAITIE RODARTE CARDING MACHINE OPERATOR 03/23/21 1105: CARDIAC CONSULT DATE OF CONSULT Date of Consult DATE: 03/23/21 TIME: 10:55 REASON FOR CONSULT Reason for Consult: Chest pain REFERRING PHYSICIAN Referring Physician: [id number] SOURCE Source: Chart review, Patient HISTORY OF PRESENT ILLNESS HISTORY OF PRESENT ILLNESS This is a 60 yo male who presented secondary to chest pain. Patient has had multiple admission in past for chest pain. Underwent cardiac cath last fall the showed patent stents and known [employer]. No lesions needing intervention were noted. Also h/o methamphetamine abuse and drug seeking behavior. UDS negative for meth this admission Patient reports sharp, shooting pain in his left chest and down his left arm. La sts 20-30 seconds at a time and occurs a couple of times every house. No associated dizziness, diaphoresis, palpitations, SOA, or nausea/vomiting. D/w Dr. Smart who saw that patient a [facility] earlier this year. Patient underwent cardiac cath at that time without intervention. PAST MEDICAL HISTORY Past Medical History Cardiovascular: CAD, CHF (ICM), HTN, Hyperlipidemia, Other (VT) Pulmonary: Asthma CENTRAL NERVOUS SYSTEM: CVA GI: GERD Heme/Onc: No pertinent hx Hepatobiliary: No pertinent hx Psych: Anxiety Musculoskeletal: Osteoarthritis Rheumatologic: No pertinent hx Infectious disease: No pertinent hx ENT: No pertinent hx Renal/: No pertinent hx Endocrine: No pertinent hx Dermatology: No pertinent hx PAST SURGICAL HISTORY Past Surgical History Pacemaker (AICD), Other (multiple PCI/stents. FAMILY HISTORY Family History Hypertension SOCIAL HISTORY Social History Smoke: <1 pack per day ALCOHOL: none Drugs: H/o meth use; reports clean x2 months Lives: with Family CURRENT MEDICATIONS CURRENT MEDICATIONS Current Medications Medications (Trade) Dose Ordered Sig/Ani Route PRN Reason Start Time Stop Time Status Last Admin Dose Admin Methocarbamol (Robaxin) 750 mg 1X ONCE PO 03/22/21 19:45 03/22/21 19:46 DC 03/22/21 19:25 Ketorolac Tromethamine (Toradol 30mg Vial) 30 mg 1X ONCE IVP 03/22/21 21:45 03/22/21 21:46 DC 03/22/21 21:41 Morphine Sulfate (Morphine Sulfate) 2 mg PRN Q4HRS PRN IV PAIN 03/22/21 23:30 03/23/21 08:42 Aspirin (Aspirin Chewable) 81 mg DAILY PO 03/23/21 11:00 03/23/21 10:17 Clopidogrel Bisulfate (Plavix) 75 mg DAILY PO 03/23/21 11:00 03/23/21 10:18 Metoprolol Succinate (Toprol Xl) 12.5 mg DAILY PO 03/23/21 11:00 03/23/21 10:18 Olanzapine (ZyPREXA) 5 mg BID PO 03/23/21 11:00 03/23/21 10:17 ALLERGIES ALLERGIES: Coded Allergies: acetaminophen (Verified Allergy, Intermediate, 08/04/20) albuterol (Verified Adverse Reaction, Intermediate, 11/18/19) Patient states "it speeds my heart up too much" ibuprofen (Verified Adverse Reaction, Intermediate, Nausea and Vomiting, 11/18/19) ROS Review of System 14 point ROS conducted with pertinent positives noted above in HPI PHYSICAL EXAM PHYSICAL EXAM General: Alert, Oriented X3, Cooperative, No acute distress HEENT: Atraumatic, Mucous membr. moist/pink Lungs: Clear to auscultation, Normal air movement Heart: Regular rate (SR), Normal S1, Normal S2, No murmurs Abdomen: Soft, No tenderness Extremities: No cyanosis, No edema Skin: No breakdown, No significant lesion Neuro: Normal speech, Sensation intact Psych/Mental Status: Mental status NL, Mood NL MUSCULOSKELETAL: Osteoarthritic changes both hands VITALS/I&O VITALS/I&O: Vital Signs Date Time Temp Pulse Resp B/P (MAP) Pulse Ox O2 Delivery O2 Flow Rate FiO2 03/23/21 10:18 69 110/57 03/23/21 09:12 18 99 Room Air 03/23/21 07:04 97.9 97.9 I & O 03/22/21 03/22/21 03/23/21 15:00 23:00 07:00 Intake Total 500 ml Output Total 0 ml Balance 500 ml LABS Lab: Laboratory Tests Test 03/22/21 18:57 03/22/21 21:23 03/23/21 08:20 White Blood Count 7.2 x10^3/uL (4.0-11.0) 4.7 x10^3/uL (4.0-11.0) Red Blood Count 3.98 x10^6/uL (4.30-5.70) L 4.16 x10^6/uL (4.30-5.70) L Hemoglobin 11.7 g/dL (13.0-17.5) L 12.1 g/dL (13.0-17.5) L Hematocrit 34.2 % (39.0-53.0) L 36.4 % (39.0-53.0) L Mean Corpuscular Volume 86 fL (79-100) 87 fL (79-100) Mean Corpuscular Hemoglobin 29 pg (25-35) 29 pg (25-35) Mean Corpuscular Hemoglobin Concent 34 g/dL (31-37) 33 g/dL (31-37) Red Cell Distribution Width 19.4 % (11.5-14.5) H 19.6 % (11.5-14.5) H Platelet Count 203 x10^3/uL (140-400) 190 x10^3/uL (140-400) Neutrophils (%) (Auto) 69 % (31-73) 52 % (31-73) Lymphocytes (%) (Auto) 16 % (24-48) L 24 % (24-48) Monocytes (%) (Auto) 11 % (0-9) H 16 % (0-9) H Eosinophils (%) (Auto) 3 % (0-3) 6 % (0-3) H Basophils (%) (Auto) 1 % (0-3) 2 % (0-3) Neutrophils # (Auto) 4.9 x10^3/uL (1.8-7.7) 2.4 x10^3/uL (1.8-7.7) Lymphocytes # (Auto) 1.1 x10^3/uL (1.0-4.8) 1.1 x10^3/uL (1.0-4.8) Monocytes # (Auto) 0.8 x10^3/uL (0.0-1.1) 0.7 x10^3/uL (0.0-1.1) Eosinophils # (Auto) 0.2 x10^3/uL (0.0-0.7) 0.3 x10^3/uL (0.0-0.7) Basophils # (Auto) 0.1 x10^3/uL (0.0-0.2) 0.1 x10^3/uL (0.0-0.2) Sodium Level 140 mmol/L (136-145) 139 mmol/L (136-145) Potassium Level 4.3 mmol/L (3.5-5.1) 5.0 mmol/L (3.5-5.1) Chloride Level 105 mmol/L (98-107) 104 mmol/L (98-107) Carbon Dioxide Level 24 mmol/L (21-32) 24 mmol/L (21-32) Anion Gap 11 (6-14) 11 (6-14) Blood Urea Nitrogen 13 mg/dL (8-26) 17 mg/dL (8-26) Creatinine 1.1 mg/dL (0.7-1.3) 1.1 mg/dL (0.7-1.3) Estimated GFR (Cockcroft-Gault) 68.1 68.1 Glucose Level 86 mg/dL (70-99) 113 mg/dL (70-99) H Calcium Level 8.6 mg/dL (8.5-10.1) 8.6 mg/dL (8.5-10.1) Troponin I Quantitative < 0.017 ng/mL (0.000-0.055) < 0.017 ng/mL (0.000-0.055) Urine Opiates Screen Pos (NEG) Urine Methadone Screen Neg (NEG) Urine Barbiturates Neg (NEG) Urine Phencyclidine Screen Neg (NEG) Urine Amphetamine/Methamphetamine Neg (NEG) Urine Benzodiazepines Screen Neg (NEG) Urine Cocaine Screen Neg (NEG) Urine Cannabinoids Screen Neg (NEG) Urine Ethyl Alcohol Neg (NEG) Magnesium Level 2.4 mg/dL (1.8-2.4) Iron Level 50 ug/dL (65-175) L Total Iron Binding Capacity 393 ug/dL (250-450) Iron Saturation 13 % (15-34) L Laboratory Tests 03/22/21 18:57 03/23/21 08:20 Laboratory Tests 03/22/21 18:57 03/23/21 08:20 ECHOCARDIOGRAM ECHOCARDIOGRAM <Conclusion> Left ventricle systolic function is moderately impaired. EF 30-35%. There is severe global hypokinesis of the left ventricle. Tissue Doppler imaging reveals moderate left ventricular diastolic dysfunction. There is a pacemaker lead in the right ventricle. Doppler and Color-flow revealed moderate mitral regurgitation. Doppler and Color Flow revealed mild tricuspid regurgitation. There is moderate pulmonary hypertension. The PA pressure was estimated at 44 mmHg. DATE: 05/06/20 0907 HEART CATH HEART CATH FINDINGS 1. Hemodynamics: Left ventricular end-diastolic pressure 18 mmHg. No pullback gradient across aortic valve. 2. Left ventriculography: Severe left ventricular systolic dysfunction with ejection fraction estimated at 20 to 25%. 2+ mitral regurgitation seen. 3. Coronary angiography: a. The left main coronary artery arose from the left sinus of Valsalva, gave rise to the left anterior descending and left circumflex arteries and did not show any significant stenosis. b. The left anterior descending artery showed patent long stented mid and distal segments with a very distal segment showing 40% in-stent restenosis. Stent in the diagonal branch was patent. c. The left circumflex artery was a large and dominant vessel. The first obtuse marginal branch showed 100% chronic total occlusion within the stent in the proximal segment, described in prior cardiac catheterization. The stent in the left posterior descending artery was patent. d. The right coronary artery was a small and nondominant vessel arising from the right sinus of Valsalva that showed 100% chronic total occlusion in the proximal segment, described in prior cardiac catheterization. Conclusion 1. Patent previously placed stents in the left anterior descending artery, diagonal branch and left posterior descending artery. The obtuse marginal branch and nondominant right coronary artery showed 100% chronic total occlusions, described in prior cardiac catheterization. 2. Severe left ventricular systolic dysfunction with ejection fraction estimat ed at 20 to 25% with 2+ mitral regurgitation. Recommendations Optimization of medical therapy for coronary disease and ischemic cardiomyopathy. DATE: 08/05/20 1353 ASSESSMENT/PLAN ASSESSMENT/PLAN 1. Chest pain, atypical; AMI ruled. EKG paced without acute changes. 2. Chronic systolic CHF; clinically compensated 3. ICM; s/p AICD (Medtronic) 4. CAD; recent [facility] 07/2020, patent stents no intervenable lesions 5. Hx of VT: not on antiarrhythmic therapy. tele noted with PVC's, but no significant arrhythmias. Mg WNL 6. HTN: controlled 7. HLP: not on goal 8. H/o substance abuse: meth use. reports clean x2 months 9. Tobaccoism with likely COPD 10. Poor compliance with appt. Recommendations Secondary prevention measures Device interrogation Obtain recent cath report from [facility] No plans for inpatient ischemic evaluation at this time Needs to establish cardiology followup up discharge in [place] COREY LOPEZ MD 03/23/21 1804: CARDIAC CONSULT ASSESSMENT/PLAN ASSESSMENT/PLAN Patient seen and examine I agree with our nurse practitioners assessment and plan. Chest pain, atypical; AMI ruled. EKG paced without acute changes. Heart catheterization in 07/2020 with patent stents and no intervening bowel lesions. Reportedly repeat heart cath at [facility] within the last month with no intervention. Continue medical treatment. Obtain old records. Chronic systolic CHF; clinically compensated ICM; s/p AICD (Medtronic) Hx of VT: not on antiarrhythmic therapy. tele noted with PVC's, but no significant arrhythmias. Mg WNL\\HTN: controlled HLP: not on goal H/o substance abuse: meth use. reports clean x2 months Tobaccoism with COPD Poor compliance CAITIE RODARTE APRN March 23, 2021 11:05 COREY LOPEZ MD March 23, 2021 18:04
[2021-03-23 11:06] VITALS: BP 132/74
[2021-03-23] MEDS ORDERED: IPRATRPIUM/ALBUTEROL 0.5/2.5MG 3 ML NEBU. NEB SCH (12:00)
[2021-03-23] MEDS: PREGABALIN 75 MG CAPSULE PO SCH ×2 (12:10→21:32)
[2021-03-23] MEDS ORDERED: ALBUTEROL SULFATE 2.5 MG/3 ML NEBU. NEB PRN (13:30)
[2021-03-23] MEDS ORDERED: SODIUM PHOSPHATES 19/7GM 133 ML ENEMA. PR PRN (13:30)
[2021-03-23] MEDS: HEPARIN for SUB-Q USE 5,000 UNIT/ML VIAL. SQ SCH ×2 (14:00→21:30)
[2021-03-23 14:51] VITALS: BP 95/48
--- NOTE | 2021-03-23 15:40 | NUR ---
SS following for discharge planning. SS reviewed pt chart and discussed with pt RN. Pt is from home in [place], [place] and is currently on room air. Cardiology following. Currently awaiting records from [facility]. SS will continue to follow for discharge planning.
--- NOTE | 2021-03-23 17:56 | NUR ---
Patient refuses all nebulizer breathing treatments despite educating about the replacement of home Spiriva. Patient says Spiriva is the only medicine he will take. NAHOMY murdock.
[2021-03-23] MEDS ORDERED: IPRATRPIUM/ALBUTEROL 0.5/2.5MG 3 ML NEBU. NEB PRN (18:00)
[2021-03-23 19:40] VITALS: BP 103/64
[2021-03-23] MEDS ORDERED: ATORVASTATIN CALCIUM 40 MG TABLET. PO SCH (21:00)
[2021-03-23 22:46] VITALS: BP 113/49
[2021-03-24] MEDS: MORPHINE SULFATE 2 MG/ML VIAL. IV PRN ×4 (01:17→14:26)
[2021-03-24] MEDS: HEPARIN for SUB-Q USE 5,000 UNIT/ML VIAL. SQ SCH ×2 (05:30→14:00)
[2021-03-24 07:00] VITALS: BP 105/72
--- NOTE | 2021-03-24 07:45 | PDOC ---
[employer] PROGRESS NOTE Date of Service DOS: DATE: 03/24/21 TIME: 07:45 Chief Complaint Chief Complaint A/P: Chest pain - high risk ACS given his history and lateral TWI, will trend troponins, telemetry. Will give IS, flutter valve. May have some achalasia Acute on chronic CHF - left ventricular systolic dysfunction with ejection fraction estimated at 20 to 25% Hypokalemia - will replace. 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 CAD - s/p x4 cardiac catherizations. multiple stents in the past. At least 12 stents reported per patient - previously placed stents in the left anterior descending artery, diagonal branch and left posterior descending artery. The obtuse marginal branch and nondominant right coronary artery showed 100% chronic total occlusions, described in prior cardiac catheterization. (Cath report from 07/2020) Mitral regurgitation h/o VT s/p AICD - medtronic. No events HTN - cont meds HLD - cont meds IV meth use - currently not using sees a counselor through [facility] Tobaccoism -counseled on cessation he is nondistended nicotine patch states he will need to start smoking as soon as he leaves Labile mood with psychotic features and Anxiety/agitation - calmed with verbal counseling, haldol. Prn zyprexa ordered. Likely he is undiagnosed Bipolar or schizoaffective History of Drug seeking behavior -advised with his substance abuse history is high risk and should not be given an opioid prescription on discharge and to minimize opioids Anemia - likely from chronic substance abuse, will need monitoring outpatient. Hyponatremia - likely nutritional and hypervolemic, will monitor FEN - Cardiac PPX - Lovenox FULL CODE Dispo - inpatient for high risk ACS History of Present Illness History of Present Illness Mr Hicks is a 59yo M w/ PMHx CAD x multiple JANET, CHF, HTN, HLD, VT s/p AICD, COPD/asthma, GERD, OA, anxiety, IV methamphetamine comes to ED c/o left sided chest pain. Lasts 20-30 seconds at a time and occurs a couple of times every house. No associated dizziness, diaphoresis, palpitations, SOA, or nausea/vomiting. He describes it as coming in waves all of a sudden 6 out of 10 and comes down. He frequently requests IV morphine I have counseled him on drug-seeking behavior on numerous occasions. He is amenable to trying incentive spirometer flutter valve and PPI and potentially having gastroenterology assessment for possible achalasia. Troponin EKG negative. Cardiology has seen patient. He tells me he had a cardiac catheterization when he was in research after he had had multiple AICD discharges after using IV "dope". He has not used since. He says he has a lso had a cardiac catheterization in [facility]. Vitals/I&O Vitals/I&O: Vital Signs Date Time Temp Pulse Resp B/P (MAP) Pulse Ox O2 Delivery O2 Flow Rate FiO2 03/24/21 07:40 Room Air 03/23/21 22:46 98.5 83 20 113/49 (70) 97 98.5 I & O 03/23/21 03/23/21 03/24/21 15:00 23:00 07:00 Intake Total 1400 ml 1360 ml Balance 1400 ml 1360 ml Physical Exam General: Alert, Oriented X3, Cooperative, No acute distress, mild distress Lungs: Wheezing, Crackles Abdomen: Normal bowel sounds, Soft Extremities: No cyanosis Labs Labs: Laboratory Tests Test 03/23/21 08:20 White Blood Count 4.7 x10^3/uL (4.0-11.0) Red Blood Count 4.16 x10^6/uL (4.30-5.70) Hemoglobin 12.1 g/dL (13.0-17.5) Hematocrit 36.4 % (39.0-53.0) Mean Corpuscular Volume 87 fL (79-100) Mean Corpuscular Hemoglobin 29 pg (25-35) Mean Corpuscular Hemoglobin Concent 33 g/dL (31-37) Red Cell Distribution Width 19.6 % (11.5-14.5) Platelet Count 190 x10^3/uL (140-400) Neutrophils (%) (Auto) 52 % (31-73) Lymphocytes (%) (Auto) 24 % (24-48) Monocytes (%) (Auto) 16 % (0-9) Eosinophils (%) (Auto) 6 % (0-3) Basophils (%) (Auto) 2 % (0-3) Neutrophils # (Auto) 2.4 x10^3/uL (1.8-7.7) Lymphocytes # (Auto) 1.1 x10^3/uL (1.0-4.8) Monocytes # (Auto) 0.7 x10^3/uL (0.0-1.1) Eosinophils # (Auto) 0.3 x10^3/uL (0.0-0.7) Basophils # (Auto) 0.1 x10^3/uL (0.0-0.2) Sodium Level 139 mmol/L (136-145) Potassium Level 5.0 mmol/L (3.5-5.1) Chloride Level 104 mmol/L (98-107) Carbon Dioxide Level 24 mmol/L (21-32) Anion Gap 11 (6-14) Blood Urea Nitrogen 17 mg/dL (8-26) Creatinine 1.1 mg/dL (0.7-1.3) Estimated GFR (Cockcroft-Gault) 68.1 Glucose Level 113 mg/dL (70-99) Calcium Level 8.6 mg/dL (8.5-10.1) Magnesium Level 2.4 mg/dL (1.8-2.4) Iron Level 50 ug/dL (65-175) Total Iron Binding Capacity 393 ug/dL (250-450) Iron Saturation 13 % (15-34) Troponin I Quantitative < 0.017 ng/mL (0.000-0.055) Assessment and Plan Assessmemt and Plan Problems Medical Problems: (1) Chest pain Status: Acute Comment Review of Relevant I have reviewed the following items kvng (where applicable) has been applied. Medications: Current Medications Medications (Trade) Dose Ordered Sig/Ani Route PRN Reason Start Time Stop Time Status Last Admin Dose Admin Aspirin (Aspirin Chewable) 81 mg DAILY PO 03/23/21 11:00 03/23/21 10:17 Clopidogrel Bisulfate (Plavix) 75 mg DAILY PO 03/23/21 11:00 03/23/21 10:18 Metoprolol Succinate (Toprol Xl) 12.5 mg DAILY PO 03/23/21 11:00 03/23/21 10:18 Olanzapine (ZyPREXA) 5 mg BID PO 03/23/21 11:00 03/23/21 21:31 Pregabalin (Lyrica) 300 mg BID PO 03/23/21 11:00 03/23/21 21:32 Atorvastatin Calcium (Lipitor) 80 mg HS PO 03/23/21 21:00 03/23/21 21:30 Justifications for Admission Other Justification ACS DAVID ERNANDEZ MD March 24, 2021 07:45
[2021-03-24] MEDS: ASPIRIN CHEWABLE 81 MG TABLET. PO SCH (08:41)
[2021-03-24] MEDS: PREGABALIN 75 MG CAPSULE PO SCH (08:41)
[2021-03-24] MEDS: OLANZapine 5 MG TABLET PO SCH (08:41)
[2021-03-24] MEDS: CLOPIDOGREL BISULFATE 75 MG TABLET PO SCH (08:41)
[2021-03-24] MEDS: METOPROLOL SUCC 24HR ER 25 MG TAB.ER.24H. PO SCH (08:42)
[2021-03-24] MEDS ORDERED: NON FORMULARY ITEM (Tiotropium Bromide (Spiriva) 1 CAP) IH SCH (09:00)
[2021-03-24 10:53] VITALS: BP 113/52
[2021-03-24] MEDS: LANSOPRAZOLE 30 MG TAB.RAP.DR FT SCH ×2 (11:17→16:30)
--- NOTE | 2021-03-24 12:48 | PDOC2 ---
GI CONSULT Date of Service: DATE: 03/24/21 TIME: 12:24 Reason For Consult: concern for achalasia HPI: HPI: 60 y/o male admitted 03/22. Recurrent issues w/ atypical chest pain. Does have cardiac history - has been evaluated by cardiology team here (current and past admissions) and also [facility] recently (w/ cath). No plans for ischemic workup as inpt at this time. Pain is located in left central chest. He says it feels the same as it always does but also "I can't say if it's different." Occurs randomly for 15-45 seconds at a time. No clear relation to eating. Sometimes felt across upper left shoulder. Not associated w/ n/v. I asked if he had any acid reflux issues and he said "I might and not even realize it." Might have some indigestion from time to time but not really sure. No dysphagia, though once a really small pill got stuck in his throat. Good appetite, no bloating or early satiety. No weight loss. No diarrhea, constipation, hematochezia, or melena. Regarding GI history, he's a little fuzzy on details. First says no EGD, then says he had one as an outpt at (and [place] Medicaid didn't pay for it so that's why he needs it done as an inpt here, but he also says he lives at [facility] and is going back there when he's discharged from this facility). Apparently the EGD at was normal but he does have a remote h/o "ulcer" diagnosed with an x-ray after he "threw up blood" 2-3 years ago - unfortunately can't recall where this workup was done but does remember he did not have to take any medications afterwards. Reports memory issues after strokes and also "I don't care to remember a lot of what has happened." No previous colonoscopy. Denies GB, liver, and pancreas history. Says Tylenol "tears up" his stomach - has listed allergy to this and ibuprofen. Takes Lyrica for pain at home and occasional [place] Extra Strength for headaches. H/o CAD w/ stents on Plavix and ASA. Chart mentions h/o drug-seeking behavior. H/o meth use; he reports "I'm clean now" - tox screen was negative except opiates. No swallowing issues per nurse. Eats a lot. Wants morphine. Anemia noted on past admissions (Hgb this time 12.1) w/ microcytosis. Iron 50, TIBC 393, sat 13. BUN and Cr normal. TSH normal 10/2019. Lots of chest imaging in chart, no mention of upper abdominal abnormalities. PMH: PMH: CAD w/ stents, CHF, ICM, HTN, HLD, VT, COPD, CVAs, anxiety, OA AICD, PCIs, cardiac stents FH: Family History: No pertinent hx Social History: Smoke: <1 pack per day ALCOHOL: occassional ("I've been drunk before, sure") Drugs: Crystal meth (tox screen negative this admission) ROS: GEN: Denies fevers, chills, sweats HEENT: Denies blurred vision, sore throat CV: +chest pain RESP: Denies shortness of air, cough GI: Per HPI : Denies hematuria, dysuria ENDO: Denies weight changes NEURO: Denies confusion, dizziness MSK: Denies weakness, joint pain/swelling SKIN: Denies jaundice, pruritus Vitals: Vitals: Vital Signs Date Time Temp Pulse Resp B/P (MAP) Pulse Ox O2 Delivery O2 Flow Rate FiO2 03/24/21 11:17 97 Room Air 03/24/21 10:53 97.9 80 18 113/52 (72) 97.9 Labs: Labs: see EMR Allergies: Coded Allergies: acetaminophen (Verified Allergy, Intermediate, 08/04/20) albuterol (Verified Adverse Reaction, Intermediate, 11/18/19) Patient states "it speeds my heart up too much" ibuprofen (Verified Adverse Reaction, Intermediate, Nausea and Vomiting, 11/18/19) Medications: Current Medications Medications (Trade) Dose Ordered Sig/Ani Route PRN Reason Start Time Stop Time Status Last Admin Dose Admin Atorvastatin Calcium (Lipitor) 80 mg HS PO 03/23/21 21:00 03/23/21 21:30 Lansoprazole (Prevacid) 30 mg BIDBFRMEAL FT 03/24/21 11:00 03/24/21 11:17 Imaging: Imaging: CXR IMPRESSION: Unchanged cardiomegaly. No acute abnormality. PE: GEN: NAD HEENT: Atraumatic, PERRL LUNGS: CTAB HEART: RRR ABD: NABS, S/ND/NT EXTREMITY: No edema SKIN: No rashes, no jaundice NEURO/PSYCH: A & O 3, anxious, bit twitchy A/P: A/P: Atypical chest pain Mild anemia, probably some iron deficiency ?GERD, ?h/o PUD - pretty vague history CRC screen - none H/o CAD w/ stents on Plavix and ASA H/o meth use - tox screen negative -- Agree w/ PPI - on BID dosing here, would continue when discharged. Try GI cocktail, consider addition of iron. Reports previous outpt EGD at - try to get those records. Probably not indicated to pursue emergent inpt EGD though should be done as outpt w/ tandem screening colonoscopy at home at the [facility]. Will review this w/ Dr. Fields along w/ any other inpt GI recommendations (?esophagram). Encouraged meth avoidance. RAJESH WORTHINGTON March 24, 2021 12:48
[2021-03-24] MEDS ORDERED: LIDO:MAALOX 1:1 20 ML SINGLE DOSE. PO PRN (13:00)
[2021-03-24] MEDS ORDERED: LANS30TA6 FT (14:44)
[2021-03-24 15:29] VITALS: BP 102/65
--- NOTE | 2021-03-24 16:16 | PDOC3 ---
Discharge Summary Visit Information Date of Admission: March 22, 2021 Date of Discharge: March 24, 2021 Admitting Diagnosis: Chest pain Final Diagnosis Problems Medical Problems: (1) Chest pain Status: Acute Brief Hospital Course Allergies Allergies Coded Allergies Type Severity Reaction Last Updated Verified acetaminophen Allergy Intermediate 08/04/20 Yes albuterol Adverse Reaction Intermediate 11/18/19 Yes ibuprofen Adverse Reaction Intermediate Nausea and Vomiting 11/18/19 Yes Vital Signs Vital Signs Date Time Temp Pulse Resp B/P (MAP) Pulse Ox O2 Delivery O2 Flow Rate FiO2 03/24/21 15:29 97.7 74 20 102/65 (77) 96 Room Air 97.7 Lab Results Laboratory Tests Test 03/22/21 18:57 03/22/21 21:23 03/23/21 08:20 White Blood Count 7.2 x10^3/uL (4.0-11.0) 4.7 x10^3/uL (4.0-11.0) Red Blood Count 3.98 x10^6/uL (4.30-5.70) 4.16 x10^6/uL (4.30-5.70) Hemoglobin 11.7 g/dL (13.0-17.5) 12.1 g/dL (13.0-17.5) Hematocrit 34.2 % (39.0-53.0) 36.4 % (39.0-53.0) Mean Corpuscular Volume 86 fL (79-100) 87 fL (79-100) Mean Corpuscular Hemoglobin 29 pg (25-35) 29 pg (25-35) Mean Corpuscular Hemoglobin Concent 34 g/dL (31-37) 33 g/dL (31-37) Red Cell Distribution Width 19.4 % (11.5-14.5) 19.6 % (11.5-14.5) Platelet Count 203 x10^3/uL (140-400) 190 x10^3/uL (140-400) Neutrophils (%) (Auto) 69 % (31-73) 52 % (31-73) Lymphocytes (%) (Auto) 16 % (24-48) 24 % (24-48) Monocytes (%) (Auto) 11 % (0-9) 16 % (0-9) Eosinophils (%) (Auto) 3 % (0-3) 6 % (0-3) Basophils (%) (Auto) 1 % (0-3) 2 % (0-3) Neutrophils # (Auto) 4.9 x10^3/uL (1.8-7.7) 2.4 x10^3/uL (1.8-7.7) Lymphocytes # (Auto) 1.1 x10^3/uL (1.0-4.8) 1.1 x10^3/uL (1.0-4.8) Monocytes # (Auto) 0.8 x10^3/uL (0.0-1.1) 0.7 x10^3/uL (0.0-1.1) Eosinophils # (Auto) 0.2 x10^3/uL (0.0-0.7) 0.3 x10^3/uL (0.0-0.7) Basophils # (Auto) 0.1 x10^3/uL (0.0-0.2) 0.1 x10^3/uL (0.0-0.2) Sodium Level 140 mmol/L (136-145) 139 mmol/L (136-145) Potassium Level 4.3 mmol/L (3.5-5.1) 5.0 mmol/L (3.5-5.1) Chloride Level 105 mmol/L (98-107) 104 mmol/L (98-107) Carbon Dioxide Level 24 mmol/L (21-32) 24 mmol/L (21-32) Anion Gap 11 (6-14) 11 (6-14) Blood Urea Nitrogen 13 mg/dL (8-26) 17 mg/dL (8-26) Creatinine 1.1 mg/dL (0.7-1.3) 1.1 mg/dL (0.7-1.3) Estimated GFR (Cockcroft-Gault) 68.1 68.1 Glucose Level 86 mg/dL (70-99) 113 mg/dL (70-99) Calcium Level 8.6 mg/dL (8.5-10.1) 8.6 mg/dL (8.5-10.1) Troponin I Quantitative < 0.017 ng/mL (0.000-0.055) < 0.017 ng/mL (0.000-0.055) Urine Opiates Screen Pos (NEG) Urine Methadone Screen Neg (NEG) Urine Barbiturates Neg (NEG) Urine Phencyclidine Screen Neg (NEG) Urine Amphetamine/Methamphetamine Neg (NEG) Urine Benzodiazepines Screen Neg (NEG) Urine Cocaine Screen Neg (NEG) Urine Cannabinoids Screen Neg (NEG) Urine Ethyl Alcohol Neg (NEG) Magnesium Level 2.4 mg/dL (1.8-2.4) Iron Level 50 ug/dL (65-175) Total Iron Binding Capacity 393 ug/dL (250-450) Iron Saturation 13 % (15-34) Brief Hospital Course Mr Hicks is a 59yo M w/ PMHx CAD x multiple JANET, CHF, HTN, HLD, VT s/p AICD, COPD/asthma, GERD, OA, anxiety, IV methamphetamine comes to ED c/o left sided chest pain. Lasts 20-30 seconds at a time and occurs a couple of times every house. No associated dizziness, diaphoresis, palpitations, SOA, or nausea/vomiting. He describes it as coming in waves all of a sudden 6 out of 10 and comes down. He frequently requests IV morphine I have counseled him on drug-seeking behavior on numerous occasions. He is amenable to trying incentive spirometer flutter valve and PPI and potentially having gastroenterology assessment for possible ach alasia. Troponin x3 and EKG negative. Cardiology has seen patient. He tells me he had a cardiac catheterization when he was in research after he had had multiple AICD discharges after using IV "dope". He has not used since. He says he has also had a cardiac catheterization in [facility]. Medical records reviewed and AICD interrogated he had no shocks delivered recently. He did continue to request IV morphine and says that something be done for his chest pain. Given recent negative cardiac catheterization July 2020 and his stability on cardiac medications no further intervention was recommended. GI was consulted for concern for achalasia and will have a planned outpatient EGD as dissolvable PPI lansoprazole did help with his pain his last EGD was a [facility] on 02/08/2016 with evidence of reflux esophagitis at that time. On discharge reviewed with patient his recent negative testing at [facility] on discharge on 03/20/2021 where he had a negative CT PE he was admitted on 522 for that admission and had been at [facility] and discharged on 03/17/2021. Counseled him on his drug-seeking behavior continue to encourage him on his cessation of IV amphetamines as his urine drug screen was negative for those but was positive for opioids I offered him Suboxone therapy he refused. Consults: Cardiology and Gastroenterology Problem list: Chest pain - high risk ACS given his history and lateral TWI, negative trended troponins, telemetry with no activity. Will give IS, flutter valve. May have some achalasia and needs outpatient repeat EGD Acute on chronic CHF - left ventricular systolic dysfunction with ejection fraction estimated at 20 to 25% Hypokalemia - replaced. Ischemic cardiomyopathy - also with nonischemic cardiomyopathy due to methamphetamine use actively. CAD - s/p x4 cardiac catherizations. multiple stents in the past. At least 12 stents reported per patient - previously placed stents in the left anterior descending artery, diagonal branch and left posterior descending artery. The obtuse marginal branch and nondominant right coronary artery showed 100% chronic total occlusions, described in prior cardiac catheterization. (Cath report from 07/2020) Mitral regurgitation h/o VT s/p AICD - medtronic. No events HTN - cont meds HLD - cont meds IV meth use - currently not using sees a counselor through [facility] Tobaccoism -counseled on cessation he is nondistended nicotine patch states he will need to start smoking as soon as he leaves Labile mood with psychotic features and Anxiety/agitation - calmed with verbal counseling, haldol. Prn zyprexa ordered. Likely he is undiagnosed Bipolar or schizoaffective History of Drug seeking behavior -advised with his substance abuse history is high risk and should not be given an opioid prescription on discharge and to minimize opioids Anemia - likely from chronic substance abuse, will need monitoring outpatient. Greater than 30 minutes spent on d/c Discharge Information Condition at Discharge: Improved Follow Up: Weeks (1) Disposition/Orders: D/C to Home Scheduled Aspirin (Aspirin) 81 Mg Tab.chew, 1 TAB PO DAILY, #10 Prescribed by: KATHRYN HEBERT D.O. on 06/29/20 0607 Last Action: Continued on 03/23/21 0959 by JHOAN ROBERTSON RN Clopidogrel Bisulfate (Plavix) 75 Mg Tablet, 75 MG PO DAILY for TO PREVENT BLOOD CLOTS, #30 Ref 0 (Reported) Entered as Reported by: Roseanne Ca on 02/11/15 2308 Last Action: Continued on 03/23/21958 by JHOAN ROBERTSON RN Lansoprazole (Prevacid) 30 Mg Tab.rap.dr, 30 MG FT BIDBFRMEAL for GERD for 30 Days, #60 Ref 2 Prescribed by: DAVID ERNANDEZ MD on 03/24/21 1444 Metoprolol Succinate (Metoprolol Succinate ( Xl )) 25 Mg Tab.er.24h, 12.5 MG PO DAILY for FOR HYPERTENSION, #30 Ref 0 (Reported) Entered as Reported by: KANCHAN CANO [facility] on 11/18/19 0814 Last Action: Continued on 03/23/21958 by JHOAN ROBERTSON RN Olanzapine (Zyprexa) 5 Mg Tablet, 1 TAB PO BID for Agitation for 30 Days, #60 Ref 5 Prescribed by: DAVID ERNANDEZ MD on 12/04/20 1134 Last Action: Continued on 03/23/21958 by JHOAN ROBERTSON RN Pregabalin (Lyrica) 300 Mg Capsule, 1 CAP PO BID, #60 Ref 2 (Reported) Entered as Reported by: TERESA NAPIER on 04/10/16411 Last Action: Converted on 03/23/21958 by JHOAN ROBERTSON RN Rosuvastatin Calcium (Crestor) 40 Mg Tablet, 40 MG PO HS for FOR CHOLESTEROL, #30 Ref 0 (Reported) Entered as Reported by: DIVINA HAAS RN on 06/03/20 180 Last Action: Converted on 03/23/21958 by JHOAN ROBERTSON RN Tiotropium [place] (Spiriva) 18 Mcg Cap.w.dev, 1 CAP IH DAILY, #30 Ref 3 (Reported) Entered as Reported by: TERESA NAPIER on 04/10/16411 Last Action: Converted on 03/23/21958 by JHOAN ROBERTSON RN Scheduled PRN Nitroglycerin (NITROGLYCERIN SubLingual) 0.4 Mg Tab.subl, 0.4 MG SL PRN Q5MIN PRN for CHEST PAIN, (Reported) Entered as Reported by: TERESA NAPIER on 04/10/16411 Last Action: Continued on 03/23/21 0959 by JHOAN ROBERTSON RN Justicifation of Admission Dx: Justifications for Admission: Justification of Admission Dx: N/A Angina: [facility] DAVID ERNANDEZ MD March 24, 2021 16:16
--- NOTE | 2021-03-24 16:50 | NUR ---
Discharge Note: [facility] Patient refused to go over paperwork with RN, signed copy and placed in the chart. The following instructions and handouts were given: Chest pain Patient [facility] with [facility]. IV out, monitor off and placed at nurses station.
== END 2021-03-24 17:44 | disposition home or self-care (01) ==
LOC: ER 18:43 → CVICU 20:36 → 2 NORTH 03-23 17:38
PROVIDERS: ADMIT Family Medicine; ATTEND Family Medicine
DX: R07.89 Other chest pain (principal); I11.0 Hypertensive heart disease with heart failure; I50.22 Chronic systolic (congestive) heart failure; I63.9 Cerebral infarction, unspecified; I34.0 Nonrheumatic mitral (valve) insufficiency; I25.5 Ischemic cardiomyopathy; I25.10 Atherosclerotic heart disease of native coronary artery without angina pectoris; J44.9 Chronic obstructive pulmonary disease, unspecified; K21.9 Gastro-esophageal reflux disease without esophagitis; E87.1 Hypo-osmolality and hyponatremia; E87.6 Hypokalemia; D64.9 Anemia, unspecified; I25.2 Old myocardial infarction; E78.00 Pure hypercholesterolemia, unspecified; E78.5 Hyperlipidemia, unspecified; M19.90 Unspecified osteoarthritis, unspecified site; F15.10 Other stimulant abuse, uncomplicated; F17.210 Nicotine dependence, cigarettes, uncomplicated; F41.9 Anxiety disorder, unspecified; Z82.49 Family history of ischemic heart disease and other diseases of the circulatory system; Z86.73 Personal history of transient ischemic attack (TIA), and cerebral infarction without residual deficits; Z95.5 Presence of coronary angioplasty implant and graft; Z95.810 Presence of automatic (implantable) cardiac defibrillator; Z95.1 Presence of aortocoronary bypass graft; Z79.82 Long term (current) use of aspirin; Z79.01 Long term (current) use of anticoagulants
CPT/HCPCS: 36415; 71046; 80048; 80307; 83540; 83550; 83735; 84484; 85025; 87040; 93005; 94667; 96374; 96375; 96376; 99285; G0238; G0378; J1885; J2270; G0379

== ENCOUNTER 2021-04-11 19:25 | Observation (INO) | payer MEDICAID ==
[~2021-04-11] VITALS: Ht 170.2 cm; Wt 69.0 kg
[~2021-04-11 19:25] MED LIST changes: +LANS30TA6 FT
--- NOTE | 2021-04-11 19:37 | EKG ---
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
[2021-04-11] MEDS ORDERED: fentaNYL PF VIAL 100 MCG/2 ML VIAL IVP ONE (19:45)
--- NOTE | 2021-04-11 19:45 | PHYS DOC ---
Past Medical History Past Medical History: Asthma, CAD, CHF, CVA, High Cholesterol, Hypertension, NH, Other Additional Past Medical Histor: VTACH,IV Drug abuse-Methamphetamine Past Surgical History: Angioplasty, Pacemaker, Other Additional Past Surgical Histo: 15 cardiac stents, multiple cardiac catheterizations,WITH DEFIB Smoking Status: Current Every Day Smoker Alcohol Use: Rarely Drug Use: Methamphetamine General Adult EDM: Chief Complaint: CHEST PAIN HPI: HPI: Patient is a 60-year-old male presenting via EMS for chest pain. Onset was approximately 45 minutes prior to arrival while patient was walking around [employer]. Reports substernal pain with intermittent radiation to bilateral shoulders and left jaw. Patient took x3 sublingual nitros with temporary relief. Nothing known makes worse. Timing of symptoms has been constant since onset and worsened in intensity versus prior episodes of chest pain. States he has significant cardiac history, has pacemaker/defibrillator present without any feelings of it firing. Has history of numerous MIs, reports having x15 stents. He is on 81 mg of aspirin daily, did not take any today. Patient was evaluated and hemodynamically stable by EMS, he was given 325 mg aspirin and transported to our facility for evaluation. On arrival, patient reports ongoing 8/10 severity chest pain. Admits tobacco use smoking half a pack of cigarettes daily, no alcohol use, has distant history of illicit drug abuse but nothing recently per patient. Review of Systems: Review of Systems: Fourteen body systems of review of systems have been reviewed. See HPI for pertinent positives and negative responses, other jarrell all other systems are negative, non-pertinent or non-contributory Heart Score: C/O Chest Pain: Yes HEART Score for Chest Pain: HEART Score for Chest Pain Response (Comments) Value History Highly Suspicious 2 ECG Nonspecific Repolarizatio 1 Age >45 - < 65 1 Risk Factors >3 Risk Factors or Hx CAD 2 Total 6 Risk Factors: Risk Factors: DM, Current or recent (<one month) smoker, HTN, HLP, family history of CAD, obesity. Risk Scores: Score 0 - 3: 2.5% MACE over next 6 weeks - Discharge Home Score 4 - 6: 20.3% MACE over next 6 weeks - Admit for Clinical Observation Score 7 - 10: 72.7% MACE over next 6 weeks - Early Invasive Strategies Allergies: Allergies: Allergies Coded Allergies Type Severity Reaction Last Updated Verified acetaminophen Allergy Intermediate 08/04/20 Yes albuterol Adverse Reaction Intermediate 1/22/20 Yes ibuprofen Adverse Reaction Intermediate Nausea and Vomiting 11/18/19 Yes Physical Exam: PE: Constitutional: Age-appropriate, appears in moderate distress due to pain and anxious, poor hygiene HENT: Normocephalic, atraumatic, bilateral external ears normal, oropharynx dry with poor dentition, no oral exudates, nose normal. Eyes: PERRLA, EOMI, conjunctiva normal, no discharge. Neck: Normal range of motion, no tenderness, supple, no stridor. Cardiovascular: Heart rate regular, sinus rhythm, no murmurs rubs or gallops Lungs & Thorax: Bilateral breath sounds clear to auscultation Abdomen: Bowel sounds normal, soft, no tenderness, no masses, no pulsatile masses. Nonsurgical abdomen, no peritoneal signs Skin: Warm, dry, no erythema, no rash. Back: No tenderness, no CVA tenderness. Extremities: No tenderness, no cyanosis, no clubbing, ROM intact, no edema. Neurologic: Alert and oriented X 3, grossly normal motor & sensory function, no focal deficits noted. Psychologic: Anxious affect and mood Current Patient Data: Labs: Laboratory Tests Test 04/11/21 19:40 White Blood Count 5.9 x10^3/uL Red Blood Count 3.70 x10^6/uL Hemoglobin 11.0 g/dL Hematocrit 32.5 % Mean Corpuscular Volume 88 fL Mean Corpuscular Hemoglobin 30 pg Mean Corpuscular Hemoglobin Concent 34 g/dL Red Cell Distribution Width 16.5 % Platelet Count 312 x10^3/uL Neutrophils (%) (Auto) 62 % Lymphocytes (%) (Auto) 22 % Monocytes (%) (Auto) 11 % Eosinophils (%) (Auto) 3 % Basophils (%) (Auto) 1 % Neutrophils # (Auto) 3.7 x10^3/uL Lymphocytes # (Auto) 1.3 x10^3/uL Monocytes # (Auto) 0.7 x10^3/uL Eosinophils # (Auto) 0.2 x10^3/uL Basophils # (Auto) 0.1 x10^3/uL Prothrombin Time 13.0 SEC Prothromb Time International Ratio 1.0 Activated Partial Thromboplast Time 40 SEC Sodium Level 142 mmol/L Potassium Level 4.0 mmol/L Chloride Level 105 mmol/L Carbon Dioxide Level 23 mmol/L Anion Gap 14 Blood Urea Nitrogen 10 mg/dL Creatinine 0.9 mg/dL Estimated GFR (Cockcroft-Gault) 85.8 BUN/Creatinine Ratio 11 Glucose Level 98 mg/dL Calcium Level 8.6 mg/dL Magnesium Level 1.9 mg/dL Total Bilirubin 0.2 mg/dL Aspartate Amino Transf (AST/SGOT) 12 U/L Alanine Aminotransferase (ALT/SGPT) 18 U/L Alkaline Phosphatase 95 U/L Troponin I Quantitative < 0.017 ng/mL PT-Kha-Z-Type Natriuretic Peptide 645 pg/mL Total Protein 7.0 g/dL Albumin 3.5 g/dL Albumin/Globulin Ratio 1.0 Current Medications Medications (Trade) Dose Ordered Sig/Ani Route PRN Reason Start Time Stop Time Status Last Admin Dose Admin Fentanyl Citrate (Fentanyl 2ml Vial) 50 mcg 1X ONCE IVP 04/11/21 19:45 04/11/21 19:46 DC 04/11/21 19:47 Vital Signs: Vital Signs Date Time Temp Pulse Resp B/P (MAP) Pulse Ox O2 Delivery O2 Flow Rate FiO2 04/11/21 19:27 98.1 36 24 120/77 (91) 100 Room Air 98.1 Vital Signs Date Time Temp Pulse Resp B/P (MAP) Pulse Ox O2 Delivery O2 Flow Rate FiO2 04/11/21 19:47 99 Room Air 04/11/21 19:27 98.1 36 24 120/77 (91) 98.1 EKG: EKG: EKG ordered and interpreted by myself at 1930 hrs. and later confirmed by car diologist as sinus rhythm at 94 bpm, prolonged QRS at 154 prolonged QTC at 504 otherwise unremarkable intervals, left axis deviation, left bundle branch block that is reported as old per patient, T wave inversions noted in leads aVL, V5 and V6, no STEMI This EKG was reviewed viewed and compared to prior obtained 12/01/2020 as a ventricular paced rhythm at 110 bpm, prolonged QRS at 148 and prolonged QTC at 510 otherwise unremarkable intervals, left axis deviation, T wave inversions noted in leads I and aVL, LBB present, no STEMI Repeat EKG ordered and interpreted by myself at 2019 hrs. as sinus rhythm with occasional PVCs at 89 bpm, prolonged QRS at 158 and prolonged QTC at 514 otherwise unremarkable intervals, right axis deviation, no STEMI Radiology/Procedures: Radiology/Procedures: EXAM: CHEST 1 VIEW History: Chest pain COMPARISON: 03/22/2021 TECHNIQUE: Single portable radiograph of the chest FINDINGS: Mild cardiomegaly. The lungs are clear bilaterally. Left-sided card iac pacer AICD. IMPRESSION: No radiographic evidence of an acute cardiopulmonary process. Electronically signed by: Lux Baires MD (04/11/2021 8:06 PM) [id number] Course & Med Decision Making: Course & Med Decision Making Vitals unremarkable. Initially reported STEMI equivalent due to new onset left bundle branch block. EKG reviewed on arrival with on-call gerentological physiotherapist, no STEMI and appears LBBB is old after comparison with prior EKG 325 mg aspirin administered in route. Patient self administered x3 sublingual nitro prior to arrival. 75 mcg fentanyl administered on arrival with improvement of pain Comprehensive ER work-up obtained with unremarkable subsequent EKG and negative troponin. I reviewed heart score with patient and discussed my concern given his history of cardiac events I contacted on-call hospitalist and reviewed case at length, he agreed need for admission and accepted patient under his care to telemetry unit. I disclosed patient pending UDS at time of hospital admission I updated patient on proposed plan of care that included hospital admission. All questions and concerns addressed prior to ER admission. Reports pain improved from 9/10 severity to 6/10 in severity. 4 mg IV morphine administered with near complete resolution of pain prior to transport to floor for admission Critical Care Time This patient required critical care. Due to the fact that the patient required a significant amount of one on one physician - patient contact time, ordering and review of studies, arranging urgent treatment with development of a management plan, evaluation of patients response to treatment with frequent reassessments, and discussions with other providers this patient required 45 minutes of critical care time. Critical care time was indicated due to the inherent instability and/or potential for instability in this patient. The critical care time that is allocated to this patient is above and beyond any time spent on any other billable procedures performed on this patient. Dragon Disclaimer: Dragon Disclaimer: This electronic medical record was generated, in whole or in part, using a voice recognition dictation system. Departure Departure Impression: Primary Impression: Chest pain Additional Impressions: History of NH (myocardial infarction) History of illicit drug use Pacemaker Disposition: ADMITTED INPATIENT Admitting Physician: DEJUAN ([facility]) Condition: STABLE Referrals: NO PCP (PCP) ERLIN MOSCOSO DO Apr 11, 2021 19:45
[2021-04-11 19:47] LABS: BASO # 0.1 x10^3/uL (0.0-0.2); BASO % 1 % (0-3); EOS # 0.2 x10^3/uL (0.0-0.7); EOS % 3 % (0-3); HEMATOCRIT 32.5 % (39.0-53.0); LYMPH # 1.3 x10^3/uL (1.0-4.8); LYMPH % 22 % (24-48); MEAN CORPUSCULAR HEMOGLOBIN 30 pg (25-35); MEAN CORPUSCULAR HGB CONC 34 g/dL (31-37); MEAN CORPUSCULAR VOLUME 88 fL (79-100); MONO # 0.7 x10^3/uL (0.0-1.1); MONO % 11 % (0-9); NEUT # 3.7 x10^3/uL (1.8-7.7); NEUT % 62 % (31-73); PLATELET COUNT 312 x10^3/uL (140-400); RED CELL DISTRIBUTION WIDTH 16.5 % (11.5-14.5); WHITE BLOOD COUNT 5.9 x10^3/uL (4.0-11.0)
[2021-04-11 19:59] LABS: CALCIUM 8.6 mg/dL (8.5-10.1); CREATININE 0.9 mg/dL (0.7-1.3); GFR 85.8
[2021-04-11 20:05] LABS: ALBUMIN 3.5 g/dL (3.4-5.0); MAGNESIUM 1.9 mg/dL (1.8-2.4); TOTAL BILIRUBIN 0.2 mg/dL (0.2-1.0)
--- NOTE | 2021-04-11 20:09 | RAD ---
EXAM: CHEST 1 VIEW History: Chest pain COMPARISON: 03/22/2021 TECHNIQUE: Single portable radiograph of the chest FINDINGS: Mild cardiomegaly. The lungs are clear bilaterally. Left-sided cardiac pacer AICD. IMPRESSION: No radiographic evidence of an acute cardiopulmonary process. Electronically signed by: Lux Baires MD (04/11/2021 8:06 PM) [id number]
--- NOTE | 2021-04-11 20:19 | EKG ---
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
[2021-04-11] MEDS ORDERED: MORPHINE SULFATE 4 MG/ML VIAL. IV PRN (20:45)
[2021-04-11] MEDS ORDERED: NITROGLYCERIN SUBLINGUAL 0.4 MG BOTTLE OF 25. SL PRN ×2 (20:45→22:45)
[2021-04-11] MEDS ORDERED: MORPHINE SULFATE 4 MG/ML VIAL. IV ONE (21:00)
[2021-04-11 22:50] VITALS: BP 99/46
[2021-04-11] MEDS ORDERED: ATORVASTATIN CALCIUM 40 MG TABLET. PO SCH (23:00)
[2021-04-11] MEDS: PREGABALIN 75 MG CAPSULE PO SCH (23:15)
[2021-04-12 02:40] VITALS: BP 104/60
--- NOTE | 2021-04-12 03:34 | NUR ---
The patient, CARMELA JOSEPH, 60 y/o, M admitted by ELISSA SHINE MD, alert and oriented x4. pt appeared very agitated and angry. pt was verbally aggressive ,uncooperative with cares. yelling at staff, this RN initiated a code caceres. afterwards pt was very apologetic. pt was given written information regarding hospital policies, unit procedures and contact persons. Valuables were checked and documented in the emar.
[2021-04-12 07:35] VITALS: BP 110/61
[2021-04-12] MEDS ORDERED: IPRATRPIUM/ALBUTEROL 0.5/2.5MG 3 ML NEBU. NEB SCH (08:00)
[2021-04-12] MEDS ORDERED: ASPIRIN CHEWABLE 81 MG TABLET. PO SCH (08:00)
[2021-04-12] MEDS ORDERED: CLOPIDOGREL BISULFATE 75 MG TABLET PO SCH (08:00)
--- NOTE | 2021-04-12 08:26 | PDOC1 ---
History and Physical Date of Service: DOS: DATE: 04/12/21 TIME: 08:17 Chief Complaint: Chief Complain: Chest pain. History of Present Illness: HPI: 60-year-old male presenting via EMS for chest pain. Onset was approximately 45 minutes prior to arrival while patient was walking around [place] shopping. Reports substernal pain with intermittent radiation to bilateral shoulders and left jaw. Patient took x3 sublingual nitros with temporary relief. Nothing known makes worse. Timing of symptoms has been constant since onset and worsened in intensity versus prior episodes of chest pain. States he has significant cardiac history, has pacemaker/defibrillator present without any feelings of it firing. Has history of numerous MIs, reports having x15 stents. He is on 81 mg of aspirin daily, did not take any today. Patient was evaluated and hemodynamically stable by EMS, he was given 325 mg aspirin and transported to our facility for evaluation. On arrival, patient reports ongoing 8/10 severity chest pain. Admits tobacco use smoking half a pack of cigarettes daily, no alcohol use, has distant history of illicit drug abuse but nothing recently per patient. Past Medical/Surgical History: PMH/PSH: Past Medical History: Asthma, CAD, CHF, CVA, High Cholesterol, Hypertension, DE, VTACH,IV Drug abuse-Methamphetamine Past Surgical History: Angioplasty, Pacemaker, 15 cardiac stents, multiple cardiac catheterizations,WITH DEFIB Allergies: Allergies: Coded Allergies: acetaminophen (Verified Allergy, Intermediate, 08/04/20) albuterol (Verified Adverse Reaction, Intermediate, 11/18/19) Patient states "it speeds my heart up too much" ibuprofen (Verified Adverse Reaction, Intermediate, Nausea and Vomiting, 11/18/19) Family History: Family History: Reviewed with no relevant findings Social History: Social History: Smoking Status: Current Every Day Smoker Alcohol Use: Rarely Drug Use: Methamphetamine Current Medications: Current Medications Current Medications Fentanyl Citrate (Fentanyl 2ml Vial) 50 mcg 1X ONCE IVP Last administered on 04/11/21at 19:47; Start 04/11/21 at 19:45; Stop 04/11/21 at 19:46; Status DC Morphine Sulfate (Morphine Sulfate) 4 mg PRN Q2HR PRN IV PAIN; Start 04/11/21 at 20:45; Stop 04/12/21 at 20:44 Nitroglycerin (Nitrostat) 0.4 mg PRN Q5MIN PRN SL CHEST PAIN; Start 04/11/21 at 20:45; Stop 04/12/21 at 20:44 Morphine Sulfate (Morphine Sulfate) 4 mg 1X ONCE IV Last administered on 04/11/21at 21:06; Start 04/11/21 at 21:00; Stop 04/11/21 at 21:01; Status DC Aspirin (Aspirin Chewable) 81 mg DAILY08 PO ; Start 04/12/21 at 08:00 Clopidogrel Bisulfate (Plavix) 75 mg DAILY08 PO ; Start 04/12/21 at 08:00 Metoprolol Succinate (Toprol Xl) 12.5 mg DAILY PO ; Start 04/12/21 at 09:00 Nitroglycerin (Nitrostat) 0.4 mg PRN Q5MIN PRN SL CHEST PAIN; Start 04/11/21 at 22:45 Pregabalin (Lyrica) 300 mg BID PO Last administered on 04/11/21at 23:15; Start 04/11/21 at 23:00 Atorvastatin Calcium (Lipitor) 80 mg QHS PO Last administered on 04/11/21at 23:14; Start 04/11/21 at 23:00 Albuterol/ Ipratropium (Duoneb) 3 ml RTQID NEB ; Start 04/12/21 at 08:00 Lorazepam (Ativan Inj) 1 mg 1X ONCE IVP Last administered on 04/11/21at 23:16; Start 04/11/21 at 23:15; Stop 04/11/21 at 23:16; Status DC Active Scripts Active Aspirin 81 Mg Tab.chew 1 Tab PO DAILY Reported Crestor (Rosuvastatin Calcium) 40 Mg Tablet 40 Mg PO HS Metoprolol Succinate ( Xl ) (Metoprolol Succinate) 25 Mg Tab.er.24h 12.5 Mg PO DAILY Spiriva (Tiotropium [place]) 18 Mcg Cap.w.dev 1 Cap IH DAILY NITROGLYCERIN SubLingual (Nitroglycerin) 0.4 Mg Tab.subl 0.4 Mg SL PRN Q5MIN PRN Lyrica (Pregabalin) 300 Mg Capsule 1 Cap PO BID Plavix (Clopidogrel Bisulfate) 75 Mg Tablet 75 Mg PO DAILY ROS: Review of Systems Review of System REVIEW OF SYSTEMS: GENERAL: Denies weakness SKIN: No bruising, hair changes or rashes. EYES: No blurred, double or loss of vision. NOSE AND THROAT: No history of nosebleeds, hoarseness or sore throat. HEART: No history of palpitations, chest pain or shortness of breath on exertion. LUNGS: Denies cough, hemoptysis, wheezing or shortness of breath. GASTROINTESTINAL: Denies changes in appetite, nausea, vomiting, diarrhea or constipation. GENITOURINARY: No history of frequency, urgency, hesitancy or nocturia. NEUROLOGIC: Denies history of numbness, tingling, or tremor. PSYCHIATRIC: No history of panic, anxiety or depression. ENDOCRINE: No history of heat or cold intolerance, polyuria or polydipsia. EXTREMITIES: Denies joint pain, pain on walking or stiffness. Physical Exam: Vital Signs: Vital Signs Date Time Temp Pulse Resp B/P (MAP) Pulse Ox O2 Delivery O2 Flow Rate FiO2 04/12/21 07:35 98.3 77 18 110/61 (77) 96 Room Air 98.3 Physcial Exam: GEN: No apparent distress. Alert and oriented HEENT: Normal cephalic, atraumatic, external auditory canals are patent EYES: Extraocular muscles are intact, pupil are equally round and reactive to light and accommodation MUSCULOSKELETAL: Well developed , well nourished, good range of motion ENDOCRINE: No thyromegaly was palpated LYMPHATICS: No cervical chain or axillary nodes were noted HEMATOPOIETIC: No bruising NECK: Supple, no JVD, no thyromegaly was noted LUNGS: Clear to auscultation in all lung hernandez without rhonchi or wheezing HEART: RRR, S!, S2 present. Peripheral pulses intact, no obvious murmurs noted ABDOMEN: Soft, nontender. Positive bowel sounds, no organomegaly, normal bowel sounds EXTREMITIES: Without clubbing, cyanosis, or edema. Pedal pulses intact. Negative Homans sign NEUROLOGIC: Normal speech and tone. A&O x 3, moves all extremities, no obvious focal deficits PSYCHIATRIC: Normal affect, normal mood. Stable SKIN: No ulcerations or rashes, good skin turgor, no jaundice VASCULAR: Good capillary refill, neurovascular bundle appears to be intact Labs: Labs: Laboratory Tests Test 04/11/21 19:40 04/11/21 22:30 04/12/21 06:10 White Blood Count 5.9 x10^3/uL (4.0-11.0) Red Blood Count 3.70 x10^6/uL (4.30-5.70) Hemoglobin 11.0 g/dL (13.0-17.5) Hematocrit 32.5 % (39.0-53.0) Mean Corpuscular Volume 88 fL (79-100) Mean Corpuscular Hemoglobin 30 pg (25-35) Mean Corpuscular Hemoglobin Concent 34 g/dL (31-37) Red Cell Distribution Width 16.5 % (11.5-14.5) Platelet Count 312 x10^3/uL (140-400) Neutrophils (%) (Auto) 62 % (31-73) Lymphocytes (%) (Auto) 22 % (24-48) Monocytes (%) (Auto) 11 % (0-9) Eosinophils (%) (Auto) 3 % (0-3) Basophils (%) (Auto) 1 % (0-3) Neutrophils # (Auto) 3.7 x10^3/uL (1.8-7.7) Lymphocytes # (Auto) 1.3 x10^3/uL (1.0-4.8) Monocytes # (Auto) 0.7 x10^3/uL (0.0-1.1) Eosinophils # (Auto) 0.2 x10^3/uL (0.0-0.7) Basophils # (Auto) 0.1 x10^3/uL (0.0-0.2) Prothrombin Time 13.0 SEC (11.7-14.0) Prothromb Time International Ratio 1.0 (0.8-1.1) Activated Partial Thromboplast Time 40 SEC (24-38) Sodium Level 142 mmol/L (136-145) Potassium Level 4.0 mmol/L (3.5-5.1) Chloride Level 105 mmol/L (98-107) Carbon Dioxide Level 23 mmol/L (21-32) Anion Gap 14 (6-14) Blood Urea Nitrogen 10 mg/dL (8-26) Creatinine 0.9 mg/dL (0.7-1.3) Estimated GFR (Cockcroft-Gault) 85.8 BUN/Creatinine Ratio 11 (6-20) Glucose Level 98 mg/dL (70-99) Calcium Level 8.6 mg/dL (8.5-10.1) Magnesium Level 1.9 mg/dL (1.8-2.4) Total Bilirubin 0.2 mg/dL (0.2-1.0) Aspartate Amino Transf (AST/SGOT) 12 U/L (15-37) Alanine Aminotransferase (ALT/SGPT) 18 U/L (16-63) Alkaline Phosphatase 95 U/L (46-116) Troponin I Quantitative < 0.017 ng/mL (0.000-0.055) < 0.017 ng/mL (0.000-0.055) < 0.017 ng/mL (0.000-0.055) AK-Yfu-H-Type Natriuretic Peptide 645 pg/mL (0-124) Total Protein 7.0 g/dL (6.4-8.2) Albumin 3.5 g/dL (3.4-5.0) Albumin/Globulin Ratio 1.0 (1.0-1.7) Laboratory Tests Test 04/11/21 19:40 04/11/21 22:30 04/12/21 06:10 White Blood Count 5.9 x10^3/uL (4.0-11.0) Red Blood Count 3.70 x10^6/uL (4.30-5.70) Hemoglobin 11.0 g/dL (13.0-17.5) Hematocrit 32.5 % (39.0-53.0) Mean Corpuscular Volume 88 fL (79-100) Mean Corpuscular Hemoglobin 30 pg (25-35) Mean Corpuscular Hemoglobin Concent 34 g/dL (31-37) Red Cell Distribution Width 16.5 % (11.5-14.5) Platelet Count 312 x10^3/uL (140-400) Neutrophils (%) (Auto) 62 % (31-73) Lymphocytes (%) (Auto) 22 % (24-48) Monocytes (%) (Auto) 11 % (0-9) Eosinophils (%) (Auto) 3 % (0-3) Basophils (%) (Auto) 1 % (0-3) Neutrophils # (Auto) 3.7 x10^3/uL (1.8-7.7) Lymphocytes # (Auto) 1.3 x10^3/uL (1.0-4.8) Monocytes # (Auto) 0.7 x10^3/uL (0.0-1.1) Eosinophils # (Auto) 0.2 x10^3/uL (0.0-0.7) Basophils # (Auto) 0.1 x10^3/uL (0.0-0.2) Prothrombin Time 13.0 SEC (11.7-14.0) Prothromb Time International Ratio 1.0 (0.8-1.1) Activated Partial Thromboplast Time 40 SEC (24-38) Sodium Level 142 mmol/L (136-145) Potassium Level 4.0 mmol/L (3.5-5.1) Chloride Level 105 mmol/L (98-107) Carbon Dioxide Level 23 mmol/L (21-32) Anion Gap 14 (6-14) Blood Urea Nitrogen 10 mg/dL (8-26) Creatinine 0.9 mg/dL (0.7-1.3) Estimated GFR (Cockcroft-Gault) 85.8 BUN/Creatinine Ratio 11 (6-20) Glucose Level 98 mg/dL (70-99) Calcium Level 8.6 mg/dL (8.5-10.1) Magnesium Level 1.9 mg/dL (1.8-2.4) Total Bilirubin 0.2 mg/dL (0.2-1.0) Aspartate Amino Transf (AST/SGOT) 12 U/L (15-37) Alanine Aminotransferase (ALT/SGPT) 18 U/L (16-63) Alkaline Phosphatase 95 U/L (46-116) Troponin I Quantitative < 0.017 ng/mL (0.000-0.055) < 0.017 ng/mL (0.000-0.055) < 0.017 ng/mL (0.000-0.055) YQ-Brg-G-Type Natriuretic Peptide 645 pg/mL (0-124) Total Protein 7.0 g/dL (6.4-8.2) Albumin 3.5 g/dL (3.4-5.0) Albumin/Globulin Ratio 1.0 (1.0-1.7) Images: Images CXR Impression: 1. No acute cardiopulmonary process. Assessment/Plan Assessment/Plan Chest pain concerning for unstable angina/NSTEMI Tobacco misuse With amphetamine use in the past JUAN J = EKG showing Irregular rhythm with no P waves Ventricular PVCs Old LBBB Troponin negative x3 Continue aspirin, consider Plavix if intermediate risk will defer this to cardiology Cardiology consulted for predischarge stress testing or left heart cath Continue nitroglycerin as needed for pain Continue beta-amish if blood pressures allow Continue high intensity statins IV morphine as needed Consider Lovenox Maintain O2 sats between 88 to 95% Trend troponins Repeat EKG in the a.m. Continue telemetry monitoring Monitor for electrolyte abnormalities Avoid NSAIDs Smoking cessation: Total time spent was 12 minutes in face to face counseling. Patient has agreed to consider nicotine patches/gum or to start on Varnicline when discharged Justifications for Admission Other Justification ACS ISELA MARTI MD Apr 12, 2021 08:25
--- NOTE | 2021-04-12 08:49 | NUR ---
Patient refuses all nebulizer treatments. He will only take Spiriva, will not accept a substitute. RN informed.
[2021-04-12] MEDS ORDERED: METOPROLOL SUCC 24HR ER 25 MG TAB.ER.24H. PO SCH (09:00)
[2021-04-12] MEDS ORDERED: ALBUTEROL SULFATE 2.5 MG/3 ML NEBU. NEB PRN (09:00)
[2021-04-12 09:04] LABS: CHOLESTEROL/HDL RATIO 4.7
--- NOTE | 2021-04-12 10:09 | NUR ---
SS following for discharge planning. SS reviewed pt chart and discussed with pt RN. Pt is from home and is currently on room air. Pt refusing UA. Discharge plan is to home when medically ready. Pt requesting transportation to home. SS will continue to follow for discharge planning.
[2021-04-12 10:35] VITALS: BP 126/75
--- NOTE | 2021-04-12 10:37 | PDOC2 ---
NERI NUNN SENIOR ASSOCIATE 04/12/21 1037: CARDIAC CONSULT DATE OF CONSULT Date of Consult DATE: 04/12/21 TIME: 10:14 REASON FOR CONSULT Reason for Consult: Chest pain, past stents REFERRING PHYSICIAN Referring Physician: Hang SOURCE Source: Chart review, Patient HISTORY OF PRESENT ILLNESS HISTORY OF PRESENT ILLNESS This is a 60 yo male admitted for complains of chest pain. He resides at the [facility] and comes over here at times for job and currently told me that he is visiting someone. He was using meth and reports being sober. No nausea or vomiting and no peripheral edema or SOA. No fever or chills. He was walking at [facility] when started having chest pain and took 3 NTG. He is significant for ICM with AICD and no treatment was felt, also has multiple stents and had recent LHC with no intervention but does have STEELSCOPE OPERATOR to OM and nondominant RCA otherwise patent stents. He needs antianginals but does not want to take any due to being low in BP at times. I tried to talk to him about it but he does not even want to bring it up. His medications includes, ASA, statoin, lisinopril and metoprolol. His phlebotomy director is at [facility] whom he saw 2 months. ago. PAST MEDICAL HISTORY Past Medical History Cardiovascular: CAD, CHF (ICM), HTN, Hyperlipidemia, Other (VT) Pulmonary: Asthma CENTRAL NERVOUS SYSTEM: CVA GI: GERD Heme/Onc: No pertinent hx Hepatobiliary: No pertinent hx Psych: Anxiety Musculoskeletal: Osteoarthritis Rheumatologic: No pertinent hx Infectious disease: No pertinent hx ENT: No pertinent hx Renal/: No pertinent hx Endocrine: No pertinent hx Dermatology: No pertinent hx PAST SURGICAL HISTORY Past Surgical History Pacemaker (AICD), Other (multiple PCI/stents. FAMILY HISTORY Family History: Hypertension SOCIAL HISTORY Social History Smoke: <1 pack per day ALCOHOL: none Drugs: H/o meth use; reports clean x2 months Lives: with Family CURRENT MEDICATIONS CURRENT MEDICATIONS Current Medications Medications (Trade) Dose Ordered Sig/Ani Route PRN Reason Start Time Stop Time Status Last Admin Dose Admin Fentanyl Citrate (Fentanyl 2ml Vial) 50 mcg 1X ONCE IVP 04/11/21 19:45 04/11/21 19:46 DC 04/11/21 19:47 Morphine Sulfate (Morphine Sulfate) 4 mg 1X ONCE IV 04/11/21 21:00 04/11/21 21:01 DC 04/11/21 21:06 Pregabalin (Lyrica) 300 mg BID PO 04/11/21 23:00 04/11/21 23:15 Atorvastatin Calcium (Lipitor) 80 mg QHS PO 04/11/21 23:00 04/11/21 23:14 Lorazepam (Ativan Inj) 1 mg 1X ONCE IVP 04/11/21 23:15 04/11/21 23:16 DC 04/11/21 23:16 ALLERGIES ALLERGIES: Coded Allergies: acetaminophen (Verified Allergy, Intermediate, 08/04/20) albuterol (Verified Adverse Reaction, Intermediate, 11/18/19) Patient states "it speeds my heart up too much" ibuprofen (Verified Adverse Reaction, Intermediate, Nausea and Vomiting, 11/18/19) ROS Review of System 14 point ROS evaluated with pertinent positives noted per HPI PHYSICAL EXAM General: Alert, Oriented X3, Cooperative, No acute distress HEENT: Atraumatic, Mucous membr. moist/pink Lungs: Clear to auscultation, Normal air movement Heart: Regular rate (SR), Normal S1, Normal S2, Other (3/6 systolic murmur to apex) Abdomen: Soft, No tenderness Extremities: No cyanosis, No edema Skin: No breakdown, No significant lesion Neuro: Normal speech, Sensation intact Psych/Mental Status: Mental status NL, Mood NL MUSCULOSKELETAL: Osteoarthritic changes both hands VITALS/I&O VITALS/I&O: Vital Signs Date Time Temp Pulse Resp B/P (MAP) Pulse Ox O2 Delivery O2 Flow Rate FiO2 04/12/21 07:35 98.3 77 18 110/61 (77) 96 Room Air 98.3 I & O 04/11/21 04/11/21 04/12/21 15:00 23:00 07:00 Intake Total 1120 ml Balance 1120 ml LABS Lab: Laboratory Tests Test 04/11/21 19:40 04/11/21 22:30 04/12/21 06:10 White Blood Count 5.9 x10^3/uL (4.0-11.0) Red Blood Count 3.70 x10^6/uL (4.30-5.70) L Hemoglobin 11.0 g/dL (13.0-17.5) L Hematocrit 32.5 % (39.0-53.0) L Mean Corpuscular Volume 88 fL (79-100) Mean Corpuscular Hemoglobin 30 pg (25-35) Mean Corpuscular Hemoglobin Concent 34 g/dL (31-37) Red Cell Distribution Width 16.5 % (11.5-14.5) H Platelet Count 312 x10^3/uL (140-400) Neutrophils (%) (Auto) 62 % (31-73) Lymphocytes (%) (Auto) 22 % (24-48) L Monocytes (%) (Auto) 11 % (0-9) H Eosinophils (%) (Auto) 3 % (0-3) Basophils (%) (Auto) 1 % (0-3) Neutrophils # (Auto) 3.7 x10^3/uL (1.8-7.7) Lymphocytes # (Auto) 1.3 x10^3/uL (1.0-4.8) Monocytes # (Auto) 0.7 x10^3/uL (0.0-1.1) Eosinophils # (Auto) 0.2 x10^3/uL (0.0-0.7) Basophils # (Auto) 0.1 x10^3/uL (0.0-0.2) Prothrombin Time 13.0 SEC (11.7-14.0) Prothrombin Time INR 1.0 (0.8-1.1) Activated Partial Thromboplast Time 40 SEC (24-38) H Sodium Level 142 mmol/L (136-145) Potassium Level 4.0 mmol/L (3.5-5.1) Chloride Level 105 mmol/L (98-107) Carbon Dioxide Level 23 mmol/L (21-32) Anion Gap 14 (6-14) Blood Urea Nitrogen 10 mg/dL (8-26) Creatinine 0.9 mg/dL (0.7-1.3) Estimated GFR (Cockcroft-Gault) 85.8 BUN/Creatinine Ratio 11 (6-20) Glucose Level 98 mg/dL (70-99) Calcium Level 8.6 mg/dL (8.5-10.1) Magnesium Level 1.9 mg/dL (1.8-2.4) Total Bilirubin 0.2 mg/dL (0.2-1.0) Aspartate Amino Transferase (AST) 12 U/L (15-37) L Alanine Aminotransferase (ALT) 18 U/L (16-63) Alkaline Phosphatase 95 U/L (46-116) Troponin I Quantitative < 0.017 ng/mL (0.000-0.055) < 0.017 ng/mL (0.000-0.055) < 0.017 ng/mL (0.000-0.055) GX-Zgj-W-Type Natriuretic Peptide 645 pg/mL (0-124) H Total Protein 7.0 g/dL (6.4-8.2) Albumin 3.5 g/dL (3.4-5.0) Albumin/Globulin Ratio 1.0 (1.0-1.7) Triglycerides Level 129 mg/dL (0-150) Cholesterol Level 127 mg/dL (0-200) LDL Cholesterol, Calculated 74 mg/dL (0-100) VLDL Cholesterol, Calculated 26 mg/dL (0-40) Non-HDL Cholesterol Calculated 100 mg/dL (0-129) HDL Cholesterol 27 mg/dL (40-60) L Cholesterol/HDL Ratio 4.7 Thyroid Stimulating Hormone (TSH) 7.019 uIU/mL (0.358-3.74) H Laboratory Tests 04/11/21 19:40 Laboratory Tests 04/11/21 19:40 ECHOCARDIOGRAM ECHOCARDIOGRAM <Conclusion> Left ventricle systolic function is moderately impaired. EF 30-35%. There is severe global hypokinesis of the left ventricle. Tissue Doppler imaging reveals moderate left ventricular diastolic dysfunction. There is a pacemaker lead in the right ventricle. Doppler and Color-flow revealed moderate mitral regurgitation. Doppler and Color Flow revealed mild tricuspid regurgitation. There is moderate pulmonary hypertension. The PA pressure was estimated at 44 mmHg. DATE: 05/06/20 0907 HEART CATH HEART CATH FINDINGS 1. Hemodynamics: Left ventricular end-diastolic pressure 18 mmHg. No pullback gradient across aortic valve. 2. Left ventriculography: Severe left ventricular systolic dysfunction with ejection fraction estimated at 20 to 25%. 2+ mitral regurgitation seen. 3. Coronary angiography: a. The left main coronary artery arose from the left sinus of Valsalva, gave rise to the left anterior descending and left circumflex arteries and did not show any significant stenosis. b. The left anterior descending artery showed patent long stented mid and distal segments with a very distal segment showing 40% in-stent restenosis. Stent in the diagonal branch was patent. c. The left circumflex artery was a large and dominant vessel. The first obtuse marginal branch showed 100% chronic total occlusion within the stent in the proximal segment, described in prior cardiac catheterization. The stent in the left posterior descending artery was patent. d. The right coronary artery was a small and nondominant vessel arising from the right sinus of Valsalva that showed 100% chronic total occlusion in the proximal segment, described in prior cardiac catheterization. Conclusion 1. Patent previously placed stents in the left anterior descending artery, diagonal branch and left posterior descending artery. The obtuse marginal branch and nondominant right coronary artery showed 100% chronic total occlusions, described in prior cardiac catheterization. 2. Severe left ventricular systolic dysfunction with ejection fraction estimated at 20 to 25% with 2+ mitral regurgitation. Recommendations Optimization of medical therapy for coronary disease and ischemic cardiomyopathy. DATE: 08/05/20 1353 ASSESSMENT/PLAN ASSESSMENT/PLAN 1. Chest pain: suspect chronic stable angina. Trops nml, no acute EKG changes 2. Chronic systolic CHF; clinically compensated 3. ICM; s/p AICD (Medtronic) 4. CAD; recent [facility] 07/2020, patent stents no intervenable lesions STEELSCOPE OPERATOR to nondominat RCA and OM 5. Hx of VT: not on antiarrhythmic therapy. tele noted with PVC's, but no significant arrhythmias 6. HTN: controlled 7. HLP: not on goal 8. H/o substance abuse: meth use. reports clean x3 months 9. Tobaccoism with likely COPD 10. suspect noncompliance Recommendations 1. His cardiac procedures are recent as noted above. He needs antianginals which he repeatedly refused but does take PRN NTG SL. I asked him if we could start him at least on Imdur but again does not want any. Follow up with primary phlebotomy director as an outpt. 2. Secondary prevention measures. ASA/plavix 3. Will check device and note any contributing arrhythmia otherwise if no changes then may DC and encouraged to follow up with his phlebotomy director. 4. Smoking cessation COREY LOPEZ MD 04/12/21 0345: CARDIAC CONSULT ASSESSMENT/PLAN ASSESSMENT/PLAN Patient seen and examined I agree with our nurse practitioners assessment and plan. Chest pain: Trops nml, no acute EKG changes. Continue medical treatment. Chronic systolic CHF; clinically compensated ICM; s/p AICD (Medtronic). Will interrogate. CAD; recent [facility] 07/2020, patent stents no intervenable lesions STEELSCOPE OPERATOR to nondominat RCA and OM Hx of VT: not on antiarrhythmic therapy. tele noted with PVC's, but no significant arrhythmias. ICD as above. HTN: controlled HLP: Medications as above. H/o substance abuse: meth use. reports clean x3 months Tobaccoism with COPD NERI NUNN APRN Apr 12, 2021 10:37 COREY LOPEZ MD Apr 12, 2021 16:05
[2021-04-12] MEDS: PREGABALIN 75 MG CAPSULE PO SCH (10:55)
--- NOTE | 2021-04-12 11:22 | DISCH ---
DISCHARGE INSTRUCTIONS Condition on Discharge Condition on Discharge: Guarded Activity After Discharge Activity Instructions for Disc: Activity as tolerated Bathing Instructions: No Tub Bath until see Lifting Instructions after Dis: No heavy lifting, No pulling or pushing, Do not lift >10 pounds Exercise Instruction after Dis: Progress as tolerated Driving Instructions after Dis: Do not drive today Weight Bearing Status after Di: As tolerated Diet after Discharge Diet after Discharge: Cardiac Diet Texture: Regular Liquid Texture: Thin Liquid Swallowing Supervision: None needed Wound Incision Care Wound/Incision Care: No wound care needed Checks after Discharge Checks after discharge: Check blood press - daily, Check your Temp as needed, Weigh Yourself Daily Contacting the DRKayla after DC Call your doctor for: If your condition worsens Follow-Up Follow up with: PCP within 2 weeks of discharge Follow Up With: Cardiology as needed Treatment/Equipment after DC Adaptive Equipment Issued: None ISELA MARTI MD Apr 12, 2021 11:22
[2021-04-12] MEDS ORDERED: ACETAMINOPHEN 325 MG TABLET. PO ONE (13:00)
[2021-04-12] MEDS ORDERED: DICLOFENAC SODIUM 1% TOPICAL GEL 100GM TUBE. TP SCH (13:00)
[2021-04-12] MEDS ORDERED: IBUPROFEN 400 MG TABLET. PO ONE (13:00)
[2021-04-12] MEDS ORDERED: LORazepam 0.5 MG TABLET PO ONE (13:00)
[2021-04-12 14:28] VITALS: BP 102/74
--- NOTE | 2021-04-12 17:22 | NUR ---
Discharge Note: [facility] Discharge instructions and discharge home medications reviewed with Patient and a copy given. All questions have been answered and understanding verbalized. Pt sent via cab pass in stable condition.
--- NOTE | 2021-04-14 16:43 | PDOC3 ---
[facility]-Discharge Summary Date of Admission: Date of Admission: Apr 12, 2021 Date of Discharge: Date of Discharge: Apr 12, 2021 Discharge Diagnosis: Discharge Diagnosis: 1. Chest pain: suspect chronic stable angina. Trops nml, no acute EKG changes 2. Chronic systolic CHF; clinically compensated 3. ICM; s/p AICD ([employer]) 4. 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 Hx of VT: not on antiarrhythmic therapy. tele noted with PVC's, but no significant arrhythmias 6. HTN: controlled 7. HLP: not on goal 8. H/o substance abuse: meth use. reports clean x3 months 9. Tobaccoism with likely COPD 10. suspect noncompliance Consults: Consults: cardiology Recommendations 1. His cardiac procedures are recent as noted above. He needs antianginals which he repeatedly refused but does take PRN NTG SL. I asked him if we could start him at least on Imdur but again does not want any. Follow up with primary nuclear spectroscopist as an outpt. 2. Secondary prevention measures. ASA/plavix 3. Will check device and note any contributing arrhythmia otherwise if no changes then may DC and encouraged to follow up with his nuclear spectroscopist. 4. Smoking cessation Hospital Course: Hospital Course: 60-year-old male presenting via EMS for chest pain. Onset was approximately 45 minutes prior to arrival while patient was walking around [place]. Reports substernal pain with intermittent radiation to bilateral shoulders and left jaw. Patient took x3 sublingual nitros with temporary relief. Nothing known makes worse. Timing of symptoms has been constant since onset and worsened in intensity versus prior episodes of chest pain. States he has significant cardiac history, has pacemaker/defibrillator present without any feelings of it firing. Has history of numerous MIs, reports having x15 stents. He is on 81 mg of aspirin daily, did not take any today. Patient was evaluated and hemodynamically stable by EMS, he was given 325 mg aspirin and transported to our facility for evaluation. On arrival, patient reports ongoing 8/10 severity chest pain. Admits tobacco use smoking half a pack of cigarettes daily, no alcohol use, has distant history of illicit drug abuse but nothing recently per patient. By day of discharge, pt was clinically stable, chest pain free and ready for discharge. Rest of hospital course was uneventful Disposition: Disposition/Orders: D/C to Home Activity: Activity: Resume previous activity Diet: Diet: Cardiac Medications: Home Meds Active Scripts Aspirin (ASPIRIN) 81 Mg Tab.chew, 1 TAB PO DAILY, #10 TAB Prov:KATHRYN HEBERT DO 06/29/20 Reported Medications Rosuvastatin Calcium (CRESTOR) 40 Mg Tablet, 40 MG PO HS for FOR CHOLESTEROL, #30 TAB 0 Refills 06/03/20 Metoprolol Succinate (METOPROLOL SUCCINATE ( XL )) 25 Mg Tab.er.24h, 12.5 MG PO DAILY for FOR HYPERTENSION, #30 TAB 0 Refills 11/18/19 Tiotropium Whick (SPIRIVA) 18 Mcg Cap.w.dev, 1 CAP IH DAILY, #30 CAP 3 Refills 04/10/16 Nitroglycerin (NITROGLYCERIN SubLingual) 0.4 Mg Tab.subl, 0.4 MG SL PRN Q5MIN PRN for CHEST PAIN, BOTTLE 04/10/16 Pregabalin (LYRICA) 300 Mg Capsule, 1 CAP PO BID, #60 CAP 2 Refills 04/10/16 Clopidogrel Bisulfate (PLAVIX) 75 Mg Tablet, 75 MG PO DAILY for TO PREVENT BLOOD CLOTS, #30 TAB 0 Refills 02/11/15 Scheduled Aspirin (Aspirin), 1 TAB PO DAILY Clopidogrel Bisulfate (Plavix), 75 MG PO DAILY, (Reported) Metoprolol Succinate (Metoprolol Succinate ( Xl )), 12.5 MG PO DAILY, (Reported) Pregabalin (Lyrica), 1 CAP PO BID, (Reported) Rosuvastatin Calcium (Crestor), 40 MG PO HS, (Reported) Tiotropium Whick (Spiriva), 1 CAP IH DAILY, (Reported) Scheduled PRN Nitroglycerin (NITROGLYCERIN SubLingual), 0.4 MG SL PRN Q5MIN PRN for CHEST PAIN, (Reported) Total Time: Total Time: Total time spent was 35 minutes in preparing scripts, discharge planning with SW and RN, and preparing this discharge summary. Patient seen and examined on day of discharge. Justicifation of Admission Dx: Justifications for Admission: Justification of Admission Dx: N/A Angina: Symp at Rest ISELA MARTI MD Apr 14, 2021 16:43
== END 2021-04-12 17:24 | disposition home or self-care (01) ==
LOC: ER 19:25 → INTOOBSV 20:40 → 2 NORTH 20:40
PROVIDERS: ADMIT Family Medicine; ATTEND Family Medicine
DX: R07.89 Other chest pain (principal); I11.0 Hypertensive heart disease with heart failure; I50.22 Chronic systolic (congestive) heart failure; I25.10 Atherosclerotic heart disease of native coronary artery without angina pectoris; I25.2 Old myocardial infarction; J44.9 Chronic obstructive pulmonary disease, unspecified; I49.3 Ventricular premature depolarization; E78.00 Pure hypercholesterolemia, unspecified; E78.5 Hyperlipidemia, unspecified; F17.210 Nicotine dependence, cigarettes, uncomplicated; F15.90 Other stimulant use, unspecified, uncomplicated; Z79.82 Long term (current) use of aspirin; Z86.73 Personal history of transient ischemic attack (TIA), and cerebral infarction without residual deficits; Z95.5 Presence of coronary angioplasty implant and graft; Z95.810 Presence of automatic (implantable) cardiac defibrillator; Z79.02 Long term (current) use of antithrombotics/antiplatelets
CPT/HCPCS: 36415; 71045; 80053; 80061; 83735; 83880; 84443; 84484; 85025; 85610; 85730; 93005; 96374; 96375; 99291; 99407; G0378; J2060; J2270; J3010; G0379

== ENCOUNTER 2021-04-28 15:35 | Inpatient (IN) | payer MEDICAID ==
[~2021-04-28] VITALS: Ht 170.2 cm; Wt 71.9 kg
--- NOTE | 2021-04-28 15:51 | ED.ADGEN ---
Past Medical History Past Medical History: Asthma, CAD, CHF, CVA, High Cholesterol, Hypertension, ND, Other Additional Past Medical Histor: VTACH,IV Drug abuse-Methamphetamine Past Surgical History: Angioplasty, Pacemaker, Other Additional Past Surgical Histo: 15 cardiac stents, multiple cardiac cat heterizations,WITH DEFIB Smoking Status: Current Every Day Smoker Alcohol Use: Heavy Drug Use: Methamphetamine General Adult EDM: Chief Complaint: CHEST PAIN HPI: HPI: Patient is a 60 year old male coming in for left-sided pounding chest pain that radiates to his neck and arm. Patient has been here numerous occasions in the past for chest pain after using methamphetamines. Patient states he injected methamphetamine about 1 hour prior to arrival, chest pains are about 15 minutes after that. Patient states he is on a binge that has been going for the past 2 days. States he had very little p.o. intake. Review of Systems: Review of Systems: All other systems within normal limits except for as noted in the HPI Current Medications: Current Medications Medications (Trade) Dose Ordered Sig/Ani Start Time Stop Time Status Last Admin Dose Admin Aspirin (Aspirin Chewable) 324 mg 1X ONCE 04/28/21 16:00 04/28/21 16:01 DC 04/28/21 16:16 324 MG Hydroxyzine HCl (Atarax) 25 mg 1X PRN 04/28/21 16:45 04/28/21 17:14 25 MG Info (CONTRAST GIVEN -- Rx MONITORING) 1 each PRN DAILY PRN 04/28/21 18:00 04/30/21 17:59 Iohexol (Omnipaque 350 Mg/ml) 90 ml 1X ONCE 04/28/21 18:00 04/28/21 18:01 DC 04/28/21 18:14 90 ML Sodium Chloride 1,000 ml @ 1,000 mls/hr 1X ONCE 04/28/21 16:00 04/28/21 16:59 DC 04/28/21 16:16 1,000 MLS/HR Allergies: Allergies: Allergies Coded Allergies Type Severity Reaction Last Updated Verified acetaminophen Allergy Intermediate 08/04/20 Yes albuterol Adverse Reaction Intermediate 11/18/19 Yes ibuprofen Adverse Reaction Intermediate Nausea and Vomiting 11/18/19 Yes Physical Exam: PE: Constitutional: Well developed, well nourished, no acute distress, non-toxic appearance. [] HENT: Normocephalic, atraumatic, bilateral external ears normal, nose normal. [] Eyes: PERRLA, conjunctiva normal, no discharge. [] Neck: No rigidity, supple, no stridor. [] Cardiovascular: Tachycardic, regular rhythm, brisk cap refill [] Lungs & Thorax: Non labored symmetric respirations, no tachypnea or respiratory distress [] Abdomen: Soft, nondistended. Skin: Warm, dry, no erythema, no rash. [] Back: Unremarkable Extremities: No deformities, range of motion grossly intact, no lower extremity edema [] Neurologic: Alert and oriented X 3, no focal deficits noted. [] Psychologic: Affect normal, judgement normal, mood normal. [] Current Patient Data: Labs: Laboratory Tests Test 04/28/21 16:21 White Blood Count 4.5 x10^3/uL (4.0-11.0) Red Blood Count 3.35 x10^6/uL (4.30-5.70) L Hemoglobin 10.0 g/dL (13.0-17.5) L Hematocrit 29.8 % (39.0-53.0) L Mean Corpuscular Volume 89 fL (79-100) Mean Corpuscular Hemoglobin 30 pg (25-35) Mean Corpuscular Hemoglobin Concent 34 g/dL (31-37) Red Cell Distribution Width 16.0 % (11.5-14.5) H Platelet Count 215 x10^3/uL (140-400) Neutrophils (%) (Auto) 63 % (31-73) Lymphocytes (%) (Auto) 15 % (24-48) L Monocytes (%) (Auto) 15 % (0-9) H Eosinophils (%) (Auto) 6 % (0-3) H Basophils (%) (Auto) 1 % (0-3) Neutrophils # (Auto) 2.8 x10^3/uL (1.8-7.7) Lymphocytes # (Auto) 0.7 x10^3/uL (1.0-4.8) L Monocytes # (Auto) 0.7 x10^3/uL (0.0-1.1) Eosinophils # (Auto) 0.3 x10^3/uL (0.0-0.7) Basophils # (Auto) 0.0 x10^3/uL (0.0-0.2) D-Dimer (Destini) 0.98 ug/mlFEU (0.00-0.50) H Sodium Level 140 mmol/L (136-145) Potassium Level 3.6 mmol/L (3.5-5.1) Chloride Level 104 mmol/L (98-107) Carbon Dioxide Level 25 mmol/L (21-32) Anion Gap 11 (6-14) Blood Urea Nitrogen 10 mg/dL (8-26) Creatinine 1.0 mg/dL (0.7-1.3) Estimated GFR (Cockcroft-Gault) 76.0 BUN/Creatinine Ratio 10 (6-20) Glucose Level 84 mg/dL (70-99) Lactic Acid Level 2.5 mmol/L (0.4-2.0) H Calcium Level 8.8 mg/dL (8.5-10.1) Magnesium Level 2.0 mg/dL (1.8-2.4) Total Bilirubin 1.1 mg/dL (0.2-1.0) H Aspartate Amino Transferase (AST) 15 U/L (15-37) Alanine Aminotransferase (ALT) 18 U/L (16-63) Alkaline Phosphatase 110 U/L (46-116) Creatine Kinase 227 U/L (39-308) Troponin I Quantitative < 0.017 ng/mL (0.000-0.055) NU-Kdw-X-Type Natriuretic Peptide 892 pg/mL (0-124) H Total Protein 6.9 g/dL (6.4-8.2) Albumin 3.4 g/dL (3.4-5.0) Albumin/Globulin Ratio 1.0 (1.0-1.7) Laboratory Tests 04/28/21 16:21 Laboratory Tests 04/28/21 16:21 Vital Signs: Vital Signs Date Time Temp Pulse Resp B/P (MAP) Pulse Ox O2 Delivery O2 Flow Rate FiO2 04/28/21 19:06 96 100/56 (71) 96 Room Air 04/28/21 17:13 18 04/28/21 15:44 98.1 98.1 EKG: EKG: Sinus rhythm, heart rate 100 bpm, nonspecific intraventricular block, no STEMI [] Heart Score: C/O Chest Pain: Yes HEART Score for Chest Pain: HEART Score for Chest Pain Response (Comments) Value History Moderately Suspicious 1 ECG Nonspecific Repolarizatio 1 Age >45 - < 65 1 Risk Factors >3 Risk Factors or Hx CAD 2 Troponin < Normal Limit 0 Total 5 Risk Factors: Risk Factors: DM, Current or recent (<one month) smoker, HTN, HLP, family history of CAD, obesity. Risk Scores: Score 0 - 3: 2.5% MACE over next 6 weeks - Discharge Home Score 4 - 6: 20.3% MACE over next 6 weeks - Admit for Clinical Observation Score 7 - 10: 72.7% MACE over next 6 weeks - Early Invasive Strategies Radiology/Procedures: Radiology/Procedures: [facility] [address] [place] [address] IMAGING REPORT Signed PATIENT: CARMELA JOSEPH ACCOUNT: [id number] : 1960 LOCATION: ER AGE: 60 SEX: M EXAM STATUS: PRE ER ORD. PHYSICIAN: ANJU DENNIS MD REASON: chest pain PROCEDURE: CHEST PA & LATERAL XR CHEST 2V History: Reason: chest pain / Spl. Instructions: / History: Comparison: April 11, 2021 Findings: No consolidation or pleural effusion. Unchanged heart size. No pneumothorax. Stable left-sided pacemaker/ICD. Impression: 1. No acute cardiopulmonary process. Electronically signed by: Lennox Mcfarland DO (04/28/2021 4:20 PM) [facility] DICTATED and SIGNED BY: LENNOX MCFARLAND DO DATE: 04/28/21 [id number] [] Course & Med Decision Making: Course & Med Decision Making Care transitioned at shift change, pending CTA and repeat troponin. Dragon Disclaimer: [employer] Disclaimer: This electronic medical record was generated, in whole or in part, using a voice recognition dictation system. Departure Departure Impression: Primary Impression: Chest pain Additional Impression: Substance abuse Disposition: ADMITTED INPATIENT Admitting Physician: DEJUAN (Dr. Angela) Condition: STABLE Referrals: NO PCP (PCP) Problem Qualifiers ANJU DENNIS MD Apr 28, 2021 15:51 IRAIS PATTERSON DO Apr 28, 2021 22:05
[2021-04-28] MEDS ORDERED: ASPIRIN CHEWABLE 81 MG TABLET. PO ONE (16:00)
[2021-04-28] MEDS ORDERED: IV NORMAL SALINE 1000ML BAG 1,000 ML IV ONE (16:00)
--- NOTE | 2021-04-28 16:22 | RAD ---
XR CHEST 2V History: Reason: chest pain / Spl. Instructions: / History: Comparison: April 11, 2021 Findings: No consolidation or pleural effusion. Unchanged heart size. No pneumothorax. Stable left-sided pacema ker/ICD. Impression: 1. No acute cardiopulmonary process. Electronically signed by: Lennox Mcfarland DO (04/28/2021 4:20 PM) [facility]
[2021-04-28 16:43] LABS: BASO % 1 % (0-3); EOS # 0.3 x10^3/uL (0.0-0.7); EOS % 6 % (0-3); HEMATOCRIT 29.8 % (39.0-53.0); LYMPH # 0.7 x10^3/uL (1.0-4.8); LYMPH % 15 % (24-48); MEAN CORPUSCULAR HEMOGLOBIN 30 pg (25-35); MEAN CORPUSCULAR HGB CONC 34 g/dL (31-37); MEAN CORPUSCULAR VOLUME 89 fL (79-100); MONO # 0.7 x10^3/uL (0.0-1.1); MONO % 15 % (0-9); NEUT # 2.8 x10^3/uL (1.8-7.7); NEUT % 63 % (31-73); PLATELET COUNT 215 x10^3/uL (140-400); RED BLOOD COUNT 3.35 x10^6/uL (4.30-5.70); WHITE BLOOD COUNT 4.5 x10^3/uL (4.0-11.0)
[2021-04-28] MEDS ORDERED: hydrOXYzine 25 MG TABLET PO PRN (16:45)
[2021-04-28 16:53] LABS: CALCIUM 8.8 mg/dL (8.5-10.1); POTASSIUM 3.6 mmol/L (3.5-5.1)
[2021-04-28 17:10] LABS: ALBUMIN 3.4 g/dL (3.4-5.0); TOTAL BILIRUBIN 1.1 mg/dL (0.2-1.0); TOTAL PROTEIN 6.9 g/dL (6.4-8.2)
[2021-04-28] MEDS ORDERED: IOHEXOL 350 MG/ML 100 ML VIAL. IV ONE (18:00)
[2021-04-28] MEDS ORDERED: CONTRAST GIVEN. MC PRN (18:00)
--- NOTE | 2021-04-28 18:41 | RAD ---
Exam: CT of chest with contrast INDICATION: Chest pain TECHNIQUE: Sequential axial images through the chest obtained following the administration of 90 mL o f Isovue-370 IV contrast. Sagittal and coronal reformatted images were reconstructed from the axial d frederic and reviewed. 3-D reformatted images were reconstructed from the axial data and reviewed. Exposure: One or more of the following in the visualized dose reduction techniques were utilized for this examination: 1. Automated exposure control 2. Adjustment of the MA and/or KV according to patient size 3. Use of iterative of reconstructive technique Comparisons: Chest x-ray same day FINDINGS: Visualized portions of the thyroid are unremarkable. No enlarged mediastinal lymph nodes are identifi ed. Heart size is at the upper limits of normal. Pacer with leads terminating the right heart. No pericar dial effusion. Thoracic aorta has normal course and caliber. Pulmonary artery is not enlarged. Airways are patent. No consolidation or pneumothorax. No suspicious lung nodules. No pleural thickening. Visualized upper abdomen is unremarkable. No suspicious osseous lesions or acute fractures. IMPRESSION: No pulmonary embolus identified within the main, lobar or segmental pulmonary arteries. Electronically signed by: Renita Echevarria MD (04/28/2021 6:39 PM) [facility]
--- NOTE | 2021-04-28 18:59 | EKG ---
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
[2021-04-28 22:20] VITALS: BP 118/60
[2021-04-28] MEDS ORDERED: NITROGLYCERIN SUBLINGUAL 0.4 MG BOTTLE OF 25. SL PRN (23:00)
--- NOTE | 2021-04-29 01:30 | NUR ---
Patient arrived and refused to answer admission questions other then nothing has changed since the last time he was here and not taking his medications. He stated he did meth cause he did not care and we are not going to do anything. Medications restarted, patient received some snacks and sleeping.
[2021-04-29 03:40] VITALS: BP 127/72
[2021-04-29 07:00] VITALS: BP 82/50
[2021-04-29] MEDS: CLOPIDOGREL BISULFATE 75 MG TABLET PO SCH ×2 (09:00→12:21)
[2021-04-29] MEDS: ASPIRIN CHEWABLE 81 MG TABLET. PO SCH ×2 (09:00→12:21)
[2021-04-29] MEDS: METOPROLOL SUCC 24HR ER 25 MG TAB.ER.24H. PO SCH (09:00)
[2021-04-29] MEDS: PREGABALIN 75 MG CAPSULE PO SCH ×3 (09:00→20:56)
--- NOTE | 2021-04-29 09:25 | PDOC1 ---
History and Physical Date of Admission Date of Admission DATE: 04/29/21 TIME: 09:25 Identification/Chief Complaint Chief Complaint chest pain after injecting meth yesterday History of Present Illness History of Present Illness 60 year old male seen in ER for left-sided pounding chest pain that radiates to his neck and arm./ here numerous occasions in the past for chest pain after using methamphetamines. states he injected methamphetamine about 1 hour prior to arrival, chest pains are about 15 minutes after that. " he is on a binge that has been going for the past 2 days" he has significant cardiac history, has pacemaker/defibrillator present without any feelings of it firing.// history of numerous MIs, reports having x15 stents. He is on 81 mg of aspirin daily, Patient was evaluated and hemodynamically stable Past Medical History Past Medical History Past Medical History Past Medical History Past Medical History: Asthma, CAD, CHF, CVA, High Cholesterol, Hypertension, [place], Other Additional Past Medical Histor: VTACH,IV Drug abuse-Methamphetamine Past Surgical History: Angioplasty, Pacemaker, Other Additional Past Surgical Histo: 15 cardiac stents, multiple cardiac catheterizations,WITH DEFIB Smoking Status: Current Every Day Smoker Alcohol Use: Heavy Drug Use: Methamphetamine Cardiovascular: CAD, CHF, HTN, Hyperlipidemia, Other Pulmonary: Asthma CENTRAL NERVOUS SYSTEM: CVA GI: GERD Heme/Onc: No pertinent hx Hepatobiliary: No pertinent hx Psych: Anxiety Musculoskeletal: Osteoarthritis Rheumatologic: No pertinent hx Infectious disease: No pertinent hx Renal/: No pertinent hx Endocrine: No pertinent hx Past Surgical History Past Surgical History: Pacemaker, Other Family History Family History: Hypertension Social History Smoke: <1 pack per day ALCOHOL: occassional Drugs: Marijuana, Crystal meth Current Problem List Problem List Problems Medical Problems: (1) Chest pain Status: Acute (2) Substance abuse Status: Acute Current Medications Current Medications Current Medications Aspirin (Aspirin Chewable) 324 mg 1X ONCE PO Last administered on 04/28/21at 16:16; Start 04/28/21 at 16:00; Stop 04/28/21 at 16:01; Status DC Sodium Chloride 1,000 ml @ 1,000 mls/hr 1X ONCE IV Last administered on 04/28/21at 16:16; Start 04/28/21 at 16:00; Stop 04/28/21 at 16:59; Status DC Hydroxyzine HCl (Atarax) 25 mg 1X PRN PO ITCHING Last administered on 04/28/21at 17:14; Start 04/28/21 at 16:45 Iohexol (Omnipaque 350 Mg/ml) 90 ml 1X ONCE IV Last administered on 04/28/21at 18:14; Start 04/28/21 at 18:00; Stop 04/28/21 at 18:01; Status DC Info (CONTRAST GIVEN -- Rx MONITORING) 1 each PRN DAILY PRN MC SEE COMMENTS; Start 04/28/21 at 18:00; Stop 04/30/21 at 17:59 Aspirin (Aspirin Chewable) 81 mg DAILY PO ; Start 04/29/21 at 09:00 Clopidogrel Bisulfate (Plavix) 75 mg DAILY PO ; Start 04/29/21 at 09:00 Metoprolol Succinate (Toprol Xl) 12.5 mg DAILY PO ; Start 04/29/21 at 09:00 Nitroglycerin (Nitrostat) 0.4 mg PRN Q5MIN PRN SL CHEST PAIN; Start 04/28/21 at 23:00 Pregabalin (Lyrica) 300 mg BID PO ; Start 04/29/21 at 09:00 Atorvastatin Calcium (Lipitor) 80 mg QHS PO ; Start 04/29/21 at 21:00 Active Scripts Active Aspirin 81 Mg Tab.chew 1 Tab PO DAILY Reported Crestor (Rosuvastatin Calcium) 40 Mg Tablet 40 Mg PO HS Metoprolol Succinate ( Xl ) (Metoprolol Succinate) 25 Mg Tab.er.24h 12.5 Mg PO DAILY Spiriva (Tiotropium [place]) 18 Mcg Cap.w.dev 1 Cap IH DAILY NITROGLYCERIN SubLingual (Nitroglycerin) 0.4 Mg Tab.subl 0.4 Mg SL PRN Q5MIN PRN Lyrica (Pregabalin) 300 Mg Capsule 1 Cap PO BID Plavix (Clopidogrel Bisulfate) 75 Mg Tablet 75 Mg PO DAILY Allergies Allergies: Coded Allergies: acetaminophen (Verified Allergy, Intermediate, 08/04/20) albuterol (Verified Adverse Reaction, Intermediate, 11/18/19) Patient states "it speeds my heart up too much" ibuprofen (Verified Adverse Reaction, Intermediate, Nausea and Vomiting, 11/18/19) ROS General: YES: Fatigue, Malaise, Appetite; No: Chills, Night Sweats, Other PSYCHOLOGICAL ROS: YES: Anxiety, Depression; No: Behavioral Disorder, Concentration difficultie, Decreased libido, Disorientation, Hallucinations, Hostility, Irritablity, Memory difficulties, Mood Swings, Obsessive thoughts, Physical abuse, Sexual abuse, Sleep disturbances, Suicidal ideation, Other Eyes: No Blurry vision, No Decreased vision, No Double vision, No Dry eyes, No Excessive tearing, No Eye Pain, No Itchy Eyes, No Loss of vision, No Photophobia, No Scotomata, No Uses contacts, No Uses glasses, No Other HEENT: No: Heacaches, Visual Changes, Hearing change, Nasal congestion, Nasal discharge, Oral lesions, Sinus pain, Sore Throat, Epistaxis, Sneezing, Snoring, Tinnitus, Vertigo, Vocal changes, Other ALLERGY AND IMMUNOLOGY: YES: Hives; No: Insect Bite Sensitivity, Itchy/Watery Eyes, Nasal Congestion, Post Nasal Drip, Seasonal Allergies, Other Hematological and Lymphatic: No: Bleeding Problems, Blood Clots, Blood Transfusions, Brusing, Night Sweats, Pallor, Swollen Lymph Nodes, Other ENDOCRINE: No: Breast Changes, Galactorrhea, Hair Pattern Changes, Hot Flashes, Malaise/lethargy, Mood Swings, Palpitations, Polydipsia/polyuria, Skin Changes, Temperature Intolerance, Unexpected Weight Changes, Other Breast: No New/Changing Breast Lumps, No Nipple changes, No Nipple discharge, No Other Respiratory: No: Cough, Hemoptysis, Orthopnea, Pleuritic Pain, Shortness of breath, SOB with excertion, Sputum Changes, Stridor, Tachypnea, Wheezing, Other Cardiovascular: yes Chest Pain, yes Palpitations; No Orthopnea, No Paroxysmal Noc. Dyspnea, No Edema, No Lt Headedness, No Other Gastrointestinal: No Nausea, No Vomiting, No Abdominal Pain, No Diarrhea, No Constipation, No Melena, No Hematochezia, No Other Genitourinary: No Dysuria, No Frequency, No Incontinence, No Hematuria, No Retention, No Discharge, No Urgency, No Pain, No Flank Pain, No Other, No , No , No , No , No , No , No Musculoskeletal: No Gait Disturbance, No Joint Pain, No Joint Stiffness, No Dana nt Swelling, No Muscle Pain, No Muscular Weakness, No Pain In:, No Swelling In:, No Other Neurological: No Behavorial Changes, No Bowel/Bladder ControlChng, No Confusion, No Dizziness, No Gait Disturbance, No Headaches, No Impaired Co ord/balance, No Memory Loss, No Numbness/Tingling, No Seizures, No Speech Problems, No Tremors, No Visual Changes, No Weakness, No Other Skin: Yes Dry Skin; No Eczema, No Hair Changes, No Lumps, No Mole Changes, No Mottling, No Nail Changes, No Pruritus, No Rash, No Skin Lesion Changes, No Other, No Acne Physical Exam General: Alert, Oriented X3, Cooperative, No acute distress HEENT: PERRLA Lungs: Clear to auscultation, Normal air movement Heart: RRR, no thrills, no gallops Breasts: Not examined Abdomen: Normal bowel sounds, Soft Rectal Exam: not examined Extremities: No edema Neuro: Normal gait, Normal speech, Strength at 5/5 X4 ext, Normal tone, Sensation intact, Cranial nerves 3-12 NL, Reflexes 2+ Psych/Mental Status: Mental status NL Vitals Vitals Vital Signs Date Time Temp Pulse Resp B/P (MAP) Pulse Ox O2 Delivery O2 Flow Rate FiO2 04/29/21 07:40 Room Air 04/29/21 07:00 98.2 85 21 82/50 (61) 98 98.2 Labs Labs Laboratory Tests Test 04/28/21 16:21 04/28/21 19:46 White Blood Count 4.5 x10^3/uL (4.0-11.0) Red Blood Count 3.35 x10^6/uL (4.30-5.70) Hemoglobin 10.0 g/dL (13.0-17.5) Hematocrit 29.8 % (39.0-53.0) Mean Corpuscular Volume 89 fL (79-100) Mean Corpuscular Hemoglobin 30 pg (25-35) Mean Corpuscular Hemoglobin Concent 34 g/dL (31-37) Red Cell Distribution Width 16.0 % (11.5-14.5) Platelet Count 215 x10^3/uL (140-400) Neutrophils (%) (Auto) 63 % (31-73) Lymphocytes (%) (Auto) 15 % (24-48) Monocytes (%) (Auto) 15 % (0-9) Eosinophils (%) (Auto) 6 % (0-3) Basophils (%) (Auto) 1 % (0-3) Neutrophils # (Auto) 2.8 x10^3/uL (1.8-7.7) Lymphocytes # (Auto) 0.7 x10^3/uL (1.0-4.8) Monocytes # (Auto) 0.7 x10^3/uL (0.0-1.1) Eosinophils # (Auto) 0.3 x10^3/uL (0.0-0.7) Basophils # (Auto) 0.0 x10^3/uL (0.0-0.2) D-Dimer (Destini) 0.98 ug/mlFEU (0.00-0.50) Sodium Level 140 mmol/L (136-145) Potassium Level 3.6 mmol/L (3.5-5.1) Chloride Level 104 mmol/L (98-107) Carbon Dioxide Level 25 mmol/L (21-32) Anion Gap 11 (6-14) Blood Urea Nitrogen 10 mg/dL (8-26) Creatinine 1.0 mg/dL (0.7-1.3) Estimated GFR (Cockcroft-Gault) 76.0 BUN/Creatinine Ratio 10 (6-20) Glucose Level 84 mg/dL (70-99) Lactic Acid Level 2.5 mmol/L (0.4-2.0) 0.5 mmol/L (0.4-2.0) Calcium Level 8.8 mg/dL (8.5-10.1) Magnesium Level 2.0 mg/dL (1.8-2.4) Total Bilirubin 1.1 mg/dL (0.2-1.0) Aspartate Amino Transf (AST/SGOT) 15 U/L (15-37) Alanine Aminotransferase (ALT/SGPT) 18 U/L (16-63) Alkaline Phosphatase 110 U/L (46-116) Creatine Kinase 227 U/L (39-308) Troponin I Quantitative < 0.017 ng/mL (0.000-0.055) < 0.017 ng/mL (0.000-0.055) NZ-Pjz-X-Type Natriuretic Peptide 892 pg/mL (0-124) Total Protein 6.9 g/dL (6.4-8.2) Albumin 3.4 g/dL (3.4-5.0) Albumin/Globulin Ratio 1.0 (1.0-1.7) Laboratory Tests Test 04/28/21 16:21 04/28/21 19:46 White Blood Count 4.5 x10^3/uL (4.0-11.0) Red Blood Count 3.35 x10^6/uL (4.30-5.70) Hemoglobin 10.0 g/dL (13.0-17.5) Hematocrit 29.8 % (39.0-53.0) Mean Corpuscular Volume 89 fL (79-100) Mean Corpuscular Hemoglobin 30 pg (25-35) Mean Corpuscular Hemoglobin Concent 34 g/dL (31-37) Red Cell Distribution Width 16.0 % (11.5-14.5) Platelet Count 215 x10^3/uL (140-400) Neutrophils (%) (Auto) 63 % (31-73) Lymphocytes (%) (Auto) 15 % (24-48) Monocytes (%) (Auto) 15 % (0-9) Eosinophils (%) (Auto) 6 % (0-3) Basophils (%) (Auto) 1 % (0-3) Neutrophils # (Auto) 2.8 x10^3/uL (1.8-7.7) Lymphocytes # (Auto) 0.7 x10^3/uL (1.0-4.8) Monocytes # (Auto) 0.7 x10^3/uL (0.0-1.1) Eosinophils # (Auto) 0.3 x10^3/uL (0.0-0.7) Basophils # (Auto) 0.0 x10^3/uL (0.0-0.2) D-Dimer (Destini) 0.98 ug/mlFEU (0.00-0.50) Sodium Level 140 mmol/L (136-145) Potassium Level 3.6 mmol/L (3.5-5.1) Chloride Level 104 mmol/L (98-107) Carbon Dioxide Level 25 mmol/L (21-32) Anion Gap 11 (6-14) Blood Urea Nitrogen 10 mg/dL (8-26) Creatinine 1.0 mg/dL (0.7-1.3) Estimated GFR (Cockcroft-Gault) 76.0 BUN/Creatinine Ratio 10 (6-20) Glucose Level 84 mg/dL (70-99) Lactic Acid Level 2.5 mmol/L (0.4-2.0) 0.5 mmol/L (0.4-2.0) Calcium Level 8.8 mg/dL (8.5-10.1) Magnesium Level 2.0 mg/dL (1.8-2.4) Total Bilirubin 1.1 mg/dL (0.2-1.0) Aspartate Amino Transf (AST/SGOT) 15 U/L (15-37) Alanine Aminotransferase (ALT/SGPT) 18 U/L (16-63) Alkaline Phosphatase 110 U/L (46-116) Creatine Kinase 227 U/L (39-308) Troponin I Quantitative < 0.017 ng/mL (0.000-0.055) < 0.017 ng/mL (0.000-0.055) FH-Ake-J-Type Natriuretic Peptide 892 pg/mL (0-124) Total Protein 6.9 g/dL (6.4-8.2) Albumin 3.4 g/dL (3.4-5.0) Albumin/Globulin Ratio 1.0 (1.0-1.7) Images Images Exam: CT of chest with contrast INDICATION: Chest pain TECHNIQUE: Sequential axial images through the chest obtained following the administration of 90 mL of Isovue-370 IV contrast. Sagittal and coronal reformatted images were reconstructed from the axial data and reviewed. 3-D reformatted images were reconstructed from the axial data and reviewed. Exposure: One or more of the following in the visualized dose reduction techniques were utilized for this examination: 1. Automated exposure control 2. Adjustment of the MA and/or KV according to patient size 3. Use of iterative of reconstructive technique Comparisons: Chest x-ray same day FINDINGS: Visualized portions of the thyroid are unremarkable. No enlarged mediastinal lymph nodes are identified. Heart size is at the upper limits of normal. Pacer with leads terminating the right heart. No pericardial effusion. Thoracic aorta has normal course and caliber. Pulmonary artery is not enlarged. Airways are patent. No consolidation or pneumothorax. No suspicious lung nodules. No pleural thickening. Visualized upper abdomen is unremarkable. No suspicious osseous lesions or acute fractures. IMPRESSION: No pulmonary embolus identified within the main, lobar or segmental pulmonary arteries. Electronically signed by: Renita June MD (04/28/2021 6:39 PM) [facility] DICTATED and SIGNED BY: RENITA JUNE MD DATE: 04/28/21 [id number] VTE Prophylaxis Ordered VTE Prophylaxis Devices: No VTE Pharmacological Prophylaxi: Yes Assessment/Plan Assessment/Plan IMPRESSION Chest pain: // angina. 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 HTN: controlled HLP: not on goal H/o substance abuse: meth use. with relapse Tobaccoism with likely COPD MEDICAL noncompliance, severe Normocytic anemia PLAN ADMITTED INPATIENT CVC BED TREND TROPONIN Cardiology consult Justifications for Admission Other Justification ACS ELISSA SHINE MD Apr 29, 2021 09:25
[2021-04-29] MEDS: ENOXAPARIN 40 MG/0.4 ML SYRINGE. SQ SCH (09:45)
[2021-04-29] MEDS ORDERED: guaiFENesin ORAL 200 MG/10 ML LIQUID. PO PRN (09:45)
[2021-04-29] MEDS ORDERED: 0.9 % SODIUM CHLORIDE 10 ML DISP.SYRIN. IV PRN (09:45)
[2021-04-29] MEDS ORDERED: DOCUSATE SODIUM 100 MG CAPSULE. PO PRN (09:45)
[2021-04-29] MEDS ORDERED: MAG HYDROX/ALUMINUM HYD/SIMETH 30 ML ORAL.SUSP PO PRN (09:45)
[2021-04-29] MEDS ORDERED: SODIUM PHOSPHATES 19/7GM 133 ML ENEMA. PR PRN (09:45)
[2021-04-29] MEDS ORDERED: ONDANSETRON PF 4 MG/2 ML VIAL. IV PRN (09:45)
[2021-04-29] MEDS: IV NORMAL SALINE 1000ML BAG 1,000 ML IV SCH ×2 (09:45→23:05)
[2021-04-29 11:28] VITALS: BP 103/57
[2021-04-29] MEDS ORDERED: IPRATROPIUM BROMIDE 0.5 MG/2.5 ML NEBU. NEB SCH (12:00)
--- NOTE | 2021-04-29 12:33 | NUR ---
Pt absolutely refuses any form of breathing tx. RN Ari informed [employer]
[2021-04-29 14:52] VITALS: BP 97/58
--- NOTE | 2021-04-29 19:00 | PDOC ---
Provider Note Date of Service: DATE: 04/29/21 TIME: 18:58 Provider Note Please see prior consult notes. Patient presenting with chest pain after meth abuse. EKG unchanged. Tele unremarkable. Trop negative. CTPE negative. Nothing further to add from a CV standpoint. Please call with any further questions. Justifications for Admission Other Justification ACS KALLIE URIBE MD Apr 29, 2021 19:00
[2021-04-29 19:58] VITALS: BP 90/54
[2021-04-29] MEDS: ATORVASTATIN CALCIUM 40 MG TABLET. PO SCH (20:56)
[2021-04-29 23:31] VITALS: BP 99/52
[2021-04-30 02:30] VITALS: BP 95/67
[2021-04-30 07:00] VITALS: BP 106/64
[2021-04-30] MEDS: CLOPIDOGREL BISULFATE 75 MG TABLET PO SCH (08:54)
[2021-04-30] MEDS: ASPIRIN CHEWABLE 81 MG TABLET. PO SCH (08:55)
[2021-04-30] MEDS: PREGABALIN 75 MG CAPSULE PO SCH ×2 (08:55→21:02)
[2021-04-30] MEDS: METOPROLOL SUCC 24HR ER 25 MG TAB.ER.24H. PO SCH (08:59)
[2021-04-30] MEDS: ENOXAPARIN 40 MG/0.4 ML SYRINGE. SQ SCH (09:45)
[2021-04-30 11:00] VITALS: BP 125/61
--- NOTE | 2021-04-30 11:17 | PDOC ---
PROGRESS NOTES Date of Service: DATE: 04/30/21 TIME: 11:17 Chief Complaint Chief Complaint VTE Prophylaxis Ordered VTE Prophylaxis Devices: No VTE Pharmacological Prophylaxi: Yes Assessment/Plan Assessment/Plan IMPRESSION Chest pain: // angina. Trops nml, no acute EKG changes // troponin neg x 2 Chronic systolic CHF; clinically compensated ICM; s/p AICD (Medtronic) CAD; recent [facility] 07/2020, patent stents no intervenable lesions [employer] DOCENT to nondominat RCA and OM Hx of VT: not on antiarrhythmic therapy. HTN: controlled HLP: not on goal H/o substance abuse: meth use. with relapse Tobaccoism with likely COPD MEDICAL noncompliance, severe Normocytic anemia Moderate withdrawal from meth, very anxious PLAN ADMITTED INPATIENT CVC BED TREND TROPONIN Cardiology consult Justifications for Admission Justifications for Admission Other Justification ACS History of Present Illness History of Present Illness Identification/Chief Complaint Chief Complaint chest pain after injecting meth yesterday History of Present Illness History of Present Illness 60 year old male seen in ER for left-sided pounding chest pain that radiates to his neck and arm./ here numerous occasions in the past for chest pain after using methamphetamines. states he injected methamphetamine about 1 hour prior to arrival, chest pains are about 15 minutes after that. " he is on a binge that has been going for the past 2 days" he has significant cardiac history, has pacemaker/defibrillator present without any feelings of it firing.// history of numerous MIs, reports having x15 stents. He is on 81 mg of aspirin daily, Patient was evaluated and hemodynamically stable Past Medical History Past Medical History Past Medical History Past Medical History Past Medical History: Asthma, CAD, CHF, CVA, High Cholesterol, Hypertension, [place], Other Additional Past Medical Histor: VTACH,IV Drug abuse-Methamphetamine Past Surgical History: Angioplasty, Pacemaker, Other Additional Past Surgical Histo: 15 cardiac stents, multiple cardiac catheterizations,WITH DEFIB Smoking Status: Current Every Day Smoker Alcohol Use: Heavy Drug Use: Methamphetamine Cardiovascular: CAD, CHF, HTN, Hyperlipidemia, Other Pulmonary: Asthma CENTRAL NERVOUS SYSTEM: CVA GI: GERD Heme/Onc: No pertinent hx Hepatobiliary: No pertinent hx Psych: Anxiety Musculoskeletal: Osteoarthritis Rheumatologic: No pertinent hx Infectious disease: No pertinent hx Renal/: No pertinent hx Endocrine: No pertinent hx Past Surgical History Past Surgical History: Pacemaker, Other Family History Family History: Hypertension Social History Smoke: <1 pack per day ALCOHOL: occassional Drugs: Marijuana, Crystal meth Current Problem List Problem List Problems Medical Problems: (1) Chest pain Status: Acute (2) Substance abuse Status: Acute Current Medications Current Medications Current Medications Aspirin (Aspirin Chewable) 324 mg 1X ONCE PO Last administered on 04/28/21at 16:16; Start 04/28/21 at 16:00; Stop 04/28/21 at 16:01; Status DC Sodium Chloride 1,000 ml @ 1,000 mls/hr 1X ONCE IV Last administered on 04/28/21at 16:16; Start 04/28/21 at 16:00; Stop 04/28/21 at 16:59; Status DC Hydroxyzine HCl (Atarax) 25 mg 1X PRN PO ITCHING Last administered on 04/28/21at 17:14; Start 04/28/21 at 16:45 Iohexol (Omnipaque 350 Mg/ml) 90 ml 1X ONCE IV Last administered on 04/28/21at 18:14; Start 04/28/21 at 18:00; Stop 04/28/21 at 18:01; Status DC Info (CONTRAST GIVEN -- Rx MONITORING) 1 each PRN DAILY PRN MC SEE COMMENTS; Start 04/28/21 at 18:00; Stop 04/30/21 at 17:59 Aspirin (Aspirin Chewable) 81 mg DAILY PO ; Start 04/29/21 at 09:00 Clopidogrel Bisulfate (Plavix) 75 mg DAILY PO ; Start 04/29/21 at 09:00 Metoprolol Succinate (Toprol Xl) 12.5 mg DAILY PO ; Start 04/29/21 at 09:00 Nitroglycerin (Nitrostat) 0.4 mg PRN Q5MIN PRN SL CHEST PAIN; Start 04/28/21 at 23:00 Pregabalin (Lyrica) 300 mg BID PO ; Start 04/29/21 at 09:00 Atorvastatin Calcium (Lipitor) 80 mg QHS PO ; Start 04/29/21 at 21:00 Active Scripts Active Aspirin 81 Mg Tab.chew 1 Tab PO DAILY Reported Crestor (Rosuvastatin Calcium) 40 Mg Tablet 40 Mg PO HS Metoprolol Succinate ( Xl ) (Metoprolol Succinate) 25 Mg Tab.er.24h 12.5 Mg PO DAILY Spiriva (Tiotropium [place]) 18 Mcg Cap.w.dev 1 Cap IH DAILY NITROGLYCERIN SubLingual (Nitroglycerin) 0.4 Mg Tab.subl 0.4 Mg SL PRN Q5MIN PRN Lyrica (Pregabalin) 300 Mg Capsule 1 Cap PO BID Plavix (Clopidogrel Bisulfate) 75 Mg Tablet 75 Mg PO DAILY Allergies Allergies: Coded Allergies: acetaminophen (Verified Allergy, Intermediate, 08/04/20) albuterol (Verified Adverse Reaction, Intermediate, 11/18/19) Patient states "it speeds my heart up too much" ibuprofen (Verified Adverse Reaction, Intermediate, Nausea and Vomiting, 11/18/19) ROS General: YES: Fatigue, Malaise, Appetite; No: Chills, Night Sweats, Other PSYCHOLOGICAL ROS: YES: Anxiety, Depression; No: Behavioral Disorder, Concentration difficultie, Decreased libido, Disorientation, Hallucinations, Hostility, Irritablity, Memory difficulties, Mood Swings, Obsessive thoughts, Physical abuse, Sexual abuse, Sleep disturbances, Suicidal ideation, Other Eyes: No Blurry vision, No Decreased vision, No Double vision, No Dry eyes, No Excessive tearing, No Eye Pain, No Itchy Eyes, No Loss of vision, No Photophobia, No Scotomata, No Uses contacts, No Uses glasses, No Other HEENT: No: Heacaches, Visual Changes, Hearing change, Nasal congestion, Nasal discharge, Oral lesions, Sinus pain, Sore Throat, Epistaxis, Sneezing, Snoring, Tinnitus, Vertigo, Vocal changes, Other ALLERGY AND IMMUNOLOGY: YES: Hives; No: Insect Bite Sensitivity, Itchy/Watery Eyes, Nasal Congestion, Post Nasal Drip, Seasonal Allergies, Other Hematological and Lymphatic: No: Bleeding Problems, Blood Clots, Blood Transfusions, Brusing, Night Sweats, Pallor, Swollen Lymph Nodes, Other ENDOCRINE: No: Breast Changes, Galactorrhea, Hair Pattern Changes, Hot Flashes, Malaise/lethargy, Mood Swings, Palpitations, Polydipsia/polyuria, Skin Changes, Temperature Intolerance, Unexpected Weight Changes, Other Breast: No New/Changing Breast Lumps, No Nipple changes, No Nipple discharge, No Other Respiratory: No: Cough, Hemoptysis, Orthopnea, Pleuritic Pain, Shortness of breath, SOB with excertion, Sputum Changes, Stridor, Tachypnea, Wheezing, Other Cardiovascular: yes Chest Pain, yes Palpitations; No Orthopnea, No Paroxysmal Noc. Dyspnea, No Edema, No Lt Headedness, No Other Gastrointestinal: No Nausea, No Vomiting, No Abdominal Pain, No Diarrhea, No Constipation, No Melena, No Hematochezia, No Other Genitourinary: No Dysuria, No Frequency, No Incontinence, No Hematuria, No Retention, No Discharge, No Urgency, No Pain, No Flank Pain, No Other, No , No , No , No , No , No , No Musculoskeletal: No Gait Disturbance, No Joint Pain, No Joint Stiffness, No Joint Swelling, No Muscle Pain, No Muscular Weakness, No Pain In:, No Swelling In:, No Other Neurological: No Behavorial Changes, No Bowel/Bladder ControlChng, No Confusion, No Dizziness, No Gait Disturbance, No Headaches, No Impaired Coord/balance, No Memory Loss, No Numbness/Tingling, No Seizures, No Speech Problems, No Tremors, No Visual Changes, No Weakness, No Other Skin: Yes Dry Skin; No Eczema, No Hair Changes, No Lumps, No Mole Changes, No Mottling, No Nail Changes, No Pruritus, No Rash, No Skin Lesion Changes, No Other, No Acne 04-30 Chest pain: // angina. Trops nml, no acute EKG changes // troponin neg x 2 Chronic systolic CHF; clinically compensated ICM; s/p AICD (Medtronic) CAD; recent [facility] 07/2020, patent stents no intervenable lesions [employer] M[employer] DOCENT to nondominat RCA and OM Hx of VT: not on antiarrhythmic therapy. HTN: controlled HLP: not on goal H/o substance abuse: meth use. 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 ADD po ativan 1 mg q 8 hrs prn Moderate withdrawal from meth, very anxious, has arraignment to go to [facility] for treatment 05-01 via [facility] Vitals Vitals Vital Signs Date Time Temp Pulse Resp B/P (MAP) Pulse Ox O2 Delivery O2 Flow Rate FiO2 04/30/21 08:59 84 106/64 04/30/21 07:40 Room Air 04/30/21 07:00 97.3 18 96 97.3 Physical Exam General: Alert, Oriented X3, Cooperative, No acute distress, mild distress Heart: Regular rate Lungs: Wheezing, Crackles Abdomen: Normal bowel sounds, Soft, No tenderness, No hepatosplenomegaly Extremities: No clubbing, No cyanosis, No edema Assessment and Plan Assessmemt and Plan Problems Medical Problems: (1) Chest pain Status: Acute (2) Substance abuse Status: Acute Comment Review of Relevant I have reviewed the following items kvng (where applicable) has been applied. Labs Laboratory Tests Test 04/28/21 16:21 04/28/21 19:46 White Blood Count 4.5 x10^3/uL (4.0-11.0) Red Blood Count 3.35 x10^6/uL (4.30-5.70) Hemoglobin 10.0 g/dL (13.0-17.5) Hematocrit 29.8 % (39.0-53.0) Mean Corpuscular Volume 89 fL (79-100) Mean Corpuscular Hemoglobin 30 pg (25-35) Mean Corpuscular Hemoglobin Concent 34 g/dL (31-37) Red Cell Distribution Width 16.0 % (11.5-14.5) Platelet Count 215 x10^3/uL (140-400) Neutrophils (%) (Auto) 63 % (31-73) Lymphocytes (%) (Auto) 15 % (24-48) Monocytes (%) (Auto) 15 % (0-9) Eosinophils (%) (Auto) 6 % (0-3) Basophils (%) (Auto) 1 % (0-3) Neutrophils # (Auto) 2.8 x10^3/uL (1.8-7.7) Lymphocytes # (Auto) 0.7 x10^3/uL (1.0-4.8) Monocytes # (Auto) 0.7 x10^3/uL (0.0-1.1) Eosinophils # (Auto) 0.3 x10^3/uL (0.0-0.7) Basophils # (Auto) 0.0 x10^3/uL (0.0-0.2) D-Dimer (Destini) 0.98 ug/mlFEU (0.00-0.50) Sodium Level 140 mmol/L (136-145) Potassium Level 3.6 mmol/L (3.5-5.1) Chloride Level 104 mmol/L (98-107) Carbon Dioxide Level 25 mmol/L (21-32) Anion Gap 11 (6-14) Blood Urea Nitrogen 10 mg/dL (8-26) Creatinine 1.0 mg/dL (0.7-1.3) Estimated GFR (Cockcroft-Gault) 76.0 BUN/Creatinine Ratio 10 (6-20) Glucose Level 84 mg/dL (70-99) Lactic Acid Level 2.5 mmol/L (0.4-2.0) 0.5 mmol/L (0.4-2.0) Calcium Level 8.8 mg/dL (8.5-10.1) Magnesium Level 2.0 mg/dL (1.8-2.4) Total Bilirubin 1.1 mg/dL (0.2-1.0) Aspartate Amino Transf (AST/SGOT) 15 U/L (15-37) Alanine Aminotransferase (ALT/SGPT) 18 U/L (16-63) Alkaline Phosphatase 110 U/L (46-116) Creatine Kinase 227 U/L (39-308) Troponin I Quantitative < 0.017 ng/mL (0.000-0.055) < 0.017 ng/mL (0.000-0.055) UF-[id number]-Type Natriuretic Peptide 892 pg/mL (0-124) Total Protein 6.9 g/dL (6.4-8.2) Albumin 3.4 g/dL (3.4-5.0) Albumin/Globulin Ratio 1.0 (1.0-1.7) Medications Current Medications Aspirin (Aspirin Chewable) 324 mg 1X ONCE PO Last administered on 04/28/21at 16:16; Start 04/28/21 at 16:00; Stop 04/28/21 at 16:01; Status DC Sodium Chloride 1,000 ml @ 1,000 mls/hr 1X ONCE IV Last administered on 04/28/21at 16:16; Start 04/28/21 at 16:00; Stop 04/28/21 at 16:59; Status DC Hydroxyzine HCl (Atarax) 25 mg 1X PRN PO ITCHING Last administered on 04/28/21at 17:14; Start 04/28/21 at 16:45 Iohexol (Omnipaque 350 Mg/ml) 90 ml 1X ONCE IV Last administered on 04/28/21at 18:14; Start 04/28/21 at 18:00; Stop 04/28/21 at 18:01; Status DC Info (CONTRAST GIVEN -- Rx MONITORING) 1 each PRN DAILY PRN MC SEE COMMENTS; Start 04/28/21 at 18:00; Stop 04/30/21 at 17:59 Aspirin (Aspirin Chewable) 81 mg DAILY PO Last administered on 04/30/21at 08:55; Start 04/29/21 at 09:00 Clopidogrel Bisulfate (Plavix) 75 mg DAILY PO Last administered on 04/30/21at 08:54; Start 04/29/21 at 09:00 Metoprolol Succinate (Toprol Xl) 12.5 mg DAILY PO ; Start 04/29/21 at 09:00 Nitroglycerin (Nitrostat) 0.4 mg PRN Q5MIN PRN SL CHEST PAIN; Start 04/28/21 at 23:00 Pregabalin (Lyrica) 300 mg BID PO Last administered on 04/30/21at 08:55; Start 04/29/21 at 09:00 Atorvastatin Calcium (Lipitor) 80 mg QHS PO Last administered on 04/29/21at 20:56; Start 04/29/21 at 21:00 Ipratropium [place] (Atrovent) 0.5 mg RTQID NEB ; Start 04/29/21 at 12:00; Stop 04/29/21 at 15:45; Status DC Sodium Chloride (Normal Saline Flush) 3 ml QSHIFT PRN IV AFTER MEDS AND BLOOD DRAWS; Start 04/29/21 at 09:45 Sodium Chloride 1,000 ml @ 75 mls/hr [id number] IV ; Start 04/29/21 at 09:45 Ondansetron HCl (Zofran) 4 mg PRN Q4HRS PRN IV NAUSEA/VOMITING; Start 04/29/21 at 09:45 Al Hydroxide/Mg Hydroxide (Mylanta Plus Xs) 30 ml PRN DAILY PRN PO HEARTBURN / GAS; Start 04/29/21 at 09:45 Sodium Monofluorophosphate (Fleet Adult) 133 ml PRN DAILY PRN [place] CONSTIPATION; Start 04/29/21 at 09:45 Docusate Sodium (Colace) 100 mg PRN BID PRN PO HARD STOOLS; Start 04/29/21 at 09:45 Guaifenesin (Robitussin) 200 mg PRN Q4HRS PRN PO COUGH; Start 04/29/21 at 09:45 Enoxaparin Sodium (Lovenox 40mg Syringe) 40 mg Q24H SQ ; Start 04/29/21 at 09:45 Active Scripts Active Aspirin 81 Mg Tab.chew 1 Tab PO DAILY Reported Crestor (Rosuvastatin Calcium) 40 Mg Tablet 40 Mg PO HS Metoprolol Succinate ( Xl ) (Metoprolol Succinate) 25 Mg Tab.er.24h 12.5 Mg PO DAILY Spiriva (Tiotropium [place]) 18 Mcg Cap.w.dev 1 Cap IH DAILY NITROGLYCERIN SubLingual (Nitroglycerin) 0.4 Mg Tab.subl 0.4 Mg SL PRN Q5MIN PRN Lyrica (Pregabalin) 300 Mg Capsule 1 Cap PO BID Plavix (Clopidogrel Bisulfate) 75 Mg Tablet 75 Mg PO DAILY Vitals/I & O Vital Sign - Last 24 Hours 04/29/21 04/29/21 04/29/21 04/29/21 11:28 14:52 19:58 20:05 Temp 98.0 98.0 Pulse 91 99 85 Resp 17 B/P (MAP) 103/57 (72) 97/58 (71) 90/54 (66) Pulse Ox 98 99 96 O2 Delivery Room Air Room Air Room Air Room Air 04/29/21 04/30/21 04/30/21 04/30/21 23:31 02:30 07:00 07:40 Temp 97.8 98.0 97.3 97.8 98.0 97.3 Pulse 83 94 84 Resp 17 18 18 B/P (MAP) 99/52 (68) 95/67 (76) 106/64 (78) Pulse Ox 98 96 96 O2 Delivery Room Air Room Air Room Air Room Air 04/30/21 08:59 Pulse 84 B/P (MAP) 106/64 Intake and Output 04/29/21 04/29/21 04/30/21 15:00 23:00 07:00 Intake Total 240 ml 200 ml 420 ml Balance 240 ml 200 ml 420 ml Justicifation of Admission Dx: Justifications for Admission: Justification of Admission Dx: N/A Angina: Symp at Rest ELISSA SHINE MD Apr 30, 2021 11:17
[2021-04-30] MEDS: IV NORMAL SALINE 1000ML BAG 1,000 ML IV SCH (11:49)
[2021-04-30 15:00] VITALS: BP 122/58
[2021-04-30 19:31] VITALS: BP 106/67
[2021-04-30] MEDS: ATORVASTATIN CALCIUM 40 MG TABLET. PO SCH (21:01)
[2021-04-30 23:13] VITALS: BP 116/63
[2021-05-01 02:39] VITALS: BP 102/60
[2021-05-01 07:00] VITALS: BP 130/76
[2021-05-01] MEDS: CLOPIDOGREL BISULFATE 75 MG TABLET PO SCH (07:53)
[2021-05-01] MEDS: PREGABALIN 75 MG CAPSULE PO SCH ×2 (07:53→20:49)
[2021-05-01] MEDS: ASPIRIN CHEWABLE 81 MG TABLET. PO SCH (07:53)
[2021-05-01] MEDS: IV NORMAL SALINE 1000ML BAG 1,000 ML IV SCH (08:07)
[2021-05-01] MEDS: METOPROLOL SUCC 24HR ER 25 MG TAB.ER.24H. PO SCH (09:00)
[2021-05-01] MEDS: ENOXAPARIN 40 MG/0.4 ML SYRINGE. SQ SCH (09:45)
[2021-05-01 11:00] VITALS: BP 120/77
--- NOTE | 2021-05-01 13:12 | PDOC ---
[employer] PROGRESS NOTE Date of Service DOS: DATE: 05/01/21 TIME: 13:10 Chief Complaint Chief Complaint VTE Prophylaxis Ordered VTE Prophylaxis Devices: No VTE Pharmacological Prophylaxi: Yes Assessment/Plan Assessment/Plan IMPRESSION Chest pain: // angina. 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 HTN: controlled HLP: not on goal H/o substance abuse: meth use. with relapse Tobaccoism with likely COPD MEDICAL noncompliance, severe Normocytic anemia Moderate withdrawal from meth, very anxious PLAN ADMITTED INPATIENT CVC BED TREND TROPONIN Cardiology consult Justifications for Admission Justifications for Admission Other Justification ACS History of Present Illness History of Present Illness Identification/Chief Complaint Chief Complaint chest pain after injecting meth yesterday History of Present Illness History of Present Illness 60 year old male seen in ER for left-sided pounding chest pain that radiates to his neck and arm./ here numerous occasions in the past for chest pain after using methamphetamines. states he injected methamphetamine about 1 hour prior to arrival, chest pains are about 15 minutes after that. " he is on a binge that has been going for the past 2 days" he has significant cardiac history, has pacemaker/defibrillator present without any feelings of it firing.// history of numerous MIs, reports having x15 stents. He is on 81 mg of aspirin daily, Patient was evaluated and hemodynamically stable Past Medical History Past Medical History Past Medical History Past Medical History Past Medical History: Asthma, CAD, CHF, CVA, High Cholesterol, Hypertension, [place], Other Additional Past Medical Histor: VTACH,IV Drug abuse-Methamphetamine Past Surgical History: Angioplasty, Pacemaker, Other Additional Past Surgical Histo: 15 cardiac stents, multiple cardiac catheterizations,WITH DEFIB Smoking Status: Current Every Day Smoker Alcohol Use: Heavy Drug Use: Methamphetamine Cardiovascular: CAD, CHF, HTN, Hyperlipidemia, Other Pulmonary: Asthma CENTRAL NERVOUS SYSTEM: CVA GI: GERD Heme/Onc: No pertinent hx Hepatobiliary: No pertinent hx Psych: Anxiety Musculoskeletal: Osteoarthritis Rheumatologic: No pertinent hx Infectious disease: No pertinent hx Renal/: No pertinent hx Endocrine: No pertinent hx Past Surgical History Past Surgical History: Pacemaker, Other Family History Family History: Hypertension Social History Smoke: <1 pack per day ALCOHOL: occassional Drugs: Marijuana, Crystal meth Current Problem List Problem List Problems Medical Problems: (1) Chest pain Status: Acute (2) Substance abuse Status: Acute Current Medications Current Medications Current Medications Aspirin (Aspirin Chewable) 324 mg 1X ONCE PO Last administered on 04/28/21at 16:16; Start 04/28/21 at 16:00; Stop 04/28/21 at 16:01; Status DC Sodium Chloride 1,000 ml @ 1,000 mls/hr 1X ONCE IV Last administered on 04/28/21at 16:16; Start 04/28/21 at 16:00; Stop 04/28/21 at 16:59; Status DC Hydroxyzine HCl (Atarax) 25 mg 1X PRN PO ITCHING Last administered on 04/28/21at 17:14; Start 04/28/21 at 16:45 Iohexol (Omnipaque 350 Mg/ml) 90 ml 1X ONCE IV Last administered on 04/28/21at 18:14; Start 04/28/21 at 18:00; Stop 04/28/21 at 18:01; Status DC Info (CONTRAST GIVEN -- Rx MONITORING) 1 each PRN DAILY PRN MC SEE COMMENTS; Start 04/28/21 at 18:00; Stop 04/30/21 at 17:59 Aspirin (Aspirin Chewable) 81 mg DAILY PO ; Start 04/29/21 at 09:00 Clopidogrel Bisulfate (Plavix) 75 mg DAILY PO ; Start 04/29/21 at 09:00 Metoprolol Succinate (Toprol Xl) 12.5 mg DAILY PO ; Start 04/29/21 at 09:00 Nitroglycerin (Nitrostat) 0.4 mg PRN Q5MIN PRN SL CHEST PAIN; Start 04/28/21 at 23:00 Pregabalin (Lyrica) 300 mg BID PO ; Start 04/29/21 at 09:00 Atorvastatin Calcium (Lipitor) 80 mg QHS PO ; Start 04/29/21 at 21:00 Active Scripts Active Aspirin 81 Mg Tab.chew 1 Tab PO DAILY Reported Crestor (Rosuvastatin Calcium) 40 Mg Tablet 40 Mg PO HS Metoprolol Succinate ( Xl ) (Metoprolol Succinate) 25 Mg Tab.er.24h 12.5 Mg PO DAILY Spiriva (Tiotropium [place]) 18 Mcg Cap.w.dev 1 Cap IH DAILY NITROGLYCERIN SubLingual (Nitroglycerin) 0.4 Mg Tab.subl 0.4 Mg SL PRN Q5MIN PRN Lyrica (Pregabalin) 300 Mg Capsule 1 Cap PO BID Plavix (Clopidogrel Bisulfate) 75 Mg Tablet 75 Mg PO DAILY Allergies Allergies: Coded Allergies: acetaminophen (Verified Allergy, Intermediate, 08/04/20) albuterol (Verified Adverse Reaction, Intermediate, 11/18/19) Patient states "it speeds my heart up too much" ibuprofen (Verified Adverse Reaction, Intermediate, Nausea and Vomiting, 11/18/19) ROS General: YES: Fatigue, Malaise, Appetite; No: Chills, Night Sweats, Other PSYCHOLOGICAL ROS: YES: Anxiety, Depression; No: Behavioral Disorder, Concentration difficultie, Decreased libido, Disorientation, Hallucinations, Hostility, Irritablity, Memory difficulties, Mood Swings, Obsessive thoughts, Physical abuse, Sexual abuse, Sleep disturbances, Suicidal ideation, Other Eyes: No Blurry vision, No Decreased vision, No Double vision, No Dry eyes, No Excessive tearing, No Eye Pain, No Itchy Eyes, No Loss of vision, No Photophobia, No Scotomata, No Uses contacts, No Uses glasses, No Other HEENT: No: Heacaches, Visual Changes, Hearing change, Nasal congestion, Nasal discharge, Oral lesions, Sinus pain, Sore Throat, Epistaxis, Sneezing, Snoring, Tinnitus, Vertigo, Vocal changes, Other ALLERGY AND IMMUNOLOGY: YES: Hives; No: Insect Bite Sensitivity, Itchy/Watery Eyes, Nasal Congestion, Post Nasal Drip, Seasonal Allergies, Other Hematological and Lymphatic: No: Bleeding Problems, Blood Clots, Blood Transfusions, Brusing, Night Sweats, Pallor, Swollen Lymph Nodes, Other ENDOCRINE: No: Breast Changes, Galactorrhea, Hair Pattern Changes, Hot Flashes, Malaise/lethargy, Mood Swings, Palpitations, Polydipsia/polyuria, Skin Changes, Temperature Intolerance, Unexpected Weight Changes, Other Breast: No New/Changing Breast Lumps, No Nipple changes, No Nipple discharge, No Other Respiratory: No: Cough, Hemoptysis, Orthopnea, Pleuritic Pain, Shortness of breath, SOB with excertion, Sputum Changes, Stridor, Tachypnea, Wheezing, Other Cardiovascular: yes Chest Pain, yes Palpitations; No Orthopnea, No Paroxysmal Noc. Dyspnea, No Edema, No Lt Headedness, No Other Gastrointestinal: No Nausea, No Vomiting, No Abdominal Pain, No Diarrhea, No Constipation, No Melena, No Hematochezia, No Other Genitourinary: No Dysuria, No Frequency, No Incontinence, No Hematuria, No Retention, No Discharge, No Urgency, No Pain, No Flank Pain, No Other, No , No , No , No , No , No , No Musculoskeletal: No Gait Disturbance, No Joint Pain, No Joint Stiffness, No Joint Swelling, No Muscle Pain, No Muscular Weakness, No Pain In:, No Swelling In:, No Other Neurological: No Behavorial Changes, No Bowel/Bladder ControlChng, No Confusion, No Dizziness, No Gait Disturbance, No Headaches, No Impaired Coord/balance, No Memory Loss, No Numbness/Tingling, No Seizures, No Speech Problems, No Tremors, No Visual Changes, No Weakness, No Other Skin: Yes Dry Skin; No Eczema, No Hair Changes, No Lumps, No Mole Changes, No Mottling, No Nail Changes, No Pruritus, No Rash, No Skin Lesion Changes, No Other, No Acne 04-30 Chest pain: // angina. 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 HTN: controlled HLP: not on goal H/o substance abuse: meth use. 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 ADD po ativan 1 mg q 8 hrs prn Moderate withdrawal from meth, very anxious, has arraignment to go to [facility] for treatment 05-01 via [facility] 05/01/2021: Afebrile. States he has plans for discharge to rehab facility and [place], [place]. Discussed with patient and RN, will discharge tomorrow to outpatient rehab facility. Vitals/I&O Vitals/I&O: Vital Signs Date Time Temp Pulse Resp B/P (MAP) Pulse Ox O2 Delivery O2 Flow Rate FiO2 05/01/21 11:00 97.6 96 20 120/77 (91) 93 Room Air 97.6 I & O 0 04/30/21 04/30/21 05/01/21 15:00 23:00 07:00 Intake Total 580 ml 900 ml 0 ml Output Total 250 ml Balance 580 ml 650 ml 0 ml Physical Exam General: Alert, Oriented X3, Cooperative, mild distress Heart: Regular rate Lungs: Wheezing, Crackles Abdomen: Normal bowel sounds, Soft, No tenderness, No hepatosplenomegaly Extremities: No clubbing, No cyanosis, No edema Assessment and Plan Assessmemt and Plan Problems Medical Problems: (1) Chest pain Status: Acute (2) Substance abuse Status: Acute Comment Review of Relevant I have reviewed the following items kvng (where applicable) has been applied. Justifications for Admission Other Justification ACS ARABELLA PONCE MD May 01, 2021 13:12
[2021-05-01 15:00] VITALS: BP 129/78
[2021-05-01] MEDS: MORPHINE SULFATE 2 MG/ML INJ. IV PRN ×2 (18:51→21:56)
[2021-05-01 19:38] VITALS: BP 112/77
[2021-05-01] MEDS: ATORVASTATIN CALCIUM 40 MG TABLET. PO SCH (20:48)
[2021-05-01 22:44] VITALS: BP 127/75
[2021-05-02] MEDS: MORPHINE SULFATE 2 MG/ML INJ. IV PRN ×3 (01:04→12:05)
[2021-05-02 02:57] VITALS: BP 91/54
[2021-05-02 07:00] VITALS: BP 80/50
[2021-05-02] MEDS: ASPIRIN CHEWABLE 81 MG TABLET. PO SCH (07:57)
[2021-05-02] MEDS: PREGABALIN 75 MG CAPSULE PO SCH (07:57)
[2021-05-02] MEDS: CLOPIDOGREL BISULFATE 75 MG TABLET PO SCH (07:57)
[2021-05-02] MEDS: METOPROLOL SUCC 24HR ER 25 MG TAB.ER.24H. PO SCH (07:58)
[2021-05-02] MEDS: ENOXAPARIN 40 MG/0.4 ML SYRINGE. SQ SCH (07:58)
--- NOTE | 2021-05-02 08:10 | PDOC ---
[employer] PROGRESS NOTE Date of Service DOS: DATE: 05/02/21 TIME: 08:07 Chief Complaint Chief Complaint VTE Prophylaxis Ordered VTE Prophylaxis Devices: No VTE Pharmacological Prophylaxi: Yes Assessment/Plan Assessment/Plan IMPRESSION Chest pain: // angina. Trops nml, no acute EKG changes // troponin neg x 2 Chronic systolic CHF; clinically compensated ICM; s/p AICD (Medtronic) CAD; recent [facility] 07/2020, patent stents no intervenable lesions [employer] to nondominat RCA and OM Hx of VT: not on antiarrhythmic therapy. HTN: controlled HLP: not on goal H/o substance abuse: meth use. with relapse Tobaccoism with likely COPD MEDICAL noncompliance, severe Normocytic anemia Moderate withdrawal from meth, very anxious PLAN ADMITTED INPATIENT CVC BED TREND TROPONIN Cardiology consult Justifications for Admission Justifications for Admission Other Justification ACS History of Present Illness History of Present Illness 60 year old male seen in ER for left-sided pounding chest pain that radiates to his neck and arm./ here numerous occasions in the past for chest pain after using methamphetamines. states he injected methamphetamine about 1 hour prior to arrival, chest pains are about 15 minutes after that. " he is on a binge that has been going for the past 2 days" he has significant cardiac history, has pacemaker/defibrillator present without any feelings of it firing.// history of numerous MIs, reports having x15 stents. He is on 81 mg of aspirin daily, Patient was evaluated and hemodynamically stable 04-30 Chest pain: // angina. Trops nml, no acute EKG changes // troponin neg x 2 Chronic systolic CHF; clinically compensated ICM; s/p AICD (Medtronic) CAD; recent [facility] 07/2020, patent stents no intervenable lesions [employer] to nondominat RCA and OM Hx of VT: not on antiarrhythmic therapy. HTN: controlled HLP: not on goal H/o substance abuse: meth use. 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 ADD po ativan 1 mg q 8 hrs prn Moderate withdrawal from meth, very anxious, has arraignment to go to [facility] for treatment 05-01 via [facility] 05/01/2021: Afebrile. States he has plans for discharge to rehab facility and [place], [place]. Discussed with patient and RN, will discharge tomorrow to outpatient rehab facility. 05/02/2021: No acute events; afebrile. Plan to discharge to outpatient rehab facility in [place], [place]. >30 minutes was spent managing the discharge of this patient. Vitals/I&O Vitals/I&O: Vital Signs Date Time Temp Pulse Resp B/P (MAP) Pulse Ox O2 Delivery O2 Flow Rate FiO2 05/02/21 07:58 80/50 05/02/21 02:57 98.0 90 16 96 Room Air 98.0 I & O 05/01/21 05/01/21 05/02/21 15:00 23:00 07:00 Intake Total 380 ml 350 ml 0 ml Balance 380 ml 350 ml 0 ml Physical Exam General: Alert, Oriented X3, Cooperative, No acute distress Heart: Regular rate Lungs: Wheezing, Crackles Abdomen: Normal bowel sounds, Soft, No tenderness, No hepatosplenomegaly Extremities: No clubbing, No cyanosis, No edema Skin: No rashes, No breakdown Assessment and Plan Assessmemt and Plan Problems Medical Problems: (1) Chest pain Status: Acute (2) Substance abuse Status: Acute Comment Review of Relevant I have reviewed the following items kvng (where applicable) has been applied. Medications: Current Medications Medications (Trade) Dose Ordered Sig/Ani Route PRN Reason Start Time Stop Time Status Last Admin Dose Admin Morphine Sulfate (Morphine Sulfate) 1 mg PRN Q2HR PRN IV MODERATE TO SEVERE PAIN 05/01/21 18:30 05/02/21 07:58 Justifications for Admission Other Justification ACS ARABELLA PONCE MD May 02, 2021 08:09
[2021-05-02 11:00] VITALS: BP 123/63
--- NOTE | 2021-05-02 11:54 | PDOC3 ---
Discharge Summary Visit Information Date of Admission: Apr 29, 2021 Date of Discharge: May 02, 2021 Final Diagnosis Problems Medical Problems: (1) Chest pain Status: Acute (2) Substance abuse Status: Acute Brief Hospital Course Allergies Allergies Coded Allergies Type Severity Reaction Last Updated Verified acetaminophen Allergy Intermediate 08/04/20 Yes albuterol Adverse Reaction Intermediate 11/18/19 Yes ibuprofen Adverse Reaction Intermediate Nausea and Vomiting 11/18/19 Yes Vital Signs Vital Signs Date Time Temp Pulse Resp B/P (MAP) Pulse Ox O2 Delivery O2 Flow Rate FiO2 05/02/21 11:00 98.1 109 20 123/63 (83) 99 Room Air 98.1 Brief Hospital Course Mr. Hicks is a 60 old male who presented with chest pain after methamphetamine abuse. Consultation was placed to cardiology. EKG remained unchanged from prior, telemetry readings were unremarkable, and troponins have been negative. Plan to discharge to outpatient rehab facility in [place], [place] where he can receive drug counseling. Discharge Information Condition at Discharge: Stable Disposition/Orders: D/C to Home Scheduled Aspirin (Aspirin) 81 Mg Tab.chew, 1 TAB PO DAILY, #10 Prescribed by: KATHRYN HEBERT D.O. on 06/29/20 0607 Last Action: Continued on 04/28/212301 by JEAN-PIERRE VARGAS Clopidogrel Bisulfate (Plavix) 75 Mg Tablet, 75 MG PO DAILY for TO PREVENT BLOOD CLOTS, #30 Ref 0 (Reported) Entered as Reported by: Roseanne Ca on 02/11/152307 Last Action: Continued on 04/28/212301 by JEAN-PIERRE SPICASSI Metoprolol Succinate (Metoprolol Succinate ( Xl )) 25 Mg Tab.er.24h, 12.5 MG PO DAILY for FOR HYPERTENSION, #30 Ref 0 (Reported) Entered as Reported by: KANCHAN CANO RPH on 11/18/19 0814 Last Action: Continued on 04/28/212301 by JEAN-PIERRE JOSELUISESS Pregabalin (Lyrica) 300 Mg Capsule, 1 CAP PO BID, #60 Ref 2 (Reported) Entered as Reported by: TERESA NAPIER on 04/10/16 0412 Last Action: Converted on 04/28/212301 by JEAN-PIERRE SPIESS Rosuvastatin Calcium (Crestor) 40 Mg Tablet, 40 MG PO HS for FOR CHOLESTEROL, #30 Ref 0 (Reported) Entered as Reported by: DIVINA HAAS, RN on 06/03/201802 Last Action: Converted on 04/28/212301 by JEAN-PIERRE VARGAS Tiotropium [place] (Spiriva) 18 Mcg Cap.w.dev, 1 CAP IH DAILY, #30 Ref 3 (Reported) Entered as Reported by: TERESA NAPIER on 04/10/16411 Scheduled PRN Nitroglycerin (NITROGLYCERIN SubLingual) 0.4 Mg Tab.subl, 0.4 MG SL PRN Q5MIN PRN for CHEST PAIN, (Reported) Entered as Reported by: TERESA NAPIER on 04/10/16411 Last Action: Continued on 04/28/212301 by JEAN-PIERRE VARGAS Justicifation of Admission Dx: Justifications for Admission: Justification of Admission Dx: N/A Angina: Symp at Rest ARABELLA PONCE MD May 02, 2021 11:54
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
--- NOTE | 2021-05-02 14:05 | NUR ---
CAB PASS OBTAINED FOR [address] DAILY, [facility], [facility]. SPOKE TO CINTHYA AT [facility]. BOOKING NUMBER [phone].
--- NOTE | 2021-05-02 14:06 | NUR ---
Discharge Note: [facility] Discharge instructions and discharge home medications reviewed with Patient and a copy given. All questions have been answered and understanding verbalized. The following instructions and handouts were given: METHAMPHETAMINE USE, SUBSTANCE ABUSE, CP. PT SAID, "DON'T EVEN BOTHER READING THAT TO ME". WHEN I SAID I NEEDED TO EDUCATE HIM, HE SAID, "DON'T EVEN GO THERE". Discontinued lines and drains: Peripheral IV intact. Patient discharged to Home or Self Care with Self via [facility]
== END 2021-05-02 14:25 | disposition home or self-care (01) | DRG 918 ==
LOC: ER 15:35 → ED HOLD 19:26 → 2 SOUTH 21:59 → OBSVTOIN 04-29 20:09
PROVIDERS: ADMIT Internal Medicine; ATTEND Internal Medicine
DX: T43.621A Poisoning by amphetamines, accidental (unintentional), initial encounter (principal); I50.22 Chronic systolic (congestive) heart failure; F11.13 Opioid abuse with withdrawal; R07.89 Other chest pain; I25.119 Atherosclerotic heart disease of native coronary artery with unspecified angina pectoris; D64.9 Anemia, unspecified; E78.00 Pure hypercholesterolemia, unspecified; E78.5 Hyperlipidemia, unspecified; F15.10 Other stimulant abuse, uncomplicated; F17.210 Nicotine dependence, cigarettes, uncomplicated; I11.0 Hypertensive heart disease with heart failure; J44.9 Chronic obstructive pulmonary disease, unspecified; Z79.02 Long term (current) use of antithrombotics/antiplatelets; Z79.82 Long term (current) use of aspirin; Z82.49 Family history of ischemic heart disease and other diseases of the circulatory system; Z86.73 Personal history of transient ischemic attack (TIA), and cerebral infarction without residual deficits; Z91.19 Patient's noncompliance with other medical treatment and regimen; Z95.5 Presence of coronary angioplasty implant and graft; Z95.810 Presence of automatic (implantable) cardiac defibrillator; F19.10 Other psychoactive substance abuse, uncomplicated; F41.9 Anxiety disorder, unspecified; K21.9 Gastro-esophageal reflux disease without esophagitis; M19.90 Unspecified osteoarthritis, unspecified site; Z79.899 Other long term (current) drug therapy; Z88.8 Allergy status to other drugs, medicaments and biological substances; I25.2 Old myocardial infarction
CPT/HCPCS: 36415; 71046; 71275; 80053; 82550; 83605; 83735; 83880; 84484; 85025; 85379; 93005; 96360; G0378; G0379; J2270; J7030; Q9967; 99285-25

== ENCOUNTER 2021-05-16 22:44 | Emergency (ER) | payer MEDICAID ==
[~2021-05-16] VITALS: Ht 170.2 cm; Wt 65.0 kg
[2021-05-16 23:19] LABS: BASO % 1 % (0-3); EOS % 1 % (0-3); HEMATOCRIT 33.7 % (39.0-53.0); HEMOGLOBIN 11.4 g/dL (13.0-17.5); LYMPH # 0.2 x10^3/uL (1.0-4.8); LYMPH % 4 % (24-48); MEAN CORPUSCULAR HEMOGLOBIN 30 pg (25-35); MEAN CORPUSCULAR HGB CONC 34 g/dL (31-37); MEAN CORPUSCULAR VOLUME 90 fL (79-100); MONO # 0.1 x10^3/uL (0.0-1.1); MONO % 2 % (0-9); NEUT # 4.6 x10^3/uL (1.8-7.7); NEUT % 93 % (31-73); PLATELET COUNT 281 x10^3/uL (140-400); RED BLOOD COUNT 3.75 x10^6/uL (4.30-5.70); RED CELL DISTRIBUTION WIDTH 16.1 % (11.5-14.5)
--- NOTE | 2021-05-16 23:33 | PHYS DOC ---
Past Medical History Past Medical History: Asthma, CAD, CHF, CVA, High Cholesterol, Hypertension, [place], Other Additional Past Medical Histor: 5 [place] and 15 stents Past Surgical History: Other Additional Past Surgical Histo: PM 2019 Smoking Status: Current Every Day Smoker Alcohol Use: Heavy Drug Use: Methamphetamine General Adult EDM: Chief Complaint: CHEST PAIN HPI: HPI: Patient is a 60 year old male past medical history hypertension hyperlipidemia coronary artery disease presents with a chief complaint of chest pain. Patient states chest pain started approximately 45 minutes prior to arrival. Patient's pain located center of her chest with radiation to the jaw and left arm. Patient pain is described as a pressure it comes and goes and fluctuates in intensity from a 7 to a 9. Patient states he has associated nausea and shortness of breath. Patient states he took his aspirin this a.m. Patient took nitroglycerin with minimal relief. Review of Systems: Review of Systems: Review of systems: Constitutional symptoms- No fever, no chills. Eyes- No Discharge, No Visual Loss Respiratory symptoms- Positive shortness of breath, No wheezing, No Dyspnea on Exertion Cardiovascular Systems; Positive chest pain, No Palpitations, No syncope Gastrointestinal symptoms: NO abdominal pain, Positive nausea, no vomiting or diarrhea. Genitourinary symptoms: No dysuria. Musculoskeletal symptoms: No back pain No extremity pain. NEUROLOGICAL Symptoms: No headache, no generalized weakness; No focal Weakness Skin: No rash. Heart Score: C/O Chest Pain: Yes HEART Score for Chest Pain: HEART Score for Chest Pain Response (Comments) Value History Slighlty/Non-Suspicious 0 ECG Nonspecific Repolarizatio 1 Age >45 - < 65 1 Risk Factors >3 Risk Factors or Hx CAD 2 Troponin < Normal Limit 0 Total 4 Risk Factors: Risk Factors: DM, Current or recent (<one month) smoker, HTN, HLP, family history of CAD, obesity. Risk Scores: Score 0 - 3: 2.5% MACE over next 6 weeks - Discharge Home Score 4 - 6: 20.3% MACE over next 6 weeks - Admit for Clinical Observation Score 7 - 10: 72.7% MACE over next 6 weeks - Early Invasive Strategies Allergies: Allergies: Allergies Coded Allergies Type Severity Reaction Last Updated Verified acetaminophen Allergy Intermediate 08/04/20 Yes albuterol Adverse Reaction Intermediate 11/18/19 Yes ibuprofen Adverse Reaction Intermediate Nausea and Vomiting 11/18/19 Yes Physical Exam: PE: General: alert, no acute distress. Skin: warm, dry and intact. HENT: bilateral external ears normal, oropharynx moist, nose normal. Head:: Normocephalic, atraumatic. Neck: Trachea midline. Eyes: EOMI, Normal conjunctiva, No drainage CARDIOVASCULAR: Tachycardic RESPIRATORY: No respiratory distress Back: Full range of motion. Skin: Warm, dry, no erythema, no rash. MUSCULOSKELETAL: Full range of motion of bilateral upper and lower extremities. GASTROINTESTINAL: Abdomen soft without rebound or guarding. NEUROLOGICAL: Alert and noted to person, place and time. No neurological deficits observed Psychiatric: Cooperative. Normal judgment Current Patient Data: Labs: Laboratory Tests Test 05/16/21 23:05 White Blood Count 5.0 x10^3/uL (4.0-11.0) Red Blood Count 3.75 x10^6/uL (4.30-5.70) L Hemoglobin 11.4 g/dL (13.0-17.5) L Hematocrit 33.7 % (39.0-53.0) L Mean Corpuscular Volume 90 fL (79-100) Mean Corpuscular Hemoglobin 30 pg (25-35) Mean Corpuscular Hemoglobin Concent 34 g/dL (31-37) Red Cell Distribution Width 16.1 % (11.5-14.5) H Platelet Count 281 x10^3/uL (140-400) Neutrophils (%) (Auto) 93 % (31-73) H Lymphocytes (%) (Auto) 4 % (24-48) L Monocytes (%) (Auto) 2 % (0-9) Eosinophils (%) (Auto) 1 % (0-3) Basophils (%) (Auto) 1 % (0-3) Neutrophils # (Auto) 4.6 x10^3/uL (1.8-7.7) Lymphocytes # (Auto) 0.2 x10^3/uL (1.0-4.8) L Monocytes # (Auto) 0.1 x10^3/uL (0.0-1.1) Eosinophils # (Auto) 0.0 x10^3/uL (0.0-0.7) Basophils # (Auto) 0.0 x10^3/uL (0.0-0.2) Platelet Estimate Pending Laboratory Tests 05/16/21 23:05 Vital Signs: Vital Signs Date Time Temp Pulse Resp B/P (MAP) Pulse Ox O2 Delivery O2 Flow Rate FiO2 05/16/21 22:57 95 22 106/63 (77) 97 Room Air 05/16/21 22:50 98.1 98.1 EKG: EKG: [] Performed at 2252 Rate [address] Sinus tachy[address] PVCs No ST depression No acute [place] Radiology/Procedures: Radiology/Procedures: [] Course & Med Decision Making: Course & Med Decision Making Pertinent Labs and Imaging studies reviewed. (See chart for details) [] Patient was evaluated for chief complaint. Work-up up consisted of laboratory analysis radiologic imaging and EKG. Results reviewed and discussed with patient. Lab troponin x2 within normal limits chest x-ray abnormalities. EKG compared to previous no acute changes. Patient received morphine for pain. Patient's chest pain improved prior to discharge. Patient past medical records reviewed. [place] the patient was stable for discharged. Patient discharged home with instruction to follow-up with primary care physician. Sendy Disclaimer: Sendy Disclaimer: This electronic medical record was generated, in whole or in part, using a voice recognition dictation system. Departure Departure Impression: Primary Impression: Chest pain Disposition: HOME / SELF CARE / HOMELESS Condition: STABLE Referrals: NO PCP (PCP) Patient Instructions: Chest Pain (Nonspecific) MIKE OGLESBY DO May 16, 2021 23:33
--- NOTE | 2021-05-16 23:34 | EKG ---
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
[2021-05-16 23:43] LABS: % EOS 1 % (0-5); % LYMPHS 6 % (24-48); % MONOS 1 % (0-10); % SEGS 92 % (35-66); PLT ESTIMATE ADEQUATE (ADEQUATE)
[2021-05-16] MEDS ORDERED: MORPHINE SULFATE 2 MG/ML INJ. IVP ONE (23:45)
--- NOTE | 2021-05-16 23:47 | RAD ---
XR CHEST 1V INDICATION: chest pain . COMPARISON STUDY: 04/28/2021. FINDINGS: Patient is rotated. Left pectoral ICD/pacemaker. Lungs: Normal lung volume. No pulmonary mass or consolidation. The tracheobronchial tree and hilar st ructures are normal. Pleura: No pleural effusion or pneumothorax. Heart and Mediastinum: Stable cardiomediastinal silhouette and great vessels. IMPRESSION: No focal airspace disease. Electronically signed by: Александр Benavides MD (05/16/2021 11:44 PM) [facility]
[2021-05-17 00:24] LABS: CALCIUM 8.6 mg/dL (8.5-10.1); CREATININE 1.1 mg/dL (0.7-1.3); GFR 68.1; POTASSIUM 4.2 mmol/L (3.5-5.1)
[2021-05-17 00:29] LABS: ALBUMIN 3.2 g/dL (3.4-5.0); TOTAL BILIRUBIN 0.3 mg/dL (0.2-1.0); TOTAL PROTEIN 6.5 g/dL (6.4-8.2)
[2021-05-17 03:56] VITALS: BP 124/66
== END 2021-05-17 04:46 | disposition home or self-care (01) ==
LOC: ER 22:44
DX: R07.89 Other chest pain (principal); R06.02 Shortness of breath; R11.0 Nausea; E78.00 Pure hypercholesterolemia, unspecified; I11.0 Hypertensive heart disease with heart failure; I50.9 Heart failure, unspecified; J45.909 Unspecified asthma, uncomplicated; I25.10 Atherosclerotic heart disease of native coronary artery without angina pectoris; I25.2 Old myocardial infarction; F17.200 Nicotine dependence, unspecified, uncomplicated; Z86.73 Personal history of transient ischemic attack (TIA), and cerebral infarction without residual deficits; Z95.5 Presence of coronary angioplasty implant and graft; F10.20 Alcohol dependence, uncomplicated; Y90.9 Presence of alcohol in blood, level not specified; Z88.6 Allergy status to analgesic agent; Z88.8 Allergy status to other drugs, medicaments and biological substances
CPT/HCPCS: 36415; 71045; 80053; 83880; 84484; 85007; 85025; 93005; 96374; 99285; J2270

== ENCOUNTER 2021-06-11 05:16 | Emergency (ER) | payer MEDICAID ==
[~2021-06-11] VITALS: Ht 170.2 cm; Wt 68.2 kg
--- NOTE | 2021-06-11 05:21 | PHYS DOC ---
Past Medical History Past Medical History: Asthma, CAD, CHF, CVA, High Cholesterol, Hypertension, [place], Other Additional Past Medical Histor: 5 [place] and 15 stents (MIKE ROACH DO) Past Surgical History: Other Additional Past Surgical Histo: PM 2019 (MIKE ROACH DO) Smoking Status: Current Every Day Smoker Alcohol Use: Heavy Drug Use: Methamphetamine (MIKE ROACH DO) General Adult HPI: HPI: Patient is a 60 year [id number] male past medical history of coronary artery disease status post multiple stents presents with a chief complaint of chest pain. Patient states chest pain started approximately 45 minutes prior to arrival. Patient pain woke him up from his sleep. Patient describes pain as a pressure in his left chest that radiates to his left shoulder and left jaw. Patient has associated shortness of breath he denies any nausea or vomiting. Home treatment included aspirin and nitroglycerin x3 with no improvement. Patient lives at the [facility]. States he was at a friends house over night. Pain woke him up from is sleep. Past charts reviewed-- Patient hear monthly since February. History of drug abuse-- states he has been clean for weeks. (MIKE ROACH DO) Review of Systems: Review of Systems: Review of systems: Constitutional symptoms- No fever, no chills. Eyes- No Discharge, No Visual Loss Respiratory symptoms- Positive shortness of breath, No wheezing, No Dyspnea on Exertion Cardiovascular Systems; Positive chest pain, No Palpitations, No syncope Gastrointestinal symptoms: NO abdominal pain, no nausea, no vomiting or diarrhea. Genitourinary symptoms: No dysuria. Musculoskeletal symptoms: No back pain No extremity pain. NEUROLOGICAL Symptoms: No headache, no generalized weakness; No focal Weakness Skin: No rash. (MIKE ROACH DO) Heart Score: C/O Chest Pain: Yes HEART Score for Chest Pain: HEART Score for Chest Pain Response (Comments) Value History Slighlty/Non-Suspicious 0 ECG Nonspecific Repolarizatio 1 Age >45 - < 65 1 Risk Factors >3 Risk Factors or Hx CAD 2 Total 4 Risk Factors: Risk Factors: DM, Current or recent (<one month) smoker, HTN, HLP, family history of CAD, obesity. Risk Scores: Score 0 - 3: 2.5% MACE over next 6 weeks - Discharge Home Score 4 - 6: 20.3% MACE over next 6 weeks - Admit for Clinical Observation Score 7 - 10: 72.7% MACE over next 6 weeks - Early Invasive Strategies (MIKE ROACH DO) Allergies: Allergies: Allergies Coded Allergies Type Severity Reaction Last Updated Verified acetaminophen Allergy Intermediate 08/04/20 Yes albuterol Adverse Reaction Intermediate 11/18/19 Yes ibuprofen Adverse Reaction Intermediate Nausea and Vomiting 11/18/19 Yes (MIKE ROACH DO) Physical Exam: PE: Constitutional: Well developed, well nourished, no acute distress, non-toxic appearance. [] HENT: Normocephalic, atraumatic, bilateral external ears normal, oropharynx moist, no oral exudates, nose normal. [] Eyes: PERRLA, EOMI, conjunctiva normal, no discharge. [] Neck: Normal range of motion, no tenderness, supple, no stridor. [] Cardiovascular:Heart rate regular rhythm, no murmur [] Lungs & Thorax: Bilateral breath sounds clear to auscultation [] Abdomen: Bowel sounds normal, soft, no tenderness, no masses, no pulsatile masses. [] Skin: Warm, dry, no erythema, no rash. [] Back: No tenderness, no CVA tenderness. [] Extremities: No tenderness, no cyanosis, no clubbing, ROM intact, no edema. [] Neurologic: Alert and oriented X 3, normal motor function, normal sensory function, no focal deficits noted. [] Psychologic: Affect normal, judgement normal, mood normal. [] (MIKE ROACH DO) EKG: EKG: [] Performed at 0519 Rate [address] elevation No ST depression No acute IA No acute change when compared to previous EKG performed on 04/28/2021 (MENDEL,MIKE Santoyo DO) Radiology/Procedures: Radiology/Procedures: [] Impression: AP chest x-ray HISTORY: Chest pain. COMPARISON: Chest x-ray May 16, 2021 FINDINGS: 3-lead implanted cardiac device. Coronary stents. Cardiomegaly is stable. No pneumothorax, pulmonary opacities or pleural effusions. Bones are unremarkable. IMPRESSION: No acute process. Mild cardiomegaly is stable. Electronically signed by: Zackery Moffett MD (06/11/2021 5:50 AM) [facility] (MENDEL,MIKE Santoyo DO) Course & Med Decision Making: Course & Med Decision Making Pertinent Labs and Imaging studies reviewed. (See chart for details) [] Patient was evaluated for chief complaint. Work-up consisted of laboratory analysis radiologic imaging and EKG. EKG reviewed very similar to previous EKG 04/28/2021--no acute IA Patient took aspirin prior to arrival. Toradol ordered for pain. Lab work all pending patient signed out to oncoming provider. (MIKE ROACH DO) Course & Med Decision Making I received this patient from Dr. Roach in signout. Briefly, patient is a 60-year-old male with a history of coronary artery disease with several recent admissions for chest discomfort which have resulted with negative work-ups. His EKG is unchanged from previous. First troponin was negative at the time of signout. Plan was for a second troponin, and discharge home if negative. During his stay he has exhibited drug seeking behavior, requesting narcotic pain medications repeatedly and becoming very angry when he did not have an IV placed initially. Second troponin, approximately 6 hours after onset of chest pain is negative. I have assessed the patient and agree with plan for discharge in light of his several recent admissions with negative work ups, and no evidence NSTEMI presently. (LEANA FREITAS MD) Dragon Disclaimer: Dragon Disclaimer: This electronic medical record was generated, in whole or in part, using a voice recognition dictation system. (MIKE ROACH DO) Departure Departure Impression: Primary Impression: Chest pain Disposition: HOME / SELF CARE / HOMELESS Condition: STABLE Referrals: NO PCP (PCP) Additional Instructions: There was no sign of new damage being done to your heart. We did not find any causes for your chest pain today. Please follow up with your outpatient team. If you develop new symptoms such as shortness of breath, fever, chills please return for re-evaluation. MIKE ROACH DO Jun 11, 2021 05:21 LEANA FREITAS MD Jun 11, 2021 10:46
--- NOTE | 2021-06-11 05:37 | EKG ---
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
[2021-06-11 05:46] LABS: BASO % 0 % (0-3); EOS # 0.3 x10^3/uL (0.0-0.7); EOS % 9 % (0-3); HEMATOCRIT 32.9 % (39.0-53.0); HEMOGLOBIN 11.1 g/dL (13.0-17.5); LYMPH # 1.1 x10^3/uL (1.0-4.8); LYMPH % 27 % (24-48); MEAN CORPUSCULAR HEMOGLOBIN 30 pg (25-35); MEAN CORPUSCULAR HGB CONC 34 g/dL (31-37); MEAN CORPUSCULAR VOLUME 89 fL (79-100); MONO # 0.5 x10^3/uL (0.0-1.1); MONO % 13 % (0-9); NEUT % 51 % (31-73); PLATELET COUNT 256 x10^3/uL (140-400); RED CELL DISTRIBUTION WIDTH 14.8 % (11.5-14.5); WHITE BLOOD COUNT 3.9 x10^3/uL (4.0-11.0)
--- NOTE | 2021-06-11 05:53 | RAD ---
AP chest x-ray HISTORY: Chest pain. COMPARISON: Chest x-ray May 16, 2021 FINDINGS: 3-lead implanted cardiac device. Coronary stents. Cardiomegaly is stable. No pneumothorax, pulmonary opacities or pleural effusions. Bones are unremarkable. IMPRESSION: No acute process. Mild cardiomegaly is stable. Electronically signed by: Zackery Moffett MD (06/11/2021 5:50 AM) [facility]
[2021-06-11] MEDS ORDERED: NITROGLYCERIN PREMIX 250 ML IV ONE (06:00)
[2021-06-11] MEDS ORDERED: KETOROLAC 30 MG/ML VIAL. IVP ONE (06:00)
[2021-06-11] MEDS ORDERED: KETOROLAC 30 MG/ML VIAL. IM ONE (06:00)
[2021-06-11] MEDS ORDERED: MORPHINE SULFATE 4 MG/ML INJ. IVP ONE (06:00)
[2021-06-11 06:01] LABS: CALCIUM 8.6 mg/dL (8.5-10.1)
[2021-06-11 06:10] LABS: ALBUMIN 3.3 g/dL (3.4-5.0); TOTAL BILIRUBIN 0.2 mg/dL (0.2-1.0); TOTAL PROTEIN 6.7 g/dL (6.4-8.2)
[2021-06-11 10:23] LABS: PROTHROMBIN TIME PATIENT 13.3 SEC (11.7-14.0)
[2021-06-11 11:12] VITALS: BP 114/74
== END 2021-06-11 11:37 | disposition home or self-care (01) ==
LOC: ER 05:16
DX: R07.89 Other chest pain (principal); R06.02 Shortness of breath; M25.512 Pain in left shoulder; R68.84 Jaw pain; I11.0 Hypertensive heart disease with heart failure; I50.9 Heart failure, unspecified; J45.909 Unspecified asthma, uncomplicated; I25.2 Old myocardial infarction; E78.00 Pure hypercholesterolemia, unspecified; I25.10 Atherosclerotic heart disease of native coronary artery without angina pectoris; Z86.73 Personal history of transient ischemic attack (TIA), and cerebral infarction without residual deficits; F17.200 Nicotine dependence, unspecified, uncomplicated; Z88.6 Allergy status to analgesic agent; Z88.8 Allergy status to other drugs, medicaments and biological substances; F10.20 Alcohol dependence, uncomplicated; Y90.9 Presence of alcohol in blood, level not specified; Z95.5 Presence of coronary angioplasty implant and graft
CPT/HCPCS: 36415; 71045; 80053; 83880; 84484; 85025; 85610; 85730; 93005; 96372; 99285; J1885